=== PATIENT | male | born 1990 | race Caucasian/White ===

== ENCOUNTER 2016-12-13 17:37 | Emergency (ER) | payer OTHER ==
[~2016-12-13] VITALS: Ht 188 cm; Wt 142.9 kg
[~2016-12-13 17:37] MED LIST: CZR25 PO; PRLSR20 PO; PROP10TA7 PO; RANITAB33 PO; SUMA6KIT IM; ZLF/50 PO
[2016-12-13 17:40] VITALS: TEMP 37.2; Ht 188 cm; Wt 142.9 kg
[2016-12-13] MEDS ORDERED: MoRPHine SULFATE 10 MG/ML CARP/VIAL IV STA ×2 (18:01→18:03)
[2016-12-13] MEDS ORDERED: ONDANSETRON INJ 2 MG/ML 2 ML VIAL IV STA ×2 (18:01→20:45)
[2016-12-13] MEDS ORDERED: SODIUM CHLORIDE 0.9% 1000ML 1,000 ML IV STA (18:01)
[2016-12-13] MEDS: ONDANSETRON INJ 2 MG/ML 2 ML VIAL IV STA ×2 (18:03→18:33)
[2016-12-13] MEDS ORDERED: OPTIRAY 320 IV PRN (18:15)
[2016-12-13] MEDS ORDERED: SODIUM CHLORIDE 0.9% 1000ML 1,000 ML IV ONE ×2 (18:15→20:45)
[2016-12-13 18:31] LABS: BASO % 0.5 %; BASO ABS # 0.03 K/uL (0-0.2); COMPLETE YES; EOS % 3.3 %; HEMATOCRIT 41.6 % (42-52); IG% 0.2 %; LYMPH % 40.1 %; LYMPH ABS # 2.41 K/uL (1.2-3.4); MEAN CELL VOLUME 83.2 fL (80-100); MEAN CORPUSCULAR HEMOGLOBIN 29.6 pg (25-34); MEAN CORPUSCULAR HGB CONC 35.6 g/dl (32-36); MEAN PLATELET VOLUME 11.4 fL (7.4-10.4); MONO % 11.5 %; NEUT % 44.4 %; PLATELET COUNT 216 K/uL (130-400); WHITE BLOOD COUNT 6.01 K/uL (4.8-10.8)
[2016-12-13 19:07] LABS: ALB/GLOB RATIO 1.1 (0.9-2); ALKALINE PHOSPHATASE 94 U/L (45-117); ALT/SGPT 32 U/L (12-78); BLOOD UREA NITROGEN 10 mg/dl (7-18); BUN/CREATININE RATIO 11.4 (10-20); CALCIUM 8.9 mg/dl (8.5-10.1); CARBON DIOXIDE 21 mmol/L (21-32); CHLORIDE 108 mmol/L (98-107); CREATININE 0.84 mg/dl (0.60-1.40); GLUCOSE 105 mg/dl (70-99)
[2016-12-13 19:20] LABS: POTASSIUM 3.9 mmol/L (3.5-5.1); SODIUM 143 mmol/L (136-145)
[2016-12-13 19:25] LABS: AST/SGOT 16 U/L (15-37)
--- NOTE | 2016-12-13 20:45 | DIAGNOSTIC IMAGING REPORT ---
CT SCAN OF THE ABDOMEN AND PELVIS WITH IV CONTRAST CLINICAL HISTORY: Right lower quadrant abdominal pain. COMPARISON STUDY: Abdominal CT dated 06/26/2014. TECHNIQUE: Following the IV administration of 116 cc of Optiray 320, CT scan of the abdomen and pelvis is performed from the lung bases to the proximal femora. Images are reviewed in the axial, sagittal, and coronal planes. IV contrast was administered without complication. Automated dose control exposure was utilized. CT DOSE: 1859.17 mGy.cm FINDINGS: Lung bases: The heart is normal in size and without pericardial effusion. A 3 mm left lower lobe pulmonary nodule is seen on image #17. This is of doubtful significance in this age group. The lung bases are otherwise clear noting dependent atelectasis. There is a tiny hiatal hernia. Liver: The contrast-enhanced liver is enlarged, measuring 19.6 cm in length. The liver is otherwise normal in contour and attenuation. There is minimal central intrahepatic biliary ductal dilatation. The hepatic veins and portal veins are patent. Gallbladder: Surgically absent noting clips in the gallbladder fossa. Spleen: The spleen is enlarged, measuring 14.5 cm in length. Pancreas: Unremarkable. Adrenal glands: Unremarkable. Kidneys: The contrast enhanced kidneys are normal in size and without hydronephrosis. The kidneys enhance symmetrically. Abdominal vasculature: The abdominal aorta is normal in course and caliber. Bowel: The small bowel and colon are normal in course and caliber. The appendix is well-visualized and normal. Peritoneum: There is no intraperitoneal free air or abdominal ascites. There is a small fat-containing umbilical hernia. Lymphadenopathy: None. Pelvic viscera: The bladder, prostate, and seminal vesicles are normal as visualized. Skeletal structures: No lytic or blastic lesions are seen. A disc herniation is suspected at L4-L5. IMPRESSION: 1. There are no acute infectious or inflammatory findings in abdomen or pelvis. 2. Hepatosplenomegaly. 3. A disc herniation is suspected at L4-L5. Electronically signed by: Hima Maciel M.D. 12/13/2016 8:44 PM Dictated Date/Time: 12/13/2016 8:37 PM
[2016-12-13] MEDS ORDERED: ACETAMINOPHEN 500 MG TAB PO STA (21:39)
[2016-12-13 21:43] VITALS: BP 126/70
[2016-12-13 22:09] LABS: URINE APPEARANCE CLEAR (CLEAR); URINE BILIRUBIN NEG (NEG); URINE COLOR YELLOW; URINE NITRITE NEG (NEG); URINE SPECIFIC GRAVITY > 1.045 (1.000-1.030); UROBILINOGEN NEG (NEG); ZZUR CULT IF INDIC CLEAN CATCH NO
[2016-12-13 22:11] LABS: BENZODIAZEPINE, URINE NEG (NEG); COCAINE,URINE NEG (NEG); PHENCYCLIDINE, URINE NEG (NEG)
[2016-12-13 22:16] LABS: MANUAL MICROSCOPIC REQUIRED? NO; REVIEW REQ? NO
[2016-12-13 22:27] VITALS: PULSE 75; O2SAT 95
[2016-12-13] MEDS ORDERED: NORCO 5/325MG HOME PACK PO ONE (22:30)
[2016-12-13] MEDS ORDERED: ONDANSETRON HOME PACK 4MG OD TAB PO ONE (22:30)
--- NOTE | 2016-12-13 22:44 | EMERGENCY ROOM VISIT NOTE ---
History First contact with patient: 18:02 Chief Complaint: ABDOMINAL PAIN Stated Complaint: R SIDE PAIN Nursing Triage Summary: Patient ambulatory to triage, states "I had a really sharp pain in my right lower stomach and hip area this morning. It went away. I got bloated and developed achy pain. I am getting really bad pains behind my belly button and into my right lower side." Patient reports constipation for today; decreased appetite; nausea. History of Present Illness The patient is a 26 year old male who presents to the Emergency Room with complaints of right lower quadrant abdominal pain that began this morning when he got up from sleep. The patient states the pain has been intermittent and worsens when he presses in the area. The patient states that he ate lunch today and it made him feel bloated. He has been nauseated without vomiting. He has had some diarrhea, which is normal ever since he had his gallbladder removed. He rates his discomfort a 6/10. He has not had fever or chills at home. Review of Systems More than 10 systems were reviewed and otherwise negative with the exception of history of present illness. Past Medical/Surgical History Medical Problems: (1) Asthma (2) Chest pain (3) Hypertension (4) Hypertension Surgical Problems: (1) Hx of cholecystectomy Family History Cancer Diabetes mellitus Gallbladder disease Heart disease Hypertension Kidney disease Kidney stones Social History Smoking Status: Never Smoker Alcohol Use: occasionally Drug Use: none Marital Status: single Housing Status: lives with family Occupation Status: employed Current/Historical Medications Scheduled Losartan Potassium (Losartan Potassium), 25 MG PO DAILY Omeprazole (Prilosec), 20 MG PO DAILY Propranolol (Inderal), 10 MG PO QAM Sertraline HCl (Sertraline HCl), 50 MG PO DAILY Scheduled PRN Sumatriptan Succinate (Imitrex Statdose), 6 MG IM UD PRN for Migraine Allergies Coded Allergies: Ketorolac Tromethamine (Verified Allergy, Intermediate, RASH, NAUSEA, ) Amoxicillin (Verified Allergy, Mild, RASH, 12/13/16) Penicillins (Verified Allergy, Mild, AMOXICILLIN = RASH, 12/13/16) Hydrochlorothiazide (Unverified Allergy, Unknown, RASH, THROAT SWELLS, 12/13) Physical Exam Vital Signs Date Time Temp Pulse Resp B/P Pulse Ox O2 Delivery O2 Flow Rate FiO2 12/13/16 22:27 75 95 Room Air 12/13/16 21:43 62 18 126/70 95 Room Air 12/13/16 19:25 73 19 130/88 97 Room Air 12/13/16 17:40 37.2 73 18 158/99 97 Room Air Pain Rating (0-10): 2.0 Physical Exam VITALS: Vitals are noted on the nurse's note and reviewed by myself. Vital signs stable. GENERAL: Well-developed, well-nourished, white male, who is in no acute distress and resting comfortably. Patient is cooperative with the examination. HEAD: Normocephalic atraumatic. NECK: Supple without nuchal rigidity. No lymphadenopathy. No thyromegaly. Cervical spine is nontender. HEART: Regular rate and rhythm without murmurs gallops or rubs. LUNGS: Clear to auscultation bilaterally without wheezes, rales or rhonchi. No retractions or accessory muscle use. ABDOMEN: Positive normal bowel sounds x 4. Soft with mild right lower quadrant tenderness on palpation. No rebound or guarding. No CVA tenderness. MUSCULOSKELETAL: No muscle atrophy, erythema, or edema noted. Full range of motion without joint tenderness in all extremities. Medical Decision & Procedures ER Provider Diagnostic Interpretation: CT SCAN OF THE ABDOMEN AND PELVIS WITH IV CONTRAST CLINICAL HISTORY: Right lower quadrant abdominal pain. COMPARISON STUDY: Abdominal CT dated 06/26/2014. TECHNIQUE: Following the IV administration of 116 cc of Optiray 320, CT scan of the abdomen and pelvis is performed from the lung bases to the proximal femora. Images are reviewed in the axial, sagittal, and coronal planes. IV contrast was administered without complication. Automated dose control exposure was utilized. CT DOSE: 1859.17 mGy.cm FINDINGS: Lung bases: The heart is normal in size and without pericardial effusion. A 3 mm left lower lobe pulmonary nodule is seen on image #17. This is of doubtful significance in this age group. The lung bases are otherwise clear noting dependent atelectasis. There is a tiny hiatal hernia. Liver: The contrast-enhanced liver is enlarged, measuring 19.6 cm in length. The liver is otherwise normal in contour and attenuation. There is minimal central intrahepatic biliary ductal dilatation. The hepatic veins and portal veins are patent. Gallbladder: Surgically absent noting clips in the gallbladder fossa. Spleen: The spleen is enlarged, measuring 14.5 cm in length. Pancreas: Unremarkable. Adrenal glands: Unremarkable. Kidneys: The contrast enhanced kidneys are normal in size and without hydronephrosis. The kidneys enhance symmetrically. Abdominal vasculature: The abdominal aorta is normal in course and caliber. Bowel: The small bowel and colon are normal in course and caliber. The appendix is well-visualized and normal. Peritoneum: There is no intraperitoneal free air or abdominal ascites. There is a small fat-containing umbilical hernia. Lymphadenopathy: None. Pelvic viscera: The bladder, prostate, and seminal vesicles are normal as visualized. Skeletal structures: No lytic or blastic lesions are seen. A disc herniation is suspected at L4-L5. IMPRESSION: 1. There are no acute infectious or inflammatory findings in abdomen or pelvis. 2. Hepatosplenomegaly. 3. A disc herniation is suspected at L4-L5. Laboratory Results 12/13/16 18:22 Red Blood Count 5.00, Mean Corpuscular Volume 83.2, Mean Corpuscular Hemoglobin 29.6, Mean Corpuscular Hemoglobin Concent 35.6, Mean Platelet Volume 11.4, Neutrophils (%) (Auto) 44.4, Lymphocytes (%) (Auto) 40.1, Monocytes (%) (Auto) 11.5, Eosinophils (%) (Auto) 3.3, Basophils (%) (Auto) 0.5, Neutrophils # (Auto ) 2.67, Lymphocytes # (Auto) 2.41, Monocytes # (Auto) 0.69, Eosinophils # (Auto ) 0.20, Basophils # (Auto) 0.03 12/13/16 18:22 Test 12/13/16 18:22 12/13/16 21:30 White Blood Count 6.01 K/uL (4.8-10.8) Red Blood Count 5.00 M/uL (4.7-6.1) Hemoglobin 14.8 g/dL (14.0-18.0) Hematocrit 41.6 % (42-52) Mean Corpuscular Volume 83.2 fL (80-100) Mean Corpuscular Hemoglobin 29.6 pg (25-34) Mean Corpuscular Hemoglobin Concent 35.6 g/dl (32-36) Platelet Count 216 K/uL (130-400) Mean Platelet Volume 11.4 fL (7.4-10.4) Neutrophils (%) (Auto) 44.4 % Lymphocytes (%) (Auto) 40.1 % Monocytes (%) (Auto) 11.5 % Eosinophils (%) (Auto) 3.3 % Basophils (%) (Auto) 0.5 % Neutrophils # (Auto) 2.67 K/uL (1.4-6.5) Lymphocytes # (Auto) 2.41 K/uL (1.2-3.4) Monocytes # (Auto) 0.69 K/uL (0.11-0.59) Eosinophils # (Auto) 0.20 K/uL (0-0.5) Basophils # (Auto) 0.03 K/uL (0-0.2) RDW Standard Deviation 38.4 fL (36.4-46.3) RDW Coefficient of Variation 12.8 % (11.5-14.5) Immature Granulocyte % (Auto) 0.2 % Immature Granulocyte # (Auto) 0.01 K/uL (0.00-0.02) Anion Gap 14.0 mmol/L (3-11) Est Creatinine Clear Calc Drug Dose 202.5 ml/min Estimated GFR () 141.0 Estimated GFR (Non- 121.7 BUN/Creatinine Ratio 11.4 (10-20) Calcium Level 8.9 mg/dl (8.5-10.1) Total Bilirubin 0.4 mg/dl (0.2-1) Direct Bilirubin < 0.1 mg/dl (0-0.2) Aspartate Amino Transf (AST/SGOT) 16 U/L (15-37) Alanine Aminotransferase (ALT/SGPT) 32 U/L (12-78) Alkaline Phosphatase 94 U/L (45-117) Total Protein 7.4 gm/dl (6.4-8.2) Albumin 3.8 gm/dl (3.4-5.0) Globulin 3.6 gm/dl (2.5-4.0) Albumin/Globulin Ratio 1.1 (0.9-2) Lipase 217 U/L (73-393) Urine Color YELLOW Urine Appearance CLEAR (CLEAR) Urine pH 5.0 (4.5-7.5) Urine Specific [place] > 1.045 (1.000-1.030) Urine Protein NEG (NEG) Urine Glucose (UA) NEG (NEG) Urine Ketones NEG (NEG) Urine Occult Blood NEG (NEG) Urine Nitrite NEG (NEG) Urine Bilirubin NEG (NEG) Urine Urobilinogen NEG (NEG) Urine Leukocyte Esterase NEG (NEG) Urine Opiates Screen POS (NEG) Urine Methadone, Qualitative NEG (NEG) Urine Barbiturates NEG (NEG) Urine Phencyclidine (PCP) Level NEG (NEG) Ur Amphetamine/Methamphetamine NEG (NEG) MDMA (Ecstasy) Screen NEG (NEG) Urine Benzodiazepines Screen NEG (NEG) Urine Cocaine Metabolite NEG (NEG) Urine Marijuana (THC) NEG (NEG) Medications Administered Medications (Trade) Dose Ordered Sig/[place] Route Start Time Stop Time Status Last Admin Dose Admin Ondansetron HCl 4 mg 4 mg NOW STAT IV 12/13/16 18:03 12/13/16 18:04 DC 12/13/16 18:33 4 MG Sodium Chloride (Nss 1000ml) 1,000 ml @ 999 mls/hr Q1H1M STAT IV 12/13/16 18:01 12/13/16 19:01 DC 12/13/16 18:32 999 MLS/HR Morphine Sulfate (MoRPHine SULFATE INJ) 6 mg NOW STAT IV 12/13/16 18:01 12/13/16 18:05 DC 12/13/16 18:33 6 MG Ondansetron HCl 4 mg 4 mg NOW STAT IV 12/13/16 20:45 12/13/16 20:46 DC 12/13/16 20:49 4 MG Sodium Chloride (Nss 1000ml) 1,000 ml @ 999 mls/hr Q1H1M ONCE IV 12/13/16 20:45 12/13/16 21:45 DC 12/13/16 20:50 999 MLS/HR Acetaminophen (Tylenol Tab) 1,000 mg NOW STAT PO 12/13/16 21:39 12/13/16 21:40 DC 12/13/16 21:44 1,000 MG Acetaminophen/ Hydrocodone Bitart ([place] 5/325mg Home Pack) 1 homepack UD ONCE PO 12/13/16 22:30 12/13/16 22:31 DC 12/13/16 22:25 1 HOMEPACK Ondansetron HCl (ZOFRAN ODT 4MG Home Pack) 1 homepack UD ONCE PO 12/13/16 22:30 12/13/16 22:31 DC 12/13/16 22:24 1 HOMEPACK ED Course Physical exam and history were performed. Nursing notes and EMR were reviewed. Patient appears to have right lower quadrant abdominal pain for the past one day. He does have some right lower quadrant tenderness on palpation. IV access was established and labs were obtained. The patient was hydrated with normal saline. He was given IV morphine and IV Zofran for comfort. Because of his symptoms and exam CT scan was felt to be warranted. The patient's blood work is as above and was reviewed. He does not have a significantly elevated white blood cell count, anemia, bandemia, or gross electrolyte imbalance. Lipase and transaminases are nondiagnostic. CT scan does not show acute surgical process. Urine is without evidence of infection. Overall the patient had improvement of his symptoms after hydration, pain medication, and antiemetics. I suspect that his symptoms may be the result of a viral infection or possibly foodborne illness. I will give him a home pack of Vicodin and Zofran for his symptoms. The patient was asked to follow with his PCP this week for further care and management. He is otherwise invited back to the ER with any new, worsening, or concerning symptoms. The chart was completed utilizing [employer] Speech Voice Recognition Software. Grammatical errors, random word insertions, pronoun errors, and incomplete sentences are an occasional consequence of this system due to software limitations, ambient noise, and hardware issues. Any formal questions or concerns about the content, text, or information contained within the body of this dictation should be directly addressed to the provider for clarification. . Medical Decision Differential diagnosis: Etiologies such as appendicitis, diverticulitis, PUD, biliary pathology, UTI, pancreatitis, obstruction, mesenteric ischemia, aortic pathology, infections, inflammatory bowel disease, renal colic, as well as others were entertained. Impression Primary Impression: Abdominal pain Departure Information Dispostion Home / Self-Care Condition GOOD Forms HOME CARE DOCUMENTATION FORM, IMPORTANT VISIT INFORMATION Patient Instructions My [facility] Additional Instructions You were seen and evaluated today on an emergency basis only. This is not a substitute for, or an effort to provide, complete comprehensive medical care. It is not possible to recognize and treat all injuries or illnesses in a single emergency department visit. For this reason it is recommended that you followup with your primary care physician in the next 1-2 days for recheck of your condition. For baseline pain relief you may alternate ibuprofen and acetaminophen every 4 hours for pain control. Take 600 mg ibuprofen (Advil) and then 4 hours later take 1000 mg acetaminophen (Tylenol). Do not take more than 3000 mg acetaminophen in a single day. [place]mann (hydrocodone/acetaminophen) 5/325 mg (homepack) every 6 hours as needed for worsening breakthrough pain. Do not drink or drive on [place]. This medication will likely make you tired. Do not take [place] and Tylenol at the same time as both contain acetaminophen. Itmann may cause constipation. You may wish to take an [id number] stool softener like Colace if this occurs. Zofran 1 tablet every 6 hrs as needed for nausea. You are welcome to return to the emergency department anytime with new, worsening, or concerning symptoms.
[2016-12-16 12:15] LABS: COD UR NEGATIVE NG/ML (CUTOFF=50); HYDROCOD UR NEGATIVE NG/ML (CUTOFF=50); HYDROMOR UR NEGATIVE NG/ML (CUTOFF=50); MORPHINE UR 1950 NG/ML (CUTOFF=50); NORHYDROCODONE CONF UR NEGATIVE NG/ML (CUTOFF=50); OXYMORPH UR NEGATIVE NG/ML (CUTOFF=50)
== END 2016-12-13 22:28 | disposition home or self-care (01) ==
LOC: C.EDB 17:38
DX: R10.31 Right lower quadrant pain (principal); I10 Essential (primary) hypertension; J45.909 Unspecified asthma, uncomplicated; R11.0 Nausea; Z79.899 Other long term (current) drug therapy

== ENCOUNTER 2017-09-22 18:55 | Emergency (ER) | payer OTHER ==
[~2017-09-22] VITALS: Ht 188 cm; Wt 146.9 kg
[~2017-09-22 18:55] MED LIST changes: -PROP10TA7 PO; -RANITAB33 PO
[2017-09-22 19:01] VITALS: TEMP 37.1; Ht 188 cm; Wt 146.9 kg
--- NOTE | 2017-09-22 19:23 | EMERGENCY ROOM VISIT NOTE ---
History Report prepared by Molina: Wesley Ivey Under the Supervision of: Dr. David Mejia M.D. First contact with patient: 19:06 Chief Complaint: NAUSEA Stated Complaint: VERTIGO,NAUSEATED,ABD PAIN History of Present Illness The patient is a 27 year old male who presents to the Emergency Room with complaints of intermittent diarrhea beginning a few days ago. The patient states he experienced a head sickness a few weeks ago with a sorethroat. He reports his sickness has resolved, and now his throat only hurts when he swallows. The patient notes he was not on antibiotics for his sickness, and he has developed diarrhea. He states for the past few days he has been experiencing 10-15 episodes of yellow diarrhea daily. The patient reports he will occasionally get cramps in his abdomen. He notes two night ago he was dizzy , nauseated, and he vomited after dinner. The patient denies a history of smoking. Source of History: patient Onset: few days ago Position: other (global) Quality: other (10-15 episode of yellow diarrhea daily) Timing: intermittent Associated Symptoms: + nausea, + vomiting (after dinner two days ago) Note: Associated symptoms: abdominal cramping, sorethroat when swallowing, dizziness Denies: history of smoking Review of Systems See HPI for pertinent positives & negatives. A total of 10 systems reviewed and were otherwise negative. Past Medical & Surgical Medical Problems: (1) Asthma (2) Chest pain (3) Hypertension (4) Hypertension Surgical Problems: (1) Hx of cholecystectomy Family History Cancer Diabetes mellitus Gallbladder disease Heart disease Hypertension Kidney disease Kidney stones Social History Smoking Status: Never Smoker Alcohol Use: occasionally Drug Use: none Marital Status: single Housing Status: lives with family Occupation Status: employed Current/Historical Medications Scheduled Losartan Potassium (Losartan Potassium), 25 MG PO DAILY Omeprazole (Prilosec), 20 MG PO DAILY Ondasetron Odt (Zofran Odt), 4 MG SL Q6H Propranolol (Inderal), 10 MG PO QAM Sertraline HCl (Sertraline HCl), 100 MG PO DAILY Allergies Coded Allergies: Ketorolac Tromethamine (Verified Allergy, Intermediate, RASH, NAUSEA, ) Amoxicillin (Verified Allergy, Mild, RASH, 12/13/16) Penicillins (Verified Allergy, Mild, AMOXICILLIN = RASH, 12/13/16) Hydrochlorothiazide (Unverified Allergy, Unknown, RASH, THROAT SWELLS, 12/13) Physical Exam Vital Signs Date Time Temp Pulse Resp B/P (MAP) Pulse Ox O2 Delivery O2 Flow Rate FiO2 09/22/17 20:53 66 15 146/78 98 09/22/17 19:01 37.1 76 16 135/88 96 Room Air Physical Exam GENERAL: Patient is a healthy-appearing well-nourished 27 year old male. HEAD: Normocephalic atraumatic EYES: Ocular movements intact pupils equal and react to light OROPHARYNX mucous membranes are moist no exudates present no erythema or edema present NECK: Supple no nuchal rigidity CHEST: Good equal expansion LUNGS: Clear and equal to auscultation CARDIAC: Normal S1 and S2 ABDOMEN: Soft, no guarding, mild tenderness to the RUQ BACK: No CVA tenderness EXTREMITIES: No pain upon palpation normal muscle strength in all groups no clubbing cyanosis or edema NEURO: Patient is following commands and answering questions appropriately. Alert and oriented x3 Cranial Nerves 2-12 grossly intact Medical Decision & Procedures ER Provider Diagnostic Interpretation: Radiology results as stated below per my review and radiologist interpretation: ABDOMEN AND PELVIS CT WITH IV CONTRAST CT DOSE: 2140.83 mGy.cm HISTORY: Left lower quadrant abdominal pain. TECHNIQUE: Multiaxial CT images of the abdomen and pelvis were performed following the use of intravenous contrast. A dose lowering technique was utilized adhering to the principles of ALARA. COMPARISON STUDY: Abdomen and pelvis CT 12/13/2016. FINDINGS: Stable 2 mm nodule within the left lower lobe. The right lung base is clear. No pneumoperitoneum. No pneumatosis. No fractures within the visualized osseous structures. The liver, pancreas, adrenal glands, and kidneys are unremarkable. No hydronephrosis. No retroperitoneal lymphadenopathy. Cholecystectomy. The spleen remains enlarged measuring 14 cm in length. The bladder is unremarkable. No pelvic free fluid. Questionable thickening of the descending colon is likely due to underdistention. There is no pericolonic fat stranding at this time to suggest an acute process. This is similar to the prior study. No evidence for bowel obstruction. Normal appendix. IMPRESSION: 1. No significant change compared to the prior study. 2. No bowel wall thickening or obstruction. 3. Stable mild splenomegaly. Electronically signed by: Stevie Zheng M.D. 09/22/2017 8:09 PM Dictated Date/Time: 09/22/2017 8:00 PM Laboratory Results 09/22/17 19:25 Red Blood Count 5.02, Mean Corpuscular Volume 86.5, Mean Corpuscular Hemoglobin 30.1, Mean Corpuscular Hemoglobin Concent 34.8, Mean Platelet Volume 11.4, Neutrophils (%) (Auto) 52.8, Lymphocytes (%) (Auto) 32.5, Monocytes (%) (Auto) 12.3, Eosinophils (%) (Auto) 1.8, Basophils (%) (Auto) 0.4, Neutrophils # (Auto ) 2.88, Lymphocytes # (Auto) 1.77, Monocytes # (Auto) 0.67, Eosinophils # (Auto ) 0.10, Basophils # (Auto) 0.02 09/22/17 19:25 Test 09/22/17 19:25 09/22/17 19:35 09/22/17 19:41 White Blood Count 5.45 K/uL (4.8-10.8) Red Blood Count 5.02 M/uL (4.7-6.1) Hemoglobin 15.1 g/dL (14.0-18.0) Hematocrit 43.4 % (42-52) Mean Corpuscular Volume 86.5 fL (80-100) Mean Corpuscular Hemoglobin 30.1 pg (25-34) Mean Corpuscular Hemoglobin Concent 34.8 g/dl (32-36) Platelet Count 221 K/uL (130-400) Mean Platelet Volume 11.4 fL (7.4-10.4) Neutrophils (%) (Auto) 52.8 % Lymphocytes (%) (Auto) 32.5 % Monocytes (%) (Auto) 12.3 % Eosinophils (%) (Auto) 1.8 % Basophils (%) (Auto) 0.4 % Neutrophils # (Auto) 2.88 K/uL (1.4-6.5) Lymphocytes # (Auto) 1.77 K/uL (1.2-3.4) Monocytes # (Auto) 0.67 K/uL (0.11-0.59) Eosinophils # (Auto) 0.10 K/uL (0-0.5) Basophils # (Auto) 0.02 K/uL (0-0.2) RDW Standard Deviation 40.7 fL (36.4-46.3) RDW Coefficient of Variation 12.9 % (11.5-14.5) Immature Granulocyte % (Auto) 0.2 % Immature Granulocyte # (Auto) 0.01 K/uL (0.00-0.02) Est Creatinine Clear Calc Drug Dose 192.3 ml/min Estimated GFR () 136.8 Estimated GFR (Non- 118.0 BUN/Creatinine Ratio 11.8 (10-20) Calcium Level 8.3 mg/dl (8.5-10.1) Total Bilirubin 0.4 mg/dl (0.2-1) Direct Bilirubin < 0.1 mg/dl (0-0.2) Aspartate Amino Transf (AST/SGOT) 20 U/L (15-37) Alanine Aminotransferase (ALT/SGPT) 30 U/L (12-78) Alkaline Phosphatase 126 U/L (45-117) Total Protein 7.6 gm/dl (6.4-8.2) Albumin 3.9 gm/dl (3.4-5.0) Lipase 209 U/L (73-393) Monoscreen NEG (NEG) Bedside Hemoglobin 14.3 g/dl (14.0-18.0) Bedside Hematocrit 42 % (42-52) Bedside Sodium 143 mEq/L (135-144) Bedside Potassium 3.5 mEq/L (3.3-5.0) Bedside Chloride 107 mEq/L (101-112) Bedside Total CO2 24 mEq/l (24-31) Anion Gap 16.0 mmol/L (16-25) Bedside Blood Urea Nitrogen 10 mg/dl (7-18) Bedside Creatinine 0.8 mg/dl (0.6-1.3) Bedside Glucose (other) 91 mg/dl (70-99) Bedside Ionized Calcium ([place]) 1.21 mmol/l (1.12-1.32) Date/Time Source Procedure Growth Status 09/22/17 19:41 Stool C.difficile Toxin B Gene (PCR) - Final No C. difficile toxin B gene detected Complete Labs reviewed by ED physician. Medications Administered Medications (Trade) Dose Ordered Sig/Nolvia Route Start Time Stop Time Status Last Admin Dose Admin Ondansetron HCl (Zofran Inj) 4 mg NOW STAT IV 09/22/17 19:53 09/22/17 19:55 DC 09/22/17 20:00 4 MG Potassium Chloride (Lamar Ciel Elix) 40 meq NOW STAT PO 09/22/17 20:01 09/22/17 20:02 DC 09/22/17 20:18 40 MEQ Cholestyramine Resin (Questran Powder Light) 4 gm NOW STAT PO 09/22/17 20:14 09/22/17 20:16 DC 09/22/17 20:42 4 GM Ondansetron HCl (ZOFRAN ODT 4MG Home Pack) 1 homepack UD STAT PO 09/22/17 20:23 09/22/17 20:25 DC 09/22/17 20:42 1 HOMEPACK ED Course 190: Past medical records reviewed. The patient was evaluated in room B08. A complete history and physical examination was performed. 1952: Ordered Ondansetron HCl 4mg IV 2000: Ordered Potassium Chloride 40meq PO 2013: Ordered Cholestyramine Resin 4gm PO 2022: Ordered Ondansetron HCl 1 homepack PO 2030: Upon reexamination the patient is resting and feeling better. I discussed results and treatment plan with the patient. He verbalizes agreement and understanding. The patient is ready for discharge. Medical Decision Differential diagnosis: Etiologies such as appendicitis, diverticulitis, PUD, biliary pathology, UTI, pancreatitis, obstruction, mesenteric ischemia, aortic pathology, infections, inflammatory bowel disease, renal colic, as well as others were entertained. This is a 27-year-old male who presents emergency department complaining of left lower quadrant abdominal pain as well as diarrhea that has been ongoing for the past several weeks. The patient was given cholestyramine in the emergency department and his potassium was repleted. His CAT scan does not show any evidence of acute process. The patient was given Zofran. Repeat examination revealed improvement the patient's symptoms. The patient has normal CBC renal profile liver profile as well as normal lipase. Serial abdominal examinations were performed on the patient in the emergency department and at no time did the patient exhibited a surgical abdomen. In addition the patient wasn't provide a stool sample. He is negative for C. difficile and it was sent for further culture. I stressed the need for follow- up with patient's primary care physician especially if this is not resolving. Impression Primary Impression: Gastroenteritis Scribe Attestation The scribe's documentation has been prepared under my direction and personally reviewed by me in its entirety. I confirm that the note above accurately reflects all work, treatment, procedures, and medical decision making performed by me. Departure Information Dispostion Home / Self-Care Prescriptions Ondasetron Odt (ZOFRAN ODT) 4 Mg Tab 4 MG SL Q6H for Nausea, #6 TAB Prov: David Mejia MD 09/22/17 Referrals Amor Kapadia M.D. (PCP) Forms HOME CARE DOCUMENTATION FORM, IMPORTANT VISIT INFORMATION Patient Instructions ED Diet Vomiting Diarrhea, ED Gastroenteritis Report Pend, My [facility] Additional Instructions You have been examined and treated today on an emergency basis only. This is not a substitute for, or an effort to provide, complete comprehensive medical care. It is impossible to recognize and treat all injuries or illnesses in a single emergency department visit. It is therefore important that you follow up closely with Dr Kapadia. Call as soon as possible for an appointment. Thank you for your time and consideration. I look forward to speaking with you again soon. Please don't hesitate to call us if you have any questions.
[2017-09-22] MEDS ORDERED: ZLF/100 PO (19:28)
[2017-09-22] MEDS ORDERED: OMEP20CA9 PO (19:28)
[2017-09-22] MEDS ORDERED: OPTIRAY 320 IV PRN (19:30)
[2017-09-22] MEDS ORDERED: PROP10TA7 PO (19:38)
[2017-09-22 19:44] LABS: BASO % 0.4 %; BASO ABS # 0.02 K/uL (0-0.2); COMPLETE YES; EOS % 1.8 %; HEMATOCRIT 43.4 % (42-52); IG% 0.2 %; LYMPH % 32.5 %; LYMPH ABS # 1.77 K/uL (1.2-3.4); MEAN CELL VOLUME 86.5 fL (80-100); MEAN CORPUSCULAR HEMOGLOBIN 30.1 pg (25-34); MEAN CORPUSCULAR HGB CONC 34.8 g/dl (32-36); MEAN PLATELET VOLUME 11.4 fL (7.4-10.4); MONO % 12.3 %; NEUT % 52.8 %; PLATELET COUNT 221 K/uL (130-400); RED BLOOD COUNT 5.02 M/uL (4.7-6.1); WHITE BLOOD COUNT 5.45 K/uL (4.8-10.8)
[2017-09-22 19:47] LABS: ISTAT CREATININE 0.8 mg/dl (0.6-1.3); ISTAT HEMOGLOBIN 14.3 g/dl (14.0-18.0); ISTAT IONIZED CALCIUM 1.21 mmol/l (1.12-1.32)
[2017-09-22] MEDS ORDERED: ONDANSETRON INJ 2 MG/ML 2 ML VIAL IV STA (19:53)
[2017-09-22 19:56] LABS: ALT/SGPT 30 U/L (12-78); BLOOD UREA NITROGEN 11 mg/dl (7-18); BUN/CREATININE RATIO 11.8 (10-20); CALCIUM 8.3 mg/dl (8.5-10.1); CARBON DIOXIDE 25 mmol/L (21-32); CHLORIDE 109 mmol/L (98-107); CREATININE 0.89 mg/dl (0.60-1.40); GLUCOSE 87 mg/dl (70-99); POTASSIUM 3.4 mmol/L (3.5-5.1); SODIUM 139 mmol/L (136-145)
[2017-09-22 19:59] LABS: ALKALINE PHOSPHATASE 126 U/L (45-117); AST/SGOT 20 U/L (15-37)
[2017-09-22] MEDS ORDERED: POTASSIUM CHLORIDE 20 MEQ/15 ML UDC PO STA (20:01)
--- NOTE | 2017-09-22 20:10 | DIAGNOSTIC IMAGING REPORT ---
ABDOMEN AND PELVIS CT WITH IV CONTRAST CT DOSE: 2140.83 mGy.cm HISTORY: Left lower quadrant abdominal pain. TECHNIQUE: Multiaxial CT images of the abdomen and pelvis were performed following the use of intravenous contrast. A dose lowering technique was utilized adhering to the principles of ALARA. COMPARISON STUDY: Abdomen and pelvis CT 12/13/2016. FINDINGS: Stable 2 mm nodule within the left lower lobe. The right lung base is clear. No pneumoperitoneum. No pneumatosis. No fractures within the visualized osseous structures. The liver, pancreas, adrenal glands, and kidneys are unremarkable. No hydronephrosis. No retroperitoneal lymphadenopathy. Cholecystectomy. The spleen remains enlarged measuring 14 cm in length. The bladder is unremarkable. No pelvic free fluid. Questionable thickening of the descending colon is likely due to underdistention. There is no pericolonic fat stranding at this time to suggest an acute process. This is similar to the prior study. No evidence for bowel obstruction. Normal appendix. IMPRESSION: 1. No significant change compared to the prior study. 2. No bowel wall thickening or obstruction. 3. Stable mild splenomegaly. Electronically signed by: Stevie Zheng M.D. 09/22/2017 8:09 PM Dictated Date/Time: 09/22/2017 8:00 PM
[2017-09-22] MEDS ORDERED: CHOLESTYRAMINE LIGHT 4 GM PKT PO STA (20:14)
[2017-09-22] MEDS ORDERED: ONDA4TAB10 SL (20:23)
[2017-09-22] MEDS ORDERED: ONDANSETRON HOME PACK 4MG OD TAB PO STA (20:23)
[2017-09-22 20:53] VITALS: BP 146/78; PULSE 66; O2SAT 98
== END 2017-09-22 20:55 | disposition home or self-care (01) ==
LOC: C.EDB 18:56
DX: K52.9 Noninfective gastroenteritis and colitis, unspecified (principal); J45.909 Unspecified asthma, uncomplicated; I10 Essential (primary) hypertension; Z90.49 Acquired absence of other specified parts of digestive tract; Z83.3 Family history of diabetes mellitus; Z82.49 Family history of ischemic heart disease and other diseases of the circulatory system; Z84.1 Family history of disorders of kidney and ureter; Z79.899 Other long term (current) drug therapy

== ENCOUNTER 2020-06-25 18:46 | Inpatient (IN) ==
--- NOTE | 2020-06-25 19:45 | Emergency Department Note ---
Impression & Plan Depression with suicidal ideation ED Provider Note NAME: CHANDRA AMAYA AGE: 29 SEX: M ARRIVES VIA: Walk-In INFORMANT: Patient, ED PROVIDER(S): Smooth Hernandez MD CHIEF COMPLAINT: Suicidal ideation PLAN: Disposition: Admit MEDICAL DECISION MAKING: The patient is a 29-year-old gentleman who presents emergency department accompanied by his uncle with symptoms of worsening depression and now with suicidal ideation with plan to hang himself in the setting of having increasing conflict was with his surrounding his recent infidelity he was seen by an outpatient counselor and reports he was diagnosed with bipolar disorder. The patient reports his symptoms became severe today and he is agreeable with voluntary admission. He reports he has 2 children at home that are ages 2 and 4 years old. He denies any recent illness. On arrival the patient is melancholy appearing in no acute distress, afebrile with elevated blood pressure and otherwise stable vital signs. He endorses SI with plan for hanging. He denies any auditory hallucinations. Exam is otherwise unremarkable. WBC, H/H and platelets within normal limits. Chemistry without acidosis. Electrolytes and LFTs unremarkable. UA without evidence of infection. Drug screen positive for benzodiazepines. The patient was medically cleared. Of note the patient did have improvement in his blood pressure to normal range after receiving a nicotine patch given he does chew tobacco. Voluntary psychiatric admission pending. Referral made to and pending. Patient signed out to Dr. Santiago at change of shift. Triage Nursing notes reviewed and agree them. Prior medical records reviewed Vital Signs: reviewed and remarkable for no significant abnormalities Differential diagnosis: Mood disorder, infection, hypoglycemia, electrolyte abnormalities, cardiac sources, intracerebral event, toxicologic, trauma, neurologic, as well as other pathologies. ER treatment provided: See below. Laboratory studies: See below HPI: The patient is a 29-year-old gentleman who presents emergency department accompanied by his uncle with symptoms of worsening depression and now with suicidal ideation with plan to hang himself in the setting of having increasing conflict was with his surrounding his recent infidelity he was seen by an outpatient counselor and reports he was diagnosed with bipolar disorder. The patient reports his symptoms became severe today and he is agreeable with v oluntary admission. He reports he has 2 children at home that are ages 2 and 4 years old. He denies any recent illness. ROS: See above HPI for pertinent positives & negatives. A total of 10 systems reviewed and were otherwise negative. PAST MEDICAL HISTORY:See Below PAST SURGICAL HISTORY:See Below FAMILY HISTORY:See Below SOCIAL HISTORY:See Below HOME MEDICATIONS:See Below ALLERGIES:See Below VITALS:See Below PHYSICAL EXAMINATION: GENERAL: Awake, alert, well-appearing, in no distress HENT: Normocephalic, atraumatic. Oropharynx unremarkable. EYES: Normal conjunctiva. Sclera non-icteric. NECK: Supple. No nuchal rigidity. FROM. No JVD. RESPIRATORY: Clear to auscultation. CARDIAC: Regular rate, normal rhythm. Extremities warm and well perfused. Pulses equal. ABDOMEN: Soft, non-distended. No tenderness to palpation. No rebound or guarding . No masses. RECTAL: Deferred. MUSCULOSKELETAL: Chest examination reveals no tenderness. The back is symmetrical on inspection without obvious abnormality. There is no CVA tenderness to palpation. No joint edema. LOWER EXTREMITIES: Calves are equal size bilaterally and non-tender. No edema. No discoloration. NEURO: Normal sensorium. No sensory or motor deficits noted. SKIN: No rash or jaundice noted. PSYCH: Endorses suicidal ideation with plan for hanging. Denies auditory hallucinations. Reports depression. Smooth Hernandez MD Past Med/Surg History Medical History Chest pain Hypertension Low back pain Surgical History Hx of cholecystectomy Family History Other No significant family history Social History Smoking Status: Heavy tobacco smoker Tobacco Type: Smokeless Tobacco (Dip or Chew) Preferred Language: Cymro Communication Ability: Effective Light Rail Operator Required: No Beliefs That Will Affect Care: None Feels Safe at Home: Yes Allergies Allergies Allergy/AdvReac Type Severity Reaction Status Date / Time ketorolac Allergy Intermediate RASH, Verified 06/25/20 19:05 NAUSEA amoxicillin Allergy Mild RASH Verified 06/25/20 19:05 Penicillins Allergy Mild AMOXICILLIN Verified 06/25/20 19:05 = RASH hydrochlorothiazide Allergy Unknown RASH, Verified 06/25/20 19:05 THROAT SWELLS Home Meds Home Medications Medication Instructions Recorded Confirmed cyclobenzaprine 10 mg PO TID PRN 07/30/18 06/25/20 gabapentin 300 mg PO TID PRN 07/30/18 06/25/20 losartan 25 mg PO DAILY 07/30/18 06/25/20 omeprazole 20 mg PO DAILY 07/30/18 06/25/20 propranolol 10 mg PO DAILY 07/30/18 06/25/20 sertraline 100 mg PO DAILY 07/30/18 06/25/20 lorazepam 0.5 mg PO BID PRN 06/25/20 06/25/20 Results & Data (ED) Vital Signs Vital Signs - 24 hr 06/25/20 18:51 06/25/20 20:46 06/25/20 22:30 Temperature 36.9 C Temperature Source Oral Pulse Rate 72 Pulse Rate [Right Finger] 88 82 Respiratory Rate 20 21 18 Respiratory Effort / Characteristics Non-Labored Non-Labored Spontaneous Respiratory Depth Normal Normal Respiratory Pattern Regular Blood Pressure 196/116 H Blood Pressure [Right Arm] 187/109 H 127/86 Blood Pressure Mean 142 Blood Pressure Mean [Right Arm] 135 99 Blood Pressure Position [Right Arm] Lying Lying Pulse Oximetry 96 98 97 Oxygen Delivery Method Room Air Room Air Room Air Sepsis Recent Fever Within 48 Hours No Sepsis New/Unexplained Change in Mental Status N/A Sepsis Action Taken by Nursing No Action Required Laboratory Data Attestation: I reviewed the patient's lab results. Result diagrams: 06/25/20 19:46 06/25/20 19:46 Lab Results 06/25/20 06/25/20 06/25/20 Range/Units 19:46 19:46 19:46 WBC 7.00 (4.8-10.8) K/uL RBC 5.19 (4.7-6.1) M/uL Hgb 15.5 (14.0-18.0) g/dL Hct 44.3 (42-52) % MCV 85.4 (80-100) fL MCH 29.9 (25-34) pg MCHC 35.0 (32-36) g/dL RDW Std Deviation 38.3 (36.4-46.3) fL RDW Coeff of Maggie 12.4 (11.5-14.5) % Plt Count 242 (130-400) K/uL MPV 12.0 H (7.4-10.4) fL Immature Gran % (Auto) 0.1 % Neut % (Auto) 63.5 % Lymph % (Auto) 28.1 % [place] % (Auto) 7.4 % Eos % (Auto) 0.6 % Baso % (Auto) 0.3 % Neut # (Auto) 4.44 (1.4-6.5) K/uL Lymph # (Auto) 1.97 (1.2-3.4) K/uL [place] # (Auto) 0.52 (0.11-0.59) K/uL Eos # (Auto) 0.04 (0-0.5) K/uL Baso # (Auto) 0.02 (0-0.2) K/uL Immature Gran # (Auto) 0.01 (0.00-0.02) K/uL Sodium 142 (136-145) mmol/L Potassium 3.1 L (3.5-5.1) mmol/L Chloride 110 H (98-107) mmol/L Carbon Dioxide 23 (21-32) mmol/L Anion Gap 9.0 (3-11) BUN 7 (7-18) mg/dl Creatinine 0.95 (0.6-1.4) mg/dl Est Cr Clr Drug Dosing 175.1 ml/min Est GFR ( Amer) 125.8 Est GFR (Non-Af Amer) 108.5 BUN/Creatinine Ratio 7.6 L (10-20) Glucose 107 H (70-99) mg/dl Calcium 8.8 (8.5-10.1) mg/dl Total Bilirubin 0.6 (0.2-1) mg/dl AST 17 (15-37) U/L ALT 39 (12-78) U/L Alkaline Phosphatase 73 (45-117) U/L Total Protein 7.9 (6.4-8.2) gm/dl Albumin 4.1 (3.4-5.0) gm/dl Globulin 3.8 (2.5-4.0) gm/dl Albumin/Globulin Ratio 1.1 (0.9-2) TSH 0.848 (0.300-4.500) uIu/ml Urine Color Urine Appearance (Clear) Urine pH (4.5-7.5) Ur Specific [place] (1.000-1.030) Urine Protein (Negative) Urine Glucose (UA) (Negative) Urine Ketones (Negative) Urine Blood (Negative) Urine Nitrite (Negative) Urine Bilirubin (Negative) Urine Urobilinogen (Negative) Ur Leukocyte Esterase (Negative) Urine WBC (Auto) (0-5) /hpf Urine RBC (Auto) (0-4) /hpf U Hyaline Cast (Auto) (0-5) /lpf U Epithel Cells (Auto) (0-5) /lpf Urine Bacteria (Auto) (Negative) Salicylates < 1.7 L (2.8-20) mg/dl Urine Opiates Screen (Neg) Ur Methadone, Qual (Neg) Acetaminophen < 2 L (10-30) ug/ml Urine Barbiturates (Neg) Ur Phencyclidine (PCP) (Neg) U Amphetamin/Meth Scrn (Neg) MDMA (Ecstasy) Screen (Neg) U Benzodiazepines Scrn (Neg) Ur Cocaine Metabolite (Neg) U Marijuana (THC) Screen (Neg) Ethyl Alcohol mg/dL (0-3) mg/dl 06/25/20 06/25/20 06/25/20 Range/Units 19:46 20:20 20:20 WBC (4.8-10.8) K/uL RBC (4.7-6.1) M/uL Hgb (14.0-18.0) g/dL Hct (42-52) % MCV (80-100) fL MCH (25-34) pg MCHC (32-36) g/dL RDW Std Deviation (36.4-46.3) fL RDW Coeff of Maggie (11.5-14.5) % Plt Count (130-400) K/uL MPV (7.4-10.4) fL Immature Gran % (Auto) % Neut % (Auto) % Lymph % (Auto) % [place] % (Auto) % Eos % (Auto) % Baso % (Auto) % Neut # (Auto) (1.4-6.5) K/uL Lymph # (Auto) (1.2-3.4) K/uL [place] # (Auto) (0.11-0.59) K/uL Eos # (Auto) (0-0.5) K/uL Baso # (Auto) (0-0.2) K/uL Immature Gran # (Auto) (0.00-0.02) K/uL Sodium (136-145) mmol/L Potassium (3.5-5.1) mmol/L Chloride (98-107) mmol/L Carbon Dioxide (21-32) mmol/L Anion Gap (3-11) BUN (7-18) mg/dl Creatinine (0.6-1.4) mg/dl Est Cr Clr Drug Dosing ml/min Est GFR ( Amer) Est GFR (Non-Af Amer) BUN/Creatinine Ratio (10-20) Glucose (70-99) mg/dl Calcium (8.5-10.1) mg/dl Total Bilirubin (0.2-1) mg/dl AST (15-37) U/L ALT (12-78) U/L Alkaline Phosphatase (45-117) U/L Total Protein (6.4-8.2) gm/dl Albumin (3.4-5.0) gm/dl Globulin (2.5-4.0) gm/dl Albumin/Globulin Ratio (0.9-2) TSH (0.300-4.500) uIu/ml Urine Color Dark Yellow Urine Appearance Clear (Clear) Urine pH 5.5 (4.5-7.5) Ur Specific [place] 1.031 H (1.000-1.030) Urine Protein Trace H (Negative) Urine Glucose (UA) Negative (Negative) Urine Ketones Trace H (Negative) Urine Blood Negative (Negative) Urine Nitrite Negative (Negative) Urine Bilirubin Negative (Negative) Urine Urobilinogen Negative (Negative) Ur Leukocyte Esterase Negative (Negative) Urine WBC (Auto) 1-5 (0-5) /hpf Urine RBC (Auto) 0-4 (0-4) /hpf U Hyaline Cast (Auto) 10-30 H (0-5) /lpf U Epithel Cells (Auto) 10-20 H (0-5) /lpf Urine Bacteria (Auto) Negative (Negative) Salicylates (2.8-20) mg/dl Urine Opiates Screen Neg (Neg) Ur Methadone, Qual Neg (Neg) Acetaminophen (10-30) ug/ml Urine Barbiturates Neg (Neg) Ur Phencyclidine (PCP) Neg (Neg) U Amphetamin/Meth Scrn Neg (Neg) MDMA (Ecstasy) Screen Neg (Neg) U Benzodiazepines Scrn Pos H (Neg) Ur Cocaine Metabolite Neg (Neg) U Marijuana (THC) Screen Neg (Neg) Ethyl Alcohol mg/dL < 3.0 (0-3) mg/dl Administered Medications Discontinued Medications Hydroxyzine HCl (Hydroxyzine Hcl 25 Mg Tab) Confirm Administered Dose 50 mg .ROUTE .STK-MED ONE Stop: 06/26/20 01:40 Last Admin: 06/26/20 01:41 Dose: 50 mg Documented by: [id number] Nicotine (Nicotine 21 Mg/24 Hr Tdsy) Confirm Administered Dose 21 mg TD .STK-MED ONE Stop: 06/25/20 21:38 Last Admin: 06/25/20 21:47 Dose: 21 mg Documented by: [id number] Blood Pressure Blood Pressure Findings: Elevated blood pressure Blood Pressure Disposition: elevated BP felt to be situational Discharge Plan Visit Data Chief Complaint: Mental Health Evaluation Stated Complaint: MENTAL HEALTH EVAL ED Provider: Bruce Santiago Discharge Problem: Depression with suicidal ideation Patient Disposition: Admitted As Inpatient Discharge Instructions Interventions: ED Discharge Assessment Last Done: 06/26/20 00:25
[2020-06-25 20:01] LABS: Basophils # (auto) 0.02 K/uL (0-0.2); Basophils % (auto) 0.3 %; Eosinophils # (auto) 0.04 K/uL (0-0.5); Eosinophils % (auto) 0.6 %; Hematocrit (blood only) 44.3 % (42-52); Hemoglobin 15.5 g/dL (14.0-18.0); Immature Granulocytes # (auto) 0.01 K/uL (0.00-0.02); Immature Granulocytes % (auto) 0.1 %; Lymphocytes # (auto) 1.97 K/uL (1.2-3.4); Lymphocytes % (auto) 28.1 %; Mean Corpuscular Hemoglobin 29.9 pg (25-34); Mean Corpuscular Volume 85.4 fL (80-100); Monocytes # (auto) 0.52 K/uL (0.11-0.59); Monocytes % (auto) 7.4 %; Neutrophils # (auto) 4.44 K/uL (1.4-6.5); Neutrophils % (auto) 63.5 %; Platelet Count 242 K/uL (130-400); RDW Coefficient of Variation 12.4 % (11.5-14.5); RDW Standard Deviation 38.3 fL (36.4-46.3); Red Blood Count 5.19 M/uL (4.7-6.1)
[2020-06-25 20:24] LABS: Albumin Level 4.1 gm/dl (3.4-5.0); BUN Creatinine Ratio 7.6 (10-20); Calcium 8.8 mg/dl (8.5-10.1); Creatinine Clr Calc Pharmacy 175.1 ml/min; Est GFR (African American) 125.8; Est GFR (Non-African American) 108.5; Potassium 3.1 mmol/L (3.5-5.1)
[2020-06-25 20:33] LABS: Acetaminophen < 2 ug/ml (10-30)
[2020-06-25 20:33] LABS: Appearance Urine Clear (Clear); Bacteria Urine Automated Negative (Negative); Blood Urine Negative (Negative); Color Urine Dark Yellow; Glucose Urine UA Negative (Negative); Ketones Urine Trace (Negative); Leukocyte Esterase Urine Negative (Negative); Nitrite Urine Negative (Negative); Protein Urine Trace (Negative); RBC Urine Automated 0-4 /hpf (0-4); Specific Gravity Urine 1.031 (1.000-1.030); Urobilinogen Urine Negative (Negative); pH Urine 5.5 (4.5-7.5)
[2020-06-25 20:34] LABS: Salicylate < 1.7 mg/dl (2.8-20)
[2020-06-25 20:35] LABS: Albumin Globulin Ratio 1.1 (0.9-2); Bilirubin,Total 0.6 mg/dl (0.2-1); Globulin 3.8 gm/dl (2.5-4.0); Thyroid Stimulating Hormone 0.848 uIu/ml (0.300-4.500); Total Protein 7.9 gm/dl (6.4-8.2)
[2020-06-25 20:41] LABS: Bilirubin Urine Negative (Negative); Ictotest Urine Negative (Negative)
[2020-06-25 20:49] LABS: Amphetamines+Metham, Urine Neg (Neg); Barbiturates, Urine Neg (Neg); Benzodiazepine, Urine Pos (Neg); Cocaine, Urine Neg (Neg); MDMA (Ecstacy), Urine Neg (Neg); Methadone, Urine Neg (Neg); Opiate, Urine Neg (Neg); Phencyclidine, Urine Neg (Neg)
[2020-06-25] MEDS ORDERED: NICOTINE 21 MG/24 HR TDSY TD ONE (21:37)
--- NOTE | 2020-06-26 00:05 | Emergency Department Note ---
ED Visit Note ED Physician Sign Out Note: 29 yr old male with presumed Bipolar disorder arrives following suicidal statements with plan to hang himself. He is here on voluntary basis. Evaluated and medically cleared by Dr Hernandez and signed out to me pending placement. Patient was accepted to [address] [place] [address] and taken there on voluntary basis. Bruce Santiaog MD
[2020-06-26] MEDS ORDERED: ACETAMINOPHEN 325 MG TAB PO PRN (01:29)
[2020-06-26] MEDS ORDERED: SODIUM CHLORIDE 0.65% NA SOLN 45 ML (OCEAN) PRN (01:29)
[2020-06-26] MEDS ORDERED: BISMUTH SUBSALICYLATE PER ML OMNICELL CHARGE PO PRN (01:29)
[2020-06-26] MEDS ORDERED: MAGNESIUM HYDROXIDE SUSP 30 ML UDC PO PRN (01:29)
[2020-06-26] MEDS ORDERED: ALUMINUM/MAGNESIUM SUSP 30 ML UDC PO PRN (01:29)
[2020-06-26] MEDS ORDERED: CYCLOBENZAPRINE HCL 10 MG TAB PO PRN (01:31)
[2020-06-26] MEDS ORDERED: GABAPENTIN 300 MG CAP PO PRN (01:32)
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
[2020-06-26] MEDS ORDERED: NICOTINE 21 MG/24 HR TDSY TD SCH (09:00)
[2020-06-26] MEDS: LOSARTAN POTASSIUM 25 MG TAB PO SCH (09:07)
[2020-06-26] MEDS: SERTRALINE HCL 50 MG TABLET PO SCH (09:08)
[2020-06-26] MEDS: PROPRANOLOL HCL 10 MG TAB PO SCH (09:08)
[2020-06-26] MEDS: NICOTINE 21 MG/24 HR TDSY TD SCH (09:08)
[2020-06-26] MEDS: NICOTINE POLACRILEX 2 MG GUM MT PRN (13:00)
[2020-06-26] MEDS: DIVALPROEX EXTENDED RELEASE 500 MG TAB PO SCH (20:57)
[2020-06-27] MEDS: LOSARTAN POTASSIUM 25 MG TAB PO SCH (08:15)
[2020-06-27] MEDS: PROPRANOLOL HCL 10 MG TAB PO SCH (08:15)
[2020-06-27] MEDS: NICOTINE 21 MG/24 HR TDSY TD SCH (08:16)
[2020-06-27] MEDS: SERTRALINE HCL 50 MG TABLET PO SCH (08:17)
[2020-06-27] MEDS ORDERED: risperiDONE 0.5 MG TABLET PO STA (10:38)
[2020-06-27] MEDS: lamoTRIgine 25 MG TAB PO SCH (11:27)
--- NOTE | 2020-06-27 12:09 | Psychiatric Progress Note ---
Date of Service June 27, 2020 Impression / Recommendations Impression 29-year-old male with a history of depression treated by his PCP with sertraline for about 2 years, diagnosed with PTSD by his previous therapist (although trauma was unclear and patient himself denies all PTSD symptoms), who presented for voluntary treatment after telling his family about his suicidal thoughts with a plan to hang himself in the context of marital discord as a result of infidelity on his part. He states he wants to get help in hopes that his will consider reconciling with him, and believes he has bipolar disorder after meeting with a new therapist last week, although does not meet criteria for manic episodes. It is possible he has bipolar 2, PTSD is also on the differential as well as IED substance-induced mood disorder. It would be helpful to get collateral information from his family members to help clarify the diagnosis. He had started to set up outpatient treatment, and we will need to assist him with completing his intake for psychiatric care and coordinating care with his new therapist. Inpatient treatment is medically necessary due to the severity of symptoms and risk for suicide if discharged prematurely. 06/27/20 update: Subsequent to further observation it is felt that the patient may be experiencing an atypical bipolar pattern with rapid mood cycling. He reports that he may be in a "wonderful mood" for several hours and then, for no discernible reason, he may become extremely angry or sad. He notes that on some occasions a person may say something to him that he thinks is funny when he is in a good mood, and if someone says the exact same thing to him when he is in a bad mood he may fly into a rage. Also, the patient reports that he has a longstanding history of difficulty regulating his mood. His dose of sertraline has been titrated on an outpatient basis 250 mg a day. Depakote 500 mg at bedtime was started in the hospital, the patient reports that he does feel that Depakote, in combination with hydroxyzine, helped him sleep somewhat better last night. However, he notes that he does not feel that his condition is improving and, if anything, he says that he feels more anxious and distressed today than he had previously. The patient may benefit from the addition of a low-dose of an atypical antipsychotic/mood stabilizer such as risperidone. We also spoke with the patient about the possibility of adding lamotrigine. The patient was receptive. The patient remains psychiatrically symptomatic to the degree that inpatient psychiatric hospitalization remains the least intensive level of care consistent with his needs. (1) Depression with suicidal ideation: 06/26 - Continue voluntary inpatient treatment. -Differential diagnosis includes major depressive disorder, bipolar disorder ty pe II, intermittent explosive disorder, PTSD, and substance-induced mood disorder. He states 1 of his primary concerns are his longstanding and frequent anger outbursts and irritability, and also reports unstable mood with frequent "moodiness," so we discussed a trial of a mood stabilizer, namely Depakote, to target the symptoms. We reviewed the risks, benefits, alternatives (monotherapy with an SSRI, another mood stabilizer or an atypical antipsychotic), and side effects, including the risk of hepatotoxicity, weight gain, the need to monitor blood levels and LFTs, sedation, GI effects, and blood disorders, and that this is off label treatment. Reviewed his admission labs, and the importance of not drinking on this medication. Start Depakote ER 500 mg at bedtime, can check a trough level in 5 days, and titrate as needed. -Continue sertraline 150mg which was just increased about 1 week ago. -Coordinate with outpatient therapist, Alanna Torres, and [facility] where [place] has been referred for psychiatric care. -Provide education about his diagnosis and the recommended treatment. Attend groups and therapy, work on healthy coping skills and discharge safety plan. -Explore his supports, and offer family meeting (with brother or uncle? ?) 06/27 -The patient technically does not meet criteria for bipolar disorder type II and his symptom onset exceeds that which may be fully explained by a diagnosis of major depressive disorder. He does does have symptoms consistent with intermittent explosive disorder, and substance induced mood disorder cannot be fully eliminatedalthough many of the patient's symptoms seem to have occurred independent of the use of any mood altering chemical substance. -After discussing the patient's condition further with the patient, the following decisions were made regarding treatment: We will not further titrate sertraline at this point because it is possible that it may be activating. Although it appears that his dose of sertraline was increased on an outpatient basis because of the emergence of worsening symptoms, the patient's report is that he is not feeling better and, in fact, has recently felt worse. Depakote may be helpful to the patient, and he notes that it did help him sleep last night, but he feels that, if anything, his mood cycling has worsened today. Accordingly, he has been offered a trial of risperidone 0.5 mg as a stat dose, and if effective the plan will be to continue risperidone 0.5 mg twice a day and titrate as indicated, primarily as a mood stabilizer but also to assist the patient with his anxious distress. I am also adding lamotrigine 25 mg daily, and explained that this would have to be titrated slowly. 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 Material risks and anticipated benefits of both risperidone and lamotrigine were reviewed with the patient. The patient was advised that adverse effects of risperidone can include, but are not limited to, metabolic syndrome, and the details of metabolic syndrome were reviewed with the patient. In addition, potential adverse effects of lamotrigine were reviewed and these included, but were not limited to, Walker- Celso syndrome. The patient agreed that he would monitor his body for the emergence of a rash, and would probably report the rash and stop the lamotrigine pending input from a physician or other licensed prescriber. -In individual, group, and recreational therapies the patient's tendency to absolve himself of any responsibility for his behaviors by simply saying "I cannot help it" should be challenged. For example, he can "help" by not drinking alcohol given that it clearly reduces his impulse control. And he can engage in techniques that allow him to self soothe before he engages in inappropriate or harmful behaviors. (2) Alcohol abuse: 06/26 - Brief intervention was offered and accepted. Intervention was greater than 5 min in length. Brief interventions include: 1. Assess Readiness to Quit, 2. Advise: Help Patient to Reduce or Abstain from Alcohol, 3. Agree: Set Specific, Feasible Goals, 4. Assist: Anticipate barriers, Problem-Solving Solutions. Social work to 5. Arrange: Referrals to appropriate treatment. Summary of intervention: The patient is in precontemplation stage with regards to transtheoretical model of change. The patient is advised to decrease alcohol consumption due to depressant effects and risk of interactions with prescription medications. The patient agreed to abstain for now, and will be provided with recovery materials to continue to education self on how to cope with their condition without drinking. -Patient reports last drink was 2 or 3 weeks ago, and denies a history of withdrawal, so not at risk for withdrawal. Provide ongoing education and support regarding risks of ongoing alcohol abuse and recommendations for abstinence. -Recovery protocol. -Discontinue benzodiazepines and avoid prescription of medications that are addictive or abusable given risk of misuse/negative outcomes. 06/27 -The patient was reminded that use of alcohol and other nonprescribed drugs are not safe during the treatment of depression and bipolar disorder. He was also reminded that alcohol reduce his impulsivity and is likely to be contributing to his difficulty in self-regulating. (3) Nicotine dependence: 06/26 -offer nicotine patch and gum as needed for cravings, provide nicotine cessation education, and arrange follow-up with PCP. (4) Hypertension: 06/26 - Continue home doses of losartan and propranolol. Follow up with PCP. (5) Low back pain: 06/26 - Continue home doses of cyclobenzaprine and gabapentin prn - confirm with records from PCP. Would recommend avoiding ongoing gabapentin use due to abuse potential. (6) Obesity: 06/26 -encouraged healthy diet, regular exercise, and weight loss, as this would help with mood symptoms as well as hypertension and back pain. (7) Sleep apnea with use of continuous positive airway pressure (CPAP): 06/26 -patient supposed to use CPAP, but declining here. Continue to encourage and provide education, suboptimal sleep will worsen depressive symptoms and could negatively impact his multiple medical problems as well. 06/27 -The patient was reminded that sleep deprivation and poor quality sleep can contribute to mood irritability and emotional lability. -We are also considering the fact that he suffers from sleep apnea when prescribing medications. Given his size, it may be that he will require a fairly large dose of Depakote in order to achieve a therapeutic level. An option would be to give his dosage of Depakote entirely at bedtime, but this may result in excess sedation at night. 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 My thoughts are racing. Depressed!" Review of Systems Sleep Information Total Hours of Sleep: 5.5 Sleep Comments: pt given vistaril per rn. pt on q-15 minute checks Meal Information Percent Meal Consumed - Breakfast: 100 Percent Meal Consumed - Lunch: 100 Percent Meal Consumed - Dinner: 100 Subjective Subjective Patient was seen & assessed and interval progress reviewed with treatment team. I met individually with the patient in order to assess his current mental st atus, evaluate his response to treatment, coordinate any changes in his treatment plan with the patient; and address issues, questions and concerns that may arise. The patient was visibly anxious when he entered the room, and he tells me that his anxiety is "worse" today than it had been yesterday. He says that "1 million" thoughts and concerns are racing through his head. His mood is "depressed and extremely anxious," and many of these thoughts have to do with his regret regarding the way he has been treating his . He explains that during their entire marriage he has repeatedly verbalized hostile, angry, and insulting thoughts directed towards his , and, understandably, his behavior has resulted in his 's alienation. The patient immediately resolves himself of any responsibility by saying, "I just cannot help it." When asked to explain how it could be that he is not able to "help" himself from saying hurtful things to his , he says, "I just get so irritated and my mood jumps back and forth, and before I know what I have said something that I should not say." He indicates that the tendency to have emotional lability has been present for much of his life, but he feels that it has worsened fairly precipitously since getting . The patient also notes that he has been unfaithful to his and what is supposed to be a monogamous relationship. More specifically, he has a number of woman with whom he exchanges sexually explicit texts, and he also has recently had an person sex with another woman. The patient's is aware of his infidelities. When I asked him how she became aware, he says, "she reads my texts on my cell phone." I asked him if she knew his password, and he said, "oh, I do not have a password. She just picks up the phone and looks." Interestingly, this is happened a number of times, and the patient has not stopped the behavior, nor has he password protected his phone. When I asked him if there might be some reason why he would want his to discover his infidelities, he looked at me blankly, as if that was not a reasonable question, and emphatically said "no." As he had with his report of his saying insulting, hurtful things to his , he also claimed that he had no ability to stop himself from being unfaithful to him. He notes that this is a pattern with him that began shortly after puberty when he started having girlfriends. He reported that he always was unfaithful to any girlfriend that he had --and again finished his report by saying, "I cannot help it." He does not seem amenable to having anyone suggest to him that, in fact, he can help it and that simply saying "I cannot help it" resolves him of any responsibility for changing. We also talked about the fact that emotional lability and rapid mood changes can make it harder to control once behavior, but not, as described by the patient, impossible. During the encounter, the patient's anxiety heightened to the degree that he was tremulous. He also started crying, and he attributed the tears to his level of emotional distress. The patient notes that his goal is to reunite with his , but he recognizes that this will be a slow process and, in fact, she may be so angry at him at this point that she is unwilling to reconcile. He acknowledges that he had had thoughts of hanging himself prior to admission. The thoughts frightened him and he sought help. He notes that he is experiencing any suicidal intent in the hospital, and says that he is nicolás for safety while able to get help. However, he believes that he is not sure that he could handle the stress of returning to the community at the present time, in his present state of mind. Physical Exam Psychiatric Orientation: alert and oriented x 3 Apperance: appropriately dressed, appropriately groomed and appeared stated age Eye Contact: + poor eye contact Motor Behavior: + tremor Speech: normal rate/rhythm/volume of speech Affect: + depressed affect, + tearful affect and + labile affect Mood: + depressed mood, + anxious mood and + irritable mood Thought Process: goal directed thought process Thought Content: reality based without delusions Suicidal Thoughts: denies suicidal thoughts Says that he does not feel that he can reliably contract for safety outside of the hospital at this point. Homicidal Thoughts: denies homicidal thoughts Hallucinations: no auditory hallucinations, no visual hallucinations and no tactile hallucinations Cognition: recent memory grossly intact and remote memory grossly intact; + attention not intact Estimated Intelligence: average estimated intelligence Insight: + poor insight However, the patient recognizes that many of his behaviors and experiences may be mitigated by symptoms of a mental illness, and he is eager to actively avail himself of psychiatric treatment. Judgement: + limited judgement Vital Signs (Past 24 Hours) Last Vital Signs Temp 36.4 C L 06/27/20 06:30 Pulse 72 06/27/20 06:31 Resp 16 06/27/20 06:30 BP 141/71 H 06/27/20 06:31 Pulse Ox 95 06/26/20 01:47 Results & Data ([facility] [email or web address] Current Inpatient Medications Current Inpatient Medications: Current Inpatient Medications Acetaminophen (Acetaminophen 325 Mg Tab) 650 mg PO Q4H PRN PRN Reason: Headache or Minor Fever Stop: 07/26/20 01:28 Al Hydrox/Mg Hydrox/Simethicone (Aluminum/Magnesium Susp 30 Ml Udc) 30 ml PO Q4H PRN PRN Reason: GI Upset Stop: 07/26/20 01:28 Bismuth Subsalicylate (Bismuth Subsalicylate Per Ml Omnicell Charge) 15 ml PO PRN PRN PRN Reason: Loose Stool Stop: 07/26/20 01:28 Cyclobenzaprine HCl (Cyclobenzaprine Hcl 10 Mg Tab) 10 mg PO TID PRN PRN Reason: Muscle Spasm Stop: 07/26/20 08:59 Divalproex Sodium (Divalproex Extended Release 500 Mg Tab) 500 mg PO HS ELIUD Stop: 07/26/20 21:59 Last Admin: 06/26/20 20:57 Dose: 500 mg Documented by: Gabapentin (Gabapentin 300 Mg Cap) 300 mg PO TID PRN PRN Reason: Pain Stop: 07/26/20 08:59 Hydroxyzine HCl (Hydroxyzine Hcl 25 Mg Tab) 50 mg PO HSZ PRN PRN Reason: Insomnia Stop: 07/26/20 01:28 Last Admin: 06/26/20 23:42 Dose: 50 mg Documented by: Hydroxyzine HCl (Hydroxyzine Hcl 25 Mg Tab) 25 mg PO Q4H PRN PRN Reason: Anxiety Stop: 07/26/20 01:28 Last Admin: 06/27/20 09:09 Dose: 25 mg Documented by: Lamotrigine (Lamotrigine 25 Mg Tab) 25 mg PO QAM [facility] Stop: 07/27/20 10:44 Last Admin: 06/27/20 11:27 Dose: 25 mg Documented by: Losartan Potassium (Losartan Potassium 25 Mg Tab) 25 mg PO QAM [facility] Stop: 07/26/20 08:59 Last Admin: 06/27/20 08:15 Dose: 25 mg Documented by: Magnesium Hydroxide (Magnesium Hydroxide Susp 30 Ml Udc) 30 ml PO DAILY PRN PRN Reason: Constipation Stop: 07/26/20 01:28 Miscellaneous (Remove Nicoderm Patch) 1 ea N/A DAILY@[id number] [facility] Stop: 07/26/20 08:58 Last Admin: 06/27/20 08:17 Dose: 1 ea Documented by: Nicotine (Nicotine 21 Mg/24 Hr Tdsy) 21 mg TD QAM [facility] Stop: 07/26/20 08:59 Last Admin: 06/27/20 08:16 Dose: 21 mg Documented by: Nicotine Polacrilex (Nicotine Polacrilex 2 Mg Gum) 1 piece MT PRN PRN PRN Reason: Nicotine Withdrawal Stop: 07/26/20 01:28 Last Admin: 06/26/20 13:00 Dose: 1 piece Documented by: Propranolol HCl (Propranolol Hcl 10 Mg Tab) 10 mg PO QAM [facility] Stop: 07/26/20 08:59 Last Admin: 06/27/20 08:15 Dose: 10 mg Documented by: Risperidone (Risperidone 0.5 Mg Tablet) 0.5 mg PO BID [facility] Stop: 07/27/20 20:59 Sertraline HCl (Sertraline Hcl 50 Mg Tablet) 150 mg PO QAM ELIUD Stop: 07/26/20 08:59 Last Admin: 06/27/20 08:17 Dose: 150 mg Documented by: Sodium Chloride (Sodium Chloride 0.65% Na Soln 45 Ml ([place])) 1 - 2 sprays NA PRN PRN PRN Reason: Nasal Dryness/Congestion Stop: 07/26/20 01:28 Mental Health & Subst Abuse Tx Psychiatrist Name of Psychiatrist: SYLVIA Psychiatrist's Time of Appointment with Psychiatrist: Please call day of discharge to schedule screening intake Psychiatric Appointment Comment: [id number], [place] [address] Therapist Name of Therapist: Lashonda Torres Therapist's Time of Therapist Appointment: Please call to reschedule Therapy Appointment Comment: [address], [address], [place] [address] Patient'S Librarian Name of Patient'S Librarian: . Post Discharge Appointments Primary Care Physician Name Of Family Doctor: Dr. [facility] Time of Appointment with PCP: Please follow up as needed Provider Appointment Comment: [address] [place] [address] Contact Information Discharge Discharge Address: [address] [place] [address]
[2020-06-27] MEDS ORDERED: LORazepam 1 MG TAB PO STA (16:12)
[2020-06-27] MEDS ORDERED: risperiDONE 0.5 MG TABLET PO SCH (21:00)
[2020-06-27] MEDS: risperiDONE 1 MG TABLET PO SCH (21:15)
[2020-06-27] MEDS: DIVALPROEX EXTENDED RELEASE 500 MG TAB PO SCH (21:15)
[2020-06-27] MEDS: NICOTINE POLACRILEX 2 MG GUM MT PRN (21:19)
[2020-06-28] MEDS: risperiDONE 1 MG TABLET PO SCH ×2 (09:00→20:47)
[2020-06-28] MEDS: LOSARTAN POTASSIUM 25 MG TAB PO SCH (09:00)
[2020-06-28] MEDS: lamoTRIgine 25 MG TAB PO SCH (09:00)
[2020-06-28] MEDS: PROPRANOLOL HCL 10 MG TAB PO SCH (09:00)
[2020-06-28] MEDS: SERTRALINE HCL 50 MG TABLET PO SCH (09:00)
[2020-06-28] MEDS: NICOTINE 21 MG/24 HR TDSY TD SCH (09:01)
[2020-06-28] MEDS: DIVALPROEX EXTENDED RELEASE 500 MG TAB PO SCH ×2 (12:29→20:47)
--- NOTE | 2020-06-28 12:29 | Psychiatric Progress Note ---
Date of Service June 28, 2020 Impression / Recommendations Impression 29-year-old male with a history of depression treated by his PCP with sertraline for about 2 years, diagnosed with PTSD by his previous therapist (although trauma was unclear and patient himself denies all PTSD symptoms), who presented for voluntary treatment after telling his family about his suicidal thoughts with a plan to hang himself in the context of marital discord as a result of infidelity on his part. He states he wants to get help in hopes that his will consider reconciling with him, and believes he has bipolar disorder after meeting with a new therapist last week, although does not meet criteria for manic episodes. It is possible he has bipolar 2, PTSD is also on the differential as well as IED substance-induced mood disorder. It would be helpful to get collateral information from his family members to help clarify the diagnosis. He had started to set up outpatient treatment, and we will need to assist him with completing his intake for psychiatric care and coordinating care with his new therapist. Inpatient treatment is medically necessary due to the severity of symptoms and risk for suicide if discharged prematurely. 06/27/20 update: Subsequent to further observation it is felt that the patient may be experiencing an atypical bipolar pattern with rapid mood cycling. He reports that he may be in a "wonderful mood" for several hours and then, for no discernible reason, he may become extremely angry or sad. He notes that on some occasions a person may say something to him that he thinks is funny when he is in a good mood, and if someone says the exact same thing to him when he is in a bad mood he may fly into a rage. Also, the patient reports that he has a longstanding history of difficulty regulating his mood. His dose of sertraline has been titrated on an outpatient basis 250 mg a day. Depakote 500 mg at bedtime was started in the hospital, the patient reports that he does feel that Depakote, in combination with hydroxyzine, helped him sleep somewhat better last night. However, he notes that he does not feel that his condition is improving and, if anything, he says that he feels more anxious and distressed today than he had previously. The patient may benefit from the addition of a low-dose of an atypical antipsychotic/mood stabilizer such as risperidone. We also spoke with the patient about the possibility of adding lamotrigine. The patient was receptive. The patient remains psychiatrically symptomatic to the degree that inpatient psychiatric hospitalization remains the least intensive level of care consistent with his needs. Reviewed--ongoing mood swings and inability to cope with divorce, hx of impulsive outbursts. (1) Depression with suicidal ideation: 06/26 - Continue voluntary inpatient treatment. -Differential diagnosis includes major depressive disorder, bipolar disorder type II, intermittent explosive disorder, PTSD, and substance-induced mood disorder. He states 1 of his primary concerns are his longstanding and frequent anger outbursts and irritability, and also reports unstable mood with frequent "moodiness," so we discussed a trial of a mood stabilizer, namely Depakote, to target the symptoms. We reviewed the risks, benefits, alternatives (monotherapy with an SSRI, another mood stabilizer or an atypical antipsychotic), and side effects, including the risk of hepatotoxicity, weight gain, the need to monitor blood levels and LFTs, sedation, GI effects, and blood disorders, and that this is off label treatment. Reviewed his admission labs, and the importance of not drinking on this medication. Start Depakote ER 500 mg at bedtime, can check a trough level in 5 days, and titrate as needed. -Continue sertraline 150mg which was just increased about 1 week ago. -Coordinate with outpatient therapist, Alanna Torres, and [facility] where patient has been referred for psychiatric care. -Provide education about his diagnosis and the recommended treatment. Attend groups and therapy, work on healthy coping skills and discharge safety plan. -Explore his supports, and offer family meeting (with brother or uncle? ?) 06/27 -The patient technically does not meet criteria for bipolar disorder type II and his symptom onset exceeds that which may be fully explained by a diagnosis of major depressive disorder. He does does have symptoms consistent with in termittent explosive disorder, and substance induced mood disorder cannot be fully eliminatedalthough many of the patient's symptoms seem to have occurred independent of the use of any mood altering chemical substance. -After discussing the patient's condition further with the patient, the following decisions were made regarding treatment: We will not further titrate sertraline at this point because it is possible that it may be activating. Although it appears that his dose of sertraline was increased on an outpatient basis because of the emergence of worsening symptoms, the patient's report is that he is not feeling better and, in fact, has recently felt worse. Depakote may be helpful to the patient, and he notes that it did help him sleep last night, but he feels that, if anything, his mood cycling has worsened today. Accordingly, he has been offered a trial of risperidone 0.5 mg as a stat dose, and if effective the plan will be to continue risperidone 0.5 mg twice a day and titrate as indicated, primarily as a mood stabilizer but also to assist the patient with his anxious distress. I am also adding lamotrigine 25 mg daily, and explained that this would have to be titrated slowly. 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 Material risks and anticipated benefits of both risperidone and lamotrigine were reviewed with the patient. The patient was advised that adverse effects of risperidone can include, but are not limited to, metabolic syndrome, and the details of metabolic syndrome were reviewed with the patient. In addition, potential adverse effects of lamotrigine were reviewed and these included, but were not limited to, Walker-Celso syndrome. The patient agreed that he would monitor his body for the emergence of a rash, and would probably report the rash and stop the lamotrigine pending input from a physician or other licensed prescriber. -In individual, group, and recreational therapies the patient's tendency to absolve himself of any responsibility for his behaviors by simply saying "I cannot help it" should be challenged. For example, he can "help" by not drinking alcohol given that it clearly reduces his impulse control. And he can engage in techniques that allow him to self soothe before he engages in inappropriate or harmful behaviors. 06/28--reviewed. today patient is denying sedation from Depakote and clearly wanting BID dosing of his mood stabilizers which seems appropriate. Lamictal is difficult to titrate in combo with Depakote so will hold trial in favor of titration toward therapeutic level in 5 days, or at least 1 level and repeat CBC prior to discharge. (2) Alcohol abuse: 06/26 - Brief intervention was offered and accepted. Intervention was greater than 5 min in length. Brief interventions include: 1. Assess Readiness to Quit, 2. Advise: Help Patient to Reduce or Abstain from Alcohol, 3. Agree: Set Specific, Feasible Goals, 4. Assist: Anticipate barriers, Problem-Solving Solutions. Social work to 5. Arrange: Referrals to appropriate treatment. Summary of intervention: The patient is in precontemplation stage with regards to transtheoretical model of change. The patient is advised to decrease alcohol consumption due to depressant effects and risk of interactions with prescription medications. The patient agreed to abstain for now, and will be provided with recovery materials to continue to education self on how to cope with their condition without drinking. -Patient reports last drink was 2 or 3 weeks ago, and denies a history of withdrawal, so not at risk for withdrawal. Provide ongoing education and support regarding risks of ongoing alcohol abuse and recommendations for abstinence. -Recovery protocol. -Discontinue benzodiazepines and avoid prescription of medications that are addictive or abusable given risk of misuse/negative outcomes. 06/27 -The patient was reminded that use of alcohol and other nonprescribed drugs are not safe during the treatment of depression and bipolar disorder. He was also reminded that alcohol reduce his impulsivity and is likely to be contributing to his difficulty in self-regulating. 06/28--reviewed (3) Nicotine dependence: 06/26 -offer nicotine patch and gum as needed for cravings, provide nicotine cessation education, and arrange follow-up with PCP. 06/28 increase nicotine gum (4) Hypertension: 06/26 - Continue home doses of losartan and propranolol. Follow up with PCP. 06/28--patient states propranolol is for tachy (5) Low back pain: 06/26 - Continue home doses of cyclobenzaprine and gabapentin prn - confirm with records from PCP. Would recommend avoiding ongoing gabapentin use due to abuse potential. 06/28-reviewed (6) Obesity: 06/26 -encouraged healthy diet, regular exercise, and weight loss, as this would help with mood symptoms as well as hypertension and back pain. 06/28 -reviewed. (7) Sleep apnea with use of continuous positive airway pressure (CPAP): 06/26 -patient supposed to use CPAP, but declining here. Continue to encourage and provide education, suboptimal sleep will worsen depressive symptoms and could negatively impact his multiple medical problems as well. 06/27 -The patient was reminded that sleep deprivation and poor quality sleep can contribute to mood irritability and emotional lability. -We are also considering the fact that he suffers from sleep apnea when prescribing medications. Given his size, it may be that he will require a fairly large dose of Depakote in order to achieve a therapeutic level. An option would be to give his dosage of Depakote entirely at bedtime, but this may result in excess sedation at night. 06/28--reviewed, still refusing CPAP. 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 That happens wh en I do and don't have mood symptoms most of my life". Review of Systems Sleep Information Total Hours of Sleep: 7 Sleep Comments: pt given vistaril per rn. pt on q-15 minute checks Meal Information Percent Meal Consumed - Breakfast: 100 Percent Meal Consumed - Lunch: 100 Percent Meal Consumed - Dinner: 100 Nutrition Comment: per meal record Subjective Subjective Patient was seen & assessed and interval progress reviewed with nursing and social work. Signed then rescinded a 72 hr notice. Difficult meeting with friend yesterday and sw as learned of plans for divorce (papers were delivered to unit and treatment team holding until he can process) after which he laid on the floor and required prns. He recognizes need to work on self and states that he's not ready to review any papers, he's clinging to belief that if he stabilizes it can be avoided. Needs to confirm if can continue to live with brother. He questions the rationale for lamictal when depakote just started and requests it be discontinued since he wants more immediate symptom control. Physical Exam Psychiatric Orientation: alert Apperance: appropriately groomed Eye Contact: good eye contact Motor Behavior: no abnormal motor movements Speech: normal rate/rhythm/volume of speech Affect: + depressed affect Mood: + depressed mood Thought Process: + concrete thought process Thought Content: reality based without delusions Suicidal Thoughts: denies suicidal thoughts (but is unable to process realities around his divorce or safety plan) Homicidal Thoughts: denies homicidal thoughts Hallucinations: no auditory hallucinations and no visual hallucinations Cognition: recent memory grossly intact Estimated Intelligence: consistent with education level Insight: + poor insight Judgement: + poor judgement Vital Signs (Past 24 Hours) Last Vital Signs Temp 36.5 C 06/28/20 06:26 Pulse 71 06/28/20 06:27 Resp 18 06/28/20 06:26 BP 128/83 06/28/20 06:27 Pulse Ox 95 06/26/20 01:47 Results & Data ([facility]) Current Inpatient Medications Current Inpatient Medications: Current Inpatient Medications Acetaminophen (Acetaminophen 325 Mg Tab) 650 mg PO Q4H PRN PRN Reason: Headache or Minor Fever Stop: 07/26/20 01:28 Al Hydrox/Mg Hydrox/Simethicone (Aluminum/Magnesium Susp 30 Ml Udc) 30 ml PO Q4H PRN PRN Reason: GI Upset Stop: 07/26/20 01:28 Bismuth Subsalicylate (Bismuth Subsalicylate Per Ml Omnicell Charge) 15 ml PO PRN PRN PRN Reason: Loose Stool Stop: 07/26/20 01:28 Cyclobenzaprine HCl (Cyclobenzaprine Hcl 10 Mg Tab) 10 mg PO TID PRN PRN Reason: Muscle Spasm Stop: 07/26/20 08:59 Divalproex Sodium (Divalproex Extended Release 500 Mg Tab) 500 mg PO BID ELIUD Stop: 07/28/20 10:59 Gabapentin (Gabapentin 300 Mg Cap) 300 mg PO TID PRN PRN Reason: Pain Stop: 07/26/20 08:59 Hydroxyzine HCl (Hydroxyzine Hcl 25 Mg Tab) 50 mg PO HSZ PRN PRN Reason: Insomnia Stop: 07/26/20 01:28 Last Admin: 06/26/20 23:42 Dose: 50 mg Documented by: Hydroxyzine HCl (Hydroxyzine Hcl 25 Mg Tab) 25 mg PO Q4H PRN PRN Reason: Anxiety Stop: 07/26/20 01:28 Last Admin: 06/28/20 06:16 Dose: 25 mg Documented by: Losartan Potassium (Losartan Potassium 25 Mg Tab) 25 mg PO QAM [facility] Stop: 07/26/20 08:59 Last Admin: 06/28/20 09:00 Dose: 25 mg Documented by: Magnesium Hydroxide (Magnesium Hydroxide Susp 30 Ml Udc) 30 ml PO DAILY PRN PRN Reason: Constipation Stop: 07/26/20 01:28 Miscellaneous (Remove Nicoderm Patch) 1 ea N/A [id number] [facility] Stop: 07/26/20 08:58 Last Admin: 06/28/20 09:01 Dose: 1 ea Documented by: Nicotine (Nicotine 21 Mg/24 Hr Tdsy) [facility] Stop: 07/26/20 08:59 Last Admin: 06/28/20 09:01 Dose: 21 mg Documented by: Nicotine Polacrilex (Nicotine Polacrilex 2 Mg Gum) 2 piece MT PRN PRN PRN Reason: Nicotine Withdrawal Stop: 07/26/20 01:28 Propranolol HCl (Propranolol Hcl 10 Mg Tab) [facility] Stop: 07/26/20 08:59 Last Admin: 06/28/20 09:00 Dose: 10 mg Documented by: Risperidone (Risperidone 1 Mg Tablet) 1 mg PO BID [facility] Stop: 07/27/20 20:59 Last Admin: 06/28/20 09:00 Dose: 1 mg Documented by: Sertraline HCl (Sertraline Hcl 50 Mg Tablet) 150 mg PO QAM [facility] Stop: 07/26/20 08:59 Last Admin: 06/28/20 09:00 Dose: 150 mg Documented by: Sodium Chloride (Sodium Chloride 0.65% Na Soln 45 Ml ([place])) 1 - 2 sprays NA PRN PRN PRN Reason: Nasal Dryness/Congestion Stop: 07/26/20 01:28 Mental Health & Subst Abuse Tx Psychiatrist Name of Psychiatrist: [facility] Psychiatrist's Time of Appointment with Psychiatrist: Please call day of discharge to schedule screening intake Psychiatric Appointment Comment: [phone], [place] [id number] Therapist Name of Therapist: Lashonda Torres Therapist's Time of Therapist Appointment: Please call to reschedule Therapy Appointment Comment: [address], [address], [place] [address] Senior Property Accountant Name of Senior Property Accountant: . Post Discharge Appointments Primary Care Physician Name Of Family Doctor: Dr. [facility] Time of Appointment with PCP: Please follow up as needed Provider Appointment Comment: [address] [place] [address] Contact Information Discharge Discharge Address: [address] [place] [address], [place] [address]
[2020-06-28] MEDS: NICOTINE POLACRILEX 2 MG GUM MT PRN ×2 (13:12→19:47)
[2020-06-28 16:41] LABS: 7-Aminoclonaz, Confirm NEGATIVE ng/mL (<25); Hydro-Alp Ur, GC/MS NEGATIVE ng/mL (<25); Hydroxyethylflurazepam, Conf NEGATIVE ng/mL (<50); Hydroxymidazolam Ur, GC/MS NEGATIVE ng/mL (<50); Hydroxytriazolam NEGATIVE ng/mL (<50); Lorazepam, Ur GC/MS 658 ng/mL (<50); Nordiazepam, Confirm NEGATIVE ng/mL (<50); Oxazepam Ur, GC/MS NEGATIVE ng/mL (<50); Temazepam, Confirm NEGATIVE ng/mL (<50)
[2020-06-29] MEDS: risperiDONE 1 MG TABLET PO SCH ×2 (07:58→21:28)
[2020-06-29] MEDS: SERTRALINE HCL 50 MG TABLET PO SCH (07:58)
[2020-06-29] MEDS: LOSARTAN POTASSIUM 25 MG TAB PO SCH (07:58)
[2020-06-29] MEDS: DIVALPROEX EXTENDED RELEASE 500 MG TAB PO SCH ×2 (07:58→21:28)
[2020-06-29] MEDS: PROPRANOLOL HCL 10 MG TAB PO SCH (07:58)
[2020-06-29] MEDS: NICOTINE 21 MG/24 HR TDSY TD SCH (07:59)
--- NOTE | 2020-06-29 09:58 | Psychiatric Progress Note ---
Date of Service June 29, 2020 Impression / Recommendations Impression 29-year-old male with a history of depression treated by his PCP with sertraline for about 2 years, diagnosed with PTSD by his previous therapist (although trauma was unclear and patient himself denies all PTSD symptoms), who presented for voluntary treatment after telling his family about his suicidal thoughts with a plan to hang himself in the context of marital discord as a result of infidelity on his part. He states he wants to get help in hopes that his will consider reconciling with him, and believes he has bipolar disorder after meeting with a new therapist last week, although does not meet criteria for manic episodes. It is possible he has bipolar 2, PTSD is also on the differential as well as IED substance-induced mood disorder. It would be helpful to get collateral information from his family members to help clarify the diagnosis. He had started to set up outpatient treatment, and we will need to assist him with completing his intake for psychiatric care and coordinating care with his new therapist. Inpatient treatment is medically necessary due to the severity of symptoms and risk for suicide if discharged prematurely. 06/27/20 update: Subsequent to further observation it is felt that the patient may be experiencing an atypical bipolar pattern with rapid mood cycling. He reports that he may be in a "wonderful mood" for several hours and then, for no discernible reason, he may become extremely angry or sad. He notes that on some occasions a person may say something to him that he thinks is funny when he is in a good mood, and if someone says the exact same thing to him when he is in a bad mood he may fly into a rage. Also, the patient reports that he has a longstanding history of difficulty regulating his mood. His dose of sertraline has been titrated on an outpatient basis 250 mg a day. Depakote 500 mg at bedtime was started in the hospital, the patient reports that he does feel that Depakote, in combination with hydroxyzine, helped him sleep somewhat better last night. However, he notes that he does not feel that his condition is improving and, if anything, he says that he feels more anxious and distressed today than he had previously. The patient may benefit from the addition of a low-dose of an atypical antipsychotic/mood stabilizer such as risperidone. We also spoke with the patient about the possibility of adding lamotrigine. The patient was receptive. The patient remains psychiatrically symptomatic to the degree that inpatient psychiatric hospitalization remains the least intensive level of care consistent with his needs. 06/28--Reviewed--ongoing mood swings and inability to cope with divorce, hx of impulsive outbursts. 06/29--improving Plan: Continue current meds and tx plan, VPA level 07/01. Patient is requesting standing Vistaril at 12:30 pm. 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 Review of Systems Sleep Information Total Hours of Sleep: 5.25 Sleep Comments: pt given vistaril per rn. pt on q-15 minute checks Meal Information Percent Meal Consumed - Breakfast: 100 Percent Meal Consumed - Lunch: 100 Percent Meal Consumed - Dinner: 100 Nutrition Comment: per meal record Subjective Subjective Patient was seen & assessed and interval progress reviewed with nursing and social work. No acute issues overnight, did have prn Vistaril prior to reading letter from 's behavioral technician, ultimately accepting. BP slightly elevated this am, unclear if always taken with large cuff as he has hx of elevations with regular cuff. He generally has breakthrough anxiety around 1 pm. He hopes to have a few days off work before returning. Physical Exam Psychiatric Orientation: alert Apperance: appropriately groomed Eye Contact: + fair eye contact Motor Behavior: no abnormal motor movements Speech: normal rate/rhythm/volume of speech Affect: + depressed affect Mood: + depressed mood Thought Process: goal directed thought process Thought Content: reality based without delusions Suicidal Thoughts: denies suicidal thoughts Homicidal Thoughts: denies homicidal thoughts Hallucinations: no auditory hallucinations and no visual hallucinations Cognition: attention grossly intact Estimated Intelligence: consistent with education level Insight: + limited insight Judgement: + limited judgement Vital Signs (Past 24 Hours) Last Vital Signs Temp 36.4 C L 06/29/20 06:00 Pulse 77 06/29/20 06:38 Resp 18 06/29/20 06:00 BP 154/84 H 06/29/20 06:38 Pulse Ox 95 06/26/20 01:47 Results & Data ([facility]) Laboratory Results Laboratory Results - last 24 hr 06/25/20 20:20 U OH-Alprazolam Confrm NEGATIVE 7-Amino Clonazepam NEGATIVE Ur Nordiazepam Confirm NEGATIVE U OH-ethylflurazepam NEGATIVE U Lorazepam Cnf GC/MS 658 H U Oxazepam Confm GC/MS NEGATIVE Ur Temazepam Confirm NEGATIVE U OH-Triazolam Confirm NEGATIVE U OH-Midazolam Confirm NEGATIVE Drug Screen Comment SEE NOTE Current Inpatient Medications Current Inpatient Medications: Current Inpatient Medications Acetaminophen (Acetaminophen 325 Mg Tab) 650 mg PO Q4H PRN PRN Reason: Headache or Minor Fever Stop: 07/26/20 01:28 Al Hydrox/Mg Hydrox/Simethicone (Aluminum/Magnesium Susp 30 Ml Udc) 30 ml PO Q4H PRN PRN Reason: GI Upset Stop: 07/26/20 01:28 Bismuth Subsalicylate (Bismuth Subsalicylate Per Ml [employer]nic[employer] Charge) 15 ml PO PRN PRN PRN Reason: Loose Stool Stop: 07/26/20 01:28 Cyclobenzaprine HCl (Cyclobenzaprine Hcl 10 Mg Tab) 10 mg PO TID PRN PRN Reason: Muscle Spasm Stop: 07/26/20 08:59 Divalproex Sodium (Divalproex Extended Release 500 Mg Tab) 500 mg PO BID ELIUD Stop: 07/28/20 10:59 Last Admin: 06/29/20 07:58 Dose: 500 mg Documented by: Gabapentin (Gabapentin 300 Mg Cap) 300 mg PO TID PRN PRN Reason: Pain Stop: 07/26/20 08:59 Hydroxyzine HCl (Hydroxyzine Hcl 25 Mg Tab) 50 mg PO HSZ PRN PRN Reason: Insomnia Stop: 07/26/20 01:28 Last Admin: 06/29/20 00:17 Dose: 50 mg Documented by: Hydroxyzine HCl (Hydroxyzine Hcl 25 Mg Tab) 25 mg PO Q4H PRN PRN Reason: Anxiety Stop: 07/26/20 01:28 Last Admin: 06/28/20 16:54 Dose: 25 mg Documented by: Losartan Potassium (Losartan Potassium 25 Mg Tab) 25 mg PO QAM [facility] Stop: 07/26/20 08:59 Last Admin: 06/29/20 07:58 Dose: 25 mg Documented by: Magnesium Hydroxide (Magnesium Hydroxide Susp 30 Ml Udc) 30 ml PO DAILY PRN PRN Reason: Constipation Stop: 07/26/20 01:28 Miscellaneous (Remove Nicoderm Patch) 1 ea N/A DAILY@0859 [facility] Stop: 07/26/20 08:58 Last Admin: 06/29/20 00:36 Dose: 1 ea Documented by: Nicotine (Nicotine 21 Mg/24 Hr Tdsy) 21 mg TD QAM [facility] Stop: 07/26/20 08:59 Last Admin: 06/29/20 07:59 Dose: 21 mg Documented by: Nicotine Polacrilex (Nicotine Polacrilex 2 Mg Gum) 2 piece MT PRN PRN PRN Reason: Nicotine Withdrawal Stop: 07/26/20 01:28 Last Admin: 06/28/20 19:47 Dose: 2 piece Documented by: Propranolol HCl (Propranolol Hcl 10 Mg Tab) 10 mg PO QAM [facility] Stop: 07/26/20 08:59 Last Admin: 06/29/20 07:58 Dose: 10 mg Documented by: Risperidone (Risperidone 1 Mg Tablet) 1 mg PO BID [facility] Stop: 07/27/20 20:59 Last Admin: 06/29/20 07:58 Dose: 1 mg Documented by: Sertraline HCl (Sertraline Hcl 50 Mg Tablet) [facility] [place]: 07/26/20 08:59 Last Admin: 06/29/20 07:58 Dose: 150 mg Documented by: Sodium Chloride (Sodium Chloride 0.65% Na Soln 45 Ml ([place])) 1 - 2 sprays NA PRN PRN PRN Reason: Nasal Dryness/Congestion Stop: 07/26/20 01:28 Mental Health & Subst Abuse Tx Psychiatrist Name of Psychiatrist: [facility] [place] Psychiatrist's Time of Appointment with Psychiatrist: Please call day of discharge to schedule screening intake Psychiatric Appointment Comment: [id number], [place] [id number] Therapist Name of Therapist: Lashonda Torres Therapist's Time of Therapist Appointment: Please call to reschedule Therapy Appointment Comment: [address], [address], [place] [address] Restaurant Line [employer] Name of Restaurant Line Cook: . Post Discharge Appointments Primary Care Physician Name Of Family Doctor: Dr. [facility] Time of Appointment with PCP: Please follow up as needed Provider Appointment Comment: [address] [place] [address] Contact Information Discharge Discharge Address: [address] [place] [address], [place] [id number]
[2020-06-29] MEDS: NICOTINE POLACRILEX 2 MG GUM MT PRN (19:42)
[2020-06-30] MEDS: DIVALPROEX EXTENDED RELEASE 500 MG TAB PO SCH ×2 (08:48→21:46)
[2020-06-30] MEDS: LOSARTAN POTASSIUM 25 MG TAB PO SCH (08:48)
[2020-06-30] MEDS: PROPRANOLOL HCL 10 MG TAB PO SCH (08:48)
[2020-06-30] MEDS: NICOTINE 21 MG/24 HR TDSY TD SCH (08:49)
[2020-06-30] MEDS: risperiDONE 1 MG TABLET PO SCH ×2 (08:49→21:46)
[2020-06-30] MEDS: SERTRALINE HCL 50 MG TABLET PO SCH (08:49)
--- NOTE | 2020-06-30 12:46 | Psychiatric Progress Note ---
Date of Service June 30, 2020 Impression / Recommendations Impression 29-year-old male with a history of depression treated by his PCP with sertraline for about 2 years, diagnosed with PTSD by his previous therapist (although trauma was unclear and patient himself denies all PTSD symptoms), who presented for voluntary treatment after telling his family about his suicidal thoughts with a plan to hang himself in the context of marital discord as a result of infidelity on his part. He states he wants to get help in hopes that his will consider reconciling with him, and believes he has bipolar disorder after meeting with a new therapist last week, although does not meet criteria for manic episodes. It is possible he has bipolar 2, PTSD is also on the differential as well as IED substance-induced mood disorder. It would be helpful to get collateral information from his family members to help clarify the diagnosis. He had started to set up outpatient treatment, and we will need to assist him with completing his intake for psychiatric care and coordinating care with his new therapist. Inpatient treatment is medically necessary due to the severity of symptoms and risk for suicide if discharged prematurely. 06/27/20 update: Subsequent to further observation it is felt that the patient may be experiencing an atypical bipolar pattern with rapid mood cycling. He reports that he may be in a "wonderful mood" for several hours and then, for no discernible reason, he may become extremely angry or sad. He notes that on some occasions a person may say something to him that he thinks is funny when he is in a good mood, and if someone says the exact same thing to him when he is in a bad mood he may fly into a rage. Also, the patient reports that he has a longstanding history of difficulty regulating his mood. His dose of sertraline has been titrated on an outpatient basis 250 mg a day. Depakote 500 mg at bedtime was started in the hospital, the patient reports that he does feel that Depakote, in combination with hydroxyzine, helped him sleep somewhat better last night. However, he notes that he does not feel that his condition is improving and, if anything, he says that he feels more anxious and distressed today than he had previously. The patient may benefit from the addition of a low-dose of an atypical antipsychotic/mood stabilizer such as risperidone. We also spoke with the patient about the possibility of adding lamotrigine. The patient was receptive. The patient remains psychiatrically symptomatic to the degree that inpatient psychiatric hospitalization remains the least intensive level of care consistent with his needs. (1) Depression with suicidal ideation: 06/26 - Continue voluntary inpatient treatment. -Differential diagnosis includes major depressive disorder, bipolar disorder type II, intermittent explosive disorder, PTSD, and substance-induced mood disorder. He states 1 of his primary concerns are his longstanding and frequent anger outbursts and irritability, and also reports unstable mood with frequent "moodiness," so we discussed a trial of a mood stabilizer, namely Depakote, to target the symptoms. We reviewed the risks, benefits, alternatives (monotherapy with an SSRI, another mood stabilizer or an atypical antipsychotic), and side effects, including the risk of hepatotoxicity, weight gain, the need to monitor blood levels and LFTs, sedation, GI effects, and blood disorders, and that this is off label treatment. Reviewed his admission labs, and the importance of not drinking on this medication. Start Depakote ER 500 mg at bedtime, can check a trough level in 5 days, and titrate as needed. -Continue sertraline 150mg which was just increased about 1 week ago. -Coordinate with outpatient therapist, Alanna Torres, and [facility] where patient has been referred for psychiatric care. -Provide education about his diagnosis and the recommended treatment. Attend groups and therapy, work on healthy coping skills and discharge safety plan. -Explore his supports, and offer family meeting (with brother or uncle? ?) 06/27 -The patient technically does not meet criteria for bipolar disorder type II and his symptom onset exceeds that which may be fully explained by a diagnosis of major depressive disorder. He does does have symptoms consistent with intermittent explosive disorder, and substance induced mood disorder cannot be fully eliminatedalthough many of the patient's symptoms seem to have occurred independent of the use of any mood altering chemical substance. -After discussing the patient's condition further with the patient, the following decisions were made regarding treatment: We will not further titrate sertraline at this point because it is possible that it may be activating. Although it appears that his dose of sertraline was increased on an outpatient basis because of the emergence of worsening symptoms, the patient's report is that he is not feeling better and, in fact, has recently felt worse. Depakote may be helpful to the patient, and he notes that it did help him sleep last night, but he feels that, if anything, his mood cycling has worsened today. Accordingly, he has been offered a trial of risperidone 0.5 mg as a stat dose, and if effective the plan will be to continue risperidone 0.5 mg twice a day and titrate as indicated, primarily as a mood stabilizer but also to assist the patient with his anxious distress. I am also adding lamotrigine 25 mg daily, and explained that this would have to be titrated slowly. 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 Material risks and anticipated benefits of both risperidone and lamotrigine were reviewed with the patient. The patient was advised that adverse effects of risperidone can include, but are not limited to, metabolic syndrome, and the details of metabolic syndrome were reviewed with the patient. In addition, potential adverse effects of lamotrigine were reviewed and these included, but were not limited to, Walker-Celso syndrome. The patient agreed that he would monitor his body for the emergence of a rash, and would probably report the rash and stop the lamotrigine pending input from a physician or other licensed prescriber. -In individual, group, and recreational therapies the patient's tendency to absolve himself of any responsibility for his behaviors by simply saying "I cannot help it" should be challenged. For example, he can "help" by not drinking alcohol given that it clearly reduces his impulse control. And he can engage in techniques that allow him to self soothe before he engages in inappropriate or harmful behaviors. 06/28--reviewed. today patient is denying sedation from Depakote and clearly wanting BID dosing of his mood stabilizers which seems appropriate. Lamictal is difficult to titrate in combo with Depakote so will hold trial in favor of titration toward therapeutic level in 5 days, or at least 1 level and repeat CBC prior to discharge. 06/29--improving Plan: Continue current meds and tx plan, VPA level 07/01. Patient is requesting standing Vistaril at 12:30 pm. 06/30 - Continue current medication regimen - pt no longer prescribed lamotrigine 25mg daily. Pt was educated on drug-drug interaction causing valproic acid to contribute to increased levels of lamotrigine, increasing potential risk for SJS and other side effects. Pt verbalized understanding of conversation, and remains agreeable with discontinuation of lamotrigine from 06/28. - Pt admits to improved anxiety with hydroxyzine - requesting a supply on discharge - Denies SI (2) Alcohol abuse: 06/26 - Brief intervention was offered and accepted. Intervention was greater than 5 min in length. Brief interventions include: 1. Assess Readiness to Quit, 2. Advise: Help Patient to Reduce or Abstain from Alcohol, 3. Agree: Set Specific, Feasible Goals, 4. Assist: Anticipate barriers, Problem-Solving Solutions. Social work to 5. Arrange: Referrals to appropriate treatment. Summary of intervention: The patient is in precontemplation stage with regards to transtheoretical model of change. The patient is advised to decrease alcohol consumption due to depressant effects and risk of interactions with prescription medications. The patient agreed to abstain for now, and will be provided with recovery materials to continue to education self on how to cope with their condition without drinking. -Patient reports last drink was 2 or 3 weeks ago, and denies a history of withdrawal, so not at risk for withdrawal. Provide ongoing education and support regarding risks of ongoing alcohol abuse and recommendations for abstinence. -Recovery protocol. -Discontinue benzodiazepines and avoid prescription of medications that are addictive or abusable given risk of misuse/negative outcomes. 06/27 -The patient was reminded that use of alcohol and other nonprescribed drugs are not safe during the treatment of depression and bipolar disorder. He was also reminded that alcohol reduce his impulsivity and is likely to be contributing to his difficulty in self-regulating. 06/28--reviewed (3) Nicotine dependence: 06/26 -offer nicotine patch and gum as needed for cravings, provide nicotine cessation education, and arrange follow-up with PCP. 06/28 increase nicotine gum (4) Hypertension: 06/26 - Continue home doses of losartan and propranolol. Follow up with PCP. 06/28--patient states propranolol is for tachy (5) Low back pain: 06/26 - Continue home doses of cyclobenzaprine and gabapentin prn - confirm with records from PCP. Would recommend avoiding ongoing gabapentin use due to abuse potential. 06/28-reviewed (6) Obesity: 06/26 -encouraged healthy diet, regular exercise, and weight loss, as this would help with mood symptoms as well as hypertension and back pain. 06/28 -reviewed. (7) Sleep apnea with use of continuous positive airway pressure (CPAP): 06/26 -patient supposed to use CPAP, but declining here. Continue to encourage and provide education, suboptimal sleep will worsen depressive symptoms and could negatively impact his multiple medical problems as well. 06/27 -The patient was reminded that sleep deprivation and poor quality sleep can contribute to mood irritability and emotional lability. -We are also considering the fact that he suffers from sleep apnea when prescribing medications. Given his size, it may be that he will require a fairly large dose of Depakote in order to achieve a therapeutic level. An option would be to give his dosage of Depakote entirely at bedtime, but this may result in excess sedation at night. 06/28--reviewed, still refusing CPAP. 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 Chief Complaint "Things are going alright. I guess my biggest issue is noticing some more anxiety, right around noon." Review of Systems Notes Constitutional: denied Cardiovascular: denied Respiratory: denied Gastrointestinal: denied Neurological: denied Psychiatric: denies symptoms other than stated above Total of at least 10 systems reviewed, pertinent positives as above and in HPI. Sleep Information Total Hours of Sleep: 6 Sleep Comments: pt given vistaril per rn. pt on q-15 minute checks Meal Information Percent Meal Consumed - Breakfast: 100 Percent Meal Consumed - Lunch: 100 Percent Meal Consumed - Dinner: 100 Nutrition Comment: per meal record Subjective Subjective Patient was seen & assessed and interval progress reviewed with treatment team. Staff report the patient has continued to participate in group programming. He is processing the new of his anticipated divorce with assistance from staff. Pt rated his mood a 9/10 and "determined" last evening. Pt is planning to live with his brother on discharge. Pt was seen today to assess progress since admission. Pt states "things are going alright." He reports believe that medications are making a significant difference in improving his mood and anxiety, and contributing to reduced irritability. Pt states his only ongoing concern is intermittent anxiety, which he feels occurs around 12:00 and 17:00 each day. He finds the hydroxyzine has been helpful in those moments and he is beginning to learn to anticipate the anxiety with coping skills and medications as indicated. He was reassured that he could be provided with hydroxyzine on discharge if effective. Pt reports feeling that Depakote has been helpful in reducing anxiety. We reviewed that strategies to achieve stable mood may not been medications necessary to maintain the stabilization mcc. Pt is aware of aftercare plans and is agreeable to discussing ongoing medication concerns with these providers. Pt denies SI or other concerns. He is anticipating discharge tomorrow. Physical Exam Psychiatric Orientation: alert, oriented x 3 and cooperative Apperance: appropriately dressed (casually, in t-shirt and shorts), appropriately groomed and appeared stated age Eye Contact: good eye contact Motor Behavior: steady gait and station and no abnormal motor movements Speech: normal rate/rhythm/volume of speech Affect: euthymic affect and mood congruent with affect Mood: "fine now, but I notice I been more anxious at times during the day" Thought Process: goal directed thought process and clear/coherent thought process Thought Content: + cognitive distortions (continues to externalize blame ); no hopelessness and no worthlessness Suicidal Thoughts: denies suicidal thoughts and denies suicidal intent Homicidal Thoughts: denies homicidal thoughts Hallucinations: no auditory hallucinations and no visual hallucinations Cognition: attention grossly intact and language grossly intact Estimated Intelligence: consistent with education level Insight: + fair insight Judgement: + fair judgement Vital Signs (Past 24 Hours) Last Vital Signs Temp 36.4 C L 06/30/20 06:41 Pulse 73 06/30/20 06:41 Resp 18 09/21/20 06:41 BP 153/87 H 06/30/20 06:41 Pulse Ox 95 06/26/20 01:47 Results & Data ([facility]) Current Inpatient Medications Current Inpatient Medications: Current Inpatient Medications Acetaminophen (Acetaminophen 325 Mg Tab) 650 mg PO Q4H PRN PRN Reason: Headache or Minor Fever Stop: 07/26/20 01:28 Al Hydrox/Mg Hydrox/Simethicone (Aluminum/Magnesium Susp 30 Ml Udc) 30 ml PO Q4H PRN PRN Reason: GI Upset Stop: 07/26/20 01:28 Bismuth Subsalicylate (Bismuth Subsalicylate Per Ml Omnicell Charge) 15 ml PO PRN PRN PRN Reason: Loose Stool Stop: 07/26/20 01:28 Cyclobenzaprine HCl (Cyclobenzaprine Hcl 10 Mg Tab) 10 mg PO TID PRN PRN Reason: Muscle Spasm Stop: 07/26/20 08:59 Divalproex Sodium (Divalproex Extended Release 500 Mg Tab) 500 mg PO BID [facility] Stop: 07/28/20 10:59 Last Admin: 06/30/20 08:48 Dose: 500 mg Documented by: Gabapentin (Gabapentin 300 Mg Cap) 300 mg PO TID PRN PRN Reason: Pain Stop: 07/26/20 08:59 Hydroxyzine HCl (Hydroxyzine Hcl 25 Mg Tab) 50 mg PO Q6 PRN PRN Reason: Anxiety Stop: 07/26/20 01:28 Last Admin: 06/29/20 18:42 Dose: 50 mg Documented by: Losartan Potassium (Losartan Potassium 25 Mg Tab) 25 mg PO QAM [facility] Stop: 07/26/20 08:59 Last Admin: 06/30/20 08:48 Dose: 25 mg Documented by: Magnesium Hydroxide (Magnesium Hydroxide Susp 30 Ml Udc) 30 ml PO DAILY PRN PRN Reason: Constipation Stop: 07/26/20 01:28 Miscellaneous (Remove Nicoderm Patch) 1 ea N/A DAILY@[id number] [facility] Stop: 07/26/20 08:58 Last Admin: 06/30/20 08:53 Dose: 1 ea Documented by: Nicotine (Nicotine 21 Mg/24 Hr Tdsy) 21 mg TD QAM [facility] Stop: 07/26/20 08:59 Last Admin: 06/30/20 08:49 Dose: 21 mg Documented by: Nicotine Polacrilex (Nicotine Polacrilex 2 Mg Gum) 2 piece MT PRN PRN PRN Reason: Nicotine Withdrawal Stop: 07/26/20 01:28 Last Admin: 06/29/20 19:42 Dose: 2 piece Documented by: Propranolol HCl (Propranolol Hcl 10 Mg Tab) 10 mg PO QAM [facility] Stop: 07/26/20 08:59 Last Admin: 06/30/20 08:48 Dose: 10 mg Documented by: Risperidone (Risperidone 1 Mg Tablet) 1 mg PO BID [facility] Stop: 07/27/20 20:59 Last Admin: 06/30/20 08:49 Dose: 1 mg Documented by: Sertraline HCl (Sertraline Hcl 50 Mg Tablet) 150 mg PO QAM [facility] Stop: 07/26/20 08:59 Last Admin: 06/30/20 08:49 Dose: 150 mg Documented by: Sodium Chloride (Sodium Chloride 0.65% Na Soln 45 Ml ([place])) 1 - 2 sprays NA PRN PRN PRN Reason: Nasal Dryness/Congestion Stop: 07/26/20 01:28 Mental Health & Subst Abuse Tx Psychiatrist Name of Psychiatrist: [facility] Psychiatrist's Time of Appointment with Psychiatrist: Please call day of discharge to schedule screening intake Psychiatric Appointment Comment: [phone], [place] [id number] Therapist Name of Therapist: Lashonda Torres Therapist's Date of Therapist Appointment: 07/03/20 Time of Therapist Appointment: 3:00pm Therapy Appointment Comment: [address] [facility], [address], [place] [address] Chief Librarian Circulation Department Name of Chief Librarian Circulation Department: . Post Discharge Appointments Primary Care Physician Name Of Family Doctor: Dr. [facility] Date of Appointment with PCP: 07/04/20 Time of Appointment with PCP: 11:25am Provider Appointment Comment: [address] [place] [address] Contact Information Discharge Discharge Address: [address] [place] [address] [place] [id number]
[2020-07-01] MEDS: LOSARTAN POTASSIUM 25 MG TAB PO SCH (08:28)
[2020-07-01] MEDS: PROPRANOLOL HCL 10 MG TAB PO SCH (08:28)
[2020-07-01] MEDS: SERTRALINE HCL 50 MG TABLET PO SCH (08:29)
[2020-07-01] MEDS: NICOTINE 21 MG/24 HR TDSY TD SCH (08:29)
[2020-07-01] MEDS: risperiDONE 1 MG TABLET PO SCH (08:29)
[2020-07-01] MEDS: DIVALPROEX EXTENDED RELEASE 500 MG TAB PO SCH (08:52)
--- NOTE | 2020-07-01 08:55 | Discharge Summary ---
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 pain: 06/26 - Continue home doses of cyclobenzaprine and gabapentin prn - confirm with records from PCP. Would recommend avoiding ongoing gabapentin use due to abuse potential. 06/28-reviewed (6) Obesity: 06/26 -encouraged healthy diet, regular exercise, and weight loss, as this would help with mood symptoms as well as hypertension and back pain. 06/28 -reviewed. (7) Sleep apnea with use of continuous positive airway pressure (CPAP): 06/26 -patient supposed to use CPAP, but declining here. Continue to encourage and provide education, suboptimal sleep will worsen depressive symptoms and could negatively impact his multiple medical problems as well. 06/27 -The patient was reminded that sleep deprivation and poor quality sleep can contribute to mood irritability and emotional lability. -We are also considering the fact that he suffers from sleep apnea when prescribing medications. Given his size, it may be that he will require a fairly large dose of Depakote in order to achieve a therapeutic level. An option would be to give his dosage of Depakote entirely at bedtime, but this may result in excess sedation at night. 06/28--reviewed, still refusing CPAP. Mental Health & Subst Abuse Tx Psychiatrist Name of Psychiatrist: SYLVIA Psychiatrist's Time of Appointment with Psychiatrist: Please call day of discharge to schedule screening intake Psychiatric Appointment Comment: [phone], [place] [id number] Therapist Name of Therapist: Lashonda Torres Therapist's Date of Therapist Appointment: 07/03/20 Time of Therapist Appointment: 3:00pm Therapy Appointment Comment: [address], [address], [place] [address] Associate Store Director Name of Associate Store Director: . Post Discharge Appointments Primary Care Physician Name Of Family Doctor: Dr. Kapadia [facility] Date of Appointment with PCP: 07/04/20 Time of Appointment with PCP: 11:25am Provider Appointment Comment: [address] [place] [address] Smoking Cessation Counseling Tobacco Cessation Medication Prescribed at Discharge: Offered & Pt Refused Contact Information Discharge Discharge Address: [address] [place] [address] [place] [address] Discharge Plan Discharge Items Patient Disposition: Home - Self-Care Reason For Visit: DEPRESSION NOS Discharge Diagnosis: - Depression Condition on Discharge: Fair Activity: Resume your previous activity Non-emergency contact: Primary Care Provider, Psychiatrist and Therapist Call non-emergency contact if: you have any medication questions and your symptoms worsen Follow-up/Referrals: Amor Kapadia MD [Primary Care Provider] - Diet: Regular Addtl Attending Provider Instructions: SPECIAL CARE INSTRUCTIONS: 1. Follow through with your scheduled aftercare appointments. If unable to keep an appointment, please call to reschedule. 2. Take your medication only as prescribed. Medication should not be changed or stopped without the approval of your doctor. In the event of worsening symptoms or concerns about side effects, contact your doctor immediately. 3. Utilize new healthy coping skills, anger management skills, and stress management skills learned during your hospitalization. Journal feelings and process them with a support person. Identify stressors or situations that may result in relapse, deterioration or inappropriate behaviors and develop a plan to deal with those issues. 4. If your coping skills are ineffective and you are in crisis, contact your outpatient providers for direction. If unable to reach your providers, please call the [facility] CRISIS LINE AT , go to the [facility] walk-in center at [address], [address], [place], or go to the closest Emergency Room. 5. Avoid alcohol and un-prescribed drugs. 6. You have been provided with the Mental Health Advance Directives Pamphlet for your review. AFTERCARE APPOINTMENTS: * Please call your insurance company prior to your scheduled appointment to confirm your aftercare providers are covered. Take your insurance information to your appointments. WHO TO CALL AND WHEN: Medical Emergencies: For questions or emergencies related to your hospital stay, please contact the Inpatient Behavioral Health Unit at [phone]. A clinical engineering director is on-call 02/05 for the Behavioral Health Unit for emergencies At any time you feel your situation is an emergency, you may also call 911 immediately. Pending Studies at Discharge: No Stand-Alone Forms: My [facility], Smoking Cessation, Suicide Prevention Resources Medications and DC Order Prescriptions: New divalproex 500 mg Tablet Extended Release 24 Hr 500 mg PO BID 30 Days Qty: 60 RF: 0 risperidone 1 mg Tablet 1 mg PO BID 30 Days Qty: 60 RF: 0 hydroxyzine HCl 50 mg tablet 50 mg PO Q6 PRN (Reason: anxiety/insomnia) 30 Days Qty: 30 RF: 0 Continued cyclobenzaprine 10 mg Tablet 10 mg PO TID PRN (Reason: Back Pain) RF: 0 sertraline 100 mg Tablet 150 mg PO DAILY RF: 0 propranolol 10 mg Tablet 10 mg PO DAILY RF: 0 losartan 25 mg Tablet 25 mg PO DAILY RF: 0 gabapentin 300 mg Capsule 300 mg PO TID PRN (Reason: Pain) RF: 0 omeprazole 20 mg Capsule,Delayed Release(Dr/Ec) 20 mg PO DAILY RF: 0 Discontinued lorazepam 0.5 mg Tablet 0.5 mg PO BID PRN (Reason: Agitation) RF: 0 Discharge Orders: Discharge Order (Routine); Ordered 07/01/20 Ordered By: Carolyn Espinal Admission Data Admit Date/Time: 06/26/20 00:06 Attending Provider: Ela Daily Admit Provider: Ela Daily Primary Care Provider: Amor Kapadia Other Interventions: Discharge Summary Assessment (RN) Last Done: 07/01/20 09:31 PSY Interdisciplinary Discharge Planning Last Done: 07/01/20 09:30 Coding Level of Care Code 89871 D/C day mgmt > 30 min Diagnoses Depression with suicidal ideation F32.9; R45.851 Alcohol abuse F10.10 Nicotine dependence F17.200 Hypertension I10 Low back pain M54.5 Obesity E66.9 Sleep apnea with use of continuous positive airway pressure (CPAP) G47.30
== END 2020-07-01 09:50 | disposition home or self-care (01) | DRG 881 ==
LOC: ED 18:46 → 3S 06-26 00:06

== ENCOUNTER 2020-07-06 07:09 | Inpatient (IN) ==
[2020-07-06 07:53] LABS: Basophils # (auto) 0.02 K/uL (0-0.2); Basophils % (auto) 0.3 %; Eosinophils # (auto) 0.15 K/uL (0-0.5); Eosinophils % (auto) 2.5 %; Hematocrit (blood only) 44.4 % (42-52); Hemoglobin 15.4 g/dL (14.0-18.0); Immature Granulocytes # (auto) 0.01 K/uL (0.00-0.02); Immature Granulocytes % (auto) 0.2 %; Lymphocytes # (auto) 1.59 K/uL (1.2-3.4); Lymphocytes % (auto) 26.6 %; Mean Corpuscular Hemoglobin 30.1 pg (25-34); Mean Corpuscular Hgb Conc 34.7 g/dL (32-36); Mean Corpuscular Volume 86.9 fL (80-100); Mean Platelet Volume 11.2 fL (7.4-10.4); Monocytes # (auto) 0.77 K/uL (0.11-0.59); Monocytes % (auto) 12.9 %; Neutrophils # (auto) 3.43 K/uL (1.4-6.5); Neutrophils % (auto) 57.5 %; Platelet Count 223 K/uL (130-400); RDW Coefficient of Variation 12.2 % (11.5-14.5); RDW Standard Deviation 39.2 fL (36.4-46.3); Red Blood Count 5.11 M/uL (4.7-6.1); White Blood Count 5.97 K/uL (4.8-10.8)
[2020-07-06] MEDS ORDERED: LORazepam 1 MG/2 ML VIAL IV PRN (08:08)
[2020-07-06] MEDS ORDERED: SODIUM CHLORIDE 0.9% 1000ML 1,000 ML IV ONE ×3 (08:08→08:38)
[2020-07-06 08:11] LABS: Blood Urea Nitrogen 10 mg/dl (7-18); Calcium 9.8 mg/dl (8.5-10.1); Carbon Dioxide 24 mmol/L (21-32); Chloride 107 mmol/L (98-107); Glucose 105 mg/dl (70-99); Potassium 3.6 mmol/L (3.5-5.1); Sodium 141 mmol/L (136-145)
--- NOTE | 2020-07-06 08:11 | Emergency Department Note ---
History of Present Illness General Chief complaint: Overdose (Intentional) Stated complaint: drug overdose Time Seen by Provider: 07/06/20 07:44 Source: patient, EMS, RN notes reviewed and old records reviewed Mode of arrival: EMS History of Present Illness Maximum Pain Intensity: 0 This is a 29-year-old male who at 5 AM took 6 hydroxyzine 50 mg tablets 51 Depakote 500 mg tablets 52 risperidone 1 mg tablets 100 losartan 25 mg tablets 300 propranolol 10 mg tablets 161 search sertraline 100 mg tablets 99 omeprazole 20 mg tablets. Patient was recently discharged from [facility]. The patient reports he is suicidal and does not wish to go on which is why he took all the pills. He is currently complaining of diarrhea but denies any pain. He has not taken anything else. Home Medications Home Medications Medication Instructions Recorded Confirmed Type cyclobenzaprine 10 mg PO TID PRN 07/30/18 07/06/20 History gabapentin 300 mg PO TID PRN 07/30/18 07/06/20 History losartan 25 mg PO DAILY 07/30/18 07/06/20 History omeprazole 20 mg PO DAILY 07/30/18 07/06/20 History propranolol 10 mg PO DAILY 07/30/18 07/06/20 History Allergies Allergy/AdvReac Type Severity Reaction Status Date / Time ketorolac Allergy Intermediate RASH, Verified 07/06/20 07:36 NAUSEA amoxicillin Allergy Mild RASH Verified 07/06/20 07:36 Penicillins Allergy Mild AMOXICILLIN Verified 07/06/20 07:36 = RASH hydrochlorothiazide Allergy Unknown RASH, Verified 07/06/20 07:36 THROAT SWELLS Past Med/Surg History Medical History Abdominal pain Alcohol abuse Allergic reaction Arterial hypotension Chest pain Depression with suicidal ideation Low back pain Nicotine dependence Obesity Sleep apnea with use of continuous positive airway pressure (CPAP) Surgical History Hx of cholecystectomy Family History Other No significant family history Social History Smoking Status: Never smoker Tobacco Type: Smokeless Tobacco (Dip or Chew) Hx Alcohol Use: No Preferred Language: Mauritanian Communication Ability: Effective Engraver Machine Required: No Beliefs That Will Affect Care: None Current Living Situation: Family Current Living Situation Comment: lives with mom and brother Feels Safe at Home: Yes Assistive Devices: Glasses Review of Systems A total of 10 systems reviewed and were otherwise negative Physical Exam Vital Signs Vital Signs - 24 hr 07/06/20 07:19 07/06/20 07:26 07/06/20 08:01 Temperature 36.9 C Temperature Source Oral Pulse Rate 79 Pulse Rate [Apical] Respiratory Rate 18 Blood Pressure 117/71 Blood Pressure [Left Arm] Blood Pressure Mean 86 Blood Pressure Mean [Left Arm] Pulse Oximetry 93 96 96 Oxygen Delivery Method Room Air Nasal Cannula Room Air Nasal Cannula Oxygen Flow Rate 0 2 Sepsis Recent Fever Within 48 Hours No Sepsis New/Unexplained Change in Mental Status No Sepsis Action Taken by Nursing No Action Required Oxygen Flow Rate - Titration 2 Pulse Oximetry Post Tiitration 97 07/06/20 08:06 07/06/20 08:35 07/06/20 08:50 Temperature Temperature Source Pulse Rate Pulse Rate [Apical] 74 74 68 Respiratory Rate 18 18 18 Blood Pressure Blood Pressure [Left Arm] 90/56 L 86/46 L 93/51 L Blood Pressure Mean Blood Pressure Mean [Left Arm] 67 59 65 Pulse Oximetry 96 97 98 Oxygen Delivery Method Nasal Cannula Nasal Cannula Nasal Cannula Oxygen Flow Rate 2 2 2 Sepsis Recent Fever Within 48 Hours Sepsis New/Unexplained Change in Mental Status Sepsis Action Taken by Nursing Oxygen Flow Rate - Titration Pulse Oximetry Post Tiitration 07/06/20 09:06 Temperature Temperature Source Pulse Rate Pulse Rate [Apical] 71 Respiratory Rate Blood Pressure Blood Pressure [Left Arm] 77/49 L Blood Pressure Mean Blood Pressure Mean [Left Arm] 58 Pulse Oximetry 97 Oxygen Delivery Method Nasal Cannula Oxygen Flow Rate 2 Sepsis Recent Fever Within 48 Hours Sepsis New/Unexplained Change in Mental Status Sepsis Action Taken by Nursing Oxygen Flow Rate - Titration Pulse Oximetry Post Tiitration VITAL SIGNS - Vital signs and nursing notes were reviewed. GENERAL - 29-year-old male appearing sedated with stated age who is in no acute distress. Communicates well with provider and answers questions appropriately. SKIN - Without rashes. HEAD - NC/AT. EYES - PERRL with EOMI bilaterally. Sclera anicteric. Palpebral conjunctiva pink and moist with no injection noted. EARS - No deformities of external structures noted on gross examination bilaterally. No pain elicited with palpation of the tragus bilaterally. External auditory canals without discharge or otorrhea. Tympanic membranes pearly driscoll without retraction or bulging. No fluid or purulent material visualized behind the TM. Handle of malleus, umbo, cone of light, pars tensa/flaccid all easily visualized. NOSE - Midline and without cyanosis. No epistaxis or purulent drainage noted. Septum midline without deviation or septal hematoma noted. MOUTH/OROPHARYNX - Without perioral cyanosis. Buccal mucosa pink and moist and without leukoplakia. Tongue midline with equal elevation of palate bilaterally. No tonsillar hypertrophy, erythema, or exudates noted. dentition noted. NECK - Neck with FROM. Supple to palpation. lymphadenopathy noted. No nuchal rigidity. LUNGS - Chest wall symmetric without accessory muscle use, intercostals retractions, or central cyanosis. Normal vesicular breath sounds CTA B/L. No wheezes, rales, or rhonchi appreciated. CARDIAC - RRR with S1/S2. No murmur, rubs, or gallops appreciated. ABDOMEN - Abdominal contour without pulsations or visible masses. BS normoactive all four quadrants. No tenderness, palpable masses, hepatosplenomegaly, or ascites noted. EXTREMITIES - No clubbing or peripheral cyanosis. No pretibial edema present. + 3/5 radial, posterior tibial, and dorsalis pedis pulses palpated throughout. +5/5 strength noted in UE/LE bilaterally. NEUROLOGIC - Cranial nerves II through XII grossly intact. Sensory intact to light touch throughout. Patellar reflexes +2/4. PSYCH - A&Ox3 and cooperates fully with examiner. Pt is very pleasant and interacts well with examiner. Course Administered Medications Discontinued Medications Heparin Sodium (Porcine) (Heparin Sod 5,000 Unit/0.5 Ml Vial) 7,500 units SQ Q8 [facility] Stop: 08/05/20 13:59 Last Admin: 07/08/20 05:15 Dose: Not Given Documented by: [id number] Admin: 07/07/20 23:49 Dose: Not Given Documented by: [id number] Admin: 07/07/20 13:56 Dose: 7,500 units Documented by: [id number] Cosigned by: [id number] Admin: 07/07/20 06:13 Dose: 7,500 units Documented by: [id number] Cosigned by: [id number] Admin: 07/06/20 22:14 Dose: 7,500 units Documented by: [id number] Cosigned by: [id number] Admin: 07/06/20 14:47 Dose: 7,500 units Documented by: [id number] Cosigned by: [id number] Sodium Chloride (Nss 1000ml) 1,000 mls @ 999 mls/hr IV .Q1H1M ONE Stop: 07/06/20 09:08 Last Infusion: 07/06/20 09:13 Dose: 0 mls/hr Documented by: [id number] Admin: 07/06/20 08:12 Dose: 999 mls/hr Documented by: [id number] Sodium Chloride (Nss 1000ml) 1,000 mls @ 999 mls/hr IV .Q1H1M ONE Stop: 07/06/20 09:28 Last Infusion: 07/06/20 09:47 Dose: 0 mls/hr Documented by: [id number] Admin: 07/06/20 08:42 Dose: 999 mls/hr Documented by: [id number] Sodium Chloride (Nss 1000ml) 1,000 mls @ 999 mls/hr IV .Q1H1M ONE Stop: 07/06/20 09:38 Last Infusion: 07/06/20 09:50 Dose: 0 mls/hr Documented by: [id number] Admin: 07/06/20 08:49 Dose: 999 mls/hr Documented by: [id number] Parenteral Electrolytes (Normosol-R) 1,000 mls @ 80 mls/hr IV .[id number] ELIUD Stop: 08/05/20 11:14 Last Admin: 07/07/20 12:40 Dose: Not Given Documented by: [id number] Infusion: 07/07/20 12:40 Dose: 0 mls/hr Documented by: [id number] Infusion: 07/07/20 07:59 Dose: 80 mls/hr Documented by: [id number] Admin: 07/07/20 03:00 Dose: 125 mls/hr Documented by: [id number] Infusion: 07/07/20 02:54 Dose: 125 mls/hr Documented by: [id number] Admin: 07/06/20 18:54 Dose: 125 mls/hr Documented by: [id number] Infusion: 07/06/20 18:54 Dose: 125 mls/hr Documented by: [id number] Admin: 07/06/20 11:17 Dose: 125 mls/hr Documented by: [id number] Critical Care Time I have personally spent greater than 30 minutes of critical care time in the direct management of this patient. This includes bedside care, interpretation of diagnostic studies, and testing, discussion with consultants, patient, and family members, and other required patient management activities. This 30 minutes is in excess of all separately billable procedures. Medical Decision Making Differential Diagnosis Overdose, toxicologic, infection, hypoglycemia, electrolyte abnormalities, cardiac sources, intracerebral event, neurologic, trauma, as well as other pathologies. Medical Records Attestation: I reviewed the patient's medical records. Home Medications Current Medication List: was personally reviewed by me Laboratory Data Attestation: I reviewed the patient's lab results. Result diagrams: 07/08/20 07:02 07/08/20 07:02 Lab Results 07/06/20 07/06/20 07/06/20 Range/Units 07:41 07:41 07:41 WBC 5.97 (4.8-10.8) K/uL RBC 5.11 (4.7-6.1) M/uL Hgb 15.4 (14.0-18.0) g/dL Hct 44.4 (42-52) % MCV 86.9 (80-100) fL MCH 30.1 (25-34) pg MCHC 34.7 (32-36) g/dL RDW Std Deviation 39.2 (36.4-46.3) fL RDW Coeff of Maggie 12.2 (11.5-14.5) % Plt Count 223 (130-400) K/uL MPV 11.2 H (7.4-10.4) fL Immature Gran % (Auto) 0.2 % Neut % (Auto) 57.5 % Lymph % (Auto) 26.6 % Winn % (Auto) 12.9 % Eos % (Auto) 2.5 % Baso % (Auto) 0.3 % Neut # (Auto) 3.43 (1.4-6.5) K/uL Lymph # (Auto) 1.59 (1.2-3.4) K/uL Winn # (Auto) 0.77 H (0.11-0.59) K/uL Eos # (Auto) 0.15 (0-0.5) K/uL Baso # (Auto) 0.02 (0-0.2) K/uL Immature Gran # (Auto) 0.01 (0.00-0.02) K/uL Sodium 141 (136-145) mmol/L Potassium 3.6 (3.5-5.1) mmol/L Chloride 107 (98-107) mmol/L Carbon Dioxide 24 (21-32) mmol/L Anion Gap 10.0 (3-11) BUN 10 (7-18) mg/dl Creatinine 1.18 (0.6-1.4) mg/dl Est Cr Clr Drug Dosing 144.1 ml/min Est GFR ( Amer) 96.8 Est GFR (Non-Af Amer) 83.5 BUN/Creatinine Ratio 8.1 L (10-20) Glucose 105 H (70-99) mg/dl Calcium 9.8 (8.5-10.1) mg/dl Total Bilirubin 0.5 (0.2-1) mg/dl AST 14 L (15-37) U/L ALT 33 (12-78) U/L Alkaline Phosphatase 67 (45-117) U/L Ammonia (11-32) umol/L Total Creatine Kinase 66 (39-308) U/L CK-MB (CK-2) < 1.0 (0.5-3.6) ng/ml CK/CKMB % Calc TNP Total Protein 7.6 (6.4-8.2) gm/dl Albumin 4.0 (3.4-5.0) gm/dl Globulin 3.6 (2.5-4.0) gm/dl Albumin/Globulin Ratio 1.1 (0.9-2) TSH 2.660 (0.300-4.500) uIu/ml Salicylates < 1.7 L (2.8-20) mg/dl Acetaminophen < 2 L (10-30) ug/ml Valproic Acid 31 L (50-100) mcg/ml Ethyl Alcohol mg/dL (0-3) mg/dl 07/06/20 07/06/20 Range/Units 07:41 08:19 WBC (4.8-10.8) K/uL RBC (4.7-6.1) M/uL Hgb (14.0-18.0) g/dL Hct (42-52) % MCV (80-100) fL MCH (25-34) pg MCHC (32-36) g/dL RDW Std Deviation (36.4-46.3) fL RDW Coeff of Maggie (11.5-14.5) % Plt Count (130-400) K/uL MPV (7.4-10.4) fL Immature Gran % (Auto) % Neut % (Auto) % Lymph % (Auto) % Winn % (Auto) % Eos % (Auto) % Baso % (Auto) % Neut # (Auto) (1.4-6.5) K/uL Lymph # (Auto) (1.2-3.4) K/uL Winn # (Auto) (0.11-0.59) K/uL Eos # (Auto) (0-0.5) K/uL Baso # (Auto) (0-0.2) K/uL Immature Gran # (Auto) (0.00-0.02) K/uL Sodium (136-145) mmol/L Potassium (3.5-5.1) mmol/L Chloride (98-107) mmol/L Carbon Dioxide (21-32) mmol/L Anion Gap (3-11) BUN (7-18) mg/dl Creatinine (0.6-1.4) mg/dl Est Cr Clr Drug Dosing ml/min Est GFR ( Amer) Est GFR (Non-Af Amer) BUN/Creatinine Ratio (10-20) Glucose (70-99) mg/dl Calcium (8.5-10.1) mg/dl Total Bilirubin (0.2-1) mg/dl AST (15-37) U/L ALT (12-78) U/L Alkaline Phosphatase (45-117) U/L Ammonia 49.7 H (11-32) umol/L Total Creatine Kinase (39-308) U/L CK-MB (CK-2) (0.5-3.6) ng/ml CK/CKMB % Calc Total Protein (6.4-8.2) gm/dl Albumin (3.4-5.0) gm/dl Globulin (2.5-4.0) gm/dl Albumin/Globulin Ratio (0.9-2) TSH (0.300-4.500) uIu/ml Salicylates (2.8-20) mg/dl Acetaminophen (10-30) ug/ml Valproic Acid (50-100) mcg/ml Ethyl Alcohol mg/dL < 3.0 (0-3) mg/dl Imaging Data Radiologist's Impression: [place], [place] [phone] XRay Report Patient: CHANDRA AMAYA Date: 07/06/20 MR#: [id number]: [id number] Acct ID:[id number]: Date: 1990City Zip: [place] [address] Age: 29Location: 2N Sex: MRoom[facility]Bed: [facility] Att Phy: Jude Davis, MDDiagnosis: INTENTIONAL DRUG OVERDOSE Rupali Phy: Amor Kapadia MDService Date: 07/07/20 Fam Phy:Interpreting Phy: Hima Maciel MD Admit Phy: Jude Davis MD Ordering Phy: Hima Briggs PA-C cc: ~ SINGLE VIEW CHEST CLINICAL HISTORY: Aspiration. FINDINGS: An AP, portable, upright chest radiograph is compared to study dated 05/13/2014. Correlation is made with chest CT dated 02/12/2013. The cardiomediastinal silhouette is unremarkable. There is mild bibasilar atelectasis. No airspace consolidation or large pleural effusion is identified. No pneumothorax is seen. The bony thorax is grossly intact. IMPRESSION: No active disease in the chest. ACT 112: Negative or not required by law. Electronically signed by: Hima Maciel M.D. 07/07/2020 9:05 AM Dictated: 07/07/20903 Transcribed: 07/07/20903 ECG Data Attestation: I personally reviewed and interpreted this ECG as follows: Indication: + toxicologic Rate (beats per minute): 81 Rhythm: + normal sinus ECG Intervals/blocks: + Normal QT-c (427) ECG [place]: + Normal ECG ST segments: no ST depression and no ST elevation Additional Comments: Repeat EKG at 847 is showing a normal sinus rhythm normal EKG QTC is 444 ventricular rate is [address] elevation or depression. It is unchanged from the previous. MDM Narrative This is a 29-year-old male who presents emergency department complaining of hypotension after a multidrug overdose. I did discuss the case with poison control who recommended symptomatic care. Here in the emergency department the patient received 3 L of normal saline bolus. Patient responded well to the fluid. His ammonia level was found to be elevated. I did discuss the case with the ICU as well as the hospitalist service who did agree to admit the patient patient is in agreement with the treatment plan. Patient was seen and evaluated as above in room B6. Review was performed of nursing notes and vital signs. I did review pertinent previous visits and patient history. After obtaining a thorough history and physical examination the above work up was performed. An order was placed for continuous cardiac monitoring. The monitor shows a rate of 66 with Normal SInus rhythm. The patient was evaluated during the global COVID-19 pandemic, and that diagnosis was suspected/considered upon their initial presentation. Their evaluation, treatment and testing was consistent with current guidelines for patients who present with complaints or symptoms that may be related to COVID- 19. Impression & Plan Intentional drug overdose, Acute hypotension, Diarrhea Discharge Plan Visit Data Chief Complaint: Overdose (Intentional) Stated Complaint: drug overdose ED Provider: David Mejia Discharge Problem: Intentional drug overdose, Acute hypotension, Diarrhea Patient Disposition: Admitted As Inpatient Condition: Good Discharge Instructions Interventions: ED Discharge Assessment Last Done: 07/06/20 10:39 Discharge Problem: Intentional drug overdose Qualifiers: Encounter type: initial encounter Qualified Code(s): T50.902A - Poisoning by unspecified drugs, medicaments and biological substances, intentional self-harm, initial encounter Diarrhea Qualifiers: Diarrhea type: unspecified type Qualified Code(s): R19.7 - Diarrhea, unspecified
[2020-07-06 08:13] LABS: Alanine Aminotransferase 33 U/L (12-78); Aspartate Aminotransferase 14 U/L (15-37); BUN Creatinine Ratio 8.1 (10-20); Creatinine Clr Calc Pharmacy 144.1 ml/min; Est GFR (African American) 96.8; Est GFR (Non-African American) 83.5
[2020-07-06 08:23] LABS: Albumin Globulin Ratio 1.1 (0.9-2); Alkaline Phosphatase 67 U/L (45-117); Bilirubin,Total 0.5 mg/dl (0.2-1); Creatine Kinase 66 U/L (39-308); Creatine Kinase MB < 1.0 ng/ml (0.5-3.6); Globulin 3.6 gm/dl (2.5-4.0); Total Protein 7.6 gm/dl (6.4-8.2)
[2020-07-06 08:37] LABS: Acetaminophen < 2 ug/ml (10-30); Salicylate < 1.7 mg/dl (2.8-20); Valproic Acid 31 mcg/ml (50-100)
--- NOTE | 2020-07-06 10:14 | History & Physical Report ---
Date of Service July 06, 2020 Assessment & Plan (1) Intentional drug overdose: 6 hydroxyzine 50 mg tablets 51 Depakote 500 mg tablets 52 risperidone 1 mg tablets 100 losartan 25 mg tablets 300 propranolol 10 mg tablets 161 search sertraline 100 mg tablets 99 omeprazole 20 mg tablets Received 3 L of normal saline as a bolus in the emergency department Continue Normosol at 125 mL/h Patient will most likely need central line insertion. This is been discussed with the patient and he is agreeable. 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 No recommendations for charcoal or other intervention PRP every 4 hours Check repeat ammonia level at noon EKG to monitor QTC -currently the QTC is 444 Continuous cardiac monitoring Suicide precautions and checks per protocol (2) Sleep apnea with use of continuous positive airway pressure (CPAP): Patient has CPAP at home and reports compliance Continue on CPAP with hours of sleep at 12 cm of water Patient aware that due to multi drug overdose he may require endotracheal intubation with mechanical ventilation (3) Nicotine dependence: Patient currently uses chew/snuff and goes for approximately 3 cans/week At this point will hold off on NicoDerm patch Continue to monitor for signs of nicotine withdrawal (4) Obesity: Current weight is 150 kg with a BMI of 42.5 kilograms per meter squared Patient denies significant weight gain or weight loss Outpatient monitoring and management (5) Alcohol abuse: No prior inpatient admissions or rehab for ethanol abuse Patient reports last drink being 5 weeks ago Continue to monitor for polysubstance withdrawal (6) Hypertension: Patient denies structural cardiac disease Most likely hypertension is due to morbid obesity We will hold patient's outpatient antihypertensives at this time secondary to hypotension from overdose Reintroduce home meds as tolerated (7) Asthma: Patient reports childhood asthma with no current symptoms and no current treatment (8) DVT prophylaxis: Patient with BMI of 42.5 kg/m We will start the patient on heparin 7500 units subcutaneously every 8 hours BONG hose and SCDs also ordered Out of bed to chair orders with assistance have been placed Monitor Please refer to Dr. Davis's addendum for further recommendations and corrections. History of Present Illness Primary Care Provider: Amor Kapadia MD Attending: Dr. Davis This is a 29-year-old male with a history of obstructive sleep apnea on CPAP at 12 cmH2O, smokeless tobacco dependence, history of ethanol abuse (abstinent for 5 weeks), history of childhood asthma, hypertension, chronic low back pain, obesity with a BMI of 42.5 kg/m. The patient was recently admitted for inpatient psychiatric services on 3 S. He was discharged on 07/01/2020 and sent home with plans for outpatient psychiatric follow-up. The patient currently is going through divorce with his of 6 years. This morning he woke up and intentionally overdosed taking 51 Depakote 500 mg tablets 52 risperidone 1 mg tablets 100 losartan 25 mg tablets 300 propranolol 10 mg tablets 161 sertraline 100 mg tablets 99 omeprazole 20 mg tablets [facility] was notified and recommended supportive care. Intervention emergency department included 3 L of normal saline. Since admission, the patient is having watery diarrhea. EKG showed normal sinus rhythm with a QTC of 444 ms. The patient has no arrhythmias on monitor. He has been somewhat hypotensive but currently has a systolic blood pressure of 95 after the NSS boluses. He denies any chest pain or tightness. He has no current nausea. He has no shortness of breath. He is alert and oriented x3. He is able to give me full history. The patient has no other further complaints. Allergies Allergy/AdvReac Type Severity Reaction Status Date / Time ketorolac Allergy Intermediate RASH, Verified 07/06/20 07:36 NAUSEA amoxicillin Allergy Mild RASH Verified 07/06/20 07:36 Penicillins Allergy Mild AMOXICILLIN Verified 07/06/20 07:36 = RASH hydrochlorothiazide Allergy Unknown RASH, Verified 07/06/20 07:36 THROAT SWELLS Home Medications Home Medications Medication Instructions Recorded Confirmed Type cyclobenzaprine 10 mg PO TID PRN 07/30/18 07/06/20 History gabapentin 300 mg PO TID PRN 07/30/18 07/06/20 History losartan 25 mg PO DAILY 07/30/18 07/06/20 History omeprazole 20 mg PO DAILY 07/30/18 07/06/20 History propranolol 10 mg PO DAILY 07/30/18 07/06/20 History sertraline 150 mg PO DAILY 07/30/18 07/06/20 History divalproex 500 mg PO BID 30 Days #60 tab 07/01/20 07/06/20 Rx hydroxyzine HCl 50 mg PO Q6 PRN 30 Days #30 tab 07/01/20 07/06/20 Rx risperidone 1 mg PO BID 30 Days #60 tab 07/01/20 07/06/20 Rx Past Med/Surg History Medical History Abdominal pain Alcohol abuse Allergic reaction Arterial hypotension Chest pain Depression with suicidal ideation Low back pain Nicotine dependence Obesity Sleep apnea with use of continuous positive airway pressure (CPAP) Surgical History Hx of cholecystectomy Family History Other No significant family history Social History Smoking Status: Never smoker Tobacco Type: Smokeless Tobacco (Dip or Chew) Do You Dip or Chew Tobacco: Yes (3 cans/week); Hx Alcohol Use: No Preferred Language: Uzbek Communication Ability: Effective Collar Baster Required: No Beliefs That Will Affect Care: None Current Living Situation: Family Current Living Situation Comment: lives with mom and brother Other Information That Helps Us Care for You: No Feels Safe at Home: Yes Safety Concerns: Feels Safe At This Time Review of Systems Review of Systems: All systems reviewed & are unremarkable except as noted in HPI & below Physical Exam 2 Physical Exam: GENERAL : No acute distress. Cognitive and able to give accurate history EYES: No icterus, gaze conjugate. Pupils equal round and reactive to light NOSE: No evidence of epistaxis MOUTH: No lesions or candidiasis. No slurred speech. No deviation of tongue. No facial droop NECK: Supple LUNGS: CTA B/L, no wheezes, rales or rhonchi. Good inspiratory effort HEART: Regular, rate controlled in the 70s ABDOMEN: Soft, NT, ND, BS Present. Protuberant with truncal obesity EXTREMITIES: No LE edema, pedal pulses intact and equal bilaterally NEURO: A&OX3. No slurred speech. Pupils equal round react to light. Follows commands. Able to give complete history. No evidence of focal deficits and cranial nerves II through XII Results & Data Results & Data ([facility]) Vital Signs (Past 12 Hours) Vital Signs Temp Pulse Pulse Resp BP BP Pulse Ox 07/06/20 09:48 72 18 98/54 L 97 07/06/20 09:31 73 97/65 L 98 07/06/20 09:16 83/58 L 07/06/20 09:09 67 100/56 L 97 07/06/20 09:06 71 77/49 L 97 07/06/20 08:50 68 18 93/51 L 98 07/06/20 08:35 74 18 86/46 L 97 07/06/20 08:06 74 18 90/56 L 96 07/06/20 08:01 96 07/06/20 07:26 36.9 C 79 18 117/71 96 07/06/20 07:19 93 Laboratory Results 07/06/20 07:41 07/06/20 07:41 Laboratory Tests 07/06/20 07:41 AST 14 L ALT 33 TSH 2.660 Ammonia level 49.7 Diagnostic Findings No diagnostic imaging this admission Code Status & VTE Plan Code Status Full resuscitation: Level I VTE Prophylaxis Plan VTE Prophylaxis will be ordered: Yes Critical Care Time Critical Care Time: Yes Total Critical Care Time: 30 Supervising Physician Co-Signing Physician Notes Patient is a 29-year-old male with history of THEODORA on CPAP, smokeless tobacco use, alcohol use disorder and other medical problems presents with intentional drug overdose secondary intent to commit suicide. Patient admits to taking se veral tablets of his home medications. He was recently discharged from inpatient psychiatric facility and is going through stress with divorce process. Poison control was contacted. Please review HPI for complete details of presentation. Currently patient denies any chest pain, shortness of breath, dizziness, nausea, abdominal pain. He reports having multiple episodes of diarrhea since this morning. He denies any blood in stool. On exam patient is morbidly obese, no apparent distress, normocephalic atraumatic, lungs are clear to auscultation, S1-S2, no murmur, abdomen soft, nontender, normal bowel sounds, alert, awake, oriented, grossly no focal neurologic deficits. Patient is admitt ed for management of intentional drug overdose, suicidal ideation. Hold all home medications. Poison control contacted. Continue conservative management with close monitoring in ICU for hemodynamic/cardiac changes. Monitor ammonia levels. Continue IV fluids. Commercial Carpet Installer consulted. Monitor electrolytes closely. Psychiatry consulted. Needs inpatient psychiatry treatment when medically stable. Continue neurochecks. Monitor for QTC prolongation. Monitor Depakote levels. I personally reviewed the record. Patient is interviewed and examined at bedside. Patient's care is coordinated with Hima Briggs PA-C. Please refer to the documentation above for details of patient's presentation and for discussion of other issues.
[2020-07-06] MEDS ORDERED: ICU PROTOCOL FOR HYPERGLYCEMIA PRN (11:01)
[2020-07-06 11:09] LABS: Base Excess ABG -3.9 mEq/L (-9-1.8); HCO3 ABG 21 mmol/L (19-24); Oxygen Saturation ABG 95.2 % (90-95); PCO2 ABG 37 mmHg (35-46); PO2 ABG 78 mmHg (80-95); pH ABG 7.37 (7.35-7.45)
[2020-07-06 11:10] LABS: Allen Test Pos (Pos)
[2020-07-06] MEDS: NORMOSOL-R 1,000 ML IV SCH ×2 (11:17→18:54)
--- NOTE | 2020-07-06 11:51 | Electrocardiogram Report ---
Test Reason : Blood Pressure : / mmHG Vent. Rate : 081 BPM Atrial Rate : 081 BPM P-R Int : 190 ms QRS Dur : 104 ms QT Int : 368 ms P-R-T Axes : 054 -09 024 degrees QTc Int : 427 ms Normal sinus rhythm Normal ECG When compared with ECG of 13-MAY-2014 21:11, No significant change was found Confirmed by Daniel Shannon ([id number]) on 07/06/2020 11:50:47 AM Referred By: Confirmed By:Daniel Shannon
--- NOTE | 2020-07-06 11:55 | Electrocardiogram Report ---
Test Reason : Blood Pressure : / mmHG Vent. Rate : 072 BPM Atrial Rate : 072 BPM P-R Int : 198 ms QRS Dur : 110 ms QT Int : 406 ms P-R-T Axes : 054 001 012 degrees QTc Int : 444 ms Normal sinus rhythm Normal ECG When compared with ECG of 06-JUL-2020 07:13, (unconfirmed) No significant change was found Confirmed by Daniel Shannon ([id number]) on 07/06/2020 11:55:26 AM Referred By: REFERRED SELF Confirmed By:Daniel Shannon
--- NOTE | 2020-07-06 12:02 | Electrocardiogram Report ---
Test Reason : Blood Pressure : / mmHG Vent. Rate : 071 BPM Atrial Rate : 071 BPM P-R Int : 194 ms QRS Dur : 102 ms QT Int : 388 ms P-R-T Axes : 061 002 013 degrees QTc Int : 421 ms Normal sinus rhythm Normal ECG When compared with ECG of 06-JUL-2020 08:47, (unconfirmed) No significant change was found Confirmed by Daniel Shannon ([id number]) on 07/06/2020 12:02:10 PM Referred By: REFERRED SELF Confirmed By:Daniel Shannon
--- NOTE | 2020-07-06 12:07 | Procedure Note ---
Procedure Note Date of Service July 06, 2020 Note ARTERIAL LINE PROCEDURE NOTE: Procedure: Right radial arterial Line Placement Indication: Monitoring on Pressors Anesthesia: None Consent was signed and placed on the chart prior to procedure. Indication, risks, and benefits were explained at length. A time-out was completed verifying correct patient, procedure, site, positioning, and implant(s) or special equipment if applicable. Patients right wrist was prepped and draped in the usual sterile fashion. Ultrasound guidance was used to aid needle placement. A 20g Arrow arterial line was introduced into the radial artery. Catheter was threaded, and the needle was removed with appropriate blood return. Good waveform was observed. The patient tolerated the procedure well. Blood Loss: Minimal Complications: None Coding CPT Codes Tubes, Drains, and Vasc Access - Tubes, Drains, and Vasc Access: [id number] Place Catheter In Artery ([id number]) Tubes, Drains, and Vasc Access - Tubes, Drains, and Vasc Access: [id number] Ultrasound Guidance For Vascular ([id number]) [facility] [place] (Charges) Tubes, Drains, and Vasc Access Procedure 1: Tubes, Drains, and Vasc Access: [id number] Place Catheter In Artery Procedure 2: Tubes, Drains, and Vasc Access: [id number] Ultrasound Guidance For Vascular
--- NOTE | 2020-07-06 12:16 | Critical Care Consultation ---
Date of Consultation July 06, 2020 Assessment & Plan (1) Intentional drug overdose: Patient was discussed with bedside nurse and admitting hospitalist team. Assessment and Plan: -Intentional overdose with numerous drugs (polypharmacy) -Suicidal ideation -Hyperammonemia -Hypotension Neurologic: Hold all mind altering agents at this time. Closely monitor for altered mental status and seizure activity. Ammonia level is elevated. Will check a repeat ammonia level. He is at risk for neurological compromise given his SSRIs and valproic acid usage. Delirium precautions Pulmonary: Currently saturating well on 2 L nasal cannula. Will order for CPAP at night as he has a history of obstructive sleep apnea. Otherwise no issues. Cardiovascular: Hypotension resolved with fluid boluses. We will continue hydration. Monitor for bradycardia and hypotension given that he has taken numerous sedatives and propranolol. So far he has not required the use of calcium, insulin, D50 or glucagon. EKG is every hour. Monitor QRS and QTc intervals. Arterial line in place Gastrointestinal: No issues at present we will maintain n.p.o. status per today. Monitor for GI bleed. I am requesting that IV l-carnitine be made available in the hospital in the case that his VPA levels go up. Renal: So far no issues. Continue fluid hydration. Continue to monitor BMP every 4 hours. Continue to monitor VPA level every 4 hours. No indications for dialysis currently. Bicarb as needed. Infectious disease: Hematologic: No hematologic issues as of yet. Endocrine: No issues currently. Psychiatric: Holding all mind altering medications. Psychiatric nurse liaison at bedside. Suicide precautions. Sitter at bedside. F/E/N: Right radial arterial line in place. Peripheral IVs in place. N.p.o. VTE prophylaxis: Heparin 3 times daily CODE STATUS: Full code Family at bedside: None readily available at bedside Disposition: Keep in the ICU today I have personally spent 46 minutes of critical care time in the direct management of this patient. This is a life/limb threatening event. This includes time spent evaluating patient, direct bedside care, chart review, placing orders, interpretation of diagnostic studies, discussion with consultants, patient, and family members, as well as other required patient management activities. This time is exclusive of all separately billable procedures, and teaching time and separate from and in addition to any other critical care service time. Thank you for allowing us to participate in the care of this patient. (2) Sleep apnea with use of continuous positive airway pressure (CPAP): (3) Nicotine dependence: (4) Obesity: (5) Arterial hypotension: History of Present Illness Reason for Consultation: Intentional drug overdose requiring ICU monitoring Requesting Physician: Dr. Davis Attending Physician: Jude Davis MD History of Present Illness 29-year-old male with a past medical history of THEODORA on a CPAP pressure of 12 mm H2O, chewing tobacco, history of alcohol abuse, history of childhood asthma, history of hypertension, obesity and bipolar disorder presenting to the hospital with hypotension. Patient notes that around 5 AM he took 2 handfuls of his pills. He does not know the quantity. Reportedly there were Depakote, risperidone, losartan, propranolol, sertraline and omeprazole available for his use. Patient received several liters of fluid in the ER due to hypotension. Hypotension resolved with fluid boluses. Patient is a bit lethargic, but able to give history. He notes issues with his and he is currently going through divorce. He describes that taking the pills with an impulse and he currently denies any suicidal ideation. [facility] was [facility]. He disclosed suicidal thoughts of wanting to hang himself with a bed sheet during that hospitalization. He was diagnosed with depression not otherwise specified, intermittent explosive disorder and alcohol use disorder. He denies any drug abuse otherwise. He has had several episodes of diarrhea since hospital admission. Denies any infectious symptoms such as cough, fevers, chills, night sweats, chest pain or changes in his weight. Allergies Allergy/AdvReac Type Severity Reaction Status Date / Time ketorolac Allergy Intermediate RASH, Verified 07/06/20 07:36 NAUSEA amoxicillin Allergy Mild RASH Verified 07/06/20 07:36 Penicillins Allergy Mild AMOXICILLIN Verified 07/06/20 07:36 = RASH hydrochlorothiazide Allergy Unknown RASH, Verified 07/06/20 07:36 THROAT SWELLS Home Medications Home Medications Medication Instructions Recorded Confirmed Type cyclobenzaprine 10 mg PO TID PRN 07/30/18 07/06/20 History gabapentin 300 mg PO TID PRN 07/30/18 07/06/20 History losartan 25 mg PO DAILY 07/30/18 07/06/20 History omeprazole 20 mg PO DAILY 07/30/18 07/06/20 History propranolol 10 mg PO DAILY 07/30/18 07/06/20 History sertraline 150 mg PO DAILY 07/30/18 07/06/20 History divalproex 500 mg PO BID 30 Days #60 tab 07/01/20 07/06/20 Rx hydroxyzine HCl 50 mg PO Q6 PRN 30 Days #30 tab 07/01/20 07/06/20 Rx risperidone 1 mg PO BID 30 Days #60 tab 07/01/20 07/06/20 Rx Patient History Medical History (Updated 07/06/20 @ 12:13 by Raoul Johnson MD) Abdominal pain Alcohol abuse Allergic reaction Arterial hypotension Chest pain Depression with suicidal ideation Low back pain Nicotine dependence Obesity Sleep apnea with use of continuous positive airway pressure (CPAP) Surgical History Hx of cholecystectomy Family History Other No significant family history Social History Smoking Status: Never smoker Tobacco Type: Smokeless Tobacco (Dip or Chew) Do You Dip or Chew Tobacco: Yes (3 cans/week); Hx Alcohol Use: No Preferred Language: Nepali Communication Ability: Effective Political Analyst Required: No Beliefs That Will Affect Care: None Current Living Situation: Family Current Living Situation Comment: lives with mom and brother Other Information That Helps Us Care for You: No Feels Safe at Home: Yes Safety Concerns: Feels Safe At This Time Assistive Devices: Glasses Review of Systems Review of Systems: All systems reviewed & are unremarkable except as noted in HPI & below Physical Exam Constitutional: WD/WN, vitals as above Eyes: PERRL, conjunctivae normal, anicteric sclerae ENMT: external ear and nose normal, oropharynx normal Neck: trachea midline, no thyromegaly Respiratory: normal respiratory effort, lungs clear to auscultation Cardiovascular: RRR, no murmur, no edema Gastrointestinal (Abdomen): normal bowel sounds, soft, nontender, no hepatosplenomegaly Musculoskeletal: no cyanosis or clubbing, extremities motor strength 5/5 Skin: no rashes, warm and dry Neurologic: PERRL, EOMI, accommodation nl, no face palsy, no dysarthria Psychiatric: A+Ox3, euthymic affect Results & Data Results & Data ([facility]) Vital Signs (Past 12 Hours) Vital Signs Temp Pulse Pulse Resp BP BP Pulse Ox 07/06/20 10:56 97.7 F 75 22 108/67 96 07/06/20 10:31 67 18 89/52 L 98 07/06/20 10:22 68 18 75/41 L 97 07/06/20 09:48 72 18 98/54 L 97 07/06/20 09:31 73 97/65 L 98 07/06/20 09:16 83/58 L 07/06/20 09:09 67 100/56 L 97 07/06/20 09:06 71 77/49 L 97 07/06/20 08:50 68 18 93/51 L 98 07/06/20 08:35 74 18 86/46 L 97 07/06/20 08:06 74 18 90/56 L 96 07/06/20 08:01 96 07/06/20 07:26 98.4 F 79 18 117/71 96 07/06/20 07:19 93 I reviewed vital signs, labs and imaging Coding Level of Care Code Critical Care 1st 30-74 mins Diagnoses Intentional drug overdose T50.902A Sleep apnea with use of continuous positive airway pressure (CPAP) G47.30 Nicotine dependence F17.200 Obesity E66.9 Arterial hypotension I95.9 Time Spent (min) 46
[2020-07-06 12:52] LABS: Fibrinogen 249 mg/dl (184-400); INR 1.1 (0.9-1.1); Partial Thromboplastin Ratio 1.1; Prothrombin Time 11.4 Seconds (9.0-12.0)
[2020-07-06 13:01] LABS: BUN Creatinine Ratio 8.5 (10-20); Calcium 8.4 mg/dl (8.5-10.1); Creatinine Clr Calc Pharmacy 137.1 ml/min; Est GFR (African American) 91.1; Est GFR (Non-African American) 78.6; Potassium 4.8 mmol/L (3.5-5.1)
--- NOTE | 2020-07-06 13:19 | Psychiatric Consultation ---
Date of Consultation July 06, 2020 Impression / Recommendations Impression Dr. Ela Daily was directly involved in review and discussion of the patient's case and participated in medical decision making regarding treatment recommendations. RECOMMENDATIONS: 07/06 - Psychiatric consultation requested to evaluate patient s/p intentional polysubstance overdose with intent to end life, with patient having written numerous suicide letters to family. - Agree with recommendation to hold psychotropic medications, in addition to other prescriptions of concern given polysubstance overdose with uncertainty regarding the make-up and amount of pills involved. Agree with need for careful surveillance of any signs of serotonin toxicity and observation of ammonia/liver function. - Pt is on a [address] Warrant and will require inpatient psychiatric treatm ent once medically cleared and able to appropriately participate in the milieu. Pt will need to be able to freely ambulate, without IVs for 24-hours, and able to tolerate oral nutrition and dosing of medications before he would be considered clear for any psychiatric unit. Would be very reluctant to accept the patient on a voluntary basis, given he is clearly stating he does not need a hospitalization, has made several clear statements of intent to sign his 72-hr notice on admission, and has an obvious history of impulsive actions with high risk for serious injury which needs to be addressed in the inpatient psychiatric setting. Pt should not be permitted to leave the hospital AMA as [address] - Will request that patient sign ROIs to allow for collateral information to be obtained from his mother (whom he called to report the overdose), and brother (with whom the patient lives). - Maintain 1:1 and all suicide precautions. Although patient is denying SI presently, he is clearly at risk of acting on impulse with acute potential for self-harm or suicidal behavior. - Appreciate the opportunity to participate in the care of this patient. Please reach out to our service with any additional questions or updates. Risk Factors Assessment Do You Have Access To A Gun?: No (secured prior to recent psychiatric hospitalization) Psych History Identifying Data 29-year-old male admitted medically on 07/06/2020 after presenting to the ED via EMS s/p intentional ingestion of numerous pills with the intent to end his life. Initial EMS report suggested that patient told responders he took ~750 pills (reportedly also outlined in patient's suicide notes) with intent to end his life. It is unclear how accurate this information is. At one point, there was consideration for transfer to a tertiary care center. Pt has been admitted to our ICU with supportive treatment at poison control involvement. A routine psychiatric consultation was requested to evaluate patient s/p suicide attempt via overdose. Chief Complaint "My mind got to racing, and got off track for like 20 minutes." History of Present Illness Guy Mendez is a 29-year-old male admitted medically on 07/06/2020 after presenting to the ED via EMS s/p intentional polysubstance overdose. EMS report states that patient reported the amount of medication both verbally upon EMS arrival and in a suicide note that was left. Documentation from previous assessments suggest patient may have taken as many as: 51 Depakote 500 mg tablets; 52 risperidone 1 mg tablets; 100 losartan 25 mg tablets; 300 propranolol 10 mg tablets; 161 sertraline 100 mg tablets; and 99 omeprazole 20 mg tablets. Poison control is recommending supportive care, and consideration for transfer to a tertiary care center was discussed. Pt was ultimately admitted to our ICU for further management. Pt is known to our service from a recent inpatient psychiatric hospitalization from 06/26/2020 - 07/01/2020, where he presented with worsening depression and SI with thoughts to hang himself with a bed sheet. Routine psychiatric consultation was requested to evaluate patient s/p suicide attempt by overdose. Prior to meeting with patient, [address] warrant and multiple suicide notes (2 to , and one to daughters) were reviewed. We are aware that patient and his are and is filing for divorce. These subjects were discussed in his notes. During his recent psychiatric admission, the patient was diagnosed with depression (MDD vs. IED vs. PTSD vs. substance-induced mood disorder). He was continued on sertraline 150mg, which was recently titrated by his PCP. He was also started on Depakote and Risperdal, and was discharged with Vistaril to be used for sleep. Pt had been engaged in mental health treatment on the unit, and had been consistently denying SI at the time of discharge. Prior to his present hospitalization, a [address] warrant was completed by [employer], and reads: "My name is marco Church, I am assigne dto janette Mendez of the [place] [employer] on 07/06/20 at approximately 0645 hours I was dispatched to the subjects residence. Upon arrival met with the subjects family members who relate that he had took a bunch of prescribed medication. While on scene the subjects family member provided me with 4 different notes. The notes were goodbye notes to his family members. The subject has a history of suicidal intent. I believe that if Andrea does not seek does not seek medical/mental health attention that he will pose a danger to himself in a manner that will place his life in danger." Pt was able to participate in interview with psychiatric nurse liaison. He is now reporting he may have taken 60-75 pills (3 separate handfuls of 20-25 pills each). He remains unable to report the exact composition. Pt repeated informed our liaison that he was unwilling to return for inpatient psychiatric treatment as "It was all a mistake. I learned a lot on the unit. We all have our setbacks. It's not going to happen again." Pt is also now stating "I want to be home with my girls" - who are actually staying with their mother, whom patient is presently from. Pt is cooperative with assessment by this provider, but does appear sedated. He tells this provider "My mind got to racing, and got off track for like 20 minutes." Pt states that in that time he wrote several suicide letters and took the pills. Pt reports that after taking the pills "it was like a slap in the face that I messed up. I told my mom that I needed help." The patient states that he is not suicidal presently and is hopeful to get to his outpatient appointments this week and get home to "see my girls." Pt is unable to identify what has changed since this morning when he had intended to end his life. He does state "that was just 20 minutes of weakness, I can change. I can change my life from that 20 minutes." Pt attempts to explain why he does not need inpatient psychiatric treatment after medical clearance. He reports feeling he has learned everything he needed from his last admission and "I want the chance to forgo this on my own." This provider explained that although the patient may have learned helpful strategies, the application of these strategies was clearly unsuccessful and that additional time was recommended to evaluate where his safety plan fell apart. Pt believes he can do this independently at home. This provider did set the patient up with the expectation that inpatient psychiatric treatment is recommended. He states "I don't think holding me for 3 days of observation will do any good." Pt remains focused on only 3 days, and mentions several times that he would plan to sign "that 72 hour thing" if he is admitted. Pt denied other needs at this time, and was encouraged to reach out to our service with any additional questions or concerns. Past Psychiatric History Previous Psych History: According to 06/2020 psychiatric admission: "Has never seen a psychiatrist before. PCP has been treating him for depression with sertraline for the past 2 years. Was in therapy 07/2019 - 04/2020 at [facility] with Dr. Rodo Cam for anger, but quit going because he did not feel they had a good connection. He had diagnosed the patient with depression and PTSD, but did not note what the trauma was." Current Psychiatric Diagnosis: Depression Outpatient Services: Pt was set up with aftercare appointments at [facility] for therapy and medication management - psychiatry appointment scheduled for 07/08, therapy for 07/09 Previous Psych Admissions: Admitted to the [facility] at [facility] from 06/26/2020 - 07/01/2020 Do You Have Access To A Gun?: No (secured prior to recent psychiatric hospitalization) History of Previous Suicide Attempt: Yes (significant polysubstance overdose prior to this hospitalization) Past Medication Trials: No medications trials prior to recent psychiatric hospitalization. Was started on Depakote and Risperdal and continued on Zoloft during recent admission. Allergies Allergy/AdvReac Type Severity Reaction Status Date / Time ketorolac Allergy Intermediate RASH, Verified 07/06/20 07:36 NAUSEA amoxicillin Allergy Mild RASH Verified 07/06/20 07:36 Penicillins Allergy Mild AMOXICILLIN Verified 07/06/20 07:36 = RASH hydrochlorothiazide Allergy Unknown RASH, Verified 07/06/20 07:36 THROAT SWELLS Home Medications Home Medications Medication Instructions Recorded Confirmed Type cyclobenzaprine 10 mg PO TID PRN 07/30/18 07/06/20 History gabapentin 300 mg PO TID PRN 07/30/18 07/06/20 History losartan 25 mg PO DAILY 07/30/18 07/06/20 History omeprazole 20 mg PO DAILY 07/30/18 07/06/20 History propranolol 10 mg PO DAILY 07/30/18 07/06/20 History sertraline 150 mg PO DAILY 07/30/18 07/06/20 History divalproex 500 mg PO BID 30 Days #60 tab 07/01/20 07/06/20 Rx hydroxyzine HCl 50 mg PO Q6 PRN 30 Days #30 tab 07/01/20 07/06/20 Rx risperidone 1 mg PO BID 30 Days #60 tab 07/01/20 07/06/20 Rx Family History Denies known family history of mental health conditions. Substance Abuse History Alcohol abuse diagnosis from recent psychiatric admission. Pt admitted to drinking daily, 12-24 drinks at a time. Pt admits to history of blackouts, and history of injury related to alcohol use. Denies withdrawal history or history of substance abuse treatment. Personal History Living Arrangements: Brother's home Living Arrangements Comments: Pt living separately from and children ([place]), recently living with in brother's home with brother and mother Childhood: Grew up in [place], raised by both parents, one older brother. Good relationships with family and identifies them as supports. Father when the patient was 16. 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) Marital Status: ( filing for divorce) Number Of Children: 2 young daughters - ages 2 and 4 Beliefs That Will Affect Care: None Patient History Medical History Abdominal pain Alcohol abuse Allergic reaction Arterial hypotension Chest pain Depression with suicidal ideation Low back pain Nicotine dependence Obesity Sleep apnea with use of continuous positive airway pressure (CPAP) Surgical History Hx of cholecystectomy Family History Other No significant family history Social History Smoking Status: Never smoker Tobacco Type: Smokeless Tobacco (Dip or Chew) Do You Dip or Chew Tobacco: Yes (3 cans/week); Hx Alcohol Use: No Preferred Language: [place] Citizen Communication Ability: Effective Senior Program Manager Required: No Current Living Situation: Family Current Living Situation Comment: lives with mom and brother Other Information That Helps Us Care for You: No Feels Safe at Home: Yes Safety Concerns: Feels Safe At This Time Physical Exam Psychiatric: Orientation: alert, oriented x 3 and + guarded (only superficially cooperative, minimizing) Apperance: appropriately dressed and appeared stated age Morbidly obese male, laying in bed - appearing sedated but in no acute distress. Pt is dressed appropriately for clinical setting. Level of hygiene and groom is adequate Eye Contact: + fair eye contact Motor Behavior: no abnormal motor movements (observed while laying in bed ) Speech: normal rate/rhythm/volume of speech (soft volume) Affect: + blunted affect (subdued; appearing rather sedated ) Mood: no depressed mood ("I'm fine. This was just a setback") Thought Proce ss: goal directed thought process and clear/coherent thought process Thought Content: + cognitive distortions; no hopelessness and no worthlessness Suicidal Thoughts: denies suicidal thoughts and denies suicidal intent Sudden flight into health. Pt admits he took OD with intent to end his life, now stating he is not suicidal. Homicidal Thoughts: denies homicidal thoughts Hallucinations: no auditory hallucinations and no visual hallucinations Cognition: recent memory grossly intact, attention grossly intact and language grossly intact Insight: + poor insight Judgement: + poor judgement Vital Signs (Past 24 Hours): Last Vital Signs Temp 36.5 C 07/06/20 10:56 Pulse 74 07/06/20 12:01 Resp 19 07/06/20 12:01 BP 89/60 L 07/06/20 12:01 Pulse Ox 95 07/06/20 12:01 Review of Systems Constitutional: reporting only "feeling really tired" at this time Cardiovascular: denied Respiratory: denied Gastrointestinal: denied Neurological: denied Psychiatric: denies symptoms other than stated above Total of at least 10 systems reviewed, pertinent positives as above and in HPI. Results & Data (PSY) Medications Administered Parenteral Electrolytes (Normosol-R) 1,000 mls @ 125 mls/hr IV .Q8H ELIUD Stop: 08/05/20 11:14 Last Admin: 07/06/20 11:17 Dose: 125 mls/hr Documented by: [id number] Coding Level of Care Code 45409 [facility] Intl Hosp Care Lvl 2
[2020-07-06] MEDS: HEPARIN SOD 5,000 UNIT/0.5 ML VIAL SQ SCH ×2 (14:47→22:14)
[2020-07-06 15:44] LABS: BUN Creatinine Ratio 8.7 (10-20); Calcium 8.2 mg/dl (8.5-10.1); Creatinine Clr Calc Pharmacy 160.4 ml/min; Est GFR (African American) 110.2; Potassium 4.6 mmol/L (3.5-5.1)
[2020-07-06 19:44] LABS: BUN Creatinine Ratio 9.3 (10-20); Calcium 8.8 mg/dl (8.5-10.1); Creatinine Clr Calc Pharmacy 166.7 ml/min; Est GFR (African American) 115.4; Est GFR (Non-African American) 99.6; Potassium 4.1 mmol/L (3.5-5.1)
[2020-07-06 23:34] LABS: BUN Creatinine Ratio 10.2 (10-20); Calcium 8.9 mg/dl (8.5-10.1); Creatinine Clr Calc Pharmacy 177.1 ml/min; Est GFR (African American) 124.2; Est GFR (Non-African American) 107.1; Potassium 3.9 mmol/L (3.5-5.1)
[2020-07-07 02:36] LABS: Basophils # (auto) 0.03 K/uL (0-0.2); Basophils % (auto) 0.4 %; Eosinophils # (auto) 0.12 K/uL (0-0.5); Eosinophils % (auto) 1.5 %; Hematocrit (blood only) 38.8 % (42-52); Hemoglobin 13.2 g/dL (14.0-18.0); Immature Granulocytes # (auto) 0.01 K/uL (0.00-0.02); Immature Granulocytes % (auto) 0.1 %; Lymphocytes # (auto) 2.54 K/uL (1.2-3.4); Lymphocytes % (auto) 31.7 %; Mean Corpuscular Hemoglobin 30.1 pg (25-34); Mean Corpuscular Volume 88.6 fL (80-100); Mean Platelet Volume 11.2 fL (7.4-10.4); Neutrophils # (auto) 4.51 K/uL (1.4-6.5); Neutrophils % (auto) 56.3 %; Platelet Count 207 K/uL (130-400); RDW Coefficient of Variation 12.4 % (11.5-14.5); RDW Standard Deviation 40.1 fL (36.4-46.3); Red Blood Count 4.38 M/uL (4.7-6.1); White Blood Count 8.01 K/uL (4.8-10.8)
[2020-07-07 03:00] LABS: Albumin Level 3.2 gm/dl (3.4-5.0); BUN Creatinine Ratio 9.3 (10-20); Calcium 8.1 mg/dl (8.5-10.1); Creatinine Clr Calc Pharmacy 165.1 ml/min; Est GFR (Non-African American) 98.4; Magnesium 2.1 mg/dl (1.8-2.4); Potassium 3.9 mmol/L (3.5-5.1)
[2020-07-07] MEDS: NORMOSOL-R 1,000 ML IV SCH ×2 (03:00→12:40)
[2020-07-07 03:09] LABS: Albumin Globulin Ratio 1.1 (0.9-2); Bilirubin,Total 0.7 mg/dl (0.2-1); Total Protein 6.2 gm/dl (6.4-8.2)
[2020-07-07] MEDS: HEPARIN SOD 5,000 UNIT/0.5 ML VIAL SQ SCH ×3 (06:13→23:49)
--- NOTE | 2020-07-07 07:53 | Critical Care Progress Note ---
Date of Service July 07, 2020 Assessment & Plan (1) Intentional drug overdose: Patient was discussed with bedside nurse and admitting hospitalist team. Assessment and Plan: -Intentional overdose with numerous drugs (polypharmacy) -Suicidal ideation -Hyperammonemia -Hypotension Neurologic: Hold all mind altering agents at this time. Closely monitor for altered mental status and seizure activity. Ammonia level is elevated. This is likely related to the valproic acid. Mentation has been adequate. Delirium precautions Pulmonary: Currently saturating well on 2 L nasal cannula. Continue CPAP CPAP at night as he has a history of obstructive sleep apnea. Otherwise no issues. Cardiovascular: No significant issues overnight. Can repeat an EKG tomorrow morning. Monitor QRS and QTc intervals. We will discontinue the arterial line in place Gastrointestinal: We can start a diet today. No evidence of GI bleed. LFTs within normal limits. Ammonia mildly elevated due to valproic acid. Renal: No current issues. Valproic acid levels trending downwards. BMP every 12 hour s. Infectious disease: No issues Hematologic: No hematologic issues. Endocrine: No issues currently. Psychiatric: Holding all mind altering medications. Will need to be discharged to inpatient psychiatric unit once he is medically stable. Suicide precautions. Sitter at bedside. F/E/N: Right radial arterial line in place. Peripheral IVs in place. N.p.o. VTE prophylaxis: Heparin 3 times daily CODE STATUS: Full code Family at bedside: None readily available at bedside Disposition: Transfer to floor with telemetry today. (2) Sleep apnea with use of continuous positive airway pressure (CPAP): Patient has CPAP at home and reports compliance Continue on CPAP with hours of sleep at 12 cm of water Patient aware that due to multi drug overdose he may require endotracheal intubation with mechanical ventilation (3) Nicotine dependence: Patient currently uses chew/snuff and goes for approximately 3 cans/week At this point will hold off on NicoDerm patch Continue to monitor for signs of nicotine withdrawal (4) Obesity: Current weight is 150 kg with a BMI of 42.5 kilograms per meter squared Patient denies significant weight gain or weight loss Outpatient monitoring and management (5) Arterial hypotension: Admission and Anticipated Discharge Date Admission Date: July 06, 2020 Subjective Patient is feeling fine this morning. Denies any chest pain, fevers or chills. No diarrhea. No significant hemodynamic issues overnight. Art line is in place. Review of Systems Review of Systems: All systems reviewed & are unremarkable except as noted in HPI & below Physical Exam Constitutional: WD/WN, vitals as above Eyes: PERRL, conjunctivae normal, anicteric sclerae ENMT: external ear and nose normal, oropharynx normal Neck: trachea midline, no thyromegaly Respiratory: normal respiratory effort, lungs clear to auscultation Cardiovascular: RRR, no murmur, no edema Gastrointestinal (Abdomen): normal bowel sounds, soft, nontender, no hepatosplenomegaly Musculoskeletal: no cyanosis or clubbing, extremities motor strength 5/5 Skin: no rashes, warm and dry Neurologic: PERRL, EOMI, accommodation nl, no face palsy, no dysarthria Psychiatric: A+Ox3, euthymic affect Results & Data Results & Data ([facility]) Vital Signs (Past 12 Hours) Vital Signs Temp Pulse Resp Pulse Ox 07/07/20 06:00 98.8 F 70 17 92 07/07/20 05:00 69 15 91 07/07/20 04:00 97.9 F 70 16 91 07/07/20 03:00 66 17 92 07/07/20 02:00 98.1 F 73 15 89 L 07/07/20 01:00 69 15 89 L 07/07/20 00:00 98.4 F 65 17 91 07/06/20 23:00 66 19 92 07/06/20 22:00 98.1 F 70 19 92 07/06/20 21:00 68 17 91 07/06/20 20:00 98.1 F 68 17 93 reviewed vital signs and labs Coding Level of Care Code 78979 Subseq Hosp Care Lvl 3 Diagnoses Intentional drug overdose T50.902A Sleep apnea with use of continuous positive airway pressure (CPAP) G47.30 Nicotine dependence F17.200 Obesity E66.9 Arterial hypotension I95.9
--- NOTE | 2020-07-07 09:06 | XRay Report ---
SINGLE VIEW CHEST CLINICAL HISTORY: Aspiration. FINDINGS: An AP, portable, upright chest radiograph is compared to study dated 05/13/2014. Correlation is made with chest CT dated 02/12/2013. The cardiomediastinal silhouette is unremarkable. There is mild bibasilar atelectasis. No airspace consolidation or large pleural effusion is identified. No pneumot horax is seen. The bony thorax is grossly intact. IMPRESSION: No active disease in the chest. ACT 112: Negative or not required by law. Electronically signed by: Hima Maciel M.D. 07/07/2020 9:05 AM
[2020-07-07 09:24] LABS: Appearance Urine Clear (Clear); Bilirubin Urine Negative (Negative); Blood Urine Negative (Negative); Color Urine Yellow; Glucose Urine UA Negative (Negative); Ketones Urine Negative (Negative); Leukocyte Esterase Urine Negative (Negative); Nitrite Urine Negative (Negative); Protein Urine Negative (Negative); Specific Gravity Urine 1.017 (1.000-1.030); Urobilinogen Urine Negative (Negative)
[2020-07-07 10:01] LABS: Amphetamines+Metham, Urine Neg (Neg); Barbiturates, Urine Neg (Neg); Benzodiazepine, Urine Neg (Neg); Cocaine, Urine Neg (Neg); MDMA (Ecstacy), Urine Neg (Neg); Methadone, Urine Neg (Neg); Opiate, Urine Neg (Neg); Phencyclidine, Urine Neg (Neg)
--- NOTE | 2020-07-07 18:24 | Hospitalist Progress Note ---
Date of Service July 07, 2020 Assessment & Plan (1) Intentional drug overdose: Intentional drug overdose Suicidal Ideation Hyperammonemia Hypotension H/O depression, intermittent explosive disorder Recently discharged from inpatient psychiatric unit Reported Ingestion of 6 hydroxyzine 50 mg tablets, 51 Depakote 500 mg tablets, 52 risperidone 1 mg tablets, 100 losartan 25 mg tablets, 300 propranolol 10 mg tablets, sertraline 100 mg tablets, 99 omeprazole 20 mg tablets Poison control contacted. 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 Obesity: BMI : 42 Alcohol abuse: Reports last drink 5 weeks ago Monitor for withdrawal Continue to monitor for polysubstance withdrawal Hypertension: Presented with Hypotension BP improved with IV fluids Resume home medications as able Asthma: H/O Childhood asthma Currently not on meds DVT Px: Heparin SQ Disposition: Inpatient Psychiatry Unit when medically stable Admission and Anticipated Discharge Date Admission Date: July 06, 2020 Subjective Patient is seen and examined at bedside Diarrhea resolved Denies chest pain, dyspnea, dizziness, nausea, abdominal pain Offers no complaints Ammonia levels improved Review of Systems Review of Systems: All systems reviewed & are unremarkable except as noted in HPI & below Physical Exam Physical Exam: Physical Exam: Vitals signs as noted above General Appearance:Morbidly Obese, no apparent distress Head: normocephalic, Atraumatic Eyes: normal inspection, EOMI Neck: supple, Trachea midline Respiratory/Chest: Normal breath sounds, CTA Cardiovascular: S1, S2, No murmur Abdomen/GI:Soft, Non tender, Bowel sounds present Extremities/Musculoskelatal:normal inspection, no edema Neurologic/Psych:AAOX3, grossly no focal neurological deficits Skin: normal color, warm Results & Data Results & Data ([facility]) Vital Signs (Past 12 Hours) Vital Signs Temp Pulse Pulse Pulse Resp BP Pulse Ox 07/07/20 18:13 36.6 C 81 20 165/84 H 95 07/07/20 14:51 65 07/07/20 10:17 76 07/07/20 09:37 36.5 C 67 16 132/86 94 07/07/20 08:30 80 21 93 07/07/20 08:00 74 20 90 07/07/20 07:30 79 17 92 07/07/20 07:00 66 14 92 07/07/20 06:45 67 17 92 Laboratory Results Short CBC 07/07/20 Range/Units 02:25 WBC 8.01 (4.8-10.8) K/uL Hgb 13.2 L (14.0-18.0) g/dL Hct 38.8 L (42-52) % Plt Count 207 (130-400) K/uL BMP 07/06/20 07/06/20 07/07/20 18:55 22:55 02:25 Sodium 143 142 144 Potassium 4.1 3.9 3.9 Chloride 113 H 112 H 113 H Carbon Dioxide 22 23 25 BUN 10 10 10 Creatinine 1.02 0.96 1.03 Glucose 96 87 85 Calcium 8.8 8.9 8.1 L Liver Function 07/07/20 Range/Units 02:25 Total Bilirubin 0.7 (0.2-1) mg/dl AST 10 L (15-37) U/L ALT 24 (12-78) U/L Alkaline Phosphatase 59 (45-117) U/L Albumin 3.2 L (3.4-5.0) gm/dl Urine 07/07/20 Range/Units 09:00 Urine Color Yellow Urine Appearance Clear (Clear) Urine pH 5.0 (4.5-7.5) Ur Specific [place] 1.017 (1.000-1.030) Urine Protein Negative (Negative) Urine Glucose (UA) Negative (Negative)
[2020-07-07 20:21] LABS: BUN Creatinine Ratio 9.8 (10-20); Calcium 8.4 mg/dl (8.5-10.1); Creatinine Clr Calc Pharmacy 182.3 ml/min; Est GFR (Non-African American) 111.3; Potassium 3.6 mmol/L (3.5-5.1)
--- NOTE | 2020-07-07 22:29 | Electrocardiogram Report ---
Test Reason : Blood Pressure : / mmHG Vent. Rate : 068 BPM Atrial Rate : 068 BPM P-R Int : 194 ms QRS Dur : 104 ms QT Int : 388 ms P-R-T Axes : 025 005 007 degrees QTc Int : 412 ms Normal sinus rhythm Normal ECG When compared with ECG of 06-JUL-2020 11:28, No significant change was found Confirmed by Adria Sow ([id number]) on 07/07/2020 10:29:50 PM Referred By: REFERRED SELF Confirmed By:Adria Sow
[2020-07-08] MEDS: HEPARIN SOD 5,000 UNIT/0.5 ML VIAL SQ SCH (05:15)
--- NOTE | 2020-07-08 05:33 | Electrocardiogram Report ---
Test Reason : Blood Pressure : / mmHG Vent. Rate : 068 BPM Atrial Rate : 068 BPM P-R Int : 200 ms QRS Dur : 102 ms QT Int : 384 ms P-R-T Axes : 031 001 002 degrees QTc Int : 408 ms Normal sinus rhythm Normal ECG When compared with ECG of 06-JUL-2020 13:17, No significant change was found Confirmed by Adria Sow ([id number]) on 07/08/2020 5:33:00 AM Referred By: REFERRED SELF Confirmed By:Adria Sow
--- NOTE | 2020-07-08 05:38 | Electrocardiogram Report ---
Test Reason : Blood Pressure : / mmHG Vent. Rate : 072 BPM Atrial Rate : 072 BPM P-R Int : 206 ms QRS Dur : 104 ms QT Int : 382 ms P-R-T Axes : 059 000 015 degrees QTc Int : 418 ms Normal sinus rhythm Normal ECG When compared with ECG of 06-JUL-2020 14:35, No significant change was found Confirmed by Adria Sow ([id number]) on 07/08/2020 5:38:29 AM Referred By: REFERRED SELF Confirmed By:Adria Sow
--- NOTE | 2020-07-08 05:39 | Electrocardiogram Report ---
Test Reason : Blood Pressure : / mmHG Vent. Rate : 071 BPM Atrial Rate : 071 BPM P-R Int : 208 ms QRS Dur : 104 ms QT Int : 392 ms P-R-T Axes : 039 -03 014 degrees QTc Int : 425 ms Normal sinus rhythm Normal ECG When compared with ECG of 06-JUL-2020 18:33, No significant change was found Confirmed by Adria Sow ([id number]) on 07/08/2020 5:39:25 AM Referred By: REFERRED SELF Confirmed By:Adria Sow
--- NOTE | 2020-07-08 05:44 | Electrocardiogram Report ---
Test Reason : Blood Pressure : / mmHG Vent. Rate : 067 BPM Atrial Rate : 067 BPM P-R Int : 216 ms QRS Dur : 098 ms QT Int : 388 ms P-R-T Axes : 033 -02 008 degrees QTc Int : 409 ms Sinus rhythm with 1st degree A-V block Otherwise normal ECG When compared with ECG of 06-JUL-2020 19:36, No significant change was found Confirmed by Adria Sow ([id number]) on 07/08/2020 5:44:33 AM Referred By: REFERRED SELF Confirmed By:Adria Sow
--- NOTE | 2020-07-08 05:46 | Electrocardiogram Report ---
Test Reason : Blood Pressure : / mmHG Vent. Rate : 070 BPM Atrial Rate : 070 BPM P-R Int : 212 ms QRS Dur : 102 ms QT Int : 388 ms P-R-T Axes : 040 -03 013 degrees QTc Int : 419 ms Sinus rhythm with 1st degree A-V block Otherwise normal ECG When compared with ECG of 06-JUL-2020 20:42, No significant change was found Confirmed by Adria Sow ([id number]) on 07/08/2020 5:45:49 AM Referred By: REFERRED SELF Confirmed By:Adria Sow
--- NOTE | 2020-07-08 05:46 | Electrocardiogram Report ---
Test Reason : Blood Pressure : / mmHG Vent. Rate : 069 BPM Atrial Rate : 069 BPM P-R Int : 218 ms QRS Dur : 106 ms QT Int : 390 ms P-R-T Axes : 036 -01 014 degrees QTc Int : 417 ms Sinus rhythm with 1st degree A-V block Otherwise normal ECG When compared with ECG of 06-JUL-2020 21:44, No significant change was found Confirmed by Adria Sow ([id number]) on 07/08/2020 5:46:33 AM Referred By: REFERRED SELF Confirmed By:Adria Sow
--- NOTE | 2020-07-08 05:47 | Electrocardiogram Report ---
Test Reason : Blood Pressure : / mmHG Vent. Rate : 069 BPM Atrial Rate : 069 BPM P-R Int : 202 ms QRS Dur : 106 ms QT Int : 384 ms P-R-T Axes : 032 003 013 degrees QTc Int : 411 ms Normal sinus rhythm Normal ECG When compared with ECG of 06-JUL-2020 22:52, No significant change was found Confirmed by Adria Sow ([id number]) on 07/08/2020 5:47:10 AM Referred By: REFERRED SELF Confirmed By:Adria oSw
--- NOTE | 2020-07-08 06:52 | Electrocardiogram Report ---
Test Reason : Blood Pressure : / mmHG Vent. Rate : 067 BPM Atrial Rate : 067 BPM P-R Int : 200 ms QRS Dur : 104 ms QT Int : 376 ms P-R-T Axes : 058 004 027 degrees QTc Int : 397 ms Normal sinus rhythm Normal ECG When compared with ECG of 06-JUL-2020 23:41, No significant change was found Confirmed by Adria Sow ([id number]) on 07/08/2020 6:52:42 AM Referred By: REFERRED SELF Confirmed By:Adria Sow
[2020-07-08 07:41] LABS: Mean Corpuscular Hemoglobin 29.4 pg (25-34); Mean Corpuscular Hgb Conc 33.3 g/dL (32-36); Mean Corpuscular Volume 88.2 fL (80-100); Mean Platelet Volume 11.4 fL (7.4-10.4); Platelet Count 200 K/uL (130-400); RDW Coefficient of Variation 12.2 % (11.5-14.5); RDW Standard Deviation 39.6 fL (36.4-46.3); Red Blood Count 4.42 M/uL (4.7-6.1); White Blood Count 5.39 K/uL (4.8-10.8)
[2020-07-08 08:18] LABS: Albumin Globulin Ratio 1.1 (0.9-2); Albumin Level 3.3 gm/dl (3.4-5.0); BUN Creatinine Ratio 9.2 (10-20); Bilirubin,Total 0.4 mg/dl (0.2-1); Calcium 9.1 mg/dl (8.5-10.1); Est GFR (African American) 110.2; Globulin 3.1 gm/dl (2.5-4.0); Magnesium 2.2 mg/dl (1.8-2.4); Potassium 3.6 mmol/L (3.5-5.1); Total Protein 6.4 gm/dl (6.4-8.2)
--- NOTE | 2020-07-08 09:52 | Hospitalist Progress Note ---
Date of Service July 08, 2020 Assessment & Plan (1) Intentional drug overdose: Intentional drug overdose Suicidal Ideation H/O depression, intermittent explosive disorder Recently discharged from inpatient psychiatric unit Reported Ingestion of 6 hydroxyzine 50 mg tablets, 51 Depakote 500 mg tablets, 52 risperidone 1 mg tablets, 100 losartan 25 mg tablets, 300 propranolol 10 mg tablets, sertraline 100 mg tablets, 99 omeprazole 20 Poison control contacted. 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 Obesity: BMI : 42 Alcohol abuse: Reports last drink 5 weeks ago No signs and/or symptoms of withdrawal Hypertension: Presented with Hypotension BP improved with IV fluids Resume home medications as able Blood pressure remains in the lower side and will not start any blood pressure medicine as of yet He will need to restart his losartan when the blood pressure is more than 120/80 He will need to restart his propranolol for the blood pressure and mood disorder at the same time Asthma: H/O Childhood asthma Currently not on meds no wheezing and/or shortness of breath GERD/esophageal reflux Will restart his omeprazole DVT Px: Heparin SQ Disposition: Will be transferred to the inpatient psychiatric unit today Admission and Anticipated Discharge Date Admission Date: July 06, 2020 Subjective 07/08/2020 The patient was seen and examined in medical telemetry unit He denies any symptoms as of today and is ready to go to [facility] for continued inpatient psychiatric care Review of Systems Review of Systems: All systems reviewed and are unremarkable except as noted below Neurologic: Alert, awake and oriented x3. No focal sensory and motor deficit appreciated Psychiatric: no irritability, no anxiety and no confusion Physical Exam Physical Exam: Sitting on a chair without any acute distress Constitutional: well developed, well nourished and + obese; no acute distress and not ill appearing Eyes: PERRL, conjunctivae normal, anicteric sclerae ENMT: external ear and nose normal, oropharynx normal Neck: trachea midline, no thyromegaly Respiratory: normal respiratory effort; no respiratory distress Auscultation: lungs clear to auscultation bilaterally Cardiovascular: Rate/Rhythm: regular rate and regular rhythm Heart Sounds: no murmur Gastrointestinal (Abdomen): Inspection/Auscultation: abdomen normal to inspection and normal bowel sounds; abdomen not distended Percussion/Palpation: abdomen soft; abdomen nontender Musculoskeletal: no cyanosis or clubbing, extremities motor strength 5/5 Neurologic: moves all extremities; no focal motor deficits Psychiatric: A+Ox3, euthymic affect Lymphatic: no cervical or axillary lymphadenopathy Results & Data Results & Data ([facility]) Vital Signs (Past 12 Hours) Vital Signs Temp Pulse Pulse Resp BP BP Pulse Ox 07/08/20 07:19 36.5 C 71 20 118/80 94 07/08/20 03:29 36.5 C 61 20 122/76 95 07/08/20 00:25 68 07/07/20 22:47 37.2 C 73 18 117/75 95 07/07/20 21:58 61 131/75 99 Laboratory Results Short CBC 07/08/20 Range/Units 07:02 WBC 5.39 (4.8-10.8) K/uL Hgb 13.0 L (14.0-18.0) g/dL Hct 39.0 L (42-52) % Plt Count 200 (130-400) K/uL BMP 07/07/20 07/08/20 19:48 07:02 Sodium 143 143 Potassium 3.6 3.6 Chloride 111 H 110 H Carbon Dioxide 27 27 BUN 9 10 Creatinine 0.93 1.06 Glucose 98 89 Calcium 8.4 L 9.1 Liver Function 07/08/20 Range/Units 07:02 Total Bilirubin 0.4 (0.2-1) mg/dl AST 11 L (15-37) U/L ALT 22 (12-78) U/L Alkaline Phosphatase 63 (45-117) U/L Albumin 3.3 L (3.4-5.0) gm/dl Medications Administered Current Inpatient Medications Heparin Sodium (Porcine) (Heparin Sod 5,000 Unit/0.5 Ml Vial) 7,500 units SQ Q8 ELIUD Stop: 08/05/20 13:59 Last Admin: 07/08/20 05:15 Dose: Not Given Documented by:
--- NOTE | 2020-07-08 22:46 | Electrocardiogram Report ---
Test Reason : Blood Pressure : / mmHG Vent. Rate : 071 BPM Atrial Rate : 071 BPM P-R Int : 188 ms QRS Dur : 104 ms QT Int : 366 ms P-R-T Axes : 063 015 018 degrees QTc Int : 397 ms Normal sinus rhythm Normal ECG When compared with ECG of 07-JUL-2020 14:21, No significant change was found Confirmed by Adria Sow ([id number]) on 07/08/2020 10:46:48 PM Referred By: REFERRED SELF Confirmed By:Adria Sow
--- NOTE | 2020-07-09 06:00 | Electrocardiogram Report ---
Test Reason : Blood Pressure : / mmHG Vent. Rate : 065 BPM Atrial Rate : 065 BPM P-R Int : 178 ms QRS Dur : 098 ms QT Int : 374 ms P-R-T Axes : 045 010 017 degrees QTc Int : 388 ms Normal sinus rhythm Normal ECG When compared with ECG of 08-JUL-2020 06:52, No significant change was found Confirmed by Adria Sow ([id number]) on 07/09/2020 6:00:46 AM Referred By: REFERRED SELF Confirmed By:Adria Sow
--- NOTE | 2020-07-09 09:00 | Discharge Summary ---
Date of Service July 09, 2020 Admission HPI Per Admitting Provider Attending: Dr. Davis This is a 29-year-old male with a history of obstructive sleep apnea on CPAP at 12 cmH2O, smokeless tobacco dependence, history of ethanol abuse (abstinent for 5 weeks), history of childhood asthma, hypertension, chronic low back pain, obesity with a BMI of 42.5 kg/m. The patient was recently admitted for inpatient psychiatric services on 3 S. He was discharged on 07/01/2020 and sent home with plans for outpatient psychiatric follow-up. The patient currently is going through divorce with his of 6 years. This morning he woke up and intentionally overdosed taking 51 Depakote 500 mg tablets 52 risperidone 1 mg tablets 100 losartan 25 mg tablets 300 propranolol 10 mg tablets 161 sertraline 100 mg tablets 99 omeprazole 20 mg tablets [facility] was notified and recommended supportive care. Intervention emergency department included 3 L of normal saline. Since admission, the patient is having watery diarrhea. EKG showed normal sinus rhythm with a QTC of 444 ms. The patient has no arrhythmias on monitor. He has been somewhat hypotensive but currently has a systolic blood pressure of 95 after the NSS boluses. He denies any chest pain or tightness. He has no current nausea. He has no shortness of breath. He is alert and oriented x3. He is able to give me full history. The patient has no other further complaints. Admission Exam Per Admitting Provider Physical Exam: GENERAL : No acute distress. Cognitive and able to give accurate history EYES: No icterus, gaze conjugate. Pupils equal round and reactive to light NOSE: No evidence of epistaxis MOUTH: No lesions or candidiasis. No slurred speech. No deviation of tongue. No facial droop NECK: Supple LUNGS: CTA B/L, no wheezes, rales or rhonchi. Good inspiratory effort HEART: Regular, rate controlled in the 70s ABDOMEN: Soft, NT, ND, BS Present. Protuberant with truncal obesity EXTREMITIES: No LE edema, pedal pulses intact and equal bilaterally NEURO: A&OX3. No slurred speech. Pupils equal round react to light. Follows commands. Able to give complete history. No evidence of focal deficits and cranial nerves II through XII Principal Diagnosis Intentional multiple drug overdose, sleep apnea on CPAP, hypertension, GERD, history of childhood asthma Discharge Exam Constitutional well developed, well nourished and + obese; no acute distress and not ill appearing Eyes PERRL, conjunctivae normal, anicteric sclerae ENMT external ear and nose normal, oropharynx normal Neck trachea midline, no thyromegaly Respiratory normal respiratory effort; no respiratory distress Auscultation: lungs clear to auscultation bilaterally Cardiovascular Rate/Rhythm: regular rate and regular rhythm Heart Sounds: no murmur Gastrointestinal (Abdomen) Inspection/Auscultation: abdomen normal to inspection and normal bowel sounds; abdomen not distended Percussion/Palpation: abdomen soft; abdomen nontender Musculoskeletal no cyanosis or clubbing, extremities motor strength 5/5 Neurologic moves all extremities; no focal motor deficits Psychiatric A+Ox3, euthymic affect Lymphatic no cervical or axillary lymphadenopathy Discharge Data Allergies Allergy/AdvReac Type Severity Reaction Status Date / Time ketorolac Allergy Intermediate RASH, Verified 07/06/20 07:36 NAUSEA amoxicillin Allergy Mild RASH Verified 07/06/20 07:36 Penicillins Allergy Mild AMOXICILLIN Verified 07/06/20 07:36 = RASH hydrochlorothiazide Allergy Unknown RASH, Verified 07/06/20 07:36 THROAT SWELLS Consultations 07/06/20 09:06 Consult Cooler Worker Stat 07/06/20 09:37 ED Decision to Admit Stat 07/06/20 11:01 Consult Case Management - Discharge Planning Routine Consult Cooler Worker Routine 07/06/20 11:35 Consult Psychiatry Routine Hospital Course (1) Intentional drug overdose: Intentional drug overdose Suicidal Ideation H/O depression, intermittent explosive disorder Recently discharged from inpatient psychiatric unit Reported Ingestion of 6 hydroxyzine 50 mg tablets, 51 Depakote 500 mg tablets, 52 risperidone 1 mg tablets, 100 losartan 25 mg tablets, 300 propranolol 10 mg tablets, sertraline 100 mg tablets, 99 omeprazole 20 Poison control contacted. 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 Cooler Worker/Psychiatry input [address] Appreciate psychiatric input and recommendation Patient has been feeling a lot better and without any acute symptoms and his labs remained unremarkable He will be transferred to inpatient psychiatric unit today Diarrhea Received IV fluids Resolved Sleep Apnea Continue CPAP Nicotine dependence: Chew/snuffs Tobacco Rn Ed to quit Obesity: BMI : 42 Alcohol abuse: Reports last drink 5 weeks ago No signs and/or symptoms of withdrawal Hypertension: Presented with Hypotension BP improved with IV fluids Resume home medications as able Blood pressure remains in the lower side and will not start any blood pressure medicine as of yet He will need to restart his losartan when the blood pressure is more than 120/80 He will need to restart his propranolol for the blood pressure and mood disorder at the same time Asthma: H/O Childhood asthma Currently not on meds no wheezing and/or shortness of breath GERD/esophageal reflux Will restart his omeprazole DVT Px: Heparin SQ Disposition: Will be transferred to the inpatient psychiatric unit today Total Time Total Time Spent Total Time Spent (In Minutes): 40 minutes Total Time Includes: Examination of the Patient, Discharge Planning, Medication Reconciliation and Communication With Other Providers Discharge Plan Discharge Items Patient Disposition: Transfer Behavioral Health Fac Reason For Visit: INTENTIONAL DRUG OVERDOSE Discharge Diagnosis: Intentional multiple drug overdose, sleep apnea on CPAP, hypertension, GERD, history of childhood asthma Condition on Discharge: Good Activity: Resume your previous activity Non-emergency contact: Primary Care Provider Call non-emergency contact if: you have any medication questions and your symptoms worsen Follow-up/Referrals: Amor Kapadia MD [Primary Care Provider] - (Please make an appointment with your PCP within 7 days following discharge from the facility) Diet: Regular and Low Sodium (2gm) Addtl Attending Provider Instructions: Your home medications are on hold now. Blood pressure medication losartan can be restarted when the blood pressure goes above 120/80 Propranolol can be started when the heart rate goes above 60 Cyclobenzaprine and gabapentin can be restarted from tomorrow. Psychiatric medications will be adjusted as per the psychiatrist Pending Studies at Discharge: No Stand-Alone Forms: My [facility], Suicide Prevention Resources Medications and DC Order Prescriptions: Continued cyclobenzaprine 10 mg Tablet 10 mg PO TID PRN (Reason: Back Pain) RF: 0 propranolol 10 mg Tablet 10 mg PO DAILY RF: 0 losartan 25 mg Tablet 25 mg PO DAILY RF: 0 gabapentin 300 mg Capsule 300 mg PO TID PRN (Reason: Pain) RF: 0 omeprazole 20 mg Capsule,Delayed Release(Dr/Ec) 20 mg PO DAILY RF: 0 Discontinued sertraline 100 mg Tablet 150 mg PO DAILY RF: 0 divalproex 500 mg Tablet Extended Release 24 Hr 500 mg PO BID 30 Days Qty: 60 RF: 0 risperidone 1 mg Tablet 1 mg PO BID 30 Days Qty: 60 RF: 0 hydroxyzine HCl 50 mg tablet 50 mg PO Q6 PRN (Reason: anxiety/insomnia) 30 Days Qty: 30 RF: 0 Discharge Orders: Discharge Order (Routine); Ordered 07/08/20 Ordered By: Tommie Hurtado Admission Data Admit Date/Time: 07/06/20 10:14 Attending Provider: Tommie Hurtado Admit Provider: Jude Davis Primary Care Provider: Amor Kapadia Other Providers: Raoul Johnson ; Jude Davis ; Ela Daily Other Interventions: Discharge Summary Assessment (RN) Last Done: 07/08/20 12:05
== END 2020-07-08 12:08 | DRG 312 ==
LOC: ED 07:09 → 1E 10:14 → SUATTDRO 10:14 → 1E 10:39 → 2N 07-07 08:53

== ENCOUNTER 2020-07-08 11:10 | Inpatient (IN) ==
[2020-07-08] MEDS: NICOTINE POLACRILEX 2 MG GUM MT PRN ×2 (14:00→20:42)
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
[2020-07-08] MEDS ORDERED: GABAPENTIN 300 MG CAP PO PRN (14:38)
[2020-07-08] MEDS ORDERED: MAGNESIUM HYDROXIDE SUSP 30 ML UDC PO PRN (14:44)
[2020-07-08] MEDS ORDERED: ALUMINUM/MAGNESIUM SUSP 30 ML UDC PO PRN (14:44)
[2020-07-08] MEDS ORDERED: ACETAMINOPHEN 325 MG TAB PO PRN (14:44)
[2020-07-08] MEDS ORDERED: SODIUM CHLORIDE 0.65% NA SOLN 45 ML (OCEAN) PRN (14:44)
[2020-07-08] MEDS ORDERED: CYCLOBENZAPRINE HCL 10 MG TAB PO PRN (14:48)
[2020-07-08] MEDS: NICOTINE 21 MG/24 HR TDSY TD SCH (16:05)
[2020-07-08] MEDS: DIVALPROEX EXTENDED RELEASE 500 MG TAB PO SCH (21:37)
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
[2020-07-09] MEDS: NICOTINE 21 MG/24 HR TDSY TD SCH (08:46)
[2020-07-09] MEDS: PROPRANOLOL HCL 10 MG TAB PO SCH (08:49)
[2020-07-09] MEDS: LOSARTAN POTASSIUM 25 MG TAB PO SCH (08:49)
[2020-07-09] MEDS: DIVALPROEX EXTENDED RELEASE 500 MG TAB PO SCH ×2 (08:49→21:00)
[2020-07-09] MEDS: SERTRALINE HCL 50 MG TABLET PO SCH (08:50)
[2020-07-09] MEDS: PANTOprazole 40 MG TAB PO SCH (08:50)
[2020-07-09] MEDS: NICOTINE POLACRILEX 2 MG GUM MT PRN (18:20)
[2020-07-10] MEDS: LOSARTAN POTASSIUM 25 MG TAB PO SCH (08:04)
[2020-07-10] MEDS: NICOTINE 21 MG/24 HR TDSY TD SCH (08:04)
[2020-07-10] MEDS: SERTRALINE HCL 50 MG TABLET PO SCH (08:05)
[2020-07-10] MEDS: PANTOprazole 40 MG TAB PO SCH (08:05)
[2020-07-10] MEDS: DIVALPROEX EXTENDED RELEASE 500 MG TAB PO SCH ×2 (08:05→20:58)
[2020-07-10] MEDS: PROPRANOLOL HCL 10 MG TAB PO SCH (08:05)
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
[2020-07-10] MEDS ORDERED: TRAZODONE HCL 50 MG TAB PO PRN (11:00)
[2020-07-10] MEDS ORDERED: risperiDONE 1 MG TABLET PO STA (12:45)
[2020-07-10] MEDS: risperiDONE 1 MG TABLET PO PRN (17:49)
[2020-07-11] MEDS: LOSARTAN POTASSIUM 25 MG TAB PO SCH (08:18)
[2020-07-11] MEDS: DIVALPROEX EXTENDED RELEASE 500 MG TAB PO SCH ×2 (08:18→21:49)
[2020-07-11] MEDS: PROPRANOLOL HCL 10 MG TAB PO SCH (08:19)
[2020-07-11] MEDS: PANTOprazole 40 MG TAB PO SCH (08:21)
[2020-07-11] MEDS: SERTRALINE HCL 100 MG TABLET PO SCH (08:21)
[2020-07-11] MEDS: NICOTINE 21 MG/24 HR TDSY TD SCH (08:21)
[2020-07-11] MEDS ORDERED: TRAZODONE HCL 100 MG TAB PO PRN (10:23)
[2020-07-11] MEDS: risperiDONE 1 MG TABLET PO PRN ×2 (10:24→19:35)
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
[2020-07-12] MEDS: LOSARTAN POTASSIUM 25 MG TAB PO SCH (08:29)
[2020-07-12] MEDS: DIVALPROEX EXTENDED RELEASE 500 MG TAB PO SCH ×2 (08:30→21:58)
[2020-07-12] MEDS: NICOTINE 21 MG/24 HR TDSY TD SCH (08:30)
[2020-07-12] MEDS: PANTOprazole 40 MG TAB PO SCH (08:30)
[2020-07-12] MEDS: PROPRANOLOL HCL 10 MG TAB PO SCH (08:30)
[2020-07-12] MEDS: SERTRALINE HCL 100 MG TABLET PO SCH (08:31)
[2020-07-12] MEDS: NICOTINE POLACRILEX 2 MG GUM MT PRN ×2 (09:28→19:34)
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
[2020-07-12] MEDS: risperiDONE 1 MG TABLET PO PRN (17:03)
[2020-07-12] MEDS: TRAZODONE HCL 50 MG TAB PO PRN (22:05)
[2020-07-13] MEDS: LOSARTAN POTASSIUM 25 MG TAB PO SCH (08:20)
[2020-07-13] MEDS: DIVALPROEX EXTENDED RELEASE 500 MG TAB PO SCH ×2 (08:20→21:09)
[2020-07-13] MEDS: NICOTINE 21 MG/24 HR TDSY TD SCH (08:21)
[2020-07-13] MEDS: PROPRANOLOL HCL 10 MG TAB PO SCH (08:21)
[2020-07-13] MEDS: PANTOprazole 40 MG TAB PO SCH (08:22)
[2020-07-13] MEDS: SERTRALINE HCL 100 MG TABLET PO SCH (08:23)
[2020-07-13] MEDS: NICOTINE POLACRILEX 2 MG GUM MT PRN (08:39)
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
[2020-07-13] MEDS: risperiDONE 1 MG TABLET PO PRN (14:35)
[2020-07-13] MEDS: TRAZODONE HCL 50 MG TAB PO SCH (21:10)
[2020-07-13] MEDS: TRAZODONE HCL 50 MG TAB PO PRN (22:46)
[2020-07-14] MEDS: PANTOprazole 40 MG TAB PO SCH (08:56)
[2020-07-14] MEDS: DIVALPROEX EXTENDED RELEASE 500 MG TAB PO SCH ×2 (08:56→22:40)
[2020-07-14] MEDS: LOSARTAN POTASSIUM 25 MG TAB PO SCH (08:56)
[2020-07-14] MEDS: NICOTINE 21 MG/24 HR TDSY TD SCH (08:57)
[2020-07-14] MEDS: SERTRALINE HCL 100 MG TABLET PO SCH (08:57)
[2020-07-14] MEDS: PROPRANOLOL HCL 10 MG TAB PO SCH (09:46)
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
[2020-07-14] MEDS: TRAZODONE HCL 50 MG TAB PO SCH (22:41)
[2020-07-14] MEDS: TRAZODONE HCL 50 MG TAB PO PRN (23:31)
[2020-07-15] MEDS: LOSARTAN POTASSIUM 25 MG TAB PO SCH (07:19)
[2020-07-15] MEDS: DIVALPROEX EXTENDED RELEASE 500 MG TAB PO SCH ×2 (07:19→21:22)
[2020-07-15] MEDS: PROPRANOLOL HCL 10 MG TAB PO SCH (07:19)
[2020-07-15] MEDS: NICOTINE 21 MG/24 HR TDSY TD SCH (07:19)
[2020-07-15] MEDS: PANTOprazole 40 MG TAB PO SCH (07:20)
[2020-07-15] MEDS: SERTRALINE HCL 100 MG TABLET PO SCH (07:20)
--- NOTE | 2020-07-15 10:28 | Psychiatric Progress Note ---
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 Of Family Doctor: [facility] Time of Appointment with PCP: Please follow up as needed Provider Appointment Comment: [place] [id number] Contact Information Discharge Discharge Address: [address] [place] [address], [place] [address] (1) Intentional drug overdose Encounter type: initial encounter Qualified Code(s): T50.902A - Poisoning by unspecified drugs, medicaments and biological substances, intentional self-harm, initial encounter (2) Depression Depression Type: unspecified Qualified Code(s): F32.9 - Major depressive disorder, single episode, unspecified
[2020-07-15] MEDS: TRAZODONE HCL 50 MG TAB PO SCH (21:23)
[2020-07-15] MEDS: TRAZODONE HCL 50 MG TAB PO PRN (23:28)
--- NOTE | 2020-07-16 09:07 | Psychiatric Progress Note ---
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 150 mg Documented by: Mental Health & Subst Abuse Tx Psychiatrist Name of Psychiatrist: Jose R Plunkett (intake) Psychiatrist's Date of Appointment with Psychiatrist: 07/23/20 Time of Appointment with Psychiatrist: 8:30 a.m. Psychiatric Appointment Comment: [id number] [place] [address] Therapist Name of Therapist: Jose R Plunkett (intake) Therapist's Date of Therapist Appointment: 07/23/20 Time of Therapist Appointment: 8:30 a.m. Therapy Appointment Comment: [id number] [place] [address] Post Discharge Appointments Primary Care Physician Name Of Family Doctor: [facility] Time of Appointment with PCP: Please follow up as needed Provider Appointment Comment: [address], [place] [address] Contact Information Discharge Discharge Address: [address] [place] [address], [place] [address] (1) Intentional drug overdose Encounter type: initial encounter Qualified Code(s): T50.902A - Poisoning by unspecified drugs, medicaments and biological substances, intentional self-harm, initial encounter (2) Depression Depression Type: unspecified Qualified Code(s): F32.9 - Major depressive disorder, single episode, unspecified
[2020-07-16] MEDS: LOSARTAN POTASSIUM 25 MG TAB PO SCH (10:09)
[2020-07-16] MEDS: PROPRANOLOL HCL 10 MG TAB PO SCH (10:09)
[2020-07-16] MEDS: PANTOprazole 40 MG TAB PO SCH (10:10)
[2020-07-16] MEDS: DIVALPROEX EXTENDED RELEASE 500 MG TAB PO SCH ×2 (10:10→21:17)
[2020-07-16] MEDS: SERTRALINE HCL 100 MG TABLET PO SCH (10:10)
[2020-07-16] MEDS: NICOTINE 21 MG/24 HR TDSY TD SCH (10:50)
[2020-07-16] MEDS ORDERED: TRAZODONE HCL 100 MG TAB PO SCH (22:00)
--- NOTE | 2020-07-17 08:26 | Discharge Summary ---
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 contradiction with a number of reports from others." Finally, I explained to him that I need him to keep his distance from me and that I take threats, even indirect threats, of physical harm very seriously and strongly suggested that he refocus his attention on himself and his own problems. Reviewed 07/12/2020. Requests higher dose of Vistaril prn. 07/13--make trazodone standing order and increase to 150 mg hs with use of trazodone prn at night rather than vistaril at night. 07/14--therapeutic on depakote (level 82), plan: d/c MNPR. Cannot safety plan as no clear resolution to the PFA (cause of his OD) and likely decompensate if not allowed any contact with kids after tomorrow's hearing. 07/15 -patient postponed his PFA hearing, is focused on finding a new deputy county attorney. He appears bright in his interactions with others, but states he still does not feel safe leaving the hospital due to concern about his various stressors as above. We the discussed the need to focus on his safety plan, as he will need to be discharged to deal with his stressors and this will likely take months. 07/16 -increase sertraline to 150 mg daily, and trazodone to 200 mg at bedtime. -Family discharge planning meeting held, and plan is for discharge to mother's home tomorrow. He will return to work 07/21, and has intake at [facility] on 07/23. -He has ample supplies of sertraline and Depakote at home. 07/17 -discharge to home. Has sertraline and Depakote at home, prescription for trazodone for #14 days issued. Mother will keep medications locked as above. -Follow-up at [facility] for psychiatric care and therapy; intake 07/23/2020. Patient has been provided with the walk-in crisis center address and phone number. -Working diagnosis is major depressive disorder, recurrent, severe without psychosis. Depressive symptoms have continued in the context of multiple p sychosocial stressors, and per patient he has not had alcohol or other substance abuse in a little over a month. Depakote is being used to assist with lability and anger, which may be due to IED versus ASPD. (3) Antisocial personality disorder: During the course of patient's 2 hospitalizations, a pattern of behavior was noted starting from adolescence and including impulsivity, irritability and aggressiveness, reckless disregard for safety, lack of remorse, and deceitfulness. (4) Alcohol abuse: 07/08 - Discussed during patient's last hospitalization, reviewed again today. Pt reporting hopefulness that he can focus on substance use in outpatient therapy. -Brief intervention was offered and accepted Intervention was greater than 5 min in length. Brief interventions include: 1. Assess Readiness to Quit, 2. Advise: Help Patient to Reduce or Abstain from Alcohol, 3. Agree: Set Specific, Feasible Goal s, 4. Assist: Anticipate barriers, Problem-Solving Solutions. Social work to 5. Arrange: Referrals to appropriate treatment. Summary of intervention: The patient is in contemplative stage with regards to transtheoretical model of change. The patient is advised to decrease alcohol consumption due to depressant effects and risk of interactions with prescription medications. The patient was advised of recommendations for abstinence from alcohol and other abusable substances and to attend substance abuse treatment at discharge, and will be provided with recovery materials to continue to education self on how to cope with their condition without drinking. 07/11 -The patient was invited today to reconsider the role that alcohol misuse has played in his difficulty with impulse control and mood regulation. The patient's response was to nod but do not add to the conversation. 07/17 -we have reviewed the risks of alcohol use and recommendations for abstinence. We will provide the patient with a list of AA groups in his area, and encouraged him to engage. (5) Nicotine dependence: 07/08 - Pt provided with prescription for nicotine patch and gum to target nicotine cravings. Reviewed 07/12/2020. (6) Hypertension: 07/08 - Continue home doses of propranolol and losartan Reviewed 07/12/2020. (7) Low back pain: 07/08 - Can continue prn use of cyclobenzaprine and gabapentin for chronic back pain Reviewed 07/12/2020. Mental Health & Subst Abuse Tx Psychiatrist Name of Psychiatrist: Jose R Plunkett (intake) Psychiatrist's Date of Appointment with Psychiatrist: 07/23/20 Time of Appointment with Psychiatrist: 8:30 a.m. Psychiatric Appointment Comment: [address] [place] [address] Therapist Name of Therapist: Jose R Plunkett (intake) Therapist's Date of Therapist Appointment: 07/23/20 Time of Therapist Appointment: 8:30 a.m. Therapy Appointment Comment: [address] [place] [address] Post Discharge Appointments Primary Care Physician Name Of Family Doctor: Radhika Kap[facility]ia [facility] Time of Appointment with PCP: Please follow up as needed Provider Appointment Comment: [address], [place] [address] Contact Information Discharge Discharge Address: [address] [place] [address], [place] [address] Discharge Plan Discharge Items Patient Disposition: Home - Self-Care Reason For Visit: MDR Discharge Diagnosis: Depression, overdose Activity: Per Instructions section Non-emergency contact: Primary Care Provider, Psychiatrist and Therapist Call non-emergency contact if: you have any medication questions and your symptoms worsen Follow-up/Referrals: Amor Kapadia MD [Primary Care Provider] - Diet: Regular Addtl Attending Provider Instructions: SPECIAL CARE INSTRUCTIONS: 1. Follow through with your scheduled aftercare appointments. If unable to keep an appointment, please call to reschedule. -We recommend you engage in peer support programs, such as Alcoholics Anonymous, in order to maintain sobriety. 2. Take your medication only as prescribed. Medication should not be changed or stopped without the approval of your doctor. In the event of worsening symptoms or concerns about side effects, contact your doctor immediately. -As part of your safety plan, it is recommended that you do not have access to large amounts of medications, and that all medications be kept locked and secured in the home, until your symptoms have stabilized. 3. Utilize new healthy coping skills, anger management skills, and stress management skills learned during your hospitalization. Journal feelings and process them with a support person. Identify stressors or situations that may result in relapse, deterioration or inappropriate behaviors and develop a plan to deal with those issues. 4. If your coping skills are ineffective and you are in crisis, contact your outpatient providers for direction. If unable to reach your providers, please call the [facility] CRISIS LINE AT , go to the [facility] walk-in center at [address], [address], [place], or go to the closest Emergency Room. 5. Avoid alcohol and un-prescribed drugs. 6. You have been provided with the Mental Health Advance Directives Pamphlet for your review. AFTERCARE APPOINTMENTS: * Please call your insurance company prior to your scheduled appointment to confirm your aftercare providers are covered. Take your insurance information to your appointments. WHO TO CALL AND WHEN: Medical Emergencies: For questions or emergencies related to your hospital stay, please contact the [facility] at [phone]. A loss prevention auditor is on-call 02/05 for the Behavioral Health Unit for emergencies At any time you feel your situation is an emergency, you may also call 911 immediately. Pending Studies at Discharge: No Stand-Alone Forms: [facility], Smoking Cessation Medications and DC Order Prescriptions: New trazodone 100 mg Tablet 200 mg PO HS Qty: 28 RF: 0 Continued cyclobenzaprine 10 mg Tablet 10 mg PO TID PRN (Reason: Back Pain) RF: 0 losartan 25 mg Tablet 25 mg PO DAILY RF: 0 omeprazole 20 mg Capsule,Delayed Release(Dr/Ec) 20 mg PO DAILY RF: 0 sertraline 100 mg Tablet 150 mg PO DAILY RF: 0 propranolol 10 mg Tablet 10 mg PO DAILY RF: 0 Changed divalproex 500 mg tablet extended release 24 hr 500 mg PO UD Qty: 0 RF: 0 Discontinued gabapentin 300 mg Capsule 300 mg PO TID PRN (Reason: Pain) RF: 0 hydroxyzine HCl 50 mg tablet 50 mg PO Q6H PRN (Reason: anxiety or insomnia) RF: 0 risperidone 1 mg tablet 1 mg PO BID RF: 0 Discharge Orders: Discharge Order (Routine); Ordered 07/17/20 Ordered By: Ela Daily Admission Data Admit Date/Time: 07/08/20 12:14 Attending Provider: Ela Daily Admit Provider: Ela Daily Primary Care Provider: Amor Kapadia Other Interventions: Discharge Summary Assessment (RN) Last Done: 07/17/20 10:00 PSY Interdisciplinary Discharge Planning Last Done: 07/17/20 10:04 Coding Level of Care Code 45823 D/C day mgmt > 30 min Diagnoses Intentional drug overdose T50.902A Encounter type: initial encounter Depression F32.9 Depression Type: unspecified Antisocial personality disorder F60.2 Alcohol abuse F10.10 Nicotine dependence F17.200 Hypertension I10 Low back pain M54.5
[2020-07-17] MEDS: LOSARTAN POTASSIUM 25 MG TAB PO SCH (08:41)
[2020-07-17] MEDS: DIVALPROEX EXTENDED RELEASE 500 MG TAB PO SCH (08:41)
[2020-07-17] MEDS: PROPRANOLOL HCL 10 MG TAB PO SCH (08:41)
[2020-07-17] MEDS: PANTOprazole 40 MG TAB PO SCH (08:42)
[2020-07-17] MEDS: NICOTINE 21 MG/24 HR TDSY TD SCH (08:42)
[2020-07-17] MEDS ORDERED: SERTRALINE HCL 50 MG TABLET PO SCH (09:00)
== END 2020-07-17 11:20 | disposition home or self-care (01) | DRG 881 ==
LOC: 3S 12:14

== ENCOUNTER 2021-09-18 14:34 | Inpatient (IN) ==
[2021-09-18 15:14] LABS: Basophils # (auto) 0.05 K/uL (0-0.2); Basophils % (auto) 0.5 %; Eosinophils # (auto) 0.22 K/uL (0-0.5); Eosinophils % (auto) 2.4 %; Hematocrit (blood only) 46.9 % (42-52); Hemoglobin 16.1 g/dL (14.0-18.0); Immature Granulocytes # (auto) 0.01 K/uL (0.00-0.02); Immature Granulocytes % (auto) 0.1 %; Lymphocytes # (auto) 2.33 K/uL (1.2-3.4); Lymphocytes % (auto) 25.2 %; Mean Corpuscular Hemoglobin 30.7 pg (25-34); Mean Corpuscular Hgb Conc 34.3 g/dL (32-36); Mean Corpuscular Volume 89.3 fL (80-100); Mean Platelet Volume 11.6 fL (7.4-10.4); Monocytes # (auto) 0.79 K/uL (0.11-0.59); Monocytes % (auto) 8.6 %; Neutrophils # (auto) 5.83 K/uL (1.4-6.5); Neutrophils % (auto) 63.2 %; Platelet Count 272 K/uL (130-400); RDW Coefficient of Variation 12.7 % (11.5-14.5); RDW Standard Deviation 41.2 fL (36.4-46.3); Red Blood Count 5.25 M/uL (4.7-6.1); White Blood Count 9.23 K/uL (4.8-10.8)
[2021-09-18 15:25] LABS: Appearance Urine Clear (Clear); Bilirubin Urine Negative (Negative); Blood Urine Negative (Negative); Color Urine Yellow; Glucose Urine UA Negative (Negative); Ketones Urine Negative (Negative); Leukocyte Esterase Urine Negative (Negative); Nitrite Urine Negative (Negative); Protein Urine Negative (Negative); Specific Gravity Urine 1.022 (1.000-1.030); Urobilinogen Urine Negative (Negative); pH Urine 7.5 (4.5-7.5)
--- NOTE | 2021-09-18 15:39 | Emergency Department Note ---
Impression & Plan Mood disorder, Alcohol abuse, High serum chloride ED Provider Note NAME: CHANDRA AMAYA AGE: 31 SEX: M : 1990 ARRIVES VIA: Walk-In INFORMANT: Patient ED PROVIDER(S): Casey Maldonado DO CHIEF COMPLAINT: depression HPI: Patient is a 31-year-old male who presents ER who just had his kids taken away from him via emergency custody by his ex-. His fiance just broke up with him last night. He is scheduled to have the wedding tomorrow which was canceled. He admits to lack of self-worth and not wanting to live anymore. He feels like it is getting to the point when he overdosed previously. He has no current plan. He denies any headache or change in vision. No chest pain or shortness of breath. No nausea vomiting or diarrhea. No dysuria urgency or frequency. No other exacerbating or remitting factors. ROS: See above HPI for pertinent positives & negatives. A total of 10 systems reviewed and were otherwise negative. PAST MEDICAL HISTORY:See Below PAST SURGICAL HISTORY:See Below FAMILY HISTORY:See Below SOCIAL HISTORY:See Below HOME MEDICATIONS:See Below ALLERGIES:See Below VITALS:See Below PHYSICAL EXAMINATION: GENERAL: Sitting up in bed, alert, well appearing, well nourished, no distress, non-toxic EYE EXAM: normal conjunctiva. OROPHARYNX: no exudate, no erythema, lips, buccal mucosa, and tongue normal and mucous membranes are moist NECK: supple, no nuchal rigidity, no adenopathy, non-tender LUNGS: Clear to auscultation. Normal chest wall mechanics HEART: no murmurs, S1 normal and S2 normal ABDOMEN: abdomen soft, non-tender, normo-active bowel sounds, no masses, no rebound or guarding. UPPER EXTREMITIES: upper extremities are grossly normal. LOWER EXTREMITIES: No pitting edema. NEURO EXAM: Normal sensorium, cranial nerves II-XII grossly intact, normal speech, no gross weakness of arms, no gross weakness of legs. PSYCH: Admits to a lack of self-worth and feeling depressed and not wanting to live but denies any clear plan MEDICAL DECISION MAKING: Patient is a 31-year-old male who presents ER for above-stated complaint. Labs were obtained and showed no significant leukocytosis or anemia. BMP with a chloride of 110. LFTs bilirubin and TSH were unremarkable. UA was clean. Valproic acid was low. Marijuana was positive. Alcohol negative. Covid negative. He rested comfortably in the ER. He was given 1 dose of Ativan due to anxiety. He was seen evaluated by 3 S. and admitted for further work-up. Observation Status: Indication: Medical stability Patient with no pertinent family history, was seen first at 1620 hrs and was necessary in order to determine medical stabilityand avoid unnecessary admission. Upon reevaluation, 4 hours of observation revealed that the patient should be admitted to psychiatry. Disposition date and time 09/18/2021 at 6:38 PM. Triage Nursing notes reviewed. Limited review of prior medical records performed Vital Signs: reviewed and remarkable for HTN Differential diagnosis: Mood disorder, infection, hypoglycemia, electrolyte abnormalities, cardiac sources, intracerebral event, toxicologic, trauma, neurologic, as well as other pathologies. ER treatment provided: See below Diagnostics interpreted by me: ECG: none Laboratory studies: As stated above and show below. Imaging studies: See below Consultation(s): none Procedures: none Critical Care: None Past Med/Surg History Medical History Abdominal pain Alcohol abuse Allergic reaction Antisocial personality disorder Arterial hypotension Chest pain Depression Intentional drug overdose Low back pain Nicotine dependence Obesity Sleep apnea with use of continuous positive airway pressure (CPAP) Surgical History Hx of cholecystectomy Family History Other No significant family history Social History Smoking Status: Current every day smoker Tobacco Type: Smokeless Tobacco (Dip or Chew) Hx Alcohol Use: No Preferred Language: Botswanan Communication Ability: Effective Athletic Gear Custodian Required: No Beliefs That Will Affect Care: None Current Living Situation: Family Current Living Situation Comment: lives with mom and brother Feels Safe at Home: Yes Assistive Devices: Glasses Allergies Allergies Allergy/AdvReac Type Severity Reaction Status Date / Time amlodipine Allergy Intermediate Hives Verified 09/18/21 15:30 hydrochlorothiazide Allergy Intermediate RASH, Verified 09/18/21 15:30 THROAT SWELLS ketorolac Allergy Intermediate RASH, Verified 09/18/21 15:30 NAUSEA amoxicillin Allergy Mild RASH Verified 09/18/21 15:30 Penicillins Allergy Mild AMOXICILLIN Verified 09/18/21 15:30 = RASH Home Meds Home Medications Medication Instructions Recorded Confirmed cyclobenzaprine 10 mg tablet 10 mg PO HS PRN 07/30/18 09/18/21 losartan 25 mg tablet 25 mg PO DAILY 07/30/18 09/18/21 omeprazole 20 mg capsule,delayed 20 mg PO DAILYBB 07/30/18 09/18/21 release propranolol 10 mg tablet 20 mg PO BID 07/16/20 09/18/21 sertraline 100 mg tablet 150 mg PO DAILY 07/16/20 09/18/21 albuterol sulfate 90 mcg/actuation 2 puff INHALATION Q4H PRN 07/08/21 09/18/21 aerosol inhaler diclofenac sodium 75 mg 75 mg PO BID PRN 07/08/21 09/18/21 tablet,delayed release dicyclomine 10 mg capsule 10 mg PO QID PRN 07/08/21 09/18/21 divalproex 500 mg tablet,extended 1,000 mg PO BID 07/08/21 09/18/21 release 24 hr sumatriptan succinate 6 mg/0.5 mL 6 mg SUBCUT DIRECTED PRN 07/08/21 09/18/21 subcutaneous pen injector Previous Rx's Medication Instructions Recorded trazodone 100 mg tablet 200 mg PO HS #28 tab 07/17/20 Results & Data (ED) Vital Signs Vital Signs - 24 hr 09/18/21 14:41 09/18/21 16:02 09/18/21 18:00 Temperature 37.1 C Temperature Source Temporal Artery Scan Pulse Rate 93 H Pulse Rate [Right Finger] 85 97 H Pulse Rhythm Regular Pulse Rhythm [Right Finger] Regular Regular Pulse Strength Normal Pulse Strength [Right Finger] Normal Normal Respiratory Rate 18 14 15 Respiratory Effort / Characteristics Non-Labored Spontaneous Non-Labored Spontaneous Non-Labored Spontaneous Respiratory Depth Normal Normal Normal Respiratory Pattern Regular Regular Regular Blood Pressure 169/116 H Blood Pressure [Left Arm] 147/89 H 161/92 H Blood Pressure Mean 133 Blood Pressure Mean [Left Arm] 108 115 Blood Pressure Position Sitting Blood Pressure Position [Left Arm] Sitting Lying Pulse Oximetry 95 96 97 Oxygen Delivery Method Room Air Room Air Room Air Sepsis Recent Fever Within 48 Hours No Sepsis New/Unexplained Change in Mental Status N/A Sepsis Action Taken by Nursing No Action Required Laboratory Data Result diagrams: 09/18/21 15:00 09/18/21 15:00 Lab Results 09/18/21 09/18/21 09/18/21 Range/Units 14:57 14:57 15:00 WBC 9.23 (4.8-10.8) K/uL RBC 5.25 (4.7-6.1) M/uL Hgb 16.1 (14.0-18.0) g/dL Hct 46.9 (42-52) % MCV 89.3 (80-100) fL MCH 30.7 (25-34) pg MCHC 34.3 (32-36) g/dL RDW Std Deviation 41.2 (36.4-46.3) fL RDW Coeff of Maggie 12.7 (11.5-14.5) % Plt Count 272 (130-400) K/uL MPV 11.6 H (7.4-10.4) fL Immature Gran % (Auto) 0.1 % Neut % (Auto) 63.2 % Lymph % (Auto) 25.2 % [place] % (Auto) 8.6 % Eos % (Auto) 2.4 % Baso % (Auto) 0.5 % Neut # (Auto) 5.83 (1.4-6.5) K/uL Lymph # (Auto) 2.33 (1.2-3.4) K/uL [place] # (Auto) 0.79 H (0.11-0.59) K/uL Eos # (Auto) 0.22 (0-0.5) K/uL Baso # (Auto) 0.05 (0-0.2) K/uL Immature Gran # (Auto) 0.01 (0.00-0.02) K/uL Sodium (136-145) mmol/L Potassium (3.5-5.1) mmol/L Chloride (98-107) mmol/L Carbon Dioxide (21-32) mmol/L Anion Gap (3-11) BUN (7-18) mg/dl Creatinine (0.6-1.4) mg/dl Est Cr Clr Drug Dosing ml/min Est GFR ( Amer) ml/min Est GFR (Non-Af Amer) ml/min BUN/Creatinine Ratio (10-20) Glucose (70-99) mg/dl Calcium (8.5-10.1) mg/dl Total Bilirubin (0.2-1) mg/dl AST (15-37) U/L ALT (12-78) Alkaline Phosphatase (45-117) U/L Total Protein (6.4-8.2) gm/dl Albumin (3.4-5.0) gm/dl Globulin (2.5-4.0) gm/dl Albumin/Globulin Ratio (0.9-2) TSH (0.300-4.500) uIu/ml Urine Color Yellow Urine Appearance Clear (Clear) Urine pH 7.5 (4.5-7.5) Ur Specific [place] 1.022 (1.000-1.030) Urine Protein Negative (Negative) Urine Glucose (UA) Negative (Negative) Urine Ketones Negative (Negative) Urine Blood Negative (Negative) Urine Nitrite Negative (Negative) Urine Bilirubin Negative (Negative) Urine Urobilinogen Negative (Negative) Ur Leukocyte Esterase Negative (Negative) Salicylates (2.8-20) mg/dl Urine Opiates Screen Neg (Neg) Ur Methadone, Qual Neg (Neg) Acetaminophen (10-30) ug/ml Urine Barbiturates Neg (Neg) Valproic Acid (50-100) mcg/ml Ur Phencyclidine (PCP) Neg (Neg) U Amphetamin/Meth Scrn Neg (Neg) MDMA (Ecstasy) Screen Neg (Neg) U Benzodiazepines Scrn Neg (Neg) Ur Cocaine Metabolite Neg (Neg) U Marijuana (THC) Screen Pos H (Neg) Ethyl Alcohol mg/dL (0-3) mg/dl SARS-CoV-2, RNA, NAAT (NEGATIVE) 09/18/21 09/18/21 09/18/21 Range/Units 15:00 15:00 15:00 WBC (4.8-10.8) K/uL RBC (4.7-6.1) M/uL Hgb (14.0-18.0) g/dL Hct (42-52) % MCV (80-100) fL MCH (25-34) pg MCHC (32-36) g/dL RDW Std Deviation (36.4-46.3) fL RDW Coeff of Maggie (11.5-14.5) % Plt Count (130-400) K/uL MPV (7.4-10.4) fL Immature Gran % (Auto) % Neut % (Auto) % Lymph % (Auto) % [place] % (Auto) % Eos % (Auto) % Baso % (Auto) % Neut # (Auto) (1.4-6.5) K/uL Lymph # (Auto) (1.2-3.4) K/uL [place] # (Auto) (0.11-0.59) K/uL Eos # (Auto) (0-0.5) K/uL Baso # (Auto) (0-0.2) K/uL Immature Gran # (Auto) (0.00-0.02) K/uL Sodium 141 (136-145) mmol/L Potassium 3.9 (3.5-5.1) mmol/L Chloride 110 H (98-107) mmol/L Carbon Dioxide 26 (21-32) mmol/L Anion Gap 5.0 (3-11) BUN 9 (7-18) mg/dl Creatinine 0.91 (0.6-1.4) mg/dl Est Cr Clr Drug Dosing 171.8 ml/min Est GFR ( Amer) 130.6 ml/min Est GFR (Non-Af Amer) 112.7 ml/min BUN/Creatinine Ratio 10.1 (10-20) Glucose 96 (70-99) mg/dl Calcium 9.3 (8.5-10.1) mg/dl Total Bilirubin 0.6 (0.2-1) mg/dl AST 13 L (15-37) U/L ALT 28 (12-78) Alkaline Phosphatase 70 (45-117) U/L Total Protein 8.0 (6.4-8.2) gm/dl Albumin 4.1 (3.4-5.0) gm/dl Globulin 3.9 (2.5-4.0) gm/dl Albumin/Globulin Ratio 1.1 (0.9-2) TSH 1.070 (0.300-4.500) uIu/ml Urine Color Urine Appearance (Clear) Urine pH (4.5-7.5) Ur Specific [place] (1.000-1.030) Urine Protein (Negative) Urine Glucose (UA) (Negative) Urine Ketones (Negative) Urine Blood (Negative) Urine Nitrite (Negative) Urine Bilirubin (Negative) Urine Urobilinogen (Negative) Ur Leukocyte Esterase (Negative) Salicylates < 1.7 L (2.8-20) mg/dl Urine Opiates Screen (Neg) Ur Methadone, Qual (Neg) Acetaminophen < 2 L (10-30) ug/ml Urine Barbiturates (Neg) Valproic Acid (50-100) mcg/ml Ur Phencyclidine (PCP) (Neg) U Amphetamin/Meth Scrn (Neg) MDMA (Ecstasy) Screen (Neg) U Benzodiazepines Scrn (Neg) Ur Cocaine Metabolite (Neg) U Marijuana (THC) Screen (Neg) Ethyl Alcohol mg/dL < 3.0 (0-3) mg/dl SARS-CoV-2, RNA, NAAT (NEGATIVE) 09/18/21 09/18/21 Range/Units 15:00 15:25 WBC (4.8-10.8) K/uL RBC (4.7-6.1) M/uL Hgb (14.0-18.0) g/dL Hct (42-52) % MCV (80-100) fL MCH (25-34) pg MCHC (32-36) g/dL RDW Std Deviation (36.4-46.3) fL RDW Coeff of Maggie (11.5-14.5) % Plt Count (130-400) K/uL MPV (7.4-10.4) fL Immature Gran % (Auto) % Neut % (Auto) % Lymph % (Auto) % [place] % (Auto) % Eos % (Auto) % Baso % (Auto) % Neut # (Auto) (1.4-6.5) K/uL Lymph # (Auto) (1.2-3.4) K/uL [place] # (Auto) (0.11-0.59) K/uL Eos # (Auto) (0-0.5) K/uL Baso # (Auto) (0-0.2) K/uL Immature Gran # (Auto) (0.00-0.02) K/uL Sodium (136-145) mmol/L Potassium (3.5-5.1) mmol/L Chloride (98-107) mmol/L Carbon Dioxide (21-32) mmol/L Anion Gap (3-11) BUN (7-18) mg/dl Creatinine (0.6-1.4) mg/dl Est Cr Clr Drug Dosing ml/min Est GFR ( Amer) ml/min Est GFR (Non-Af Amer) ml/min BUN/Creatinine Ratio (10-20) Glucose (70-99) mg/dl Calcium (8.5-10.1) mg/dl Total Bilirubin (0.2-1) mg/dl AST (15-37) U/L ALT (12-78) Alkaline Phosphatase (45-117) U/L Total Protein (6.4-8.2) gm/dl Albumin (3.4-5.0) gm/dl Globulin (2.5-4.0) gm/dl Albumin/Globulin Ratio (0.9-2) TSH (0.300-4.500) uIu/ml Urine Color Urine Appearance (Clear) Urine pH (4.5-7.5) Ur Specific [place] (1.000-1.030) Urine Protein (Negative) Urine Glucose (UA) (Negative) Urine Ketones (Negative) Urine Blood (Negative) Urine Nitrite (Negative) Urine Bilirubin (Negative) Urine Urobilinogen (Negative) Ur Leukocyte Esterase (Negative) Salicylates (2.8-20) mg/dl Urine Opiates Screen (Neg) Ur Methadone, Qual (Neg) Acetaminophen (10-30) ug/ml Urine Barbiturates (Neg) Valproic Acid 32 L (50-100) mcg/ml Ur Phencyclidine (PCP) (Neg) U Amphetamin/Meth Scrn (Neg) MDMA (Ecstasy) Screen (Neg) U Benzodiazepines Scrn (Neg) Ur Cocaine Metabolite (Neg) U Marijuana (THC) Screen (Neg) Ethyl Alcohol mg/dL (0-3) mg/dl SARS-CoV-2, RNA, NAAT NEGATIVE (NEGATIVE) Administered Medications Discontinued Medications Lorazepam (Lorazepam 1 Mg Tab) 1 mg SL NOW STA Stop: 09/18/21 16:07 Last Admin: 09/18/21 16:15 Dose: 1 mg Documented by: [id number] Discharge Plan Visit Data Chief Complaint: Mental Health Evaluation Stated Complaint: MENTAL HEALTH EVAL ED Provider: Casey Maldonado Discharge Problem: Mood disorder, Alcohol abuse, High serum chloride Forms Stand Alone Forms: My [facility], Suicide Prevention Resources Prescriptions Prescriptions: No Action cyclobenzaprine 10 mg Tablet 10 mg PO HS PRN (Reason: MUSCLE SPASMS) RF: 0 losartan 25 mg Tablet 25 mg PO DAILY RF: 0 omeprazole 20 mg Capsule,Delayed Release(Dr/Ec) 20 mg PO DAILYBB RF: 0 sertraline 100 mg Tablet 150 mg PO DAILY RF: 0 propranolol 10 mg Tablet 20 mg PO BID RF: 0 trazodone 100 mg Tablet 200 mg PO HS Qty: 28 RF: 0 divalproex 500 mg tablet extended release 24 hr 1,000 mg PO BID RF: 0 diclofenac sodium [Voltaren] 75 mg Tablet,Delayed Release (Dr/Ec) 75 mg PO BID PRN (Reason: Pain) RF: 0 albuterol sulfate 90 mcg/actuation Hfa Aerosol Inhaler 2 puff INHALATION Q4H PRN (Reason: Wheezing) RF: 0 dicyclomine 10 mg Capsule 10 mg PO QID PRN (Reason: ABD PAIN) RF: 0 sumatriptan succinate [Imitrex] 6 mg/0.5 mL Pen Injector 6 mg subcut DIRECTED PRN (Reason: Headache) RF: 0 Referrals Referrals: Amor Kapaida MD [Primary Care Provider] -
[2021-09-18 15:40] LABS: Albumin Level 4.1 gm/dl (3.4-5.0); BUN Creatinine Ratio 10.1 (10-20); Calcium 9.3 mg/dl (8.5-10.1); Creatinine Clr Calc Pharmacy 171.8 ml/min; Est GFR (African American) 130.6 ml/min; Est GFR (Non-African American) 112.7 ml/min; Potassium 3.9 mmol/L (3.5-5.1)
[2021-09-18 15:46] LABS: Acetaminophen < 2 ug/ml (10-30)
[2021-09-18 15:47] LABS: Salicylate < 1.7 mg/dl (2.8-20)
[2021-09-18 15:47] LABS: Amphetamines+Metham, Urine Neg (Neg); Barbiturates, Urine Neg (Neg); Benzodiazepine, Urine Neg (Neg); Cocaine, Urine Neg (Neg); MDMA (Ecstacy), Urine Neg (Neg); Methadone, Urine Neg (Neg); Opiate, Urine Neg (Neg); Phencyclidine, Urine Neg (Neg)
[2021-09-18 15:51] LABS: Albumin Globulin Ratio 1.1 (0.9-2); Bilirubin,Total 0.6 mg/dl (0.2-1); Globulin 3.9 gm/dl (2.5-4.0); Thyroid Stimulating Hormone 1.07 uIu/ml (0.300-4.500)
[2021-09-18] MEDS ORDERED: LORazepam 1 MG TAB SL STA (16:06)
[2021-09-18] MEDS ORDERED: ALUMINUM/MAGNESIUM SUSP 30 ML UDC PO PRN (18:20)
[2021-09-18] MEDS ORDERED: ACETAMINOPHEN 325 MG TAB PO PRN (18:20)
[2021-09-18] MEDS ORDERED: hydrOXYzine HCl 25 MG TAB PO PRN (18:20)
[2021-09-18] MEDS ORDERED: SODIUM CHLORIDE 0.65% NA SOLN 45 ML (OCEAN) PRN (18:20)
[2021-09-18] MEDS ORDERED: MAGNESIUM HYDROXIDE SUSP 30 ML UDC PO PRN (18:20)
[2021-09-18] MEDS ORDERED: CYCLOBENZAPRINE HCL 10 MG TAB PO PRN (19:07)
[2021-09-18] MEDS ORDERED: GABAPENTIN 300 MG CAP PO PRN (19:09)
[2021-09-18] MEDS: hydrOXYzine HCl 25 MG TAB PO PRN (19:36)
[2021-09-18] MEDS ORDERED: Nursing to Pharmacy Communication SCH (20:00)
[2021-09-18] MEDS: NICOTINE 21 MG/24 HR TDSY TD SCH (21:09)
[2021-09-18] MEDS: DIVALPROEX EXTENDED RELEASE 500 MG TAB PO SCH (21:09)
[2021-09-18] MEDS ORDERED: PROPRANOLOL HCL 10 MG TAB PO STA (21:12)
[2021-09-18] MEDS ORDERED: traZODone HCL 100 MG TAB PO SCH (22:00)
[2021-09-19] MEDS ORDERED: LORazepam 1 MG TAB PO PRN ×4 (08:32→15:15)
[2021-09-19] MEDS ORDERED: SERTRALINE HCL 50 MG TABLET PO SCH (09:00)
[2021-09-19] MEDS ORDERED: LOSARTAN POTASSIUM 25 MG TAB PO SCH (09:00)
[2021-09-19] MEDS ORDERED: FOLIC ACID 1 MG TAB PO SCH (09:00)
[2021-09-19] MEDS ORDERED: NICOTINE 21 MG/24 HR TDSY TD SCH (09:00)
[2021-09-19] MEDS ORDERED: THIAMINE HCL 100 MG TAB PO SCH (09:00)
[2021-09-19] MEDS: DIVALPROEX EXTENDED RELEASE 500 MG TAB PO SCH ×2 (09:10→20:36)
[2021-09-19] MEDS: hydrOXYzine HCl 25 MG TAB PO PRN (10:40)
[2021-09-19] MEDS ORDERED: CYCLOBENZAPRINE HCL 10 MG TAB PO PRN (10:46)
[2021-09-19] MEDS ORDERED: DICYCLOMINE HCL 10 MG CAP PO PRN (10:46)
--- NOTE | 2021-09-19 11:39 | History & Physical ---
Date of Service September 19, 2021 Impression / Recommendations Impression The patient is a 31 year old with a history of MDD, anxiety, alcohol use, IED, antisocial personality disorder, and BPAD II who was admitted for worsening depression and passive SI. Diagnostically consistent with MDD, substance-induced depression and anxiety and alcohol use disorder. He is currently at high acute risk of self-harm given prior serious attempt, major depressive disorder, substance use and multiple psychosocial stressors including break-up and cancelation of his wedding as well as legal filings of PFA and potential change to his custody agreement. The patient is deemed unstable and requires psychiatric hospitalization for diagnostic clarification, safety and stabilization, medication management and development of further coping skills. The patient's audit score and use history suggests problematic substance use. Brief intervention was offered and accepted. Intervention was greater than 5 minutes in length and included assessing readiness to quit, advice on how to reduce or abstain and to set a specific goal for this hospitalization. groundskeeping maintenance worker will also assist in anticipating barriers to reducing or abstaining from substance use and in problem-solving for solutions to those problems while arranging for referral to appropriate treatment. The patient is in action stage with regards to transtheoretical model of change. The patient is advised to decrease consumption due to depressant effects and risk of interaction with prescription medications. The patient agreed to referral for residential substance use after discharge and will be provided with recovery materials to lul cobian to educate self on how to cope with their condition without using substances including encouragement to utilize AA. Discussed medication options at length. He would like to transition to a new SSRI rather than maximixing dose of sertraline. He consented to starting cross- taper to lexapro, reviewed side effects. He was recently prescribed gabapentin but had not started his prescription yet, he would like to start this, reviewed side effects, appropriate in context of significant anxiety and alcohol use disorder. Will keep depakote at current dose for now, he denies any current side effects, reviewed labwork-CBC, liver enzymes, electrolytes, PT all stable. Will continue trazodone as he finds this helpful for sleep. Will discontinue thorazine as he didn't find this helpful and carries significant side effect risks with metabolic and TD. Could consider naltrexone in future as mood stabilizes for alcohol use disorder. (1) MDD (major depressive disorder), recurrent episode, moderate: (2) Alcohol use disorder: (3) Intermittent explosive disorder in adult: (4) Antisocial personality disorder: (5) Anxiety: 09/19/21: The patient was admitted [facility] ([facility] inpatient mental health unit) on q15 min checks (behavioral with suicide precautions) for safety. The patient will participate in group, recreational, and milieu therapies and will be offered additional individual and family sessions as clinically appropriate. -continue prior to admission medications for back pain and BP control -continue trazodone 200 mg qhs prn -continue Depakote ER 1000 mg BID -begin cross-taper with reduction of sertraline from 150mg qd to 100mg qd and start escitalopram 5 mg qd -continue gabapentin 300mg TID -AWSS protocol for potential alcohol withdrawal -nicotine patch -plan for referral for residential alcohol use treatment once psychiatrically stable Inventory Assets Strengths: has good supports, employed, motivated to seek treatment Needs: psychiatric provider, substance use treatment Risk Factors Assessment Male: Yes : Yes Do You Have Access To A Gun?: No Health Problems: Yes Mental Health Diagnoses: Yes Substance Use Disorders: Yes Previous Attempt: Yes Previous Attempt; Highly Lethal: Yes Family History of Suicide: No Previous Psychiatric Hospitalization: Yes Hopelessness: Yes Smoker: Yes Protective Factors Assessment Responsible for Young Children: Yes Employed: Yes ([employer]) Stable Relationships: Yes Supportive Family: Yes Psychiatric History Identifying Data CHANDRA AMAYA is a 31-year-old man, has a history of prior diagnoses of MDD, bipolar type II, intermittent explosive disorder, PTSD, substance-induced mood disorder and antisocial personality disorder, and was admitted on 09/18/21 18:18 on a 201 voluntary commitment for worsening depression and passive SI. Chief Complaint "My medications haven't been working and everything happened yesterday and I didn't know what else to do". History of Present Illness Ron is a 31 yo man with a PPH of MDD, bipolar type II, intermittent explosive disorder, PTSD, substance-induced mood disorder and antisocial personality disorder with two prior inpatient psychiatric hospitalizations (both at [facility] in 06/2020 and 07/2020) with one prior suicide attempt (polypharmacy overdose requiring ICU admission) who presented to the ED and was then admitted on 201 status for worsening depression in the context of multiple psychosocial stressors. Ron describes 3-4 months of worsening mood with increased depression, anxiety and panic attacks. He notes stable sleep with trazodone but tearfulness, hop elessness, low energy, decreased appetite, low mood, anhedonia and worsening anger with "being really edgy and snappy". He describes his anger as yelling and sometimes damaging property but denies that he is every physically aggressive. He also has been very anxious particularly about the financial stress of planning for a wedding and has been having more panic attacks. In the context of his worsening mood he has also been drinking more alcohol, 4-6 drinks per day, and using marijuana intermittently to help with anxiety. He has continued to take his medications of depakote, sertraline, trazodone, and throazine but hasn't been finding them helpful and reports he was "discharged" from his therapist when she moved practices and no longer has a psychiatrist but isn't sure why. It was supposed to be getting to his now ex-fijacobe today, but she filed for a PFA yesterday after a big argument they had on night, after a full day of drinking alcohol and he then drove home. He had been with his now ex-fiancee since December. He also reports that following the breakup and his fiancee canceling their wedding that yesterday he was informed that his ex-, with whom he shares custody of two children, has filed for emergency changes to their custody agreement. All of this has lead him to feeling even more depressed and overwhelmed and he reports he began to feel "afraid of what would happen" in terms of his risk of harm to self and possibility of becoming suicidal if he did not seek more support. 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 Past Psychiatric History Previous Psych History: Hospitalized at [facility] in 06/2020 and 5 days after discharge he attempted suicide and was rehospitalized on in psychiatry in 07/2020. Current Psychiatric Diagnosis: MDD Outpatient Services: Had been through [facility] but reports he was discharged but he doesn't know why. Had been doing therapy through online [employer] service. Previous Psych Admissions: 2 prior at [facility] in 06/2020 and 07/2020. Do You Have Access To A Gun?: No History of Previous Suicide Attempt: Yes (overdose via polypharmacy requiring ICU admission in 06/2020) Past Medication Trials: none prior to current medications Past Head Trauma/Neuro History History of Concussion/Seizure: No Allergies Allergy/AdvReac Type Severity Reaction Status Date / Time amlodipine Allergy Intermediate Hives Verified 09/18/21 15:30 hydrochlorothiazide Allergy Intermediate RASH, Verified 09/18/21 15:30 THROAT SWELLS ketorolac Allergy Intermediate RASH, Verified 09/18/21 15:30 NAUSEA amoxicillin Allergy Mild RASH Verified 09/18/21 15:30 Penicillins Allergy Mild AMOXICILLIN Verified 09/18/21 15:30 = RASH Home Medications Medication Instructions Recorded Confirmed Type cyclobenzaprine 10 mg tablet 10 mg PO HS PRN 07/30/18 09/18/21 History losartan 25 mg tablet 25 mg PO DAILY 07/30/18 09/18/21 History omeprazole 20 mg capsule,delayed 20 mg PO DAILYBB 07/30/18 09/18/21 History release propranolol 10 mg tablet 20 mg PO BID 07/16/20 09/18/21 History sertraline 100 mg tablet 150 mg PO DAILY 07/16/20 09/18/21 History trazodone 100 mg tablet 200 mg PO HS #28 tab 07/17/20 09/18/21 Rx albuterol sulfate 90 mcg/actuation 2 puff INHALATION Q4H PRN 07/08/21 09/18/21 History aerosol inhaler diclofenac sodium 75 mg 75 mg PO BID PRN 07/08/21 09/18/21 History tablet,delayed release dicyclomine 10 mg capsule 10 mg PO QID PRN 07/08/21 09/18/21 History divalproex 500 mg tablet,extended 1,000 mg PO BID 07/08/21 09/18/21 History release 24 hr sumatriptan succinate 6 mg/0.5 mL 6 mg SUBCUT DIRECTED PRN 07/08/21 09/18/21 History subcutaneous pen injector Family History Family History of: Anxiety and Alcoholism/Drug Abuse Alcohol History Hx of Alcohol Use Over the Past 12 Months: Yes AUDIT Total Score: 11 Smoking Use Have You Smoked or Used Tobacco Products in the Last 30 Days: Yes tobacco type: cigarettes and smokeless tobacco Smoking Status: Current every day smoker Substance History Hx of Prescription Med Misuse Over the Past 12 Months: No Hx of Over the Counter Med Misuse Over the Past 12 Months: No Hx of Inhalent Misuse Over the Past 12 Months: No Hx of Organic Substance Use Over the Past 12 Months: Yes (THC) Hx of Illegal Substances/Street Drug Use Over Past 12 Months: No Problems as a Result of Past Substance Use: Relationships Ended Personal History Living Arrangements: Home Highest Grade Completed: High School Graduate and Vocational Training 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 Marital Status: Number Of Children: 2 Beliefs That Will Affect Care: None Current Legal Problems: Yes (ex-fiancee filed PFA, ex- seeking emergency custody of children) Hx Legal Problems: Yes (ex- filed PFA in the past resulting in prior admission in 07/2020) Patient History Medical History Abdominal pain Alcohol abuse Allergic reaction Antisocial personality disorder Arterial hypotension Chest pain Depression Intentional drug overdose Low back pain Nicotine dependence Obesity Sleep apnea with use of continuous positive airway pressure (CPAP) Surgical History Hx of cholecystectomy Family History Other No significant family history Social History Smoking Status: Current every day smoker Tobacco Type: Smokeless Tobacco (Dip or Chew) Hx Alcohol Use: No Preferred Language: Maori Communication Ability: Effective Glue Mounter Operator Required: No Beliefs That Will Affect Care: None Current Living Situation: Family Current Living Situation Comment: lives with mom and brother Feels Safe at Home: Yes Assistive Devices: Glasses Review of Systems Review of Systems: All systems reviewed & are unremarkable except as noted in HPI & below (chronic low back pain) Physical Exam Psychiatric: Orientation: alert and oriented x 3 Apperance: appropriately dressed and appropriately groomed Eye Contact: good eye contact Motor Behavior: steady gait and station and no abnormal motor movements Speech: normal rate/rhythm/volume of speech Affect: + depressed affect and + tearful affect Mood: + depressed mood and + anxious mood Thought Process: goal directed thought process Thought Content: reality based without delusions Suicidal Thoughts: denies suicidal thoughts Homicidal Thoughts: denies homicidal thoughts Hallucinations: no auditory hallucinations and no visual hallucinations Cognition: recent memory grossly intact, remote memory grossly intact, attention grossly intact and language grossly intact Estimated Intelligence: consistent with education level Insight: + fair insight Judgement: + impaired judgement Vital Signs (Past 24 Hours): Last Vital Signs Temp 36.9 C 09/19/21 10:35 Pulse 67 09/19/21 10:35 Resp 16 09/19/21 06:00 BP 151/97 H 09/19/21 10:35 Pulse Ox 97 09/18/21 18:00 Exam Statement: A physical exam was performed in the ED by Dr. Maldonado for the purposes of medical clearance. I accept that physical as correct and adequate for the purposes of the inpatient physical exam. Results & Data ([facility]) Laboratory Results Laboratory Results - last 24 hr 09/18/21 09/18/21 09/18/21 14:57 14:57 14:57 WBC RBC Hgb Hct MCV MCH MCHC RDW Std Deviation RDW Coeff of Maggie Plt Count MPV Immature Gran % (Auto) Neut % (Auto) Lymph % (Auto) [place] % (Auto) Eos % (Auto) Baso % (Auto) Neut # (Auto) Lymph # (Auto) [place] # (Auto) Eos # (Auto) Baso # (Auto) Immature Gran # (Auto) Sodium Potassium Chloride Carbon Dioxide Anion Gap BUN Creatinine Est Cr Clr Drug Dosing Est GFR ( Amer) Est GFR (Non-Af Amer) BUN/Creatinine Ratio Glucose Calcium Total Bilirubin AST ALT Alkaline Phosphatase Total Protein Albumin Globulin Albumin/Globulin Ratio TSH Urine Color Yellow Urine Appearance Clear Urine pH 7.5 Ur Specific [place] 1.022 Urine Protein Negative Urine Glucose (UA) Negative Urine Ketones Negative Urine Blood Negative Urine Nitrite Negative Urine Bilirubin Negative Urine Urobilinogen Negative Ur Leukocyte Esterase Negative Salicylates Urine Opiates Screen Neg Ur Methadone, Qual Neg Acetaminophen Urine Barbiturates Neg Valproic Acid Ur Phencyclidine (PCP) Neg U Amphetamin/Meth Scrn Neg MDMA (Ecstasy) Screen Neg U Benzodiazepines Scrn Neg Ur Cocaine Metabolite Neg U Marijuana (THC) Screen Pos H U Marijuana THC Carboxy Pending Drug Screen Comment Pending Ethyl Alcohol mg/dL SARS-CoV-2, RNA, NAAT 09/18/21 09/18/21 09/18/21 15:00 15:00 15:00 WBC 9.23 RBC 5.25 Hgb 16.1 Hct 46.9 MCV 89.3 MCH 30.7 MCHC 34.3 RDW Std Deviation 41.2 RDW Coeff of Maggie 12.7 Plt Count 272 MPV 11.6 H Immature Gran % (Auto) 0.1 Neut % (Auto) 63.2 Lymph % (Auto) 25.2 [place] % (Auto) 8.6 Eos % (Auto) 2.4 Baso % (Auto) 0.5 Neut # (Auto) 5.83 Lymph # (Auto) 2.33 [place] # (Auto) 0.79 H Eos # (Auto) 0.22 Baso # (Auto) 0.05 Immature Gran # (Auto) 0.01 Sodium 141 Potassium 3.9 Chloride 110 H Carbon Dioxide 26 Anion Gap 5.0 BUN 9 Creatinine 0.91 Est Cr Clr Drug Dosing 171.8 Est GFR ( Amer) 130.6 Est GFR (Non-Af Amer) 112.7 BUN/Creatinine Ratio 10.1 Glucose 96 Calcium 9.3 Total Bilirubin 0.6 AST 13 L ALT 28 Alkaline Phosphatase 70 Total Protein 8.0 Albumin 4.1 Globulin 3.9 Albumin/Globulin Ratio 1.1 TSH 1.070 Urine Color Urine Appearance Urine pH Ur Specific [place] Urine Protein Urine Glucose (UA) Urine Ketones Urine Blood Urine Nitrite Urine Bilirubin Urine Urobilinogen Ur Leukocyte Esterase Salicylates < 1.7 L Urine Opiates Screen Ur Methadone, Qual Acetaminophen < 2 L Urine Barbiturates Valproic Acid Ur Phencyclidine (PCP) U Amphetamin/Meth Scrn MDMA (Ecstasy) Screen U Benzodiazepines Scrn Ur Cocaine Metabolite U Marijuana (THC) Screen U Marijuana THC Carboxy Drug Screen Comment Ethyl Alcohol mg/dL SARS-CoV-2, RNA, NAAT 09/18/21 09/18/21 09/18/21 15:00 15:00 15:25 WBC RBC Hgb Hct MCV MCH MCHC RDW Std Deviation RDW Coeff of Maggie Plt Count MPV Immature Gran % (Auto) Neut % (Auto) Lymph % (Auto) [place] % (Auto) Eos % (Auto) Baso % (Auto) Neut # (Auto) Lymph # (Auto) [place] # (Auto) Eos # (Auto) Baso # (Auto) Immature Gran # (Auto) Sodium Potassium Chloride Carbon Dioxide Anion Gap BUN Creatinine Est Cr Clr Drug Dosing Est GFR ( Amer) Est GFR (Non-Af Amer) BUN/Creatinine Ratio Glucose Calcium Total Bilirubin AST ALT Alkaline Phosphatase Total Protein Albumin Globulin Albumin/Globulin Ratio TSH Urine Color Urine Appearance Urine pH Ur Specific [place] Urine Protein Urine Glucose (UA) Urine Ketones Urine Blood Urine Nitrite Urine Bilirubin Urine Urobilinogen Ur Leukocyte Esterase Salicylates Urine Opiates Screen Ur Methadone, Qual Acetaminophen Urine Barbiturates Valproic Acid 32 L Ur Phencyclidine (PCP) U Amphetamin/Meth Scrn MDMA (Ecstasy) Screen U Benzodiazepines Scrn Ur Cocaine Metabolite U Marijuana (THC) Screen U Marijuana THC Carboxy Drug Screen Comment Ethyl Alcohol mg/dL < 3.0 SARS-CoV-2, RNA, NAAT NEGATIVE Current Inpatient Medications Current Inpatient Medications: Current Inpatient Medications Acetaminophen (Acetaminophen 325 Mg Tab) 650 mg PO Q4H PRN PRN Reason: Headache or Minor Fever Stop: 10/18/21 18:19 Al Hydrox/Mg Hydrox/Simethicone (Aluminum/Magnesium Susp 30 Ml Udc) 30 ml PO Q4H PRN PRN Reason: GI Upset Stop: 10/18/21 18:19 Cyclobenzaprine HCl (Cyclobenzaprine Hcl 10 Mg Tab) 10 mg PO HS PRN PRN Reason: MUSCLE SPASMS Stop: 10/19/21 10:45 Dicyclomine HCl (Dicyclomine Hcl 10 Mg Cap) 10 mg PO QID PRN PRN Reason: ABD PAIN Stop: 10/19/21 10:45 Divalproex Sodium (Divalproex Extended Release 500 Mg Tab) 1,000 mg PO BID [facility] Stop: 10/19/21 20:59 Folic Acid (Folic Acid 1 Mg Tab) 1 mg PO QAM [facility] Stop: 10/19/21 08:59 Last Admin: 09/19/21 10:08 Dose: 1 mg Documented by: Gabapentin (Gabapentin 300 Mg Cap) 300 mg PO TID PRN PRN Reason: Pain Stop: 10/18/21 20:59 Hydroxyzine HCl (Hydroxyzine Hcl 25 Mg Tab) 50 mg PO HSZ PRN PRN Reason: Insomnia Stop: 10/18/21 18:19 Hydroxyzine HCl (Hydroxyzine Hcl 25 Mg Tab) 25 mg PO Q4H PRN PRN Reason: Anxiety Stop: 10/18/21 18:19 Last Admin: 09/19/21 10:40 Dose: 25 mg Documented by: Lorazepam (Lorazepam 1 Mg Tab) 1 mg PO ONE PRN; Protocol PRN Reason: EtoH Withdrawal AWSS 6-10 Losartan Potassium (Losartan Potassium 25 Mg Tab) 25 mg PO DAILY ELIUD Stop: 10/20/21 08:59 Magnesium Hydroxide (Magnesium Hydroxide Susp 30 Ml Udc) 30 ml PO DAILY PRN PRN Reason: Constipation Stop: 10/18/21 18:19 Miscellaneous (Remove Nicoderm Patch) 1 ea N/A Q24H ELIUD Stop: 10/18/21 20:28 Last Admin: 09/18/21 20:37 Dose: Not Given Documented by: Nicotine (Nicotine 21 Mg/24 Hr Tdsy) 21 mg TD Q24H ELIUD Stop: 10/18/21 20:29 Last Admin: 09/18/21 21:09 Dose: Not Given Documented by: Non-Formulary Medication (Omeprazole) 20 mg PO DAILYBB ELIUD Stop: 10/20/21 07:59 Propranolol HCl (Propranolol Hcl 20 Mg Tab) 20 mg PO BID ELIUD Stop: 10/19/21 20:59 Sertraline HCl (Sertraline Hcl 50 Mg Tablet) 150 mg PO DAILY ELIUD Stop: 10/20/21 08:59 Sodium Chloride (Sodium Chloride 0.65% Na Soln 45 Ml (Camilla)) 1 - 2 sprays NA PRN PRN PRN Reason: Nasal Dryness/Congestion Stop: 10/18/21 18:19 Thiamine HCl (Thiamine Hcl 100 Mg Tab) 100 mg PO QAM ELIUD Stop: 10/19/21 08:59 Last Admin: 09/19/21 10:08 Dose: 100 mg Documented by: Trazodone HCl (Trazodone Hcl 100 Mg Tab) 200 mg PO HS [facility] Stop: 10/19/21 21:59
[2021-09-19] MEDS: OLANZapine 5 MG TABLET PO PRN (13:08)
[2021-09-19] MEDS: THIAMINE HCL 100 MG TAB PO SCH (15:34)
[2021-09-19] MEDS: FOLIC ACID 1 MG TAB PO SCH (15:34)
[2021-09-19] MEDS: traZODone HCL 100 MG TAB PO SCH (20:35)
[2021-09-19] MEDS: PROPRANOLOL HCL 20 MG TAB PO SCH (20:36)
[2021-09-19] MEDS: NICOTINE 21 MG/24 HR TDSY TD SCH (20:39)
[2021-09-20] MEDS: hydrOXYzine HCl 25 MG TAB PO PRN ×2 (06:34→18:25)
[2021-09-20] MEDS: ESCITALOPRAM OXALATE 10 MG TAB PO SCH (08:19)
[2021-09-20] MEDS: DIVALPROEX EXTENDED RELEASE 500 MG TAB PO SCH ×2 (08:19→20:59)
[2021-09-20] MEDS: PANTOprazole 40 MG TAB PO SCH (08:19)
[2021-09-20] MEDS: LOSARTAN POTASSIUM 25 MG TAB PO SCH (08:20)
[2021-09-20] MEDS: SERTRALINE HCL 100 MG TABLET PO SCH (08:20)
[2021-09-20] MEDS: PROPRANOLOL HCL 20 MG TAB PO SCH ×2 (08:20→21:00)
[2021-09-20] MEDS: FOLIC ACID 1 MG TAB PO SCH (08:20)
[2021-09-20] MEDS: THIAMINE HCL 100 MG TAB PO SCH (08:21)
[2021-09-20] MEDS: OLANZapine 5 MG TABLET PO PRN ×2 (08:21→15:36)
[2021-09-20] MEDS ORDERED: SERTRALINE HCL 50 MG TABLET PO SCH (09:00)
[2021-09-20 14:46] LABS: Marijuana Quant, GCMS Urine 570 ng/mL (<5)
--- NOTE | 2021-09-20 16:15 | Psychiatric Progress Note ---
Date of Service September 20, 2021 Impression / Recommendations Impression The patient is a 31 year old with a history of MDD, anxiety, alcohol use, IED, antisocial personality disorder, and BPAD II who was admitted for worsening depression and passive SI. Diagnostically consistent with MDD, substance-induced depression and anxiety and alcohol use disorder. He is currently at high acute risk of self-harm given prior serious attempt, major depressive disorder, substance use and multiple psychosocial stressors including break-up and cancelation of his wedding as well as legal filings of PFA and potential change to his custody agreement. The patient is deemed unstable and requires psychiatric hospitalization for diagnostic clarification, safety and stabilization, medication management and development of further coping skills. 09/20/21: continues to present with significant emotional distress, remains at very high acute risk of self-harm based on intrusive SI, mood lability, breakup, new legal and custody charges/changes, alcohol use disorder and history of suicide attempt and impulsivity. Plan: continue with SSRI cross-taper and he would like to increase the dose of Depakote as this has been the most helpful at controlling the intrusive thoughts and irritability. Discussed risks/benefits/alteratives. (1) MDD (major depressive disorder), recurrent episode, moderate: (2) Alcohol use disorder: (3) Intermittent explosive disorder in adult: (4) Antisocial personality disorder: (5) Anxiety: 09/20/21: -Increase depakote ER to 1500mg qAM & 1000 mg qhs (will get repeat level in 3 days on 09/23 ) -Continue cross-taper, sertraline 100mg qd and escitalopram 5 mg qd -Continue trazodone, gabapentin, AWSS protocol 09/19/21: The patient was admitted to the [facility] ([facility] mental health unit) on q15 min checks (behavioral with suicide precautions) for safety. The patient will participate in group, recreational, and milieu therapies and will be offered additional individual and family sessions as clinically appropriate. -continue prior to admission medications for back pain and BP control -continue trazodone 200 mg qhs prn -continue Depakote ER 1000 mg BID -begin cross-taper with reduction of sertraline from 150mg qd to 100mg qd and start escitalopram 5 mg qd -continue gabapentin 300mg TID -AWSS protocol for potential alcohol withdrawal -nicotine patch -plan for referral for residential alcohol use treatment once psychiatrically stable Inventory Assets Strengths: has good supports, employed, motivated to seek treatment Needs: psychiatric provider, substance use treatment Risk Factors Assessment Male: Yes : Yes Do You Have Access To A Gun?: No Health Problems: Yes Mental Health Diagnoses: Yes Substance Use Disorders: Yes Previous Attempt: Yes Previous Attempt; Highly Lethal: Yes Family History of Suicide: No Previous Psychiatric Hospitalization: Yes Hopelessness: Yes Smoker: Yes Protective Factors Assessment Responsible for Young Children: Yes Employed: Yes ([employer]) Stable Relationships: Yes Supportive Family: Yes Interval History Identifying Information CHANDRA AMAYA is a 31-year-old man, has a history of prior diagnoses of MDD, bipolar type II, intermittent explosive disorder, PTSD, substance-induced mood disorder and antisocial personality disorder, and was admitted on 09/18/21 18:18 on a 201 voluntary commitment for worsening depression and passive SI. Chief Complaint "I just can't get out of my head". Review of Systems Sleep Information Total Hours of Sleep: 7.25 Meal Information Percent Meal Consumed - Breakfast: 10 Percent Meal Consumed - Lunch: 25 Subjective Subjective Patient was seen & assessed and interval progress reviewed with treatment team nursing and social work. Scored yesterday on the AWSS and received ativan x1. Spent yesterday evening isolative to his room and in bed. Today continues to endorse significant emotional distress with intrusive thoughts of SI and recent events and trauma. He tried vistaril with limited benefit and found that zyprexa helped but only a "little bit".Tolerating SSRI cross-taper so far without any side effects. No tremor. Sleeping a lot. Mood remains depressed and anxious. Physical Exam Psychiatric Orientation: alert and oriented x 3 Apperance: appropriately dressed and appropriately groomed Eye Contact: good eye contact Motor Behavior: steady gait and station and no abnormal motor movements Speech: normal rate/rhythm/volume of speech Affect: + depressed affect and + anxious affect Mood: + depressed mood and + anxious mood Thought Process: goal directed thought process Thought Content: reality based without delusions Suicidal Thoughts: denies suicidal plan and denies suicidal intent; + reports suicidal thoughts (intrusive thoughts ) Homicidal Thoughts: denies homicidal thoughts Hallucinations: no auditory hallucinations and no visual hallucinations Cognition: recent memory grossly intact, remote memory grossly intact, attention grossly intact and language grossly intact Estimated Intelligence: consistent with education level Insight: + fair insight Judgement: + fair judgement Vital Signs (Past 24 Hours) Last Vital Signs Temp 36.7 C 09/20/21 15:32 Pulse 63 09/20/21 15:32 Resp 20 09/20/21 15:32 BP 130/79 09/20/21 15:32 Pulse Ox 97 09/20/21 15:32 Results & Data ([facility]) Laboratory Results Laboratory Results - last 24 hr 09/18/21 14:57 U Marijuana THC Carboxy 570 H Drug Screen Comment SEE NOTE Current Inpatient Medications Current Inpatient Medications: Current Inpatient Medications Acetaminophen (Acetaminophen 325 Mg Tab) 650 mg PO Q4H PRN PRN Reason: Headache or Minor Fever Stop: 10/18/21 18:19 Al Hydrox/Mg Hydrox/Simethicone (Aluminum/Magnesium Susp 30 Ml Udc) 30 ml PO Q4H PRN PRN Reason: GI Upset Stop: 10/18/21 18:19 Cyclobenzaprine HCl (Cyclobenzaprine Hcl 10 Mg Tab) 10 mg PO HS PRN PRN Reason: MUSCLE SPASMS Stop: 10/19/21 10:45 Dicyclomine HCl (Dicyclomine Hcl 10 Mg Cap) 10 mg PO QID PRN PRN Reason: ABD PAIN Stop: 10/19/21 10:45 Divalproex Sodium (Divalproex Extended Release 500 Mg Tab) 1,000 mg PO BID [facility] Stop: 10/19/21 20:59 Last Admin: 09/20/21 08:19 Dose: 1,000 mg Documented by: Escitalopram Oxalate (Escitalopram Oxalate 10 Mg Tab) 5 mg PO QAM [facility] Stop: 10/20/21 08:59 Last Admin: 09/20/21 08:19 Dose: 5 mg Documented by: Folic Acid (Folic Acid 1 Mg Tab) 1 mg PO QAM [facility] Stop: 10/19/21 08:59 Last Admin: 09/20/21 08:20 Dose: 1 mg Documented by: Gabapentin (Gabapentin 300 Mg Cap) 300 mg PO TID PRN PRN Reason: Pain Stop: 10/18/21 20:59 Hydroxyzine HCl (Hydroxyzine Hcl 25 Mg Tab) 50 mg PO HSZ PRN PRN Reason: Insomnia Stop: 10/18/21 18:19 Hydroxyzine HCl (Hydroxyzine Hcl 25 Mg Tab) 25 mg PO Q4H PRN PRN Reason: Anxiety Stop: 10/18/21 18:19 Last Admin: 09/20/21 06:34 Dose: 25 mg Documented by: Lorazepam (Lorazepam 1 Mg Tab) 1 - 3 mg PO UD PRN; Protocol PRN Reason: EtoH Withdrawal AWSS 6-10+ Stop: 10/19/21 15:14 Losartan Potassium (Losartan Potassium 25 Mg Tab) 25 mg PO DAILY [facility] Stop: 10/20/21 08:59 Last Admin: 09/20/21 08:20 Dose: 25 mg Documented by: Magnesium Hydroxide (Magnesium Hydroxide Susp 30 Ml Udc) 30 ml PO DAILY PRN PRN Reason: Constipation Stop: 10/18/21 18:19 Miscellaneous (Remove Nicoderm Patch) 1 ea N/A Q24H [facility] Stop: 10/18/21 20:28 Last Admin: 09/19/21 20:38 Dose: 1 ea Documented by: Nicotine (Nicotine 21 Mg/24 Hr Tdsy) 21 mg TD Q24H [facility] Stop: 10/18/21 20:29 Last Admin: 09/19/21 20:39 Dose: 21 mg Documented by: Olanzapine (Olanzapine 5 Mg Tablet) 5 mg PO QID PRN PRN Reason: Anxiety/Agitation Stop: 10/19/21 11:36 Last Admin: 09/20/21 15:36 Dose: 5 mg Documented by: Pantoprazole Sodium (Pantoprazole 40 Mg Tab) 40 mg PO DAILYBB [facility]; Protocol Stop: 10/20/21 07:59 Last Admin: 09/20/21 08:19 Dose: 40 mg Documented by: Propranolol HCl (Propranolol Hcl 20 Mg Tab) 20 mg PO BID [facility] Stop: 10/19/21 20:59 Last Admin: 09/20/21 08:20 Dose: 20 mg Documented by: Sertraline HCl (Sertraline Hcl 100 Mg Tablet) 100 mg PO DAILY [facility] Stop: 10/20/21 08:59 Last Admin: 09/20/21 08:20 Dose: 100 mg Documented by: Sodium Chloride (Sodium Chloride 0.65% Na Soln 45 Ml ([place])) 1 - 2 sprays NA PRN PRN PRN Reason: Nasal Dryness/Congestion Stop: 10/18/21 18:19 Thiamine HCl (Thiamine Hcl 100 Mg Tab) 100 mg PO QAM [facility] Stop: 10/19/21 08:59 Last Admin: 09/20/21 08:21 Dose: 100 mg Documented by: Trazodone HCl (Trazodone Hcl 100 Mg Tab) 200 mg PO HS [facility] Stop: 10/19/21 21:59 Last Admin: 09/19/21 20:35 Dose: 200 mg Documented by: Post Discharge Appointments Primary Care Physician Name Of Family Doctor: Radhika Kapadia Primary Care Provider Appointment Comment: Letitia Coulter Contact Information Discharge
[2021-09-20] MEDS: NICOTINE 21 MG/24 HR TDSY TD SCH (20:58)
[2021-09-20] MEDS: traZODone HCL 100 MG TAB PO SCH (20:59)
[2021-09-21] MEDS ORDERED: FLUARIX QUADRIVALENT 0.5 ML SYR IM ONE (08:00)
[2021-09-21] MEDS: DIVALPROEX EXTENDED RELEASE 500 MG TAB PO SCH ×2 (08:12→21:47)
[2021-09-21] MEDS: PANTOprazole 40 MG TAB PO SCH (08:12)
[2021-09-21] MEDS: ESCITALOPRAM OXALATE 10 MG TAB PO SCH (08:12)
[2021-09-21] MEDS: SERTRALINE HCL 100 MG TABLET PO SCH (08:14)
[2021-09-21] MEDS: FOLIC ACID 1 MG TAB PO SCH (08:14)
[2021-09-21] MEDS: LOSARTAN POTASSIUM 25 MG TAB PO SCH (08:14)
[2021-09-21] MEDS: PROPRANOLOL HCL 20 MG TAB PO SCH ×2 (08:14→20:36)
[2021-09-21] MEDS: THIAMINE HCL 100 MG TAB PO SCH (08:15)
--- NOTE | 2021-09-21 08:34 | Psychiatric Progress Note ---
Date of Service September 21, 2021 Impression / Recommendations Impression The patient is a 31 year old with a history of MDD, anxiety, alcohol use, IED, antisocial personality disorder, and BPAD II who was admitted for worsening depression and passive SI. Diagnostically consistent with MDD, substance-induced depression and anxiety and alcohol use disorder. The patient is deemed unstable and requires psychiatric hospitalization for diagnostic clarification, safety and stabilization, medication management and development of further coping skills and needs to be a secure setting until he can begin residential substance use treatment given risk of mood worsening and substance relapse outside of the hospital. At this point his substance use is the most significant modifiable acute and chronic risk factor to reduce risk of self-harm. 09/21/21: depression is improving with no SI, remains anxious. Will continue with SSRI cross-taper. Given his frequent use of olanzapine prn will get FG and LP in the morning. Re-reviewed side effects of olanzapine with him including but not limited to metabolic risks and TD. AIMS score is 0. (1) MDD (major depressive disorder), recurrent episode, moderate: (2) Alcohol use disorder: (3) Intermittent explosive disorder in adult: (4) Antisocial personality disorder: (5) Anxiety: 09/21/21: -continue depakote ER -Reduce sertraline to 50mg qd and increase escitalopram to 10mg qd -Continue trazodone, gabapentin -AWSS protocol through 72 hours -FG and LP tomorrow morning -Referral for residential substance use treatment 09/20/21: -Increase depakote ER to 1500mg qAM & 1000 mg qhs (will get repeat level in 3 days on 09/23 ) -Continue cross-taper, sertraline 100mg qd and escitalopram 5 mg qd -Continue trazodone, gabapentin, AWSS protocol 09/19/21: The patient was admitted to the [facility] ([facility] mental health unit) on q15 min checks (behavioral with suicide precautions) for safety. The patient will participate in group, recreational, and milieu therapies and will be offered additional individual and family sessions as clinically appropriate. -continue prior to admission medications for back pain and BP control -continue trazodone 200 mg qhs prn -continue Depakote ER 1000 mg BID -begin cross-taper with reduction of sertraline from 150mg qd to 100mg qd and start escitalopram 5 mg qd -continue gabapentin 300mg TID -AWSS protocol for potential alcohol withdrawal -nicotine patch -plan for referral for residential alcohol use treatment once psychiatrically stable Inventory Assets Strengths: has good supports, employed, motivated to seek treatment Needs: psychiatric provider, substance use treatment Risk Factors Assessment Male: Yes : Yes Do You Have Access To A Gun?: No Health Problems: Yes Mental Health Diagnoses: Yes Substance Use Disorders: Yes Previous Attempt: Yes Previous Attempt; Highly Lethal: Yes Family History of Suicide: No Previous Psychiatric Hospitalization: Yes Hopelessness: Yes Smoker: Yes Protective Factors Assessment Responsible for Young Children: Yes Employed: Yes ([employer]) Stable Relationships: Yes Supportive Family: Yes Interval History Identifying Information CHANDRA AMAYA is a 31-year-old man, has a history of prior diagnoses of MDD, bipolar type II, intermittent explosive disorder, PTSD, substance-induced mood disorder and antisocial personality disorder, and was admitted on 09/18/21 18:18 on a 201 voluntary commitment for worsening depression and passive SI. Chief Complaint "Not too bad". Review of Systems Sleep Information Total Hours of Sleep: 8.75 Sleep Comments: pt appeared to sleep 1.75 during evening shift. pt on q-15 minute checks Meal Information Percent Meal Consumed - Breakfast: 10 Percent Meal Consumed - Lunch: 25 Percent Meal Consumed - Dinner: 100 Subjective Subjective Patient was seen & assessed and interval progress reviewed with treatment team nursing and social work. AWSS has been negative. No groups last night. Took a olanzapine prn last night and two doses today. Today reports his mood is "not bad" which he attributes to not having intrusive thoughts today which he attributes to the medication changes. He feels his anxiety if still present but "not terrible". He's still finding himself needing multiple doses of prn olanzapine per day to manage his anxiety. Discussed how alcohol withdrawal may also be playing a role in heightened anxiety. Physical Exam Psychiatric Orientation: alert and oriented x 3 Apperance: appropriately dressed and appropriately groomed Eye Contact: good eye contact Motor Behavior: steady gait and station and no abnormal motor movements Speech: normal rate/rhythm/volume of speech Affect: + anxious affect Mood: + anxious mood Thought Process: goal directed thought process Thought Content: reality based without delusions Suicidal Thoughts: denies suicidal thoughts Homicidal Thoughts: denies homicidal thoughts Hallucinations: no auditory hallucinations and no visual hallucinations Cognition: recent memory grossly intact, remote memory grossly intact, attention grossly intact and language grossly intact Estimated Intelligence: consistent with education level Insight: + fair insight Judgement: + fair judgement Vital Signs (Past 24 Hours) Last Vital Signs Temp 36.9 C 09/21/21 07:57 Pulse 82 09/21/21 07:57 Resp 18 09/21/21 07:57 BP 103/65 09/21/21 07:57 Pulse Ox 95 09/20/21 22:21 Results & Data ([facility]) Laboratory Results Laboratory Results - last 24 hr 09/18/21 14:57 U Marijuana THC Carboxy 570 H Drug Screen Comment SEE NOTE Current Inpatient Medications Current Inpatient Medications: Current Inpatient Medications Acetaminophen (Acetaminophen 325 Mg Tab) 650 mg PO Q4H PRN PRN Reason: Headache or Minor Fever Stop: 10/18/21 18:19 Al Hydrox/Mg Hydrox/Simethicone (Aluminum/Magnesium Susp 30 Ml Udc) 30 ml PO Q4H PRN PRN Reason: GI Upset Stop: 10/18/21 18:19 Cyclobenzaprine HCl (Cyclobenzaprine Hcl 10 Mg Tab) 10 mg PO HS PRN PRN Reason: MUSCLE SPASMS Stop: 10/19/21 10:45 Dicyclomine HCl (Dicyclomine Hcl 10 Mg Cap) 10 mg PO QID PRN PRN Reason: ABD PAIN Stop: 10/19/21 10:45 Divalproex Sodium (Divalproex Extended Release 500 Mg Tab) 1,000 mg PO HS [facility] Stop: 10/20/21 21:59 Last Admin: 09/20/21 20:59 Dose: 1,000 mg Documented by: Divalproex Sodium (Divalproex Extended Release 500 Mg Tab) 1,500 mg PO QAM [facility] Stop: 10/21/21 08:59 Last Admin: 09/21/21 08:12 Dose: 1,500 mg Documented by: Escitalopram Oxalate (Escitalopram Oxalate 10 Mg Tab) 5 mg PO QAM [facility] Stop: 10/20/21 08:59 Last Admin: 09/21/21 08:12 Dose: 5 mg Documented by: Folic Acid (Folic Acid 1 Mg Tab) 1 mg PO QAM [facility] Stop: 10/19/21 08:59 Last Admin: 09/21/21 08:14 Dose: 1 mg Documented by: Gabapentin (Gabapentin 300 Mg Cap) 300 mg PO TID PRN PRN Reason: Pain Stop: 10/18/21 20:59 Hydroxyzine HCl (Hydroxyzine Hcl 25 Mg Tab) 50 mg PO HSZ PRN PRN Reason: Insomnia Stop: 10/18/21 18:19 Hydroxyzine HCl (Hydroxyzine Hcl 25 Mg Tab) 25 mg PO Q4H PRN PRN Reason: Anxiety Stop: 10/18/21 18:19 Last Admin: 09/20/21 18:25 Dose: 25 mg Documented by: Lorazepam (Lorazepam 1 Mg Tab) 1 - 3 mg PO UD PRN; Protocol PRN Reason: EtoH Withdrawal AWSS 6-10+ Stop: 10/19/21 15:14 Losartan Potassium (Losartan Potassium 25 Mg Tab) 25 mg PO DAILY [facility] Stop: 10/20/21 08:59 Last Admin: 09/21/21 08:14 Dose: 25 mg Documented by: Magnesium Hydroxide (Magnesium Hydroxide Susp 30 Ml Udc) 30 ml PO DAILY PRN PRN Reason: Constipation Stop: 10/18/21 18:19 Miscellaneous (Remove Nicoderm Patch) 1 ea N/A Q24H [facility] Stop: 10/18/21 20:28 Last Admin: 09/20/21 20:58 Dose: 1 ea Documented by: Nicotine (Nicotine 21 Mg/24 Hr Tdsy) 21 mg TD Q24H [facility] Stop: 10/18/21 20:29 Last Admin: 09/20/21 20:58 Dose: 21 mg Documented by: Olanzapine (Olanzapine 5 Mg Tablet) 5 mg PO QID PRN PRN Reason: Anxiety/Agitation Stop: 10/19/21 11:36 Last Admin: 09/20/21 15:36 Dose: 5 mg Documented by: Pantoprazole Sodium (Pantoprazole 40 Mg Tab) 40 mg PO DAILYBB [facility]; Protocol Stop: 10/20/21 07:59 Last Admin: 09/21/21 08:12 Dose: 40 mg Documented by: Propranolol HCl (Propranolol Hcl 20 Mg Tab) 20 mg PO BID [facility] Stop: 10/19/21 20:59 Last Admin: 09/21/21 08:14 Dose: 20 mg Documented by: Sertraline HCl (Sertraline Hcl 100 Mg Tablet) 100 mg PO DAILY [facility] Stop: 10/20/21 08:59 Last Admin: 09/21/21 08:14 Dose: 100 mg Documented by: Sodium Chloride (Sodium Chloride 0.65% Na Soln 45 Ml ([place])) 1 - 2 sprays NA PRN PRN PRN Reason: Nasal Dryness/Congestion Stop: 10/18/21 18:19 Thiamine HCl (Thiamine Hcl 100 Mg Tab) 100 mg PO QAM [facility] Stop: 10/19/21 08:59 Last Admin: 09/21/21 08:15 Dose: 100 mg Documented by: Trazodone HCl (Trazodone Hcl 100 Mg Tab) 200 mg PO HS [facility] Stop: 10/19/21 21:59 Last Admin: 09/20/21 20:59 Dose: 200 mg Documented by: Post Discharge Appointments Primary Care Physician Name Of Family Doctor: Radhika Kapadia Primary Care Provider Appointment Comment: Letitia Coulter Contact Information Discharge
[2021-09-21] MEDS: OLANZapine 5 MG TABLET PO PRN ×2 (12:25→16:23)
[2021-09-21] MEDS: NICOTINE 21 MG/24 HR TDSY TD SCH (20:35)
[2021-09-21] MEDS: traZODone HCL 100 MG TAB PO SCH (21:47)
[2021-09-22] MEDS: PANTOprazole 40 MG TAB PO SCH (07:57)
[2021-09-22] MEDS: DIVALPROEX EXTENDED RELEASE 500 MG TAB PO SCH ×2 (07:57→21:34)
[2021-09-22] MEDS: LOSARTAN POTASSIUM 25 MG TAB PO SCH (07:58)
[2021-09-22] MEDS: FOLIC ACID 1 MG TAB PO SCH (07:58)
[2021-09-22] MEDS: PROPRANOLOL HCL 20 MG TAB PO SCH ×2 (07:58→21:34)
[2021-09-22] MEDS: ESCITALOPRAM OXALATE 10 MG TAB PO SCH (07:58)
[2021-09-22] MEDS: THIAMINE HCL 100 MG TAB PO SCH (07:59)
[2021-09-22] MEDS: SERTRALINE HCL 50 MG TABLET PO SCH (07:59)
[2021-09-22] MEDS: OLANZapine 5 MG TABLET PO PRN ×2 (08:05→16:23)
[2021-09-22 09:09] LABS: Glucose Fasting 98 mg/dl (70-99)
[2021-09-22 09:16] LABS: Chol HDL Ratio 4; Cholesterol 151 mg/dl (0-200); HDL Cholesterol 36 mg/dl; LDL Cholesterol Calculated 95 mg/dl; Triglycerides 100 mg/dl (0-150); VLDL Cholesterol 20 mg/dl
[2021-09-22] MEDS: NICOTINE 21 MG/24 HR TDSY TD SCH (09:31)
--- NOTE | 2021-09-22 12:38 | Psychiatric Progress Note ---
Date of Service September 22, 2021 Impression / Recommendations Impression The patient is a 31 year old with a history of MDD, anxiety, alcohol use, IED, antisocial personality disorder, and BPAD II who was admitted for worsening depression and passive SI. Diagnostically consistent with MDD, substance-induced depression and anxiety and alcohol use disorder. The patient is deemed unstable and requires psychiatric hospitalization for diagnostic clarification, safety and stabilization, medication management and development of further coping skills and needs to be a secure setting until he can begin residential substance use treatment given risk of mood worsening and substance relapse outside of the hospital. At this point his substance use is the most significant modifiable acute and chronic risk factor to reduce risk of self-harm. 09/22/21: steady improvement in mood with anxiety becoming better controlled. FG and LP reviewed and normal with exception of low HDL which we reviewed together. Plan: Continue with SSRI cross-taper. Referral for residential substance use juliet atment. (1) MDD (major depressive disorder), recurrent episode, moderate: (2) Alcohol use disorder: (3) Intermittent explosive disorder in adult: (4) Antisocial personality disorder: (5) Anxiety: 09/22/21: continue current medication, referrals started for residential substance use treatment. AWSS canceled as no longer scoring and >72 hours but will continue thiamine and folic acid. Continue with sertraline 50mg for one more day. Depakote level in morning. 09/21/21: -continue depakote ER -Reduce sertraline to 50mg qd and increase escitalopram to 10mg qd -Continue trazodone, gabapentin -AWSS protocol through 72 hours -FG and LP tomorrow morning -Referral for residential substance use treatment 09/20/21: -Increase depakote ER to 1500mg qAM & 1000 mg qhs (will get repeat level in 3 days on 09/23 ) -Continue cross-taper, sertraline 100mg qd and escitalopram 5 mg qd -Continue trazodone, gabapentin, AWSS protocol 09/19/21: [facility]) on q15 min checks (behavioral with suicide precautions) for safety. The patient will participate in group, recreational, and milieu therapies and will be offered additional individual and family sessions as clinically appropriate. -continue prior to admission medications for back pain and BP control -continue trazodone 200 mg qhs prn -continue Depakote ER 1000 mg BID -begin cross-taper with reduction of sertraline from 150mg qd to 100mg qd and start escitalopram 5 mg qd -continue gabapentin 300mg TID -AWSS protocol for potential alcohol withdrawal -nicotine patch -plan for referral for residential alcohol use treatment once psychiatrically stable Inventory Assets Strengths: has good supports, employed, motivated to seek treatment Needs: psychiatric provider, substance use treatment Risk Factors Assessment Male: Yes : Yes Do You Have Access To A Gun?: No Health Problems: Yes Mental Health Diagnoses: Yes Substance Use Disorders: Yes Previous Attempt: Yes Previous Attempt; Highly Lethal: Yes Family History of Suicide: No Previous Psychiatric Hospitalization: Yes Hopelessness: Yes Smoker: Yes Protective Factors Assessment Responsible for Young Children: Yes Employed: Yes ([employer]) Stable Relationships: Yes Supportive Family: Yes Interval History Identifying Information CHANDRA AMAYA is a 31-year-old man, has a history of prior diagnoses of MDD, bipolar type II, intermittent explosive disorder, PTSD, substance-induced mood disorder and antisocial personality disorder, and was admitted on 09/18/21 18:18 on a 201 voluntary commitment for worsening depression and passive SI. Chief Complaint "This morning the anxiety was more manageable". Review of Systems Sleep Information Total Hours of Sleep: 7 Sleep Comments: pt given trazodone per rn. pt on q-15 minute checks Meal Information Percent Meal Consumed - Breakfast: 50 Percent Meal Consumed - Lunch: 50 Percent Meal Consumed - Dinner: 100 Subjective Subjective Patient was seen & assessed and interval progress reviewed with treatment team nursing and social work. Utilizing zyprexa prns twice daily. Tolerating medication changes without any side effects. Remains anxious but finding medication changes helpful and groups. Motivated for residential substance use treatment. Finds the zyprexa especially helpful. Physical Exam Psychiatric Orientation: alert and oriented x 3 Apperance: appropriately dressed and appropriately groomed Eye Contact: good eye contact Motor Behavior: steady gait and station and no abnormal motor movements Speech: normal rate/rhythm/volume of speech Affect: + anxious affect Mood: + anxious mood Thought Process: goal directed thought process Thought Content: reality based without delusions Suicidal Thoughts: denies suicidal thoughts Homicidal Thoughts: denies homicidal thoughts Hallucinations: no auditory hallucinations and no visual hallucinations Cognition: recent memory grossly intact, remote memory grossly intact, attention grossly intact and language grossly intact Estimated Intelligence: consistent with education level Insight: + fair insight Judgement: + fair judgement Vital Signs (Past 24 Hours) Last Vital Signs Temp 36.4 C L 09/22/21 06:38 Pulse 77 09/22/21 06:39 Resp 16 09/22/21 06:38 BP 122/80 09/22/21 06:39 Pulse Ox 95 09/20/21 22:21 Results & Data ([facility] [email or web address] Laboratory Results Laboratory Results - last 24 hr 09/22/21 08:28 Fasting Glucose 98 Triglycerides 100 Cholesterol 151 LDL Cholesterol, Calc 95 VLDL Cholesterol, Calc 20 HDL Cholesterol 36 Cholesterol/HDL Ratio 4 Current Inpatient Medications Current Inpatient Medications: Current Inpatient Medications Acetaminophen (Acetaminophen 325 Mg Tab) 650 mg PO Q4H PRN PRN Reason: Headache or Minor Fever Stop: 10/18/21 18:19 Al Hydrox/Mg Hydrox/Simethicone (Aluminum/Magnesium Susp 30 Ml Udc) 30 ml PO Q4H PRN PRN Reason: GI Upset Stop: 10/18/21 18:19 Cyclobenzaprine HCl (Cyclobenzaprine Hcl 10 Mg Tab) 10 mg PO HS PRN PRN Reason: MUSCLE SPASMS Stop: 10/19/21 10:45 Dicyclomine HCl (Dicyclomine Hcl 10 Mg Cap) 10 mg PO QID PRN PRN Reason: ABD PAIN Stop: 10/19/21 10:45 Divalproex Sodium (Divalproex Extended Release 500 Mg Tab) 1,000 mg PO HS ELIUD Stop: 10/20/21 21:59 Last Admin: 09/21/21 21:47 Dose: 1,000 mg Documented by: Divalproex Sodium (Divalproex Extended Release 500 Mg Tab) 1,500 mg PO QAM [facility] Stop: 10/21/21 08:59 Last Admin: 09/22/21 07:57 Dose: 1,500 mg Documented by: Escitalopram Oxalate (Escitalopram Oxalate 10 Mg Tab) 10 mg PO QAM [facility] Stop: 10/22/21 08:59 Last Admin: 09/22/21 07:58 Dose: 10 mg Documented by: Folic Acid (Folic Acid 1 Mg Tab) 1 mg PO QAM [facility] Stop: 10/19/21 08:59 Last Admin: 09/22/21 07:58 Dose: 1 mg Documented by: Gabapentin (Gabapentin 300 Mg Cap) 300 mg PO TID [facility] Stop: 10/22/21 13:59 Hydroxyzine HCl (Hydroxyzine Hcl 25 Mg Tab) 50 mg PO HSZ PRN PRN Reason: Insomnia Stop: 10/18/21 18:19 Hydroxyzine HCl (Hydroxyzine Hcl 25 Mg Tab) 25 mg PO Q4H PRN PRN Reason: Anxiety Stop: 10/18/21 18:19 Last Admin: 09/20/21 18:25 Dose: 25 mg Documented by: Losartan Potassium (Losartan Potassium 25 Mg Tab) 25 mg PO DAILY [facility] Stop: 10/20/21 08:59 Last Admin: 09/22/21 07:58 Dose: 25 mg Documented by: Magnesium Hydroxide (Magnesium Hydroxide Susp 30 Ml Udc) 30 ml PO DAILY PRN PRN Reason: Constipation Stop: 10/18/21 18:19 Miscellaneous (Remove Nicoderm Patch) 1 ea N/A DAILY [facility] Stop: 10/23/21 08:59 Nicotine (Nicotine 21 Mg/24 Hr Tdsy) 21 mg TD QAM [facility] Stop: 10/23/21 08:59 Olanzapine (Olanzapine 5 Mg Tablet) 5 mg PO QID PRN PRN Reason: Anxiety/Agitation Stop: 10/19/21 11:36 Last Admin: 09/22/21 08:05 Dose: 5 mg Documented by: Pantoprazole Sodium ([facility] 40 Mg Tab) [facility] Protocol Stop: 10/20/21 07:59 Last Admin: 09/22/21 07:57 Dose: 40 mg Documented by: Propranolol HCl (Propranolol Hcl 20 Mg Tab) 20 mg PO BID [facility] Stop: 10/19/21 20:59 Last Admin: 09/22/21 07:58 Dose: 20 mg Documented by: Sertraline HCl (Sertraline Hcl 50 Mg Tablet) 50 mg PO DAILY [facility] Stop: 10/22/21 08:59 Last Admin: 09/22/21 07:59 Dose: 50 mg Documented by: Sodium Chloride (Sodium Chloride 0.65% Na Soln 45 Ml ([place])) 1 - 2 sprays NA PRN PRN PRN Reason: Nasal Dryness/Congestion Stop: 10/18/21 18:19 Thiamine HCl (Thiamine Hcl 100 Mg Tab) 100 mg PO QAM [facility] Stop: 10/19/21 08:59 Last Admin: 09/22/21 07:59 Dose: 100 mg Documented by: Trazodone HCl (Trazodone Hcl 100 Mg Tab) 200 mg PO HS ELIUD Stop: 10/19/21 21:59 Last Admin: 09/21/21 21:47 Dose: 200 mg Documented by: Post Discharge Appointments Primary Care Physician Name Of Family Doctor: Radhika Kapadia Primary Care Provider Appointment Comment: Letitia Coulter Contact Information Discharge
[2021-09-22] MEDS: GABAPENTIN 300 MG CAP PO SCH ×2 (13:40→21:34)
[2021-09-22] MEDS: traZODone HCL 100 MG TAB PO SCH (21:33)
[2021-09-23] MEDS: PANTOprazole 40 MG TAB PO SCH (08:24)
[2021-09-23] MEDS ORDERED: NICOTINE 21 MG/24 HR TDSY TD SCH (09:00)
[2021-09-23] MEDS: DIVALPROEX EXTENDED RELEASE 500 MG TAB PO SCH (09:14)
[2021-09-23] MEDS: GABAPENTIN 300 MG CAP PO SCH ×2 (09:15→13:00)
[2021-09-23] MEDS: LOSARTAN POTASSIUM 25 MG TAB PO SCH (09:15)
[2021-09-23] MEDS: FOLIC ACID 1 MG TAB PO SCH (09:15)
[2021-09-23] MEDS: ESCITALOPRAM OXALATE 10 MG TAB PO SCH (09:15)
[2021-09-23] MEDS: PROPRANOLOL HCL 20 MG TAB PO SCH (09:16)
[2021-09-23] MEDS: THIAMINE HCL 100 MG TAB PO SCH (09:17)
[2021-09-23] MEDS: OLANZapine 5 MG TABLET PO PRN (09:17)
[2021-09-23] MEDS: SERTRALINE HCL 50 MG TABLET PO SCH (09:17)
[2021-09-23] MEDS ORDERED: OLANZapine 5 MG TABLET PO PRN (12:44)
--- NOTE | 2021-09-23 13:45 | Discharge Summary ---
Date of Service September 23, 2021 History of Present Illness Ron is a 31 yo man with a PPH of MDD, bipolar type II, intermittent explosive disorder, PTSD, substance-induced mood disorder and antisocial personality disorder with two prior inpatient psychiatric hospitalizations (both at [facility] in 06/2020 and 07/2020) with one prior suicide attempt (polypharmacy overdose requiring ICU admission) who presented to the ED and was then admitted on 201 status for worsening depression in the context of multiple psychosocial stressors. Ron describes 3-4 months of worsening mood with increased depression, anxiety and panic attacks. He notes stable sleep with trazodone but tearfulness, hopelessness, low energy, decreased appetite, low mood, anhedonia and worsening anger with "being really edgy and snappy". He describes his anger as yelling and sometimes damaging property but denies that he is every physically aggressive. He also has been very anxious particularly about the financial stress of planning for a wedding and has been having more panic attacks. In the context of his worsening mood he has also been drinking more alcohol, 4-6 drinks per day, and using marijuana intermittently to help with anxiety. He has continued to take his medications of depakote, sertraline, trazodone, and throazine but has n't been finding them helpful and reports he was "discharged" from his therapist when she moved practices and no longer has a psychiatrist but isn't sure why. It was supposed to be getting to his now ex-fijacobe today, but she filed for a PFA yesterday after a big argument they had on night, after a full day of drinking alcohol and he then drove home. He had been with his now ex -fiancee since December. He also reports that following the breakup and his fiancee canceling their wedding that yesterday he was informed that his ex-, with whom he shares custody of two children, has filed for emergency changes to their custody agreement. All of this has lead him to feeling even more depressed and overwhelmed and he reports he began to feel "afraid of what would happen" in terms of his risk of harm to self and possibility of becoming suicidal if he did not seek more support. 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 Physical Exam Vital Signs (Past 24 Hours) Last Vital Signs Temp 36.3 C L 09/23/21 06:28 Pulse 77 09/23/21 06:28 Resp 18 09/23/21 06:28 BP 150/93 H 09/23/21 06:28 Pulse Ox 94 09/23/21 06:28 See admission H&P and DOD summary. Principal Diagnosis Substance-induced depressive disorder Psychiatric Data See daily stay summary. In short, patient was engaged with the social/therapeutic milieu of the unit, safety was maintained and the patient was cooperative with care. Medication changes included cross-taper from sertraline to escitalopram, increase of depakote ER and discontinuation of thorazine and increase of olanzapine and they tolerated this well. Baseline labs of fasting glucose, fasting lipid profile, and weight were preformed and WNL with exception of low HDL. Recommend repeat weight in one month. Recommend repeat fasting gluc ose and fasting lipid profile every 12 weeks and then annually. If symptoms arise recommend checking BP, EKG, prolactin level as clinically indicated or relevant. Baseline labs of CBC with diff, LFTs, electrolytes, PT, and weight were preformed and WNL. Depakote level at discharge was 83 mcg/ml. Recommend repeat CBC with diff, and LFTs at one month. Then CBC with diff, depakote level, and LFTs annually or anytime symptoms arise. A safety plan was completed prior to discharge. Ideally after completing residential treatment he can begin therapy with a substance use focused/dual diagnosis therapist-[place] may be a good option which can discuss with his residential treatment providers as he nears discharge. Guy is psychiatrically stable for discharge and has been accepted at [facility] for residential treatment for his alcohol use pending insurance approval. He continues to consistently deny SI, HI and behavior remains organized and appropriate. He has been engaging in groups and remains motivated to seek substance use treatment to further improve his coping skills, learn healthier ways to cope with anxiety and stressors and reduce his chronic risk of harm to self or others by remaining sober. Day of Discharge Assessment Today the patient voices readiness for discharge. They note improvement in mood and anxiety. They deny thoughts of harm to self or others. Thoughts remain organized and they are clinically improved from admission. There is no evidence of psychosis. They improved in the hospital with support and medication adjustments. They agree to take medications as prescribed and keep follow-up appointments. At the time of the discharge they are deemed to be stable and appropriate for outpatient level of care. They are not deemed to be at imminent risk of harm to self or others. They are aware of emergency and crisis services. Knows to call 911 or go to nearest emergency care center if in a crisis which cannot be handled as an outpatient. Transition of Care Transition Of Care Record: was reviewed with the patient Advance Directives Advance Directives Information Provided: Yes Advance Directives: No Mental Health Advance Directive: No Advance Directives on File: No Living Will: No Power of Electrical And Radio Aircraft Mechanic: No Advance Directives Reason:: Declines as Mental Health Visit. Risk Factors Assessment Male: Yes : Yes Do You Have Access To A Gun?: No Health Problems: Yes Mental Health Diagnoses: Yes Substance Use Disorders: Yes Previous Attempt: Yes Previous Attempt; Highly Lethal: Yes Family History of Suicide: No Previous Psychiatric Hospitalization: Yes Hopelessness: No Smoker: Yes Protective Factors Assessment Responsible for Young Children: Yes Employed: Yes ([employer]) Stable Relationships: Yes Supportive Family: Yes Discharge Data Lab Results 09/18/21 09/18/21 09/18/21 14:57 14:57 14:57 WBC RBC Hgb Hct MCV MCH MCHC RDW Std Deviation RDW Coeff of Maggie Plt Count MPV Immature Gran % (Auto) Neut % (Auto) Lymph % (Auto) Rice % (Auto) Eos % (Auto) Baso % (Auto) Neut # (Auto) Lymph # (Auto) Rice # (Auto) Eos # (Auto) Baso # (Auto) Immature Gran # (Auto) Sodium Potassium Chloride Carbon Dioxide Anion Gap BUN Creatinine Est Cr Clr Drug Dosing Est GFR ( Amer) Est GFR (Non-Af Amer) BUN/Creatinine Ratio Glucose Fasting Glucose Calcium Total Bilirubin AST ALT Alkaline Phosphatase Total Protein Albumin Globulin Albumin/Globulin Ratio Triglycerides Cholesterol LDL Cholesterol, Calc VLDL Cholesterol, Calc HDL Cholesterol Cholesterol/HDL Ratio TSH Urine Color Yellow Urine Appearance Clear Urine pH 7.5 Ur Specific [place] 1.022 Urine Protein Negative Urine Glucose (UA) Negative Urine Ketones Negative Urine Blood Negative Urine Nitrite Negative Urine Bilirubin Negative Urine Urobilinogen Negative Ur Leukocyte Esterase Negative Salicylates Urine Opiates Screen Neg Ur Methadone, Qual Neg Acetaminophen Urine Barbiturates Neg Valproic Acid Ur Phencyclidine (PCP) Neg U Amphetamin/Meth Scrn Neg MDMA (Ecstasy) Screen Neg U Benzodiazepines Scrn Neg Ur Cocaine Metabolite Neg U Marijuana (THC) Screen Pos H U Marijuana THC Carboxy 570 H Drug Screen Comment SEE NOTE Ethyl Alcohol mg/dL SARS-CoV-2, RNA, NAAT 09/18/21 09/18/21 09/18/21 15:00 15:00 15:00 WBC 9.23 RBC 5.25 Hgb 16.1 Hct 46.9 MCV 89.3 MCH 30.7 MCHC 34.3 RDW Std Deviation 41.2 RDW Coeff of Maggie 12.7 Plt Count 272 MPV 11.6 H Immature Gran % (Auto) 0.1 Neut % (Auto) 63.2 Lymph % (Auto) 25.2 Rice % (Auto) 8.6 Eos % (Auto) 2.4 Baso % (Auto) 0.5 Neut # (Auto) 5.83 Lymph # (Auto) 2.33 Rice # (Auto) 0.79 H Eos # (Auto) 0.22 Baso # (Auto) 0.05 Immature Gran # (Auto) 0.01 Sodium 141 Potassium 3.9 Chloride 110 H Carbon Dioxide 26 Anion Gap 5.0 BUN 9 Creatinine 0.91 Est Cr Clr Drug Dosing 171.8 Est GFR ( Amer) 130.6 Est GFR (Non-Af Amer) 112.7 BUN/Creatinine Ratio 10.1 Glucose 96 Fasting Glucose Calcium 9.3 Total Bilirubin 0.6 AST 13 L ALT 28 Alkaline Phosphatase 70 Total Protein 8.0 Albumin 4.1 Globulin 3.9 Albumin/Globulin Ratio 1.1 Triglycerides Cholesterol LDL Cholesterol, Calc VLDL Cholesterol, Calc HDL Cholesterol Cholesterol/HDL Ratio TSH 1.070 Urine Color Urine Appearance Urine pH Ur Specific [place] Urine Protein Urine Glucose (UA) Urine Ketones Urine Blood Urine Nitrite Urine Bilirubin Urine Urobilinogen Ur Leukocyte Esterase Salicylates < 1.7 L Urine Opiates Screen Ur Methadone, Qual Acetaminophen < 2 L Urine Barbiturates Valproic Acid Ur Phencyclidine (PCP) U Amphetamin/Meth Scrn MDMA (Ecstasy) Screen U Benzodiazepines Scrn Ur Cocaine Metabolite U Marijuana (THC) Screen U Marijuana THC Carboxy Drug Screen Comment Ethyl Alcohol mg/dL SARS-CoV-2, RNA, NAAT 09/18/21 09/18/21 09/18/21 15:00 15:00 15:25 WBC RBC Hgb Hct MCV MCH MCHC RDW Std Deviation RDW Coeff of Maggie Plt Count MPV Immature Gran % (Auto) Neut % (Auto) Lymph % (Auto) Rice % (Auto) Eos % (Auto) Baso % (Auto) Neut # (Auto) Lymph # (Auto) Rice # (Auto) Eos # (Auto) Baso # (Auto) Immature Gran # (Auto) Sodium Potassium Chloride Carbon Dioxide Anion Gap BUN Creatinine Est Cr Clr Drug Dosing Est GFR ( Amer) Est GFR (Non-Af Amer) BUN/Creatinine Ratio Glucose Fasting Glucose Calcium Total Bilirubin AST ALT Alkaline Phosphatase Total Protein Albumin Globulin Albumin/Globulin Ratio Triglycerides Cholesterol LDL Cholesterol, Calc VLDL Cholesterol, Calc HDL Cholesterol Cholesterol/HDL Ratio TSH Urine Color Urine Appearance Urine pH Ur Specific [place] Urine Protein Urine Glucose (UA) Urine Ketones Urine Blood Urine Nitrite Urine Bilirubin Urine Urobilinogen Ur Leukocyte Esterase Salicylates Urine Opiates Screen Ur Methadone, Qual Acetaminophen Urine Barbiturates Valproic Acid 32 L Ur Phencyclidine (PCP) U Amphetamin/Meth Scrn MDMA (Ecstasy) Screen U Benzodiazepines Scrn Ur Cocaine Metabolite U Marijuana (THC) Screen U Marijuana THC Carboxy Drug Screen Comment Ethyl Alcohol mg/dL < 3.0 SARS-CoV-2, RNA, NAAT NEGATIVE 09/22/21 09/23/21 08:28 08:13 WBC RBC Hgb Hct MCV MCH MCHC RDW Std Deviation RDW Coeff of Maggie Plt Count MPV Immature Gran % (Auto) Neut % (Auto) Lymph % (Auto) Rice % (Auto) Eos % (Auto) Baso % (Auto) Neut # (Auto) Lymph # (Auto) Rice # (Auto) Eos # (Auto) Baso # (Auto) Immature Gran # (Auto) Sodium Potassium Chloride Carbon Dioxide Anion Gap BUN Creatinine Est Cr Clr Drug Dosing Est GFR ( Amer) Est GFR (Non-Af Amer) BUN/Creatinine Ratio Glucose Fasting Glucose 98 Calcium Total Bilirubin AST ALT Alkaline Phosphatase Total Protein Albumin Globulin Albumin/Globulin Ratio Triglycerides 100 Cholesterol 151 LDL Cholesterol, Calc 95 VLDL Cholesterol, Calc 20 HDL Cholesterol 36 Cholesterol/HDL Ratio 4 TSH Urine Color Urine Appearance Urine pH Ur Specific [place] Urine Protein Urine Glucose (UA) Urine Ketones Urine Blood Urine Nitrite Urine Bilirubin Urine Urobilinogen Ur Leukocyte Esterase Salicylates Urine Opiates Screen Ur Methadone, Qual Acetaminophen Urine Barbiturates Valproic Acid 83 Ur Phencyclidine (PCP) U Amphetamin/Meth Scrn MDMA (Ecstasy) Screen U Benzodiazepines Scrn Ur Cocaine Metabolite U Marijuana (THC) Screen U Marijuana THC Carboxy Drug Screen Comment Ethyl Alcohol mg/dL SARS-CoV-2, RNA, NAAT Hospital Course (1) MDD (major depressive disorder), recurrent episode, moderate: (2) Alcohol use disorder: (3) Intermittent explosive disorder in adult: (4) Antisocial personality disorder: (5) Anxiety: 09/23/21: discontinued sertraline. Continues to tolerate medications well without side effects and depakote level is therapeutic. Will schedule olanzapine as BID since he has been utilizing prn twice daily consistently for anxiety. Reviewed risks of antipsychotic use and goal of ideally discontinuing olanzapine in the coming weeks after he develops more skills for managing anxiety in the setting of sobriety. 09/22/21: continue current medication, referrals started for residential substance use treatment. AWSS canceled as no longer scoring and >72 hours but will continue thiamine and folic acid. Continue with sertraline 50mg for one more day. Depakote level in morning. 09/21/21: -continue depakote ER -Reduce sertraline to 50mg qd and increase escitalopram to 10mg qd -Continue trazodone, gabapentin -AWSS protocol through 72 hours -FG and LP tomorrow morning -Referral for residential substance use treatment 09/20/21: -Increase depakote ER to 1500mg qAM & 1000 mg qhs (will get repeat level in 3 days on 09/23 ) -Continue cross-taper, sertraline 100mg qd and escitalopram 5 mg qd -Continue trazodone, gabapentin, AWSS protocol 09/19/21: The patient was admitted to the [facility] ([facility] mental health unit) on q15 min checks (behavioral with suicide precautions) for safety. The patient will participate in group, recreational, and milieu therapies and will be offered additional individual and family sessions as clinically appropriate. -continue prior to admission medications for back pain and BP control -continue trazodone 200 mg qhs prn -continue Depakote ER 1000 mg BID -begin cross-taper with reduction of sertraline from 150mg qd to 100mg qd and start escitalopram 5 mg qd -continue gabapentin 300mg TID -AWSS protocol for potential alcohol withdrawal -nicotine patch -plan for referral for residential alcohol use treatment once psychiatrically stable Post Discharge Appointments Primary Care Physician Name Of Family Doctor: Radhika - Dr. Amor Kapadia Primary Care Provider Appointment Comment: Letitia Coulter Contact Information Discharge Discharge Plan Discharge Items Reason For Visit: MDD Discharge Diagnosis: Major Depressive Episode, recurrent and Substance-induced depression Activity: Resume your previous activity Non-emergency contact: Primary Care Provider and Therapist Call non-emergency contact if: you have any medication questions and your symptoms worsen Follow-up/Referrals: Amor Kapadia MD [Primary Care Provider] - Diet: Regular Addtl Attending Provider Instructions: SPECIAL CARE INSTRUCTIONS: 1. Follow through with your scheduled aftercare appointments. If unable to keep an appointment, please call to reschedule. 2. Take your medication only as prescribed. Medication should not be changed or stopped without the approval of your doctor. In the event of worsening symptoms or concerns about side effects, contact your doctor immediately. 3. Utilize new healthy coping skills, anger management skills, and stress management skills learned during your hospitalization. Journal feelings and process them with a support person. Identify stressors or situations that may result in relapse, deterioration or inappropriate behaviors and develop a plan to deal with those issues. 4. If your coping skills are ineffective and you are in crisis, contact your outpatient providers for direction. If unable to reach your providers, please call the [facility] CRISIS LINE AT , go to the [facility] walk-in center at [address], [address], [place], or go to the closest Emergency Room. 5. Avoid alcohol and un-prescribed drugs. 6. You have been provided with the Mental Health Advance Directives Pamphlet for your review. 7. Your condition is stable for discharge to outpatient level of care, but recovery is an ongoing process. Ifthoughts to harm yourself or others return, follow the safety plan developed during your stay. Planning for a safe return home includes securing weapons. Our treatment team recommends weaponsbe removed from the home until your outpatient provider reassesses your progress. In rare cases where the items themselvescannot be removed, guns and ammunitionshould be secured separatelyand keys stored by a reliable personoutside of the home. If you were admitted on an involuntary commitment, the police or other legal authorities may be involved in this process. AFTERCARE APPOINTMENTS: * Please call your insurance company prior to your scheduled appointment to confirm your aftercare providers are covered. Take your insurance information to your appointments. WHO TO CALL AND WHEN: Medical Emergencies: For questions or emergencies related to your hospital stay, please contact the Inpatient Behavioral Health Unit at [phone]. A claim clinician is on-call 02/05 for the Behavioral Health Unit for emergencies At any time you feel your situation is an emergency, you may also call 911 immediately. Pending Studies at Discharge: No Stand-Alone Forms: My [facility] Skilled Items Patient informed of condition?: Yes DNR: No Discharge Level of Care: Other Communicable Disease: No Discharge Prognosis: Improving Lines: None Urinary Catheter: No Medications and DC Order Prescriptions: New divalproex 500 mg Tablet Extended Release 24 Hr 1,500 mg PO QAM 30 Days Qty: 90 RF: 0 divalproex 500 mg Tablet Extended Release 24 Hr 1,000 mg PO HS 30 Days Qty: 60 RF: 0 escitalopram oxalate 10 mg Tablet 10 mg PO QAM 30 Days Qty: 30 RF: 0 olanzapine 5 mg Tablet 5 mg PO BID 30 Days Qty: 60 RF: 0 Continued diclofenac sodium [Voltaren] 75 mg Tablet,Delayed Release (Dr/Ec) 75 mg PO BID PRN (Reason: Pain) RF: 0 albuterol sulfate 90 mcg/actuation Hfa Aerosol Inhaler 2 puff INHALATION Q4H PRN (Reason: Wheezing) RF: 0 sumatriptan succinate [Imitrex] 6 mg/0.5 mL Pen Injector 6 mg subcut DIRECTED PRN (Reason: Headache) RF: 0 propranolol 10 mg Tablet 20 mg PO BID 30 Days Qty: 120 RF: 0 trazodone 100 mg Tablet 200 mg PO HS 30 Days Qty: 60 RF: 0 losartan 25 mg Tablet 25 mg PO DAILY Qty: 30 RF: 0 gabapentin 300 mg capsule 300 mg PO TID 30 Days Qty: 90 RF: 0 omeprazole 20 mg Capsule,Delayed Release(Dr/Ec) 20 mg PO DAILYBB 30 Days Qty: 30 RF: 0 cyclobenzaprine 10 mg Tablet 10 mg PO HS PRN (Reason: MUSCLE SPASMS) 30 Days Qty: 30 RF: 0 dicyclomine 10 mg Capsule 10 mg PO QID PRN (Reason: ABD PAIN) Qty: 30 RF: 0 Discontinued sertraline 100 mg Tablet 150 mg PO DAILY RF: 0 divalproex 500 mg tablet extended release 24 hr 1,000 mg PO BID RF: 0 chlorpromazine [Thorazine] 25 mg Tablet 25 mg PO DAILY PRN (Reason: Agitation) RF: 0 olanzapine 5 mg tablet 5 mg PO DAILY RF: 0 Krames/Other Patient Handouts: Journaling for Mental Health, Counseling for Depression, Depression: Tips to Help Yourself, Anxiety Disorders Tx Therapy, Addiction Recovery Counseling Admission Data Admit Date/Time: 09/18/21 18:18 Attending Provider: Felisa Bills Admit Provider: Felisa Bills Primary Care Provider: Amor Kapadia Other Interventions: PSY Interdisciplinary Discharge Planning Last Done: 09/23/21 13:40 Coding Level of Care Code 88817 D/C day mgmt > 30 min Diagnoses MDD (major depressive disorder), recurrent episode, moderate F33.1 Alcohol use disorder Intermittent explosive disorder in adult F63.81 Antisocial personality disorder F60.2 Anxiety F41.9 Time Spent (min) 45
[2021-09-23] MEDS ORDERED: OLANZapine 5 MG TABLET PO SCH (21:00)
== END 2021-09-23 14:35 | disposition alcohol treatment (31) | DRG 897 ==
LOC: ED 14:34 → 3S 18:18
DX: Z88.1 Allergy status to other antibiotic agents; F17.290 Nicotine dependence, other tobacco product, uncomplicated; F60.2 Antisocial personality disorder; Z88.0 Allergy status to penicillin; F41.9 Anxiety disorder, unspecified; F33.1 Major depressive disorder, recurrent, moderate; E66.9 Obesity, unspecified; F17.210 Nicotine dependence, cigarettes, uncomplicated; E87.8 Other disorders of electrolyte and fluid balance, not elsewhere classified; F10.94 Alcohol use, unspecified with alcohol-induced mood disorder; F63.81 Intermittent explosive disorder; Z68.37 Body mass index [BMI] 37.0-37.9, adult

== ENCOUNTER 2022-02-16 09:57 | Inpatient (IN) ==
--- NOTE | 2022-02-16 10:06 | Emergency Department Note ---
History of Present Illness General Chief complaint: Syncope Stated complaint: PASSED OUT/DIZZY LIGHTHEADED/VOMITING Time Seen by Provider: 02/16/22 10:05 History of Present Illness Maximum Pain Intensity: 2 This is a 31-year-old male that presents to the emergency department via private vehicle with complaints of "passed out, dizzy, lightheaded, vomiting". The patient states that this morning while at work he became dizzy. This was shortly after unloading a wheelbarrow with mulch. He went to walk around the side of the truck and then became dizzy. He notes that he then felt as though he was going to pass out. He saw black spots in his vision. He then went to push the wheelbarrow and then the next he remembers is waking up on the ground. Bystanders report that he was unconscious for a few seconds. He notes that he did lightly strike his head against a wheelbarrow when he passed out. He has a very minor headache. He denies any chest pain or shortness of breath. No a bdominal pain. No fevers. He does feel little cold at the present time. Patient notes a history of alcoholism but has been sober x5 months. No history of sudden cardiac in the family. Home Medications Medication Instructions Recorded Confirmed Type albuterol sulfate 90 mcg/actuation 2 puff INHALATION Q4H PRN 07/08/21 02/16/22 History aerosol inhaler diclofenac sodium 75 mg 75 mg PO BID PRN 07/08/21 02/16/22 History tablet,delayed release sumatriptan succinate 6 mg/0.5 mL 6 mg SUBCUT DIRECTED PRN 07/08/21 02/16/22 History subcutaneous pen injector cyclobenzaprine 10 mg tablet 10 mg PO HS PRN 30 Days #30 tab 09/23/21 02/16/22 Rx dicyclomine 10 mg capsule 10 mg PO QID PRN #30 cap 09/23/21 02/16/22 Rx gabapentin 300 mg capsule 300 mg PO TID 30 Days #90 cap 09/23/21 02/16/22 Rx losartan 25 mg tablet 25 mg PO DAILY #30 tab 09/23/21 02/16/22 Rx omeprazole 20 mg capsule,delayed 20 mg PO DAILYBB 30 Days #30 cap 09/23/21 02/16/22 Rx release propranolol 10 mg tablet 20 mg PO BID 30 Days #120 tab 09/23/21 02/16/22 Rx trazodone 100 mg tablet 200 mg PO HS 30 Days #60 tab 09/23/21 02/16/22 Rx clonidine HCl 0.1 mg tablet 0.1 mg PO AMHS 02/16/22 02/16/22 History divalproex 500 mg tablet,extended 1,000 mg PO HS 02/16/22 02/16/22 History release 24 hr divalproex 500 mg tablet,extended 1,500 mg PO DAILY 02/16/22 02/16/22 History release 24 hr escitalopram oxalate 10 mg tablet 10 mg PO DAILY 02/16/22 02/16/22 History hydroxyzine pamoate 50 mg capsule 50 mg PO BID 02/16/22 02/16/22 History olanzapine 5 mg tablet 5 mg PO BID 02/16/22 02/16/22 History Allergies Allergy/AdvReac Type Severity Reaction Status Date / Time amlodipine Allergy Intermediate Hives Verified 09/18/21 15:30 hydrochlorothiazide Allergy Intermediate RASH, Verified 09/18/21 15:30 THROAT SWELLS ketorolac Allergy Intermediate RASH, Verified 09/18/21 15:30 NAUSEA amoxicillin Allergy Mild RASH Verified 09/18/21 15:30 Penicillins Allergy Mild AMOXICILLIN Verified 09/18/21 15:30 = RASH Past Med/Surg History Medical History Abdominal pain Allergic reaction Antisocial personality disorder Arterial hypotension Chest pain Depression High serum chloride Intentional drug overdose Low back pain Mood disorder Nicotine dependence Obesity Sleep apnea with use of continuous positive airway pressure (CPAP) Surgical History Hx of cholecystectomy Family History Grandmother Cancer Grandfather , 52 massive [place] Myocardial infarction Sudden Social History Smoking Status: Never smoker Tobacco Type: Smokeless Tobacco (Dip or Chew) Cigarettes Per Day: 1 can/2 days; Do You Dip or Chew Tobacco: Yes; Hx Alcohol Use: No Hx Substance Use: No Preferred Language: Zambian Communication Ability: Effective Marketing Officer Required: No Beliefs That Will Affect Care: None Current Living Situation: Alone Other Information That Helps Us Care for You: No Feels Safe at Home: Yes Safety Concerns: Feels Safe At This Time Assistive Devices: CPAP and Glasses Review of Systems A total of 10 systems reviewed and were otherwise negative Physical Exam Vital Signs Vital Signs - 24 hr 02/16/22 10:00 02/16/22 10:19 02/16/22 10:22 Temperature 36.5 C Temperature Source Temporal Artery Scan Pulse Rate - Lying Pulse Rate - Sitting Pulse Rate - Standing Pulse Rate 62 61 63 Pulse Rate [Apical] Pulse Rate from SpO2 Sensor 62 Pulse Rhythm Regular Pulse Rhythm [Apical] Pulse Strength [Apical] Respiratory Rate 20 20 18 Respiratory Effort / Characteristics Non-Labored Spontaneous Respiratory Depth Normal Respiratory Pattern Regular Blood Pressure - Lying Blood Pressure - Sitting Blood Pressure- Standing Blood Pressure 130/83 Blood Pressure [Right Arm] Blood Pressure Mean 98 Blood Pressure Mean [Right Arm] Blood Pressure Position Sitting Blood Pressure Position [Right Arm] Pulse Oximetry 97 98 96 Oxygen Delivery Method Room Air Room Air Sepsis Recent Fever Within 48 Hours No Sepsis New/Unexplained Change in Mental Status No Sepsis Action Taken by Nursing No Action Required 02/16/22 10:30 02/16/22 10:32 02/16/22 10:33 Temperature Temperature Source Pulse Rate - Lying Pulse Rate - Sitting Pulse Rate - Standing Pulse Rate 62 64 63 Pulse Rate [Apical] Pulse Rate from SpO2 Sensor 62 64 60 Pulse Rhythm Pulse Rhythm [Apical] Pulse Strength [Apical] Respiratory Rate 22 17 18 Respiratory Effort / Characteristics Respiratory Depth Respiratory Pattern Blood Pressure - Lying Blood Pressure - Sitting Blood Pressure- Standing Blood Pressure 133/69 131/66 119/73 Blood Pressure [Right Arm] Blood Pressure Mean 90 87 88 Blood Pressure Mean [Right Arm] Blood Pressure Position Blood Pressure Position [Right Arm] Pulse Oximetry 96 97 96 Oxygen Delivery Method Sepsis Recent Fever Within 48 Hours Sepsis New/Unexplained Change in Mental Status Sepsis Action Taken by Nursing 02/16/22 10:34 02/16/22 10:37 02/16/22 11:00 Temperature Temperature Source Pulse Rate - Lying 64 Pulse Rate - Sitting 60 Pulse Rate - Standing 72 Pulse Rate 75 62 Pulse Rate [Apical] 60 Pulse Rate from SpO2 Sensor 73 61 Pulse Rhythm Pulse Rhythm [Apical] Regular Pulse Strength [Apical] Normal Respiratory Rate 15 18 18 Respiratory Effort / Characteristics Non-Labored Spontaneous Respiratory Depth Normal Respiratory Pattern Regular Blood Pressure - Lying 131/66 Blood Pressure - Sitting 119/73 Blood Pressure- Standing 131/76 Blood Pressure 131/76 142/82 H Blood Pressure [Right Arm] 119/73 Blood Pressure Mean 94 102 Blood Pressure Mean [Right Arm] 88 Blood Pressure Position Blood Pressure Position [Right Arm] Sitting Pulse Oximetry 97 97 97 Oxygen Delivery Method Room Air Sepsis Recent Fever Within 48 Hours Sepsis New/Unexplained Change in Mental Status Sepsis Action Taken by Nursing VITAL SIGNS - Vital signs and nursing notes were reviewed. Stable and afebrile. GENERAL -31-year-old male appearing his stated age who is in no acute distress. Communicates well with provider and answers questions appropriately. SKIN - Without rashes. No meningeal or petechial rash. HEAD - NC/AT. EYES - PERRL with EOMI bilaterally. Sclera anicteric. EARS - No deformities of external structures noted on gross examination bilaterally. NOSE - Midline and without cyanosis. No epistaxis or purulent drainage noted. Septum midline without deviation or septal hematoma noted. MOUTH/OROPHARYNX - Without perioral cyanosis. Buccal mucosa pink and moist and without leukoplakia. Tongue midline with equal elevation of palate bilaterally. No tonsillar hypertrophy, erythema, or exudates noted. Fair dentition noted. NECK - Neck with FROM. No nuchal rigidity. LUNGS - Chest wall symmetric without accessory muscle use, intercostals retractions, or central cyanosis. Normal vesicular breath sounds CTA B/L. No wheezes, rales, or rhonchi appreciated. CARDIAC - RRR with S1/S2. No murmur, rubs, or gallops appreciated. ABDOMEN - Abdominal contour normal without pulsations or visible masses. BS normoactive all four quadrants. No tenderness, palpable masses, hepatosplenomegaly, or ascites noted. EXTREMITIES - No clubbing or peripheral cyanosis. +5/5 strength noted in UE/LE bilaterally. NEUROLOGIC - Cranial nerves II through XII grossly intact. PSYCH - A&Ox3 and cooperates fully with examiner. Pt is very pleasant and interacts well with examiner. Course Administered Medications Acetaminophen (Acetaminophen 325 Mg Tab) 650 mg PO Q4H PRN PRN Reason: Pain or Fever Stop: 03/18/22 13:53 Last Admin: 02/16/22 17:06 Dose: 650 mg Documented by: [id number] Gabapentin (Gabapentin 300 Mg Cap) 300 mg PO TID [facility] Stop: 03/18/22 13:59 Last Admin: 02/16/22 16:07 Dose: 300 mg Documented by: [id number] Sodium Chloride (Nss 1000ml) 1,000 mls @ 50 mls/hr IV .Q20H ELIUD Stop: 02/17/22 09:42 Last Admin: 02/16/22 14:15 Dose: 50 mls/hr Documented by: [id number] Ondansetron HCl (Ondansetron Inj 2 Mg/Ml 2 Ml Vial) 4 mg IV Q6H PRN PRN Reason: Nausea Stop: 03/18/22 13:53 Last Admin: 02/16/22 14:15 Dose: 4 mg Documented by: [id number] Discontinued Medications Ioversol (Optiray 320 100ml) 94 ml IV ONCE ONE Stop: 02/16/22 13:44 Last Admin: 02/16/22 13:43 Dose: 94 ml Documented by: [id number] Medical Decision Making Laboratory Data Result diagrams: 02/16/22 10:19 02/16/22 10:19 Lab Results 02/16/22 02/16/22 02/16/22 Range/Units 10:19 10:19 10:19 WBC 7.79 (4.8-10.8) K/uL RBC 5.07 (4.7-6.1) M/uL Hgb 15.2 (14.0-18.0) g/dL Hct 44.2 (42-52) % MCV 87.2 (80-100) fL MCH 30.0 (25-34) pg MCHC 34.4 (32-36) g/dL RDW Std Deviation 41.7 (36.4-46.3) fL RDW Coeff of Maggie 13.1 (11.5-14.5) % Plt Count 316 (130-400) K/uL MPV 11.8 H (7.4-10.4) fL Immature Gran % (Auto) 0.3 % Neut % (Auto) 60.3 % Lymph % (Auto) 27.9 % Coke % (Auto) 7.2 % Eos % (Auto) 4.0 % Baso % (Auto) 0.3 % Neut # (Auto) 4.71 (1.4-6.5) K/uL Lymph # (Auto) 2.17 (1.2-3.4) K/uL Coke # (Auto) 0.56 (0.11-0.59) K/uL Eos # (Auto) 0.31 (0-0.5) K/uL Baso # (Auto) 0.02 (0-0.2) K/uL Immature Gran # (Auto) 0.02 (0.00-0.02) K/uL PT 11.4 (9.0-12.0) Seconds INR 1.1 (0.9-1.1) APTT 31.1 H (21.0-31.0) Seconds PTT Ratio 1.1 Sodium 140 (136-145) mmol/L Potassium 3.8 (3.5-5.1) mmol/L Chloride 106 (98-107) mmol/L Carbon Dioxide 25 (21-32) mmol/L Anion Gap 9 (3-11) BUN 7 (6-23) mg/dl Creatinine 0.96 (0.6-1.4) mg/dl Est Cr Clr Drug Dosing 168.6 ml/min Est GFR ( Amer) 122.4 ml/min Est GFR (Non-Af Amer) 105.6 ml/min BUN/Creatinine Ratio 7.3 L (10-20) Glucose 99 (70-99(Fasting)) mg/dl Calcium 9.2 (8.5-10.1) mg/dl Magnesium 1.8 (1.7-2.4) mg/dl Total Bilirubin 0.9 (0.2-1.0) mg/dl AST 13 (13-39) U/L ALT 12 (7-52) U/L Alkaline Phosphatase 57 (34-104) U/L Troponin I High Sens 2.7 (0-20) pg/ml Total Protein 7.3 (6.0-8.3) gm/dl Albumin 4.5 (3.4-5.0) gm/dl Globulin 2.8 (2.5-4.0) gm/dl Albumin/Globulin Ratio 1.6 (0.9-2) TSH (0.300-4.500) uIu/ml Urine Color Urine Appearance (Clear) Urine pH (4.5-7.5) Ur Specific [place] (1.000-1.030) Urine Protein (Negative) Urine Glucose (UA) (Negative) Urine Ketones (Negative) Urine Blood (Negative) Urine Nitrite (Negative) Urine Bilirubin (Negative) Urine Urobilinogen (Negative) Ur Leukocyte Esterase (Negative) Urine Opiates Screen (Neg) Ur Methadone, Qual (Neg) Urine Barbiturates (Neg) Ur Phencyclidine (PCP) (Neg) U Amphetamin/Meth Scrn (Neg) MDMA (Ecstasy) Screen (Neg) U Benzodiazepines Scrn (Neg) Ur Cocaine Metabolite (Neg) U Marijuana (THC) Screen (Neg) Lyme Disease IgG Ab (Negative) Lyme Disease IgM Ab (Negative) SARS-CoV-2, RNA, NAAT (NEGATIVE) 02/16/22 02/16/22 02/16/22 Range/Units 10:19 10:19 11:07 WBC (4.8-10.8) K/uL RBC (4.7-6.1) M/uL Hgb (14.0-18.0) g/dL Hct (42-52) % MCV (80-100) fL MCH (25-34) pg MCHC (32-36) g/dL RDW Std Deviation (36.4-46.3) fL RDW Coeff of Maggie (11.5-14.5) % Plt Count (130-400) K/uL MPV (7.4-10.4) fL Immature Gran % (Auto) % Neut % (Auto) % Lymph % (Auto) % Coke % (Auto) % Eos % (Auto) % Baso % (Auto) % Neut # (Auto) (1.4-6.5) K/uL Lymph # (Auto) (1.2-3.4) K/uL Coke # (Auto) (0.11-0.59) K/uL Eos # (Auto) (0-0.5) K/uL Baso # (Auto) (0-0.2) K/uL Immature Gran # (Auto) (0.00-0.02) K/uL PT (9.0-12.0) Seconds INR (0.9-1.1) APTT (21.0-31.0) Seconds PTT Ratio Sodium (136-145) mmol/L Potassium (3.5-5.1) mmol/L Chloride (98-107) mmol/L Carbon Dioxide (21-32) mmol/L Anion Gap (3-11) BUN (6-23) mg/dl Creatinine (0.6-1.4) mg/dl Est Cr Clr Drug Dosing ml/min Est GFR ( Amer) ml/min Est GFR (Non-Af Amer) ml/min BUN/Creatinine Ratio (10-20) Glucose (70-99(Fasting)) mg/dl Calcium (8.5-10.1) mg/dl Magnesium (1.7-2.4) mg/dl Total Bilirubin (0.2-1.0) mg/dl AST (13-39) U/L ALT (7-52) U/L Alkaline Phosphatase (34-104) U/L Troponin I High Sens (0-20) pg/ml Total Protein (6.0-8.3) gm/dl Albumin (3.4-5.0) gm/dl Globulin (2.5-4.0) gm/dl Albumin/Globulin Ratio (0.9-2) TSH 0.920 (0.300-4.500) uIu/ml Urine Color Urine Appearance (Clear) Urine pH (4.5-7.5) Ur Specific [place] (1.000-1.030) Urine Protein (Negative) Urine Glucose (UA) (Negative) Urine Ketones (Negative) Urine Blood (Negative) Urine Nitrite (Negative) Urine Bilirubin (Negative) Urine Urobilinogen (Negative) Ur Leukocyte Esterase (Negative) Urine Opiates Screen (Neg) Ur Methadone, Qual (Neg) Urine Barbiturates (Neg) Ur Phencyclidine (PCP) (Neg) U Amphetamin/Meth Scrn (Neg) MDMA (Ecstasy) Screen (Neg) U Benzodiazepines Scrn (Neg) Ur Cocaine Metabolite (Neg) U Marijuana (THC) Screen (Neg) Lyme Disease IgG Ab Negative (Negative) Lyme Disease IgM Ab Negative (Negative) SARS-CoV-2, RNA, NAAT NEGATIVE (NEGATIVE) 02/16/22 02/16/22 Range/Units 11:07 11:07 WBC (4.8-10.8) K/uL RBC (4.7-6.1) M/uL Hgb (14.0-18.0) g/dL Hct (42-52) % MCV (80-100) fL MCH (25-34) pg MCHC (32-36) g/dL RDW Std Deviation (36.4-46.3) fL RDW Coeff of Maggie (11.5-14.5) % Plt Count (130-400) K/uL MPV (7.4-10.4) fL Immature Gran % (Auto) % Neut % (Auto) % Lymph % (Auto) % Coke % (Auto) % Eos % (Auto) % Baso % (Auto) % Neut # (Auto) (1.4-6.5) K/uL Lymph # (Auto) (1.2-3.4) K/uL Coke # (Auto) (0.11-0.59) K/uL Eos # (Auto) (0-0.5) K/uL Baso # (Auto) (0-0.2) K/uL Immature Gran # (Auto) (0.00-0.02) K/uL PT (9.0-12.0) Seconds INR (0.9-1.1) APTT (21.0-31.0) Seconds PTT Ratio Sodium (136-145) mmol/L Potassium (3.5-5.1) mmol/L Chloride (98-107) mmol/L Carbon Dioxide (21-32) mmol/L Anion Gap (3-11) BUN (6-23) mg/dl Creatinine (0.6-1.4) mg/dl Est Cr Clr Drug Dosing ml/min Est GFR ( Amer) ml/min Est GFR (Non-Af Amer) ml/min BUN/Creatinine Ratio (10-20) Glucose (70-99(Fasting)) mg/dl Calcium (8.5-10.1) mg/dl Magnesium (1.7-2.4) mg/dl Total Bilirubin (0.2-1.0) mg/dl AST (13-39) U/L ALT (7-52) U/L Alkaline Phosphatase (34-104) U/L Troponin I High Sens (0-20) pg/ml Total Protein (6.0-8.3) gm/dl Albumin (3.4-5.0) gm/dl Globulin (2.5-4.0) gm/dl Albumin/Globulin Ratio (0.9-2) TSH (0.300-4.500) uIu/ml Urine Color Yellow Urine Appearance Clear (Clear) Urine pH 6.0 (4.5-7.5) Ur Specific [place] 1.009 (1.000-1.030) Urine Protein Negative (Negative) Urine Glucose (UA) Negative (Negative) Urine Ketones Negative (Negative) Urine Blood Negative (Negative) Urine Nitrite Negative (Negative) Urine Bilirubin Negative (Negative) Urine Urobilinogen Negative (Negative) Ur Leukocyte Esterase Negative (Negative) Urine Opiates Screen Neg (Neg) Ur Methadone, Qual Neg (Neg) Urine Barbiturates Neg (Neg) Ur Phencyclidine (PCP) Neg (Neg) U Amphetamin/Meth Scrn Neg (Neg) MDMA (Ecstasy) Screen Neg (Neg) U Benzodiazepines Scrn Neg (Neg) Ur Cocaine Metabolite Neg (Neg) U Marijuana (THC) Screen Pos H (Neg) Lyme Disease IgG Ab (Negative) Lyme Disease IgM Ab (Negative) SARS-CoV-2, RNA, NAAT (NEGATIVE) Imaging Data Radiologist's Impression: Chest X-Ray 02/16/22 10:14 XR chest 1V portable HISTORY: syncope COMPARISON: Chest 07/08/2021. FINDINGS: The cardiac silhouette remains borderline enlarged. No pleural effusions. No pneumothorax. No rib fractures. The lungs are clear. No evidence for pulmonary edema. IMPRESSION: No significant change compared to the prior study. No acute process. ACT 112: Negative or not required by law. Electronically signed by: Stevie Zheng M.D. 02/16/2022 10:33 AM MDM Narrative Patient was seen and evaluated as above in room C 11. Review was performed of nursing notes and vital signs. I did review pertinent previous visits and patient history. After obtaining a thorough history and physical examination the above work up was performed. Patient presents to us today for evaluation of syncope. Clinically he is well and nontoxic-appearing. Options of care were discussed with the patient. IV access was established. Labs were drawn. No focal deficits on my examination. EKG reveals normal sinus rhythm at a rate of 64 bpm. QTc 412. QRS 108. No ST elevation. Chest x-ray negative for acute process. Labs reveal no leukocytosis or concerning anemia. No emergent metabolic disturbance. Troponin negative. TSH reveals euthyroid state. Urinalysis negative. Lyme test negative. COVID test negative. I was notified that the patient while on the quality assurance monitor body did have some sinus pauses. I discussed this with the on-call focuser, Dr. Carpio. He came to evaluate the patient. Patient seems to be symptomatic when these occur. I do recommend further evaluation and management in the inpatient setting. Case also discussed with the hospitalist. Please refer to further documentation regarding his stay. Case was discussed with the attending physician. An order was placed for continuous cardiac monitoring. The monitor shows a rate of 62 with sinus rhythm. GCS: 15 In the evaluation and treatment of this patient the following differential diagnoses were entertained: Electrolyte disturbance, myocardial ischemia, [place], PE, pericarditis, infectious process, intracranial process, among others. Impression & Plan Syncope, Dizziness, Sinus pause Discharge Plan Visit Data Chief Complaint: Syncope Stated Complaint: PASSED OUT/DIZZY LIGHTHEADED/VOMITING ED Provider: Angel Wade ED Midlevel Provider: Hal Johnson Discharge Problem: Syncope, Dizziness, Sinus pause Patient Disposition: Admitted As Inpatient Condition: Good Discharge Instructions Interventions: ED Discharge Assessment Last Done: 02/16/22 13:03
--- NOTE | 2022-02-16 10:35 | XRay Report ---
XR chest 1V portable HISTORY: syncope COMPARISON: Chest 07/08/2021. FINDINGS: The cardiac silhouette remains borderline enlarged. No pleural effusions. No pneumothorax. No rib fractures. The lungs are clear. No evidence for pulmonary edema. IMPRESSION: No significant change compared to the prior study. No acute process. ACT 112: Negative or not required by law. Electronically signed by: Stevie Zheng M.D. 02/16/2022 10:33 AM
[2022-02-16 10:57] LABS: Basophils # (auto) 0.02 K/uL (0-0.2); Basophils % (auto) 0.3 %; Eosinophils # (auto) 0.31 K/uL (0-0.5); Hematocrit (blood only) 44.2 % (42-52); Hemoglobin 15.2 g/dL (14.0-18.0); Immature Granulocytes # (auto) 0.02 K/uL (0.00-0.02); Immature Granulocytes % (auto) 0.3 %; Lymphocytes # (auto) 2.17 K/uL (1.2-3.4); Lymphocytes % (auto) 27.9 %; Mean Corpuscular Hgb Conc 34.4 g/dL (32-36); Mean Corpuscular Volume 87.2 fL (80-100); Mean Platelet Volume 11.8 fL (7.4-10.4); Monocytes # (auto) 0.56 K/uL (0.11-0.59); Monocytes % (auto) 7.2 %; Neutrophils # (auto) 4.71 K/uL (1.4-6.5); Neutrophils % (auto) 60.3 %; Platelet Count 316 K/uL (130-400); RDW Coefficient of Variation 13.1 % (11.5-14.5); RDW Standard Deviation 41.7 fL (36.4-46.3); Red Blood Count 5.07 M/uL (4.7-6.1); White Blood Count 7.79 K/uL (4.8-10.8)
[2022-02-16 11:06] LABS: INR 1.1 (0.9-1.1); Partial Thromboplastin Ratio 1.1; Partial Thromboplastin Time 31.1 Seconds (21.0-31.0); Prothrombin Time 11.4 Seconds (9.0-12.0)
[2022-02-16 11:23] LABS: Troponin I High Sensitivity 2.7 pg/ml (0-20)
[2022-02-16 11:26] LABS: Albumin Globulin Ratio 1.6 (0.9-2); Albumin Level 4.5 gm/dl (3.4-5.0); BUN Creatinine Ratio 7.3 (10-20); Bilirubin,Total 0.9 mg/dl (0.2-1.0); Calcium 9.2 mg/dl (8.5-10.1); Creatinine Clr Calc Pharmacy 168.6 ml/min; Est GFR (African American) 122.4 ml/min; Est GFR (Non-African American) 105.6 ml/min; Globulin 2.8 gm/dl (2.5-4.0); Magnesium 1.8 mg/dl (1.7-2.4); Potassium 3.8 mmol/L (3.5-5.1); Total Protein 7.3 gm/dl (6.0-8.3)
[2022-02-16 11:56] LABS: Lyme Ab IgG w/WB Rflx Negative (Negative); Lyme Ab IgM w/WB Rflx Negative (Negative)
[2022-02-16 12:04] LABS: Amphetamines+Metham, Urine Neg (Neg); Barbiturates, Urine Neg (Neg); Benzodiazepine, Urine Neg (Neg); Cocaine, Urine Neg (Neg); MDMA (Ecstacy), Urine Neg (Neg); Methadone, Urine Neg (Neg); Opiate, Urine Neg (Neg); Phencyclidine, Urine Neg (Neg)
--- NOTE | 2022-02-16 12:06 | History & Physical Report ---
Date of Service February 16, 2022 Assessment & Plan (1) Syncope: (2) Dizziness: (3) Sinus pause: (4) Vomiting: (5) Medical marijuana use: (6) Hypertension: (7) Sleep apnea with use of continuous positive airway pressure (CPAP): (8) Obesity: (9) Nicotine dependence: Plan: This is a 31 yr old M who has a significant PMH of HTN, THEODORA on cpap, IBS, hx of alcohol abuse, mood disorder, intermittent explosive disorder who presents to ED with syncopal episode. Syncope Dizziness Vomiting Sinus pauses admit to PCU continue tele monitoring obtain echo serial ecg, trops consult cardiology eval for secondary cause, CT head, abd/pelvis ordered consider MRI brain after CT head results orthostatics ordered UDS + marijuana - pt admits to medical marijuana use HTN continue losartan, clonidine, propranolol monitor pressure closely bp stable Early Satiety Loss of appetite Vomiting obtain ct a/p r/o acute pathology ? if 2/2 to marijuana use as pt recently started in November or adr of psych m edications? Hx of ETOH Abuse sober for 5 months Mood disorder Depression Intermittent explosive disorder Insomnia continue zyprexa, depakote, vistaril, lexapro, gabapentin, trazodone, propranolol mood is stable Medical marijuana use for anxiety and insomnia daily use, feels there has been no correlation with stopping marijuana and am. nausea Tobacco abuse encourage nicotine cessation Morbid Obesity BMI 40.1 encourage weight loss Dispo: PCU FULL CODE PCP: Steffi Pt was seen and examined in collaboration with Dr. 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 Primary Care Provider: Amor Kapadia MD This is a 31 yr old M who has a significant PMH of HTN, THEODORA on cpap, IBS, hx of alcohol abuse, mood disorder, intermittent explosive disorder who presents to ED with syncopal episode. 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 He felt unwell and dizzy. When he went to hop picker the wheel pamunkey after loading it with mulch he then hit the ground and his head hit the wheel pamunkey. He doesn't recall passing out, but he just woke up on the ground. When he was dizzy he complains of diaphoresis, nausea and chills. He denies any chest pain, palpitations, sob at time of event. He did have blurry, "buggy eyes." It was noted by bystanders that he was passed out for a few seconds to a minute. After he regained consciousness initially he laid there for a few minutes and felt confused about what happened. He didn't stand up for at least 10-15 minutes. He has been having random episodes of nausea, emesis and loss of appetite. He can be extremely hungry but has early satiety. He complains of emesis usually first thing in the a.m. since December, 1-2 months. This morning at 330am he got up to get a bottle of water. He drank some and went back to bed and in 2 minutes he was vomiting for 5-10 minutes. He denies any blood in vomit. He has been drinking tea and water trying to stay hydrated. He feels like he is losing weight but can't quantify as he doesn't weigh himself. He does notice his pants are very big. He denies recent illness, tick bites, sick contacts, melena, hematochezia, f/c/s, dysuria, increased urgency/freq, hematuria, low back pain, abd pain and constipation. He chews tobacco but does not smoke. He has chewed for 17 years ~ 1 can/2 days. Previous ETOH use but sober for 5months. He does use medical marijuana to sleep/anxiety. He uses "very little," to help him sleep at night. He has been using it since november. Denies recreational drug use. In ED pt remained hemodynamically stable. He was found to have sinus pauses with movement on rhythm strip. His initial trop was negative and initial ecg showed NSR. Chest x-ray showed cardiomegaly but no acute process. Allergies Allergy/AdvReac Type Severity Reaction Status Date / Time amlodipine Allergy Intermediate Hives Verified 09/18/21 15:30 hydrochlorothiazide Allergy Intermediate RASH, Verified 09/18/21 15:30 THROAT SWELLS ketorolac Allergy Intermediate RASH, Verified 09/18/21 15:30 NAUSEA amoxicillin Allergy Mild RASH Verified 09/18/21 15:30 Penicillins Allergy Mild AMOXICILLIN Verified 09/18/21 15:30 = RASH Home Medications Medication Instructions Recorded Confirmed Type albuterol sulfate 90 mcg/actuation 2 puff INHALATION Q4H PRN 07/08/21 02/16/22 History aerosol inhaler diclofenac sodium 75 mg 75 mg PO BID PRN 07/08/21 02/16/22 History tablet,delayed release sumatriptan succinate 6 mg/0.5 mL 6 mg SUBCUT DIRECTED PRN 07/08/21 02/16/22 History subcutaneous pen injector cyclobenzaprine 10 mg tablet 10 mg PO HS PRN 30 Days #30 tab 09/23/21 02/16/22 Rx dicyclomine 10 mg capsule 10 mg PO QID PRN #30 cap 09/23/21 02/16/22 Rx gabapentin 300 mg capsule 300 mg PO TID 30 Days #90 cap 09/23/21 02/16/22 Rx losartan 25 mg tablet 25 mg PO DAILY #30 tab 09/23/21 02/16/22 Rx omeprazole 20 mg capsule,delayed 20 mg PO DAILYBB 30 Days #30 cap 09/23/21 02/16/22 Rx release propranolol 10 mg tablet 20 mg PO BID 30 Days #120 tab 09/23/21 02/16/22 Rx trazodone 100 mg tablet 200 mg PO HS 30 Days #60 tab 09/23/21 02/16/22 Rx clonidine HCl 0.1 mg tablet 0.1 mg PO AMHS 02/16/22 02/16/22 History divalproex 500 mg tablet,extended 1,000 mg PO HS 02/16/22 02/16/22 History release 24 hr divalproex 500 mg tablet,extended 1,500 mg PO DAILY 02/16/22 02/16/22 History release 24 hr escitalopram oxalate 10 mg tablet 10 mg PO DAILY 02/16/22 02/16/22 History hydroxyzine pamoate 50 mg capsule 50 mg PO BID 02/16/22 02/16/22 History olanzapine 5 mg tablet 5 mg PO BID 02/16/22 02/16/22 History Past Med/Surg History Medical History Abdominal pain Allergic reaction Antisocial personality disorder Arterial hypotension Chest pain Depression High serum chloride Intentional drug overdose Low back pain Mood disorder Nicotine dependence Obesity Sleep apnea with use of continuous positive airway pressure (CPAP) Surgical History Hx of cholecystectomy Family History Grandmother Cancer Grandfather , 52 massive [place] Myocardial infarction Sudden Social History Smoking Status: Never smoker Tobacco Type: Smokeless Tobacco (Dip or Chew) Cigarettes Per Day: 1 can/2 days; Do You Dip or Chew Tobacco: Yes; Hx Alcohol Use: No Hx Substance Use: No Preferred Language: Syriac Communication Ability: Effective Drawbridge Tender Required: No Beliefs That Will Affect Care: None Current Living Situation: Alone Other Information That Helps Us Care for You: No Feels Safe at Home: Yes Safety Concerns: Feels Safe At This Time Assistive Devices: CPAP and Glasses Review of Systems Review of Systems: All systems reviewed & are unremarkable except as noted in HPI & below Physical Exam Physical Exam: Constitutional: WD/WN, vitals as above, NAD, sitting up in bed, pleasant, conversing easily Head: Normocephalic, Atraumatic Eyes: PERRL, conjunctivae normal, anicteric sclerae ENMT: external ear and nose normal, oropharynx normal Neck: trachea midline, no thyromegaly normal visual inspection Respiratory: normal respiratory effort, lungs clear to auscultation, no wheeze, rales, rhonchi. Normal insp/exp effort, no accessory muscle use Cardiovascular: RRR, distant heart sounds 2/2 to body habitus, no murmur, no e sukh Vessels: no JVD or carotid bruit Chest: normal inspection of chest Abdomen: normal bowel sounds, soft, nontender, no hepatosplenomegaly Musculoskeletal: no cyanosis or clubbing, AROM x 4 Skin: no rashes, warm and dry normal turgor Neurologic: PERRL, EOMI, accommodation nl, no face palsy, no dysarthria CN's II-XI intact bilaterally and moves all extremities Psychiatric: A+Ox3, euthymic affect : deferred Results & Data Results & Data ([facility]) Vital Signs (Past 12 Hours) Vital Signs Temp Pulse Pulse Resp BP BP Pulse Ox 02/16/22 11:00 62 18 142/82 H 97 02/16/22 10:37 60 18 119/73 97 02/16/22 10:34 75 15 131/76 97 02/16/22 10:33 63 18 119/73 96 02/16/22 10:32 64 17 131/66 97 02/16/22 10:30 62 22 133/69 96 02/16/22 10:22 63 18 96 02/16/22 10:19 61 20 98 02/16/22 10:00 36.5 C 62 20 130/83 97 Diagnostic Findings Chest X-Ray 02/16/22 10:14 XR chest 1V portable HISTORY: syncope COMPARISON: Chest 07/08/2021. FINDINGS: The cardiac silhouette remains borderline enlarged. No pleural effusions. No pneumothorax. No rib fractures. The lungs are clear. No evidence for pulmonary edema. IMPRESSION: No significant change compared to the prior study. No acute process. ACT 112: Negative or not required by law. Electronically signed by: Stevie Zheng M.D. 02/16/2022 10:33 AM ECG Rate (beats per minute): 64 Rhythm: normal sinus COVID-19 Results Results COVID-19 Adm Lab Results: RBC 5.07 M/uL (4.7-6.1) 02/16/22 WBC 7.79 K/uL (4.8-10.8) 02/16/22 Hgb 15.2 g/dL (14.0-18.0) 02/16/22 Hct 44.2 % (42-52) 02/16/22 Plt Count 316 K/uL (130-400) 02/16/22 Neutrophils (%) (Auto) 60.3 % 02/16/22 Lymphocytes (%) (Auto) 27.9 % 02/16/22 Monocytes # (Auto) 0.56 K/uL (0.11-0.59) 02/16/22 Eosinophils # (Auto) 0.31 K/uL (0-0.5) 02/16/22 Immature Granulocyte % (Auto) 0.3 % 02/16/22 Neutrophils # (Auto) 4.71 K/uL (1.4-6.5) 02/16/22 Lymphocytes # (Auto) 2.17 K/uL (1.2-3.4) 02/16/22 Monocytes # (Auto) 0.56 K/uL (0.11-0.59) 02/16/22 Eosinophils # (Auto) 0.31 K/uL (0-0.5) 02/16/22 Basophils # (Auto) 0.02 K/uL (0-0.2) 02/16/22 Immature Granulocyte # (Auto) 0.02 K/uL (0.00-0.02) 02/16/22 Na 140 mmol/L (136-145) 02/16/22 K 3.8 mmol/L (3.5-5.1) 02/16/22 Cl 106 mmol/L (98-107) 02/16/22 CO2 25 mmol/L (21-32) 02/16/22 Anion Gap 9 (3-11) 02/16/22 BUN 7 mg/dl (6-23) 02/16/22 Creatinine 0.96 mg/dl (0.6-1.4) 02/16/22 BUN/Creatinine Ratio 7.3 (10-20) L 02/16/22 Glucose Level 99 mg/dl (70-99(Fasting)) 02/16/22 Ca 9.2 mg/dl (8.5-10.1) 02/16/22 Total Bilirubin 0.9 mg/dl (0.2-1.0) 02/16/22 AST/SGOT 13 U/L (13-39) 02/16/22 ALT/SGPT 12 U/L (7-52) 02/16/22 Alkaline Phosphatase 57 U/L (34-104) 02/16/22 Total Protein 7.3 gm/dl (6.0-8.3) 02/16/22 Albumin 4.5 gm/dl (3.4-5.0) 02/16/22 Globulin 2.8 gm/dl (2.5-4.0) 02/16/22 Albumin/Globulin Ratio 1.6 (0.9-2) 02/16/22 PTT 31.1 Seconds (21.0-31.0) H 02/16/22 INR 1.1 (0.9-1.1) 02/16/22 SARS-CoV-2, RNA, NAAT NEGATIVE (NEGATIVE) 02/16/22 Chest X-Ray 02/16/22 Code Status & VTE Plan Code Status Full Code VTE Prophylaxis Plan VTE Prophylaxis will be ordered: No Supervising Physician Co-Signing Physician Notes 31 yr old M w/ PMH of HTN, THEODORA on cpap, IBS, hx of alcohol abuse (last drink 5 months ago), mood disorder, intermittent explosive disorder presented to the ED 5/ w/ syncopal episode. He was working today ([employer]) when he felt dizzy, then sat down to feel better which he didn't but picked up work again, before he took 2-3 steps, he fell, and was unconscious for few seconds per Pt's reporting of the bystander. He did feel nauseous, sweating and lightheaded prior to fall; reports being confused for 10-15 minutes after he found himself on the ground. Pt report having some kind of cancer in grandmother, grandfather dying of massive [place] at age 52; and father w/ DM. He reports starting to use medical marijuana since November. September lab is positive for urine marijuana. His other complains include vomiting randomly since December, mostly in the morning, 1-2 time a day, some day he might not have vomiting. He also reports early satiety since December, where he would feel very hungry and would feel full with 2-3 bites of food for the whole day. He reports losing weight but doesn't know how much, but reports his clothes are going down in size. From chart review though, his weight was 132 Kg in september of 2021 and is 141Kg this admission. f/u w/ further imagings, etiology not clear at this time. Vomiting and weakness could be due to marijuana use. Sinus pauses noted in the telemetry could be marijuana use vs prescription drugs. Appreciated help from psychiatry with psychiatry drugs. Ortho vitals negative. Lab review fairly WNL. CXR wnl. EKG w/ sinus arrythmia. Sinus pause noted over tele. hold beta ezequiel. cardio on board. hs trop wnl, trend. ECHO, CT Head, CTAP. renoprotective ivf for CTAP w/ con. Upon Exam GENERAL: Alert and oriented x3. NAD, on RA. Morbidly obese HEENT: No pallor, no icterus. Pupils equal, round and reactive to light. Oral mucosa moist. NECK: No JVD, no neck masses. No carotid bruits. HEART: S1 and S2 heard. Regular rate and rhythm. No murmur, no gallop. RESPIRATORY SYSTEM: Normal AP diameter. No accessory muscle use. No wheezing, no crackles. ABDOMEN: Soft, bowel sounds present, nontender, no distention. CENTRAL NERVOUS SYSTEM: No facial droop. Speech is clear. Obeys simple commands. Moves extremities. EXTREMITIES: No edema, no erythema seen. I have seen and examined the patient and have discussed the case with the provider above. I agree with the assessment and plan as stated.
[2022-02-16 12:32] LABS: Appearance Urine Clear (Clear); Bilirubin Urine Negative (Negative); Blood Urine Negative (Negative); Color Urine Yellow; Glucose Urine UA Negative (Negative); Ketones Urine Negative (Negative); Leukocyte Esterase Urine Negative (Negative); Nitrite Urine Negative (Negative); Protein Urine Negative (Negative); Specific Gravity Urine 1.009 (1.000-1.030); Urobilinogen Urine Negative (Negative)
[2022-02-16] MEDS ORDERED: SODIUM CHLORIDE 0.9% 1000ML 1,000 ML IV SCH (13:43)
[2022-02-16] MEDS ORDERED: OPTIRAY 320 100ml IV ONE (13:43)
[2022-02-16] MEDS ORDERED: ALUMINUM/MAGNESIUM SUSP 30 ML UDC PO PRN (13:54)
[2022-02-16] MEDS ORDERED: ACETAMINOPHEN 325 MG TAB PO PRN (13:54)
[2022-02-16] MEDS ORDERED: MAGNESIUM HYDROXIDE SUSP 30 ML UDC PO PRN (13:54)
[2022-02-16] MEDS ORDERED: POLYETHYLENE (MIRALAX) 17 GM PACK PO PRN (13:54)
[2022-02-16] MEDS ORDERED: ALBUTEROL HFA 8 GM INHALER INH PRN (13:54)
[2022-02-16] MEDS ORDERED: DICYCLOMINE HCL 10 MG CAP PO PRN (13:54)
--- NOTE | 2022-02-16 13:58 | CT Scan Report ---
CT SCAN OF THE BRAIN WITHOUT IV CONTRAST CLINICAL HISTORY: Syncope. Frontal head injury. COMPARISON STUDY: Report of CT of the brain dated 04/23/2020. TECHNIQUE: Unenhanced axial CT scan of the brain is performed from the vertex to the skull base. A d ose lowering technique was utilized adhering to the principles of ALARA. The skull base was scanned t wice due to motion artifact. FINDINGS: Brain parenchyma: The brain parenchyma is normal in appearance. There is no hemorrhage, mass effect, or evidence of acute territorial ischemia by CT criteria. Park-white matter differentiation is preser ton. No extra-axial fluid collection is seen. Ventricles, sulci, cisterns: Normal in configuration. Intracranial vasculature: The visualized intracranial vasculature at the skull base is normal in appe arance. Calvarium: There is no depressed calvarial fracture. Sinuses and mastoids: There is subtotal opacification of the right maxillary antrum. Mild to moderate mucosal thickening is noted in the left maxillary sinus. Advanced mucosal thickening is also seen wi thin the right frontal sinus and the ethmoid sinuses. There is trace mucosal thickening in the spheno id sinuses. The mastoid air cells are well pneumatized. Orbits: The bony orbits are grossly intact. IMPRESSION: There is no hemorrhage, mass effect, or evidence of acute territorial ischemia by CT catie lai. ACT 112: Negative or not required by law. Electronically signed by: Hima Maciel M.D. 02/16/2022 1:56 PM
[2022-02-16] MEDS: ONDANSETRON INJ 2 MG/ML 2 ML VIAL IV PRN (14:15)
--- NOTE | 2022-02-16 14:39 | Cardiology Consultation ---
Date of Consultation February 16, 2022 Assessment & Plan (1) Syncope: (2) Sinus pause: (3) Dizziness: (4) Sleep apnea with use of continuous positive airway pressure (CPAP): Patient is a 31-year-old male without prior history of cardiac disease or structural heart disease with underlying issues hypertension and depressive disorder on multiple drug regimen. Patient presents with symptoms of nausea emesis intermittently for several weeks with episode of acute syncope witnessed at work today. Transient loss of consciousness. Episodes of sinus arrest noted on telemetry with pauses between 3 and 6 seconds. EKG without acute injury or ischemia pattern or conduction system disease Echocardiogram with preserved LV function No initial findings to suggest myocardial ischemia but concerning the episodes occurred with exertion. Agree with trending enzymes. Suspect multiple drug regimen contributing. We will hold propanolol and clonidine. Check urgent Depakote level. Additional antidepressives/antipsychotics as per primary service and psychiatry Will increase losartan to 25 mg twice per day to cover blood pressure control Patient to be maintained on telemetry with bedside pacing pads. Would restrict activity until rhythm stabilizes N.p.o. after midnight History of Present Illness Reason for Consultation: Syncope, sinus pauses Requesting Physician: Dr. Lemus Attending Physician: Dayana Lemus MD History of Present Illness Patient is a 31-year-old male without prior history of cardiac disease his underlying issues include 1. Hypertension 2. Obesity 3. Obstructive sleep apnea 4. 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 He notes having felt poorly off and on for several weeks and months including episodes of extended emesis last evening persistent headache this morning. No chest pains worsening shortness of breath tachypalpitations. No prior syncope. In emergency room patient had sev eral episodes of sinus pauses with activity. Appetite has been fair per patient though weight has been trending upward. No history of diabetes mellitus or marked hyperlipidemia. No family history of premature coronary disease or conduction abnormalities. Allergies Allergy/AdvReac Type Severity Reaction Status Date / Time amlodipine Allergy Intermediate Hives Verified 09/18/21 15:30 hydrochlorothiazide Allergy Intermediate RASH, Verified 09/18/21 15:30 THROAT SWELLS ketorolac Allergy Intermediate RASH, Verified 09/18/21 15:30 NAUSEA amoxicillin Allergy Mild RASH Verified 09/18/21 15:30 Penicillins Allergy Mild AMOXICILLIN Verified 09/18/21 15:30 = RASH Home Medications Medication Instructions Recorded Confirmed Type albuterol sulfate 90 mcg/actuation 2 puff INHALATION Q4H PRN 07/08/21 02/16/22 History aerosol inhaler diclofenac sodium 75 mg 75 mg PO BID PRN 07/08/21 02/16/22 History tablet,delayed release sumatriptan succinate 6 mg/0.5 mL 6 mg SUBCUT DIRECTED PRN 07/08/21 02/16/22 History subcutaneous pen injector cyclobenzaprine 10 mg tablet 10 mg PO HS PRN 30 Days #30 tab 09/23/21 02/16/22 Rx dicyclomine 10 mg capsule 10 mg PO QID PRN #30 cap 09/23/21 02/16/22 Rx gabapentin 300 mg capsule 300 mg PO TID 30 Days #90 cap 09/23/21 02/16/22 Rx losartan 25 mg tablet 25 mg PO DAILY #30 tab 09/23/21 02/16/22 Rx omeprazole 20 mg capsule,delayed 20 mg PO DAILYBB 30 Days #30 cap 09/23/21 02/16/22 Rx release propranolol 10 mg tablet 20 mg PO BID 30 Days #120 tab 09/23/21 02/16/22 Rx trazodone 100 mg tablet 200 mg PO HS 30 Days #60 tab 09/23/21 02/16/22 Rx clonidine HCl 0.1 mg tablet 0.1 mg PO AMHS 02/16/22 02/16/22 History divalproex 500 mg tablet,extended 1,000 mg PO HS 02/16/22 02/16/22 History release 24 hr divalproex 500 mg tablet,extended 1,500 mg PO DAILY 02/16/22 02/16/22 History release 24 hr escitalopram oxalate 10 mg tablet 10 mg PO DAILY 02/16/22 02/16/22 History hydroxyzine pamoate 50 mg capsule 50 mg PO BID 02/16/22 02/16/22 History olanzapine 5 mg tablet 5 mg PO BID 02/16/22 02/16/22 History Patient History Medical History Abdominal pain Allergic reaction Antisocial personality disorder Arterial hypotension Chest pain Depression High serum chloride Intentional drug overdose Low back pain Mood disorder Nicotine dependence Obesity Sleep apnea with use of continuous positive airway pressure (CPAP) Surgical History Hx of cholecystectomy Family History Grandmother Cancer Grandfather , 52 massive CO Myocardial infarction Sudden Social History Smoking Status: Never smoker Tobacco Type: Smokeless Tobacco (Dip or Chew) Cigarettes Per Day: 1 can/2 days; Do You Dip or Chew Tobacco: Yes; Hx Alcohol Use: No Hx Substance Use: No Preferred Language: Irish Communication Ability: Effective Cam Specialist Required: No Beliefs That Will Affect Care: None Current Living Situation: Alone Other Information That Helps Us Care for You: No Feels Safe at Home: Yes Safety Concerns: Feels Safe At This Time Assistive Devices: CPAP and Glasses Review of Systems Review of Systems: All systems reviewed & are unremarkable except as noted in HPI & below Physical Exam Constitutional: WD/WN, vitals as above + obese; no acute distress Eyes: PERRL, conjunctivae normal, anicteric sclerae ENMT: external ear and nose normal, oropharynx normal Neck: trachea midline, no thyromegaly Respiratory: normal respiratory effort, lungs clear to auscultation Cardiovascular: Rate/Rhythm: regular rate and regular rhythm Heart Sounds: normal S1 and normal S2; no gallop and no murmur Palpation: normal PMI Vessels: normal carotid upstroke and radial pulses present; no JVD and no carotid bruit Extremities: no edema Gastrointestinal (Abdomen): normal bowel sounds, soft, nontender, no hepatosplenomegaly Musculoskeletal: no cyanosis or clubbing, extremities motor strength 5/5 Skin: no rashes, warm and dry Neurologic: PERRL, EOMI, accommodation nl, no face palsy, no dysarthria Psychiatric: Orientation: alert and oriented x 3 Affect: + flat affect Results & Data ([facility]) Vital Signs (Past 12 Hours) Vital Signs Temp Pulse Pulse Resp BP BP Pulse Ox 02/16/22 14:31 60 02/16/22 13:57 36.7 C 61 18 142/89 H 97 02/16/22 13:03 36.8 C 55 L 17 123/59 L 99 02/16/22 11:00 62 18 142/82 H 97 02/16/22 10:37 60 18 119/73 97 02/16/22 10:34 75 15 131/76 97 02/16/22 10:33 63 18 119/73 96 02/16/22 10:32 64 17 131/66 97 02/16/22 10:30 62 22 133/69 96 02/16/22 10:22 63 18 96 02/16/22 10:19 61 20 98 02/16/22 10:00 36.5 C 62 20 130/83 97 Laboratory Results Laboratory Results - last 24 hr 02/16/22 02/16/22 02/16/22 10:19 10:19 10:19 WBC 7.79 RBC 5.07 Hgb 15.2 Hct 44.2 MCV 87.2 MCH 30.0 MCHC 34.4 RDW Std Deviation 41.7 RDW Coeff of Maggie 13.1 Plt Count 316 MPV 11.8 H Immature Gran % (Auto) 0.3 Neut % (Auto) 60.3 Lymph % (Auto) 27.9 [place] % (Auto) 7.2 Eos % (Auto) 4.0 Baso % (Auto) 0.3 Neut # (Auto) 4.71 Lymph # (Auto) 2.17 [place] # (Auto) 0.56 Eos # (Auto) 0.31 Baso # (Auto) 0.02 Immature Gran # (Auto) 0.02 PT 11.4 INR 1.1 APTT 31.1 H PTT Ratio 1.1 Sodium 140 Potassium 3.8 Chloride 106 Carbon Dioxide 25 Anion Gap 9 BUN 7 Creatinine 0.96 Est Cr Clr Drug Dosing 168.6 Est GFR ( Amer) 122.4 Est GFR (Non-Af Amer) 105.6 BUN/Creatinine Ratio 7.3 L Glucose 99 Calcium 9.2 Magnesium 1.8 Total Bilirubin 0.9 AST 13 ALT 12 Alkaline Phosphatase 57 Troponin I High Sens 2.7 Total Protein 7.3 Albumin 4.5 Globulin 2.8 Albumin/Globulin Ratio 1.6 TSH Urine Color Urine Appearance Urine pH Ur Specific [place] Urine Protein Urine Glucose (UA) Urine Ketones Urine Blood Urine Nitrite Urine Bilirubin Urine Urobilinogen Ur Leukocyte Esterase Urine Opiates Screen Ur Methadone, Qual Urine Barbiturates Valproic Acid Ur Phencyclidine (PCP) U Amphetamin/Meth Scrn MDMA (Ecstasy) Screen U Benzodiazepines Scrn Ur Cocaine Metabolite U Marijuana (THC) Screen U Marijuana THC Carboxy Drug Screen Comment Lyme Disease IgG Ab Lyme Disease IgM Ab SARS-CoV-2, RNA, NAAT 02/16/22 02/16/22 02/16/22 10:19 10:19 11:07 WBC RBC Hgb Hct MCV MCH MCHC RDW Std Deviation RDW Coeff of Maggie Plt Count MPV Immature Gran % (Auto) Neut % (Auto) Lymph % (Auto) [place] % (Auto) Eos % (Auto) Baso % (Auto) Neut # (Auto) Lymph # (Auto) [place] # (Auto) Eos # (Auto) Baso # (Auto) Immature Gran # (Auto) PT INR APTT PTT Ratio Sodium Potassium Chloride Carbon Dioxide Anion Gap BUN Creatinine Est Cr Clr Drug Dosing Est GFR ( Amer) Est GFR (Non-Af Amer) BUN/Creatinine Ratio Glucose Calcium Magnesium Total Bilirubin AST ALT Alkaline Phosphatase Troponin I High Sens Total Protein Albumin Globulin Albumin/Globulin Ratio TSH 0.920 Urine Color Urine Appearance Urine pH Ur Specific [place] Urine Protein Urine Glucose (UA) Urine Ketones Urine Blood Urine Nitrite Urine Bilirubin Urine Urobilinogen Ur Leukocyte Esterase Urine Opiates Screen Ur Methadone, Qual Urine Barbiturates Valproic Acid Ur Phencyclidine (PCP) U Amphetamin/Meth Scrn MDMA (Ecstasy) Screen U Benzodiazepines Scrn Ur Cocaine Metabolite U Marijuana (THC) Screen U Marijuana THC Carboxy Drug Screen Comment Lyme Disease IgG Ab Negative Lyme Disease IgM Ab Negative SARS-CoV-2, RNA, NAAT NEGATIVE 02/16/22 02/16/22 02/16/22 11:07 11:07 11:07 WBC RBC Hgb Hct MCV MCH MCHC RDW Std Deviation RDW Coeff of Maggie Plt Count MPV Immature Gran % (Auto) Neut % (Auto) Lymph % (Auto) [place] % (Auto) Eos % (Auto) Baso % (Auto) Neut # (Auto) Lymph # (Auto) [place] # (Auto) Eos # (Auto) Baso # (Auto) Immature Gran # (Auto) PT INR APTT PTT Ratio Sodium Potassium Chloride Carbon Dioxide Anion Gap BUN Creatinine Est Cr Clr Drug Dosing Est GFR ( Amer) Est GFR (Non-Af Amer) BUN/Creatinine Ratio Glucose Calcium Magnesium Total Bilirubin AST ALT Alkaline Phosphatase Troponin I High Sens Total Protein Albumin Globulin Albumin/Globulin Ratio TSH Urine Color Yellow Urine Appearance Clear Urine pH 6.0 Ur Specific [place] 1.009 Urine Protein Negative Urine Glucose (UA) Negative Urine Ketones Negative Urine Blood Negative Urine Nitrite Negative Urine Bilirubin Negative Urine Urobilinogen Negative Ur Leukocyte Esterase Negative Urine Opiates Screen Neg Ur Methadone, Qual Neg Urine Barbiturates Neg Valproic Acid Ur Phencyclidine (PCP) Neg U Amphetamin/Meth Scrn Neg MDMA (Ecstasy) Screen Neg U Benzodiazepines Scrn Neg Ur Cocaine Metabolite Neg U Marijuana (THC) Screen Pos H U Marijuana THC Carboxy Pending Drug Screen Comment Pending Lyme Disease IgG Ab Lyme Disease IgM Ab SARS-CoV-2, RNA, NAAT 02/16/22 02/16/22 12:34 14:36 WBC RBC Hgb Hct MCV MCH MCHC RDW Std Deviation RDW Coeff of Maggie Plt Count MPV Immature Gran % (Auto) Neut % (Auto) Lymph % (Auto) [place] % (Auto) Eos % (Auto) Baso % (Auto) Neut # (Auto) Lymph # (Auto) [place] # (Auto) Eos # (Auto) Baso # (Auto) Immature Gran # (Auto) PT INR APTT PTT Ratio Sodium Potassium Chloride Carbon Dioxide Anion Gap BUN Creatinine Est Cr Clr Drug Dosing Est GFR ( Amer) Est GFR (Non-Af Amer) BUN/Creatinine Ratio Glucose Calcium Magnesium Total Bilirubin AST ALT Alkaline Phosphatase Troponin I High Sens 2.6 Total Protein Albumin Globulin Albumin/Globulin Ratio TSH Urine Color Urine Appearance Urine pH Ur Specific [place] Urine Protein Urine Glucose (UA) Urine Ketones Urine Blood Urine Nitrite Urine Bilirubin Urine Urobilinogen Ur Leukocyte Esterase Urine Opiates Screen Ur Methadone, Qual Urine Barbiturates Valproic Acid Pending Ur Phencyclidine (PCP) U Amphetamin/Meth Scrn MDMA (Ecstasy) Screen U Benzodiazepines Scrn Ur Cocaine Metabolite U Marijuana (THC) Screen U Marijuana THC Carboxy Drug Screen Comment Lyme Disease IgG Ab Lyme Disease IgM Ab SARS-CoV-2, RNA, NAAT Diagnostic Findings Echocardiogram preliminary review preserved wall motion and LV function no significant valvular CT head 02/16/2022 no intracranial pathology ECG Additional Comments: EKG 02/16/2022: Sinus bradycardia with sinus arrhythmia no ST segment abnormalities or QT prolongation
--- NOTE | 2022-02-16 14:45 | CT Scan Report ---
ABDOMEN AND PELVIS CT WITH IV CONTRAST CT DOSE: 2644.82 mGy.cm HISTORY: Acute nausea with vomiting vomit TECHNIQUE: Multiaxial CT images of the abdomen and pelvis were performed following the IV administrat ion of 94 cc of Optiray, A dose lowering technique was utilized adhering to the principles of ALARA. COMPARISON STUDY: No comparisons are available during system downtime FINDINGS: Mild groundglass densities of the lung bases. There are a few scattered solid pulmonary nod ules measuring up to 3-4 mm. Mild bronchial wall thickening. There is no pneumatosis or pneumoperiton eum identified. Imaged inferior cardiac chambers are unremarkable. The spleen is mildly enlarged, 14. 5 cm. The pancreas, adrenal glands and liver appear unremarkable. Patency of the hepatic and portal v eins. There is symmetric enhancement of the kidneys. Subcentimeter hypodensity of the superior pole l eft kidney is too small to characterize. Mild nonspecific urinary bladder wall thickening. The aorta and IVC are within normal limits. There are no pathologically enlarged lymph nodes identified. There are a few prominent subcentimeter retroperitoneal lymph nodes which may be physiologic. There is no bowel obstruction or bowel wall thickening. Mild colonic diverticulosis. Noninflamed appe ndix. No ascites or mesenteric inflammation. Age-indeterminate superior endplate compression deformit y without retropulsion involves the T8 vertebral body. IMPRESSION: 1. No bowel obstruction or bowel wall thickening. Normal appendix. 2. Splenomegaly. 3. Age-indeterminate superior endplate compression deformity of the T8 vertebral body. 4. Groundglass densities of the lung bases are suggestive of probable atelectasis. A nonspecific pneu monitis could appear similarly. 5. There are a few scattered solid pulmonary nodules of the lung bases measuring up to 4 mm. ACT 112: Negative or not required by law. The above report was generated using voice recognition software. It may contain grammatical, syntax o r spelling errors. Electronically signed by: Hans Tena M.D. 02/16/2022 2:43 PM
[2022-02-16] MEDS: GABAPENTIN 300 MG CAP PO SCH ×2 (16:07→20:22)
--- NOTE | 2022-02-16 16:58 | Communication Note ---
Date of Service: February 16, 2022 consult received. Case reviewed with EJFF Michael. Patient has history of several psych admits [facility] for bipolar II, SI, alcohol dependence (went to rehab in Sep 2021). On multiple psychiatric medications in combo with his medical MJ and BP meds (clonidine and propranolol held). EKG nl QTc, bradycardia with sinus arrthymia, cardiology following. The patient also has vomiting. Depakote level is pending. Depakote can rarely be associated with pancreatitis, consider amylase/lipase if persistent. Can't exclude pot hyperemesis (rx is typically capsaicin). Combo of Lexapro, Vistaril, trazodone increase risk for QTc prolongation (doesn't have), Zyprexa dose rather low but monitor orthostatics. Suspect clonidine/propranolol with donald more likely cause than other psych meds but full consult to follow within 24 hrs.
[2022-02-16] MEDS ORDERED: CAPSAICIN CR 0.075% 60 GM TUBE EXT PRN (17:20)
[2022-02-16] MEDS ORDERED: Nursing to Pharmacy Communication SCH (18:00)
[2022-02-16] MEDS: traZODone HCL 100 MG TAB PO SCH (20:23)
[2022-02-16] MEDS: hydrOXYzine HCl 25 MG TAB PO SCH (20:24)
[2022-02-16] MEDS: OLANZapine 5 MG TABLET PO SCH (20:24)
[2022-02-16] MEDS: LOSARTAN POTASSIUM 25 MG TAB PO SCH (20:25)
[2022-02-16] MEDS ORDERED: ATROPINE SULFATE 0.1 MG/ML 10ML SYR IV PRN (20:53)
[2022-02-16] MEDS ORDERED: POTASSIUM CHLORIDE CRTAB 20 MEQ TABCR PO STA (20:53)
[2022-02-16] MEDS ORDERED: cloNIDine HCL 0.1 MG TAB PO SCH (21:00)
[2022-02-16] MEDS ORDERED: DIVALPROEX EXTENDED RELEASE 500 MG TAB PO SCH (21:00)
[2022-02-16] MEDS ORDERED: PROPRANOLOL HCL 20 MG TAB PO SCH (21:00)
[2022-02-16] MEDS: MAGNESIUM SULFATE / D5W 1 GM/100 ML BAG IV SCH ×2 (21:31→23:40)
[2022-02-17] MEDS: ONDANSETRON INJ 2 MG/ML 2 ML VIAL IV PRN (05:52)
[2022-02-17 06:05] LABS: Basophils # (auto) 0.02 K/uL (0-0.2); Basophils % (auto) 0.3 %; Eosinophils # (auto) 0.36 K/uL (0-0.5); Hematocrit (blood only) 42.7 % (42-52); Hemoglobin 14.5 g/dL (14.0-18.0); Immature Granulocytes # (auto) 0.01 K/uL (0.00-0.02); Immature Granulocytes % (auto) 0.2 %; Lymphocytes # (auto) 2.62 K/uL (1.2-3.4); Lymphocytes % (auto) 43.7 %; Mean Corpuscular Volume 88.2 fL (80-100); Mean Platelet Volume 11.6 fL (7.4-10.4); Monocytes # (auto) 0.64 K/uL (0.11-0.59); Monocytes % (auto) 10.7 %; Neutrophils # (auto) 2.35 K/uL (1.4-6.5); Neutrophils % (auto) 39.1 %; Platelet Count 267 K/uL (130-400); RDW Coefficient of Variation 13.2 % (11.5-14.5); RDW Standard Deviation 42.6 fL (36.4-46.3); Red Blood Count 4.84 M/uL (4.7-6.1)
--- NOTE | 2022-02-17 06:29 | Psychiatric Consultation ---
Date of Consultation February 17, 2022 Impression / Recommendations Impression 31 yo male with MDD, bipolar type II, intermittent explosive disorder, PTSD, substance-induced mood disorder and antisocial personality disorder s/p syncopal episode with some N/V. Medical MJ user. Cannot exclude migraine variant. (1) MDD (major depressive disorder), recurrent episode, moderate: (2) Alcohol use disorder: (3) Syncope: continue current psych meds, home med list should include Naltrexone 50 mg so please resume when able. Defer any decrease in trazodone to hospitalist/cards. nutrition counselor patient re: medical MJ. psych f/u as scheduled Psych History Identifying Data CHANDRA AMAYA is a 31-year-old male, has a history of prior diagnoses of MDD, bipolar type II, intermittent explosive disorder, PTSD, substance-induced mood disorder and antisocial personality disorder, last admitted to [facility] behavioral health on 09/18/21 on a 201 voluntary commitment for worsening depression and passive SI. He was discharged to rehab at that time. Chief Complaint syncopal episode History of Present Illness current medications are prescribed by a psychiatric nurse practictioner Myla Adan (?[facility]). Appears last rx of naltrexone 50 mg was filled late January. States he has been taking it and sober from ETOH. confirms "everything has been great" moodwise and no changes in psychiatric medications since last hospital stay in Sep. He doesn't feel that he can sleep without trazodone and would prefer to continue it even if rarely can contribute to donald since some other meds are held. He is aware that there are concerns that medical MJ can have unknown interactions with his medications denies hx of migraine but describes acute onset of dizziness and N that is somewhat persistent. as per chart review on 02/16/22: consult received. Case reviewed with JEFF see. Patient has history of several psych admits [facility] for bipolar II, SI, alcohol dependence (went to rehab in Sep 2021). On multiple psychiatric medications in combo with his medical MJ and BP meds (clonidine and propranolol held). EKG nl QTc, bradycardia with sinus arrthymia, cardiology following. The patient also has vomiting. Depakote level is pending. Depakote can rarely be associated with pancreatitis, consider amylase/lipase if persistent. Can't exclude pot hyperemesis (rx is typically capsaicin). Combo of Lexapro, Vistaril, trazodone increase risk for QTc prolongation (doesn't have), Zyprexa dose rather low but monitor orthostatics. Suspect clonidine/propranolol with donald more likely cause than other psych meds but full consult to follow within 24 hrs. OD attempt with prior admits to [facility] behavioral health in 2020. Allergies Allergy/AdvReac Type Severity Reaction Status Date / Time amlodipine Allergy Intermediate Hives Verified 09/18/21 15:30 hydrochlorothiazide Allergy Intermediate RASH, Verified 09/18/21 15:30 THROAT SWELLS ketorolac Allergy Intermediate RASH, Verified 09/18/21 15:30 NAUSEA amoxicillin Allergy Mild RASH Verified 09/18/21 15:30 Penicillins Allergy Mild AMOXICILLIN Verified 09/18/21 15:30 = RASH Home Medications Medication Instructions Recorded Confirmed Type albuterol sulfate 90 mcg/actuation 2 puff INHALATION Q4H PRN 07/08/21 02/16/22 History aerosol inhaler diclofenac sodium 75 mg 75 mg PO BID PRN 07/08/21 02/16/22 History tablet,delayed release sumatriptan succinate 6 mg/0.5 mL 6 mg SUBCUT DIRECTED PRN 07/08/21 02/16/22 History subcutaneous pen injector cyclobenzaprine 10 mg tablet 10 mg PO HS PRN 30 Days #30 tab 09/23/21 02/16/22 Rx dicyclomine 10 mg capsule 10 mg PO QID PRN #30 cap 09/23/21 02/16/22 Rx gabapentin 300 mg capsule 300 mg PO TID 30 Days #90 cap 09/23/21 02/16/22 Rx losartan 25 mg tablet 25 mg PO DAILY #30 tab 09/23/21 02/16/22 Rx omeprazole 20 mg capsule,delayed 20 mg PO DAILYBB 30 Days #30 cap 09/23/21 02/16/22 Rx release propranolol 10 mg tablet 20 mg PO BID 30 Days #120 tab 09/23/21 02/16/22 Rx trazodone 100 mg tablet 200 mg PO HS 30 Days #60 tab 09/23/21 02/16/22 Rx clonidine HCl 0.1 mg tablet 0.1 mg PO AMHS 02/16/22 02/16/22 History divalproex 500 mg tablet,extended 1,000 mg PO HS 02/16/22 02/16/22 History release 24 hr divalproex 500 mg tablet,extended 1,500 mg PO DAILY 02/16/22 02/16/22 History release 24 hr escitalopram oxalate 10 mg tablet 10 mg PO DAILY 02/16/22 02/16/22 History hydroxyzine pamoate 50 mg capsule 50 mg PO BID 02/16/22 02/16/22 History olanzapine 5 mg tablet 5 mg PO BID 02/16/22 02/16/22 History Personal History Beliefs That Will Affect Care: None Patient History Medical History Abdominal pain Allergic reaction Antisocial personality disorder Arterial hypotension Chest pain Depression High serum chloride Intentional drug overdose Low back pain Mood disorder Nicotine dependence Obesity Sleep apnea with use of continuous positive airway pressure (CPAP) Surgical History Hx of cholecystectomy Family History Grandmother Cancer Grandfather , 52 massive PA Myocardial infarction Sudden Social History Smoking Status: Never smoker Tobacco Type: Smokeless Tobacco (Dip or Chew) Cigarettes Per Day: 1 can/2 days; Do You Dip or Chew Tobacco: Yes; Hx Alcohol Use: No Hx Substance Use: No Preferred Language: Arabic Communication Ability: Effective Blacksmith Supervisor Required: No Beliefs That Will Affect Care: None Current Living Situation: Alone Other Information That Helps Us Care for You: No Feels Safe at Home: Yes Safety Concerns: Feels Safe At This Time Assistive Devices: CPAP and Glasses Physical Exam Psychiatric: Orientation: alert and oriented x 3 Apperance: appropriately dressed and appropriately groomed Eye Contact: good eye contact Motor Behavior: no abnormal motor movements Speech: normal rate/rhythm/volume of speech Affect: + constricted affect Mood: no depressed mood Thought Process: goal directed thought process Thought Content: reality based without delusions Suicidal Thoughts: denies suicidal thoughts Homicidal Thoughts: denies homicidal thoughts Hallucinations: no auditory hallucinations and no visual hallucinations Cognition: attention grossly intact and language grossly intact Estimated Intelligence: consistent with education level Vital Signs (Past 24 Hours): Last Vital Signs Temp 36.4 C L 02/17/22 03:57 Pulse 76 02/17/22 03:57 Resp 20 02/17/22 03:57 BP 113/75 02/17/22 03:57 Pulse Ox 100 02/17/22 03:57 Review of Systems All systems reviewed & are unremarkable except as noted in HPI & below Results & Data (PSY) Laboratory Results Labs 02/16/22 02/16/22 02/16/22 10:19 10:19 10:19 WBC 7.79 RBC 5.07 Hgb 15.2 Hct 44.2 MCV 87.2 MCH 30.0 MCHC 34.4 RDW Std Deviation 41.7 RDW Coeff of Maggie 13.1 Plt Count 316 MPV 11.8 H Immature Gran % (Auto) 0.3 Neut % (Auto) 60.3 Lymph % (Auto) 27.9 [place] % (Auto) 7.2 Eos % (Auto) 4.0 Baso % (Auto) 0.3 Neut # (Auto) 4.71 Lymph # (Auto) 2.17 [place] # (Auto) 0.56 Eos # (Auto) 0.31 Baso # (Auto) 0.02 Immature Gran # (Auto) 0.02 PT 11.4 INR 1.1 APTT 31.1 H PTT Ratio 1.1 Sodium 140 Potassium 3.8 Chloride 106 Carbon Dioxide 25 Anion Gap 9 BUN 7 Creatinine 0.96 Est Cr Clr Drug Dosing 168.6 Est GFR ( Amer) 122.4 Est GFR (Non-Af Amer) 105.6 BUN/Creatinine Ratio 7.3 L Glucose 99 Calcium 9.2 Magnesium 1.8 Total Bilirubin 0.9 AST 13 ALT 12 Alkaline Phosphatase 57 Troponin I High Sens 2.7 Total Protein 7.3 Albumin 4.5 Globulin 2.8 Albumin/Globulin Ratio 1.6 TSH Urine Color Urine Appearance Urine pH Ur Specific [place] Urine Protein Urine Glucose (UA) Urine Ketones Urine Blood Urine Nitrite Urine Bilirubin Urine Urobilinogen Ur Leukocyte Esterase Urine Opiates Screen Ur Methadone, Qual Urine Barbiturates Valproic Acid Ur Phencyclidine (PCP) U Amphetamin/Meth Scrn MDMA (Ecstasy) Screen U Benzodiazepines Scrn Ur Cocaine Metabolite U Marijuana (THC) Screen Lyme Disease IgG Ab Lyme Disease IgM Ab SARS-CoV-2, RNA, NAAT 02/16/22 02/16/22 02/16/22 10:19 10:19 11:07 WBC RBC Hgb Hct MCV MCH MCHC RDW Std Deviation RDW Coeff of Maggie Plt Count MPV Immature Gran % (Auto) Neut % (Auto) Lymph % (Auto) [place] % (Auto) Eos % (Auto) Baso % (Auto) Neut # (Auto) Lymph # (Auto) [place] # (Auto) Eos # (Auto) Baso # (Auto) Immature Gran # (Auto) PT INR APTT PTT Ratio Sodium Potassium Chloride Carbon Dioxide Anion Gap BUN Creatinine Est Cr Clr Drug Dosing Est GFR ( Amer) Est GFR (Non-Af Amer) BUN/Creatinine Ratio Glucose Calcium Magnesium Total Bilirubin AST ALT Alkaline Phosphatase Troponin I High Sens Total Protein Albumin Globulin Albumin/Globulin Ratio TSH 0.920 Urine Color Urine Appearance Urine pH Ur Specific [place] Urine Protein Urine Glucose (UA) Urine Ketones Urine Blood Urine Nitrite Urine Bilirubin Urine Urobilinogen Ur Leukocyte Esterase Urine Opiates Screen Ur Methadone, Qual Urine Barbiturates Valproic Acid Ur Phencyclidine (PCP) U Amphetamin/Meth Scrn MDMA (Ecstasy) Screen U Benzodiazepines Scrn Ur Cocaine Metabolite U Marijuana (THC) Screen Lyme Disease IgG Ab Negative Lyme Disease IgM Ab Negative SARS-CoV-2, RNA, NAAT NEGATIVE 02/16/22 02/16/22 02/16/22 11:07 11:07 12:34 WBC RBC Hgb Hct MCV MCH MCHC RDW Std Deviation RDW Coeff of Maggie Plt Count MPV Immature Gran % (Auto) Neut % (Auto) Lymph % (Auto) [place] % (Auto) Eos % (Auto) Baso % (Auto) Neut # (Auto) Lymph # (Auto) [place] # (Auto) Eos # (Auto) Baso # (Auto) Immature Gran # (Auto) PT INR APTT PTT Ratio Sodium Potassium Chloride Carbon Dioxide Anion Gap BUN Creatinine Est Cr Clr Drug Dosing Est GFR ( Amer) Est GFR (Non-Af Amer) BUN/Creatinine Ratio Glucose Calcium Magnesium Total Bilirubin AST ALT Alkaline Phosphatase Troponin I High Sens 2.6 Total Protein Albumin Globulin Albumin/Globulin Ratio TSH Urine Color Yellow Urine Appearance Clear Urine pH 6.0 Ur Specific [place] 1.009 Urine Protein Negative Urine Glucose (UA) Negative Urine Ketones Negative Urine Blood Negative Urine Nitrite Negative Urine Bilirubin Negative Urine Urobilinogen Negative Ur Leukocyte Esterase Negative Urine Opiates Screen Neg Ur Methadone, Qual Neg Urine Barbiturates Neg Valproic Acid Ur Phencyclidine (PCP) Neg U Amphetamin/Meth Scrn Neg MDMA (Ecstasy) Screen Neg U Benzodiazepines Scrn Neg Ur Cocaine Metabolite Neg U Marijuana (THC) Screen Pos H Lyme Disease IgG Ab Lyme Disease IgM Ab SARS-CoV-2, RNA, NAAT 02/16/22 02/16/22 02/17/22 14:36 17:49 00:13 WBC RBC Hgb Hct MCV MCH MCHC RDW Std Deviation RDW Coeff of Maggie Plt Count MPV Immature Gran % (Auto) Neut % (Auto) Lymph % (Auto) [place] % (Auto) Eos % (Auto) Baso % (Auto) Neut # (Auto) Lymph # (Auto) [place] # (Auto) Eos # (Auto) Baso # (Auto) Immature Gran # (Auto) PT INR APTT PTT Ratio Sodium Potassium Chloride Carbon Dioxide Anion Gap BUN Creatinine Est Cr Clr Drug Dosing Est GFR ( Amer) Est GFR (Non-Af Amer) BUN/Creatinine Ratio Glucose Calcium Magnesium Total Bilirubin AST ALT Alkaline Phosphatase Troponin I High Sens 3.2 2.8 Total Protein Albumin Globulin Albumin/Globulin Ratio TSH Urine Color Urine Appearance Urine pH Ur Specific [place] Urine Protein Urine Glucose (UA) Urine Ketones Urine Blood Urine Nitrite Urine Bilirubin Urine Urobilinogen Ur Leukocyte Esterase Urine Opiates Screen Ur Methadone, Qual Urine Barbiturates Valproic Acid 75 Ur Phencyclidine (PCP) U Amphetamin/Meth Scrn MDMA (Ecstasy) Screen U Benzodiazepines Scrn Ur Cocaine Metabolite U Marijuana (THC) Screen Lyme Disease IgG Ab Lyme Disease IgM Ab SARS-CoV-2, RNA, NAAT 02/17/22 05:36 WBC 6.00 RBC 4.84 Hgb 14.5 Hct 42.7 MCV 88.2 MCH 30.0 MCHC 34.0 RDW Std Deviation 42.6 RDW Coeff of Maggie 13.2 Plt Count 267 MPV 11.6 H Immature Gran % (Auto) 0.2 Neut % (Auto) 39.1 Lymph % (Auto) 43.7 [place] % (Auto) 10.7 Eos % (Auto) 6.0 Baso % (Auto) 0.3 Neut # (Auto) 2.35 Lymph # (Auto) 2.62 [place] # (Auto) 0.64 H Eos # (Auto) 0.36 Baso # (Auto) 0.02 Immature Gran # (Auto) 0.01 PT INR APTT PTT Ratio Sodium Potassium Chloride Carbon Dioxide Anion Gap BUN Creatinine Est Cr Clr Drug Dosing Est GFR ( Amer) Est GFR (Non-Af Amer) BUN/Creatinine Ratio Glucose Calcium Magnesium Total Bilirubin AST ALT Alkaline Phosphatase Troponin I High Sens Total Protein Albumin Globulin Albumin/Globulin Ratio TSH Urine Color Urine Appearance Urine pH Ur Specific [place] Urine Protein Urine Glucose (UA) Urine Ketones Urine Blood Urine Nitrite Urine Bilirubin Urine Urobilinogen Ur Leukocyte Esterase Urine Opiates Screen Ur Methadone, Qual Urine Barbiturates Valproic Acid Ur Phencyclidine (PCP) U Amphetamin/Meth Scrn MDMA (Ecstasy) Screen U Benzodiazepines Scrn Ur Cocaine Metabolite U Marijuana (THC) Screen Lyme Disease IgG Ab Lyme Disease IgM Ab SARS-CoV-2, RNA, NAAT Medications Administered Acetaminophen (Acetaminophen 325 Mg Tab) 650 mg PO Q4H PRN PRN Reason: Pain or Fever Stop: 03/18/22 13:53 Last Admin: 02/16/22 17:06 Dose: 650 mg Documented by: [id number] Atropine Sulfate (Atropine Sulfate 0.1 Mg/Ml 10ml Syr) 1 mg IV Q3M PRN PRN Reason: symptomatic bradycardia Stop: 03/18/22 20:52 Last Admin: 02/17/22 02:30 Dose: 1 mg Documented by: [id number] Gabapentin (Gabapentin 300 Mg Cap) 300 mg PO TID [facility] Stop: 03/18/22 13:59 Last Admin: 02/16/22 20:22 Dose: 300 mg Documented by: [id number] Admin: 02/16/22 16:07 Dose: 300 mg Documented by: [id number] Hydroxyzine HCl (Hydroxyzine Hcl 25 Mg Tab) 50 mg PO BID [facility] Stop: 03/18/22 20:59 Last Admin: 02/16/22 20:24 Dose: 50 mg Documented by: [id number] Sodium Chloride (Nss 1000ml) 1,000 mls @ 50 mls/hr IV .Q20H [facility] Stop: 02/17/22 09:42 Last Admin: 02/16/22 14:15 Dose: 50 mls/hr Documented by: [id number] Losartan Potassium (Losartan Potassium 25 Mg Tab) 25 mg PO BID [facility] Stop: 03/18/22 20:59 Last Admin: 02/16/22 20:25 Dose: 25 mg Documented by: [id number] Olanzapine (Olanzapine 5 Mg Tablet) 5 mg PO BID [facility] Stop: 03/18/22 20:59 Last Admin: 02/16/22 20:24 Dose: 5 mg Documented by: [id number] Ondansetron HCl (Ondansetron Inj 2 Mg/Ml 2 Ml Vial) 4 mg IV Q6H PRN PRN Reason: Nausea Stop: 03/18/22 13:53 Last Admin: 02/17/22 05:52 Dose: 4 mg Documented by: [id number] Admin: 02/16/22 14:15 Dose: 4 mg Documented by: [id number] Trazodone HCl (Trazodone Hcl 100 Mg Tab) 200 mg PO HS [facility] Stop: 03/18/22 20:59 Last Admin: 02/16/22 20:23 Dose: 200 mg Documented by: [id number] Coding Level of Care Code 80078 [facility] Intl Hosp Care Lvl 2 Diagnoses MDD (major depressive disorder), recurrent episode, moderate F33.1 Alcohol use disorder Syncope R55
[2022-02-17 06:46] LABS: Albumin Globulin Ratio 1.6 (0.9-2); BUN Creatinine Ratio 6.3 (10-20); Bilirubin,Total 0.9 mg/dl (0.2-1.0); Calcium 8.5 mg/dl (8.5-10.1); Chol HDL Ratio 5.6 (0-5); Creatinine Clr Calc Pharmacy 164.9 ml/min; Globulin 2.5 gm/dl (2.5-4.0); Magnesium 2.4 mg/dl (1.7-2.4); Potassium 3.6 mmol/L (3.5-5.1); Total Protein 6.5 gm/dl (6.0-8.3)
[2022-02-17 07:12] LABS: Estimated Average Glucose 105 mg/dl; Hemoglobin A1C 5.3 % (4.5-5.6)
[2022-02-17] MEDS: LOSARTAN POTASSIUM 25 MG TAB PO SCH ×2 (08:26→20:39)
[2022-02-17] MEDS: GABAPENTIN 300 MG CAP PO SCH ×2 (08:27→14:10)
[2022-02-17] MEDS: hydrOXYzine HCl 25 MG TAB PO SCH ×2 (08:27→20:39)
[2022-02-17] MEDS: OLANZapine 5 MG TABLET PO SCH (08:27)
[2022-02-17] MEDS: PANTOprazole 40 MG TAB PO SCH (08:27)
[2022-02-17] MEDS ORDERED: LOSARTAN POTASSIUM 25 MG TAB PO SCH (09:00)
[2022-02-17] MEDS ORDERED: ESCITALOPRAM OXALATE 10 MG TAB PO SCH (09:00)
--- NOTE | 2022-02-17 13:05 | Hospitalist Progress Note ---
Date of Service February 17, 2022 Assessment & Plan (1) Syncope: (2) Dizziness: (3) Sinus pause: (4) Vomiting: (5) Medical marijuana use: (6) Hypertension: (7) Sleep apnea with use of continuous positive airway pressure (CPAP): (8) Obesity: (9) Nicotine dependence: Plan: This is a 31 yr old M who has a significant PMH of HTN, THEODORA on cpap, IBS, hx of alcohol abuse, mood disorder, intermittent explosive disorder who presents to ED with syncopal episode. Syncope Dizziness Vomiting Sinus pauses Positive sinus pauses on telemetry Clonidine and propranolol held Assorter consulted-pending recommendations next HTN Losartan increased monitor pressure closely Early Satiety Loss of appetite Vomiting obtain ct a/p r/o acute pathology ? if 2/2 to marijuana use as pt recently started in November or adr of psych medications? CT abdomen/pelvis: 1. No bowel obstruction or bowel wall thickening. Normal appendix. 2. Splenomegaly. 3. Age-indeterminate superior endplate compression deformity of the T8 vertebral body. 4. Groundglass densities of the lung bases are suggestive of probable atelectasis. A nonspecific pneumonitis could appear similarly. 5. There are a few scattered solid pulmonary nodules of the lung bases measuring up to 4 mm. No nausea /vomiting today Depakote level pending will consult gastroenterology Hx of ETOH Abuse sober for 5 months Mood disorder Depression Intermittent explosive disorder Insomnia Psych consulted Depakote level 75 continue zyprexa, Depakote ,vistaril, lexapro, gabapentin, trazodone Recommend to continue naltrexone 50 mg at night--> hold for now as syncope, nausea vomiting listed as adverse effect Medical marijuana use for anxiety and insomnia daily use, feels there has been no correlation with stopping marijuana and am nausea Counseled by psych Tobacco abuse encourage nicotine cessation Morbid Obesity BMI 40.1 encourage weight loss Dispo: PCU FULL CODE PCP: Steffi plan of care discussed with patient in detail and at length all questions answered he is understanding, agreeable, comfortable with the plan of care Admission and Anticipated Discharge Date Admission Date: February 17, 2022 Subjective Follow-up for syncope, etc. Seen sitting up in bed, comfortable, not in distress Reports intermittent dizziness no chest pain, dyspnea, palpitations, dizziness No fevers or chills, abdominal pain, nausea vomiting No other symptoms Review of Systems Review of Systems: all noted and negative except for above Physical Exam Physical Exam: General- oriented x 3, not in distress, speaks in sentences with no effort or accessory muscle use Head- atraumatic Eyes- PERRL, EOMI, anicteric ENT- oropharynx clear Neck- supple, no JVD, no adenopathy, no thyromegaly; carotids +2/2, no bruits appreciated Lungs- clear to auscultation bilaterally, no rales/wheezes Itdjm-egebilpovdp-shsiw rate in the 50s, regular rhythm; no murmur, no gallop, no rub appreciated Abdomen- normal bowel sounds, nondistended, soft, nontender, no masses or hepatosplenomegaly Extremities- no pretibial edema, no calf tenderness; peripheral pulses intact Neuro- alert, oriented x 3; CN 2-12 grossly intact; motor 5/5 bilaterally;sensation 100% on all extremities; no other gross focal neurologic deficits Skin- warm & dry Results & Data Results & Data ([facility]) Vital Signs (Past 12 Hours) Vital Signs Temp Pulse Pulse Resp BP Pulse Ox 02/17/22 11:50 58 L 02/17/22 11:39 36.6 C 55 L 18 125/77 96 02/17/22 07:35 44 L 13 95 02/17/22 07:13 36.4 C L 56 L 18 130/85 97 02/17/22 03:57 36.4 C L 76 20 113/75 100 02/17/22 03:52 71 15 95 02/17/22 03:36 65 all noted and reviewed including below
--- NOTE | 2022-02-17 13:52 | Cardiology Progress Note ---
Date of Service February 17, 2022 Assessment & Plan (1) Syncope: (2) Sinus pause: (3) Dizziness: (4) Sleep apnea with use of continuous positive airway pressure (CPAP): Plan: Patient is a 31-year-old male without prior history of cardiac disease or structural heart disease with underlying issues hypertension and depressive disorder on multiple drug regimen. Patient presents with symptoms of nausea emesis intermittently for several weeks with episode of acute syncope witnessed at work today. Transient loss of consciousness. Episodes of sinus arrest noted on telemetry with pauses between 3 and 6 seconds. EKG without acute injury or ischemia pattern or conduction system disease Echocardiogram with preserved LV function No initial findings to suggest myocardial ischemia but concerning the episodes occurred with exertion. Agree with trending enzymes. Suspect multiple drug regimen contributing. We will hold propanolol and clonidine. Check urgent Depakote level. Additional antidepressives/antipsychotics as per primary service and psychiatry Increased losartan to 25 mg twice per day to cover blood pressure control Patient to be maintained on telemetry with bedside pacing pads. Would restrict activity until rhythm stabilizes 02/17/2022 Patient is still having sinus pauses. Now greater than 24 hours since last dose of clonidine and propanolol We will hold multiple medications continue telemetry. If arrhythmias persist will need pacemaker insertion. I am reluctant to commit to permanent pacemaker in this young man and should warrant additional telemetry and close follow as medications are held Admission and Anticipated Discharge Date Admission Date: February 17, 2022 Subjective Patient was seen and examined, chart, medications, telemetry reviewed. Patient had multiple sinus pauses overnight and today both awake and while sleeping. Longest episode this morning of greater than 8 seconds associated with a sense of lightheadedness. No chest pains or shortness of breath. No prior history of syncope. Familial history notable for coronary disease in grandfather only. EKG without conduction system disease Review of Systems Review of Systems: All systems reviewed & are unremarkable except as noted in Subjective Physical Exam Constitutional: WD/WN, vitals as above + obese; no acute distress Eyes: PERRL, conjunctivae normal, anicteric sclerae ENMT: external ear and nose normal, oropharynx normal Neck: trachea midline, no thyromegaly Respiratory: normal respiratory effort, lungs clear to auscultation Cardiovascular: Rate/Rhythm: regular rate and regular rhythm Heart Sounds: normal S1 and normal S2; no gallop and no murmur Palpation: normal PMI Vessels: normal carotid upstroke and radial pulses present; no JVD and no carotid bruit Extremities: no edema Gastrointestinal (Abdomen): normal bowel sounds, soft, nontender, no hepatosplenomegaly Musculoskeletal: no cyanosis or clubbing, extremities motor strength 5/5 Skin: no rashes, warm and dry Neurologic: PERRL, EOMI, accommodation nl, no face palsy, no dysarthria Psychiatric: Orientation: alert and oriented x 3 Affect: + flat affect Results & Data ([facility]) Vital Signs (Past 12 Hours) Vital Signs Temp Pulse Pulse Resp BP Pulse Ox 02/17/22 11:50 58 L 02/17/22 11:39 36.6 C 55 L 18 125/77 96 02/17/22 07:35 44 L 13 95 02/17/22 07:13 36.4 C L 56 L 18 130/85 97 02/17/22 03:57 36.4 C L 76 20 113/75 100 02/17/22 03:52 71 15 95 02/17/22 03:36 65 Laboratory Results Laboratory Results - last 24 hr 02/16/22 02/16/22 02/17/22 14:36 17:49 00:13 WBC RBC Hgb Hct MCV MCH MCHC RDW Std Deviation RDW Coeff of Maggie Plt Count MPV Immature Gran % (Auto) Neut % (Auto) Lymph % (Auto) [place] % (Auto) Eos % (Auto) Baso % (Auto) Neut # (Auto) Lymph # (Auto) [place] # (Auto) Eos # (Auto) Baso # (Auto) Immature Gran # (Auto) Sodium Potassium Chloride Carbon Dioxide Anion Gap BUN Creatinine Est Cr Clr Drug Dosing Est GFR ( Amer) Est GFR (Non-Af Amer) BUN/Creatinine Ratio Glucose Estimat Average Glucose Hemoglobin A1c Calcium Magnesium Total Bilirubin AST ALT Alkaline Phosphatase Troponin I High Sens 3.2 2.8 Total Protein Albumin Globulin Albumin/Globulin Ratio Triglycerides Cholesterol LDL Cholesterol, Calc VLDL Cholesterol, Calc HDL Cholesterol Cholesterol/HDL Ratio Lipase Valproic Acid 75 02/17/22 02/17/22 02/17/22 05:36 05:36 05:36 WBC 6.00 RBC 4.84 Hgb 14.5 Hct 42.7 MCV 88.2 MCH 30.0 MCHC 34.0 RDW Std Deviation 42.6 RDW Coeff of Maggie 13.2 Plt Count 267 MPV 11.6 H Immature Gran % (Auto) 0.2 Neut % (Auto) 39.1 Lymph % (Auto) 43.7 [place] % (Auto) 10.7 Eos % (Auto) 6.0 Baso % (Auto) 0.3 Neut # (Auto) 2.35 Lymph # (Auto) 2.62 [place] # (Auto) 0.64 H Eos # (Auto) 0.36 Baso # (Auto) 0.02 Immature Gran # (Auto) 0.01 Sodium 140 Potassium 3.6 Chloride 107 Carbon Dioxide 25 Anion Gap 8 BUN 6 Creatinine 0.95 Est Cr Clr Drug Dosing 164.9 Est GFR ( Amer) 124.0 Est GFR (Non-Af Amer) 107.0 BUN/Creatinine Ratio 6.3 L Glucose 95 Estimat Average Glucose 105 Hemoglobin A1c 5.3 Calcium 8.5 Magnesium 2.4 Total Bilirubin 0.9 AST 11 L ALT 12 Alkaline Phosphatase 51 Troponin I High Sens Total Protein 6.5 Albumin 4.0 Globulin 2.5 Albumin/Globulin Ratio 1.6 Triglycerides 103 Cholesterol 140 LDL Cholesterol, Calc 94 VLDL Cholesterol, Calc 21 HDL Cholesterol 25 Cholesterol/HDL Ratio 5.6 H Lipase 31 Valproic Acid
[2022-02-17] MEDS: traZODone HCL 100 MG TAB PO SCH (20:38)
[2022-02-17] MEDS ORDERED: NALTREXONE HCL 50 MG TAB PO SCH (21:00)
[2022-02-18] MEDS: PANTOprazole 40 MG TAB PO SCH (05:42)
--- NOTE | 2022-02-18 05:43 | Electrocardiogram Report ---
Test Reason : Blood Pressure : / mmHG Vent. Rate : 064 BPM Atrial Rate : 064 BPM P-R Int : 178 ms QRS Dur : 108 ms QT Int : 400 ms P-R-T Axes : 055 003 035 degrees QTc Int : 412 ms Normal sinus rhythm with sinus arrhythmia Normal ECG When compared with ECG of 08-JUL-2020 11:08, No significant change was found Confirmed by Adria Sow ([id number]) on 02/18/2022 5:42:57 AM Referred By: [id number] Confirmed By:Adria Sow
--- NOTE | 2022-02-18 05:58 | Electrocardiogram Report ---
Test Reason : Blood Pressure : / mmHG Vent. Rate : 054 BPM Atrial Rate : 054 BPM P-R Int : 188 ms QRS Dur : 102 ms QT Int : 416 ms P-R-T Axes : 083 -15 043 degrees QTc Int : 394 ms Sinus bradycardia with sinus arrhythmia Otherwise normal ECG When compared with ECG of 16-FEB-2022 10:09, No significant change was found Confirmed by Adria Sow ([id number]) on 02/18/2022 5:57:57 AM Referred By: REFERRED SELF Confirmed By:Adria Sow
[2022-02-18 06:52] LABS: Marijuana Quant, GCMS Urine 767 ng/mL (<5)
[2022-02-18] MEDS: LOSARTAN POTASSIUM 25 MG TAB PO SCH ×2 (08:06→21:00)
[2022-02-18] MEDS: hydrOXYzine HCl 25 MG TAB PO SCH ×2 (08:07→21:00)
[2022-02-18] MEDS: DIVALPROEX EXTENDED RELEASE 500 MG TAB PO SCH (08:09)
--- NOTE | 2022-02-18 08:16 | Communication Note ---
Date of Service: February 18, 2022 Appears that still having sinus pauses and cardiology recommending holding additional medications. As far as priority for his psych meds would be Depakote, Lexapro, and Naltrexone. If desire to continue to hold additional medications would suggest trazodone (hold or taper to 100 mg) and Vistaril (hold or taper to 25 mg BID). Will follow.
--- NOTE | 2022-02-18 12:29 | Cardiology Progress Note ---
Date of Service February 18, 2022 Assessment & Plan (1) Syncope: (2) Sinus pause: (3) Dizziness: (4) Sleep apnea with use of continuous positive airway pressure (CPAP): Plan: Patient is a 31-year-old male without prior history of cardiac disease or structural heart disease with underlying issues hypertension and depressive disorder on multiple drug regimen. Patient presents with symptoms of nausea emesis intermittently for several weeks with episode of acute syncope witnessed at work today. Transient loss of consciousness. Episodes of sinus arrest noted on telemetry with pauses between 3 and 6 seconds. EKG without acute injury or ischemia pattern or conduction system disease 02/18/2022 Patient is still having sinus pauses. Now greater than 48 hours since last dose of clonidine and propanolol with little change on holding additional medical therapies. We will need to proceed with pacemaker insertion Logistics of procedure still pending Patient agreeable Admission and Anticipated Discharge Date Admission Date: February 17, 2022 Subjective Patient was seen and examined, chart, medications, telemetry reviewed. Patient still having multiple sinus pauses throughout the night and while awake during the day. Not feeling well no profound syncope but lightheaded at time Physical Exam Constitutional: WD/WN, vitals as above + obese; no acute distress Eyes: PERRL, conjunctivae normal, anicteric sclerae ENMT: external ear and nose normal, oropharynx normal Neck: trachea midline, no thyromegaly Respiratory: normal respiratory effort, lungs clear to auscultation Cardiovascular: Rate/Rhythm: regular rate and regular rhythm Heart Sounds: normal S1 and normal S2; no gallop and no murmur Palpation: normal PMI Vessels: normal carotid upstroke and radial pulses present; no JVD and no carotid bruit Extremities: no edema Gastrointestinal (Abdomen): normal bowel sounds, soft, nontender, no hepatosplenomegaly Musculoskeletal: no cyanosis or clubbing, extremities motor strength 5/5 Skin: no rashes, warm and dry Neurologic: PERRL, EOMI, accommodation nl, no face palsy, no dysarthria Psychiatric: Orientation: alert and oriented x 3 Affect: + flat affect Results & Data ([facility]) Vital Signs (Past 12 Hours) Vital Signs Temp Pulse Pulse Resp BP Pulse Ox 02/18/22 11:34 36.9 C 61 20 162/89 H 95 02/18/22 07:35 36.7 C 63 16 161/75 H 96 02/18/22 07:28 52 L 02/18/22 03:41 53 L 14 96 02/18/22 02:18 55 L 17 150/82 H 96
--- NOTE | 2022-02-18 13:07 | Hospitalist Progress Note ---
Date of Service February 18, 2022 Assessment & Plan (1) Syncope: (2) Dizziness: (3) Sinus pause: (4) Vomiting: (5) Medical marijuana use: (6) Hypertension: (7) Sleep apnea with use of continuous positive airway pressure (CPAP): (8) Obesity: (9) Nicotine dependence: Plan: This is a 31 yr old M who has a significant PMH of HTN, THEODORA on cpap, IBS, hx of alcohol abuse, mood disorder, intermittent explosive disorder who presents to ED with syncopal episode. Syncope Dizziness Vomiting Sinus pauses Positive sinus pauses on telemetry Clonidine and propranolol held Veterinary Poultry Inspector consulted-pacemaker recommended HTN Losartan increased to 25 mg twice daily monitor pressure closely Early Satiety Loss of appetite Vomiting obtain ct a/p r/o acute pathology ? if 2/2 to marijuana use as pt recently started in November or adr of psych medications? CT abdomen/pelvis: 1. No bowel obstruction or bowel wall thickening. Normal appendix. 2. Splenomegaly. 3. Age-indeterminate superior endplate compression deformity of the T8 vertebral body. 4. Groundglass densities of the lung bases are suggestive of probable atelectasis. A nonspecific pneumonitis could appear similarly. 5. There are a few scattered solid pulmonary nodules of the lung bases measuring up to 4 mm. No nausea /vomiting today Depakote level normal will consult gastroenterology after pacemaker placement if persistent Hx of ETOH Abuse sober for 5 months Mood disorder Depression Intermittent explosive disorder Insomnia Psych consulted Depakote level 75 continue zyprexa, Depakote ,vistaril, lexapro, gabapentin, trazodone Recommend to continue naltrexone 50 mg at night--> hold for now as syncope, nausea vomiting listed as adverse effect Medical marijuana use for anxiety and insomnia daily use, feels there has been no correlation with stopping marijuana and am nausea Counseled by psych Tobacco abuse encourage nicotine cessation Morbid Obesity BMI 40.1 encourage weight loss Dispo: PCU FULL CODE PCP: Steffi plan of care discussed with patient in detail and at length all questions answered he is understanding, agreeable, comfortable with the plan of care Admission and Anticipated Discharge Date Admission Date: February 17, 2022 Subjective Follow-up for syncope, sinus pauses, etc. Seen resting in bed, comfortable, not distressed States he still feels intermittently dizzy No chest pain, shortness of breath, palpitations Mood is fine No nausea or vomiting noted, no abdominal pain No other symptoms Review of Systems Review of Systems: all noted and negative except for above Physical Exam Physical Exam: General- oriented x 3, not in distress, speaks in sentences with no effort or accessory muscle use Eyes- anicteric Neck- no JVD Lungs- clear breath sounds bilaterally, no rales/wheezes Heart-heart rate low 60s, regular rhythm; no murmurs Abdomen- normal bowel sounds, nondistended, soft, nontender Extremities- no pretibial edema, no calf tenderness Neuro- alert, oriented x 3; no gross focal neurologic deficits Skin- warm & dry Results & Data Results & Data ([facility]) Vital Signs (Past 12 Hours) Vital Signs Temp Pulse Pulse Resp BP Pulse Ox 02/18/22 11:34 36.9 C 61 20 162/89 H 95 02/18/22 07:35 36.7 C 63 16 161/75 H 96 02/18/22 07:28 52 L 02/18/22 03:41 53 L 14 96 02/18/22 02:18 55 L 17 150/82 H 96 all noted and reviewed including below
--- NOTE | 2022-02-18 15:09 | Cardiology Consultation ---
Date of Consultation February 18, 2022 Assessment & Plan (1) Syncope: 1. Syncope: Presumably related to sinus arrest. He has had multiple additional episodes on telemetry that are associated with presyncope. Likely no syncope due to being in bed. The etiology of his sinus node dysfunction is unclear. Lyme testing was negative. Offending medications have been discontinued for over 48 hours. Echocardiogram was normal without evidence of a cardiomyopathy or likely infiltrative process. I think this would be an unlikely symptom of sarcoid. I think you more likely have AV node dysfunction or an abnormal QRS that circumstance. At this point it would seem that symptom relief will require a pacemaker. He does not appear to have any evidence of heart block. His symptoms appear to be purely related to sinus node disease. He has a narrow QRS complex at baseline. Given his young age he would be nice to limit the number of leads implanted and I think he could be a good candidate for single-chamber atrial pacemaker. I did discuss the risks, benefits and alternatives with the patient. He is willing to proceed. History of Present Illness Reason for Consultation: syncope, sinus node dysfunction Requesting Physician: Balaji Attending Physician: Jorge L Castillo MD History of Present Illness the patient is a 31-year-old gentleman without a known history of cardiac disease who experienced an episode of syncope while at work. Patient states that he has been having some recent episodes of lightheadedness and dizziness that occur spontaneously. The event in question happen while he was using a wheelbarrow. He did not have much in the way of a prodrome. Afterwards he seemed to feel well. He was evaluated in the hospital and found to have brief episodes of sinus arrest. Patient was on antihypertensive therapy with clonidine and propranolol. He is also on an variety of other psychiatric medications. Over the past 2 days the Clonidine and propranolol have been discontinued. however, the patient continues to have episodes of sinus arrest and associated symptoms. These occur while in bed. They are very transient. No additional syncope. No significant prodrome or other associated symptoms. Allergies Allergy/AdvReac Type Severity Reaction Status Date / Time amlodipine Allergy Intermediate Hives Verified 09/18/21 15:30 hydrochlorothiazide Allergy Intermediate RASH, Verified 09/18/21 15:30 THROAT SWELLS ketorolac Allergy Intermediate RASH, Verified 09/18/21 15:30 NAUSEA amoxicillin Allergy Mild RASH Verified 09/18/21 15:30 Penicillins Allergy Mild AMOXICILLIN Verified 12/10/21 15:30 = RASH Home Medications Medication Instructions Recorded Confirmed Type albuterol sulfate 90 mcg/actuation 2 puff INHALATION Q4H PRN 07/08/21 02/16/22 History aerosol inhaler diclofenac sodium 75 mg 75 mg PO BID PRN 07/08/21 02/16/22 History tablet,delayed release sumatriptan succinate 6 mg/0.5 mL 6 mg SUBCUT DIRECTED PRN 07/08/21 02/16/22 History subcutaneous pen injector cyclobenzaprine 10 mg tablet 10 mg PO HS PRN 30 Days #30 tab 09/23/21 02/16/22 Rx dicyclomine 10 mg capsule 10 mg PO QID PRN #30 cap 09/23/21 02/16/22 Rx gabapentin 300 mg capsule 300 mg PO TID 30 Days #90 cap 09/23/21 02/16/22 Rx omeprazole 20 mg capsule,delayed 20 mg PO DAILYBB 30 Days #30 cap 09/23/21 02/16/22 Rx release trazodone 100 mg tablet 200 mg PO HS 30 Days #60 tab 09/23/21 02/16/22 Rx divalproex 500 mg tablet,extended 1,000 mg PO HS 02/16/22 02/16/22 History release 24 hr divalproex 500 mg tablet,extended 1,500 mg PO DAILY 02/16/22 02/16/22 History release 24 hr escitalopram oxalate 10 mg tablet 10 mg PO DAILY 02/16/22 02/16/22 History hydroxyzine pamoate 50 mg capsule 50 mg PO BID 02/16/22 02/16/22 History olanzapine 5 mg tablet 5 mg PO BID 02/16/22 02/16/22 History losartan 25 mg tablet 25 mg PO BID 30 Days #60 tab 02/19/22 Rx Patient History Medical History Abdominal pain Allergic reaction Antisocial personality disorder Arterial hypotension Chest pain Depression High serum chloride Intentional drug overdose Low back pain Mood disorder Nicotine dependence Obesity Sleep apnea with use of continuous positive airway pressure (CPAP) Surgical History Hx of cholecystectomy Family History Grandmother Cancer Grandfather , 52 massive [place] Myocardial infarction Sudden Social History Smoking Status: Never smoker Tobacco Type: Smokeless Tobacco (Dip or Chew) Cigarettes Per Day: 1 can/2 days; Do You Dip or Chew Tobacco: Yes; Hx Alcohol Use: No Hx Substance Use: No Preferred Language: Turkmen Communication Ability: Effective Denture Model Maker Required: No Beliefs That Will Affect Care: None Current Living Situation: Alone Other Information That Helps Us Care for You: No Feels Safe at Home: Yes Safety Concerns: Feels Safe At This Time Assistive Devices: CPAP and Glasses Review of Systems Review of Systems: Per HPI. otherwise he has been feeling well. He maintains a good level of activity and there is a physical component to his work which does not produce significant symptoms. He cannot recall any episodes of syncope in the past. Physical Exam Physical Exam: The patient is alert and oriented. Mood and affect appeared normal. He answered all questions appropriately. HEENT: Pupils are equal and reactive to light and accommodation. Extraocular movements are intact. The sclerae are anicteric. Neuro: Cranial nerves intact Lungs: Normal respiratory efforti. Cardiac: Heart demonstrates a regular rate and rhythm. Pulses: The patient has palpable radial pulses bilaterally that are equal in intensity Extremities: There was no evidence of hypoperfusion. There is no cyanosis or clubbing. Skin: I did not appreciate any rashes on examination today. Results & Data ([facility]) Vital Signs (Past 12 Hours) Vital Signs Temp Pulse Pulse Resp BP Pulse Ox 02/18/22 11:34 36.9 C 61 20 162/89 H 95 02/18/22 07:35 36.7 C 63 16 161/75 H 96 02/18/22 07:28 52 L 02/18/22 03:41 53 L 14 96 Diagnostic Findings echocardiogram obtained on 02/16/2022: Normal left ventricular systolic function. Mild LVH. No significant valvular heart disease. PG Care Time/CCT Total # of Minutes Spent Total Time Spent with Patient: Total time spent is greater than 50% in coordination of care (as documented) at patient's floor/unit and/or counseling patient: Coding Level of Care Code 35963 Inpt Consult Level 4 Diagnoses Syncope R55
--- NOTE | 2022-02-18 15:10 | Pre Anesthesia Assessment ---
Date of Service February 18, 2022 Pre Sedation Assessment Vital Signs Temp Pulse Pulse Resp BP Pulse Ox 02/18/22 11:34 36.9 C 61 20 162/89 H 95 02/18/22 07:35 36.7 C 63 16 161/75 H 96 02/18/22 07:28 52 L 02/18/22 03:41 53 L 14 96 02/18/22 02:18 55 L 17 150/82 H 96 02/17/22 23:28 36.9 C 68 20 156/89 H 94 02/17/22 22:56 63 02/17/22 22:43 58 L 17 96 02/17/22 20:17 59 L 02/17/22 19:19 36.7 C 61 16 146/94 H 94 02/17/22 15:41 36.8 C 53 L 18 127/73 94 Cardiovascular + regular rate Respiratory + respiratory effort normal Pre-Sedation Airway Assessment Smoking Status: Never smoker Hx Sleep Apnea: Yes Hx Difficult Intubation: No Short, Thick Neck: No Thyromental Distance: > or= 3.5 Finger Breadths Oral Cavity: + WNL Mallampati Class: III ASA: ASA2 Procedure Planning Contraindications for Sedation: none Current Medications Reviewed: Yes Notes The planned sedation has been discussed with the patient. Informed Consent was obtained. I have identified the patient, determined the appropriateness of sedation and have assessed the patient immediately prior to the procedure. All medicine(s) and interventions are by my order.
[2022-02-18] MEDS ORDERED: VANCOMYCIN HCL 1000MG/20ML VIAL ONE (15:32)
[2022-02-18] MEDS ORDERED: BUPIVACAINE 0.25% 30 ML VIAL ONE (15:32)
[2022-02-18] MEDS ORDERED: LIDOCAINE 1% LOCAL 20 ML VIAL ONE (15:32)
[2022-02-18] MEDS ORDERED: WATER, STERILE FOR INJ 10 ML VIAL ONE (15:32)
[2022-02-18] MEDS ORDERED: fentaNYL citrate 100 MCG/2 ML VIAL ONE ×2 (15:36→16:08)
[2022-02-18] MEDS ORDERED: MIDAZOLAM HCL 5 MG/ML 1 ML VIAL ONE ×2 (15:36→16:08)
[2022-02-18] MEDS ORDERED: CLINDAMYCIN 600 MG in DEXTROSE 5% 50 ML IV STA (15:41)
--- NOTE | 2022-02-18 16:54 | Electrophysiology Report ---
Date of Service February 18, 2022 Electrophysiology Procedure Electrophysiology Procedure Report Procedure performed: Implantation of single-chamber atrial pacemaker Staff student support advisor: Vasile Watt MD Indication: The patient is a 31-year-old gentleman with a history of sinus arrest and associated syncope. Based on the nature of his symptoms and documented arrhythmia he was felt to be a good candidate for permanent pacemaker due to symptomatic nonreversible sinus node dysfunction. Procedure in detail: The patient was informed of the risks benefits and alternatives to the intended procedure and she wished to proceed. He was taken to the electrophysiology suite in a fasting state. A preoperative antibiotic had been administered. The patient was monitored electrocardiographically throughout today's procedure and conscious sedation was administered per protocol. The left upper pectoral area is prepped and draped in usual sterile fashion. This area was anesthetized using subcutaneous administration of a xylocaine solution. An incision was made at this site and carried down to the prepectoralis fascia using sharp dissection. Electrocautery was also employed for dissection as well as for hemostasis. A device pocket was fashioned tissues above the pectoralis muscle. Subsequent to this maneuver the left axillary vein was accessed using modified Seldinger technique. A Sheath was placed over guidewires at this site and used to facilitate passage of the pacing lead to the right atrium under fluoroscopic guidance. Adequate sensing and threshold parameters were obtained prior to Active fixation of the lead to the endocardial surface. The proximal portion l ead was then sutured the prepectoral fascia using nonabsorbable suture. The device pocket was irrigated with antibiotic solution. The lead was then attached to the device. The device and lead were then placed in the pocket and pocket was closed in 3 layers of absorbable suture. Steri-Strips and sterile dressing were applied. The device was tested noninvasively prior to conclusion the procedure. The patient tolerated procedure well there no immediate complications. Equipment used: New pulse generator: Software Test Technician [employer]. Model number: [id number] serial number [id number] Right atrial lead: Software Test Technician [employer]. Model number: [id number] serial number [id number] Measured data: Right atrial lead: P waves measure 1.6 mV. Pacing threshold was 1.5 V at 0.4 ms with a pacing impedance of 646 ohms Impression: Successful implantation of single-chamber atrial pacemaker [facility] Electrophysiology codes Pacing Procedure 1: Pacin Insert/Replace Pacer A PG Moderate Sedation Codes Moderate Sedation Codes Procedure 1: Sedation/Anesthesia: 80243 Mod Sedation by the same physician;Init15 Min Child Age 5 & Up Procedure 2: Sedation/Anesthesia: 12019 Mod Sedation by the same physician; Ea [id number] Minutes
--- NOTE | 2022-02-18 16:54 | Post Anesthesia Assessment ---
Date of Service February 18, 2022 Post Sedation Assessment Vital Signs Temp Pulse Pulse Resp BP Pulse Ox 02/18/22 16:01 74 02/18/22 15:18 58 L 20 178/93 H 95 02/18/22 11:34 36.9 C 61 20 162/89 H 95 02/18/22 07:35 36.7 C 63 16 161/75 H 96 02/18/22 07:28 52 L 02/18/22 03:41 53 L 14 96 02/18/22 02:18 55 L 17 150/82 H 96 02/17/22 23:28 36.9 C 68 20 156/89 H 94 02/17/22 22:56 63 02/17/22 22:43 58 L 17 96 02/17/22 20:17 59 L 02/17/22 19:19 36.7 C 61 16 146/94 H 94 Recovery Score Activity: Moves 4 extremities Respiration: Deep Breath/Cough Circulation: +/-20% PreAnes Value Consciousness: Fully Awake Oxygen Saturation: > 92% On Room Air Discharge Sedation Level of Care: Fast Track Phase II Post Sedation Plan On clinical assessment, the patient appears to have tolerated the sedation without complications. Patient is recovering as anticipated. Patient will continue to be monitored by nursing and may be discharged when sedation discharge criteria are met per below protocol. Upon Completions of procedure up to 15 minutes continue every 5 minute vital signs and the P.A.R. score; then discharge to a Phase I or Fast Track to Phase II per the following guidelines: * Discharge Patient to appropriate Phase II area if PAR is 8 or greater or return to pre- procedure baseline. The post - procedure orders will be as directed. * If PAR score is less than 8 or not return to pre-procedure baseline then patient will follow Phase I monitoring till PAR is reached for Phase II. The Phase I may be done in procedure room or may call to secure a Phase I area. * If naloxone or flumazenil are used for reversal, hold in Phase I for continued monitoring from when last reversal dose was given for a minimum of 60 minutes or longer pending the nurse and/or physician discretion of patient condition before discharge to Phase II. Please call the Sedation Physician to re-evaluate and complete post-note for discharge to Phase II area. Do NOT discharge from procedure sedation or Phase 1 until post- sedation evaluation note is complete by procedure /sedation MD Sedation Discharge Instructions to be given to the patient at discharge to home.
[2022-02-18] MEDS: oxyCODONE HCL IR 5 MG TAB (IMMEDIATE RELEASE) PO PRN (20:59)
[2022-02-18] MEDS: traZODone HCL 100 MG TAB PO SCH (21:00)
[2022-02-19] MEDS: CLINDAMYCIN 600 MG in DEXTROSE 5% 50 ML IV SCH ×2 (00:08→07:26)
[2022-02-19] MEDS: PANTOprazole 40 MG TAB PO SCH (07:26)
[2022-02-19] MEDS: hydrOXYzine HCl 25 MG TAB PO SCH (07:57)
[2022-02-19] MEDS: LOSARTAN POTASSIUM 25 MG TAB PO SCH (07:58)
[2022-02-19] MEDS: DIVALPROEX EXTENDED RELEASE 500 MG TAB PO SCH (07:58)
[2022-02-19] MEDS: oxyCODONE HCL IR 5 MG TAB (IMMEDIATE RELEASE) PO PRN (08:04)
--- NOTE | 2022-02-19 09:04 | Communication Note ---
Date of Service: February 19, 2022 interim hx reviewed. Patient continues with majority of psych meds s/p pace maker insertion. He even attended a virtual AA meeting from his hospital room. Ideally will restart Naltrexone when able per hospitalist as just had anesthesia/ongoing pain control. No additional recs at this time.
--- NOTE | 2022-02-19 11:14 | Cardiology Progress Note ---
Date of Service February 19, 2022 Assessment & Plan (1) Sinus pause: Plan: 1. Sinus arrest: He underwent successful implantation of a single-chamber atrial pacemaker yesterday. This was based on the assumption that he has sinus node dysfunction exclusively. There does not appear to have been any evident complication. Still waiting on a chest x-ray to exclude pneumothorax and check lead placement, but device appears to be working normally. He did have a few episodes of AV block over night. 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 I do not believe this would be clinically relevant in regards to his presenting symptoms. I think the best evaluation of the device function in its ability to eliminate his symptoms would simply be ambulation and continued monitoring while he is awake. In the past he seemed to have frequent sinus pauses. He is ambulatory without pauses throughout the course of the morning I think this device has produced the desired clinical affect. In the absence of continued symptoms or an abnormal chest film, he could likely be discharged today from a pacemaker standpoint. I asked him to refrain from lifting left arm above the shoulder behind the neck for 6 weeks. I asked him to keep the wound dry and Steri-Strips intact for at least 5 days. Admission and Anticipated Discharge Date Admission Date: February 17, 2022 Subjective this morning the patient complains of some discomfort at the device implant site. This is improved over the course of the evening. He reported sleeping well and actually feeling quite good this morning. He did not have any additional episodes of presyncope or syncope over the course of the evening. Review of Systems Review of Systems: Per HPI Physical Exam Physical Exam: earlier and oriented. Answered all questions appropriately Device implant site appears to be healing well. No significant erythema, ecchymosis or swelling. No evidence of hematoma. Results & Data ([facility]) Vital Signs (Past 12 Hours) Vital Signs Temp Pulse Pulse Resp BP Pulse Ox 02/19/22 10:19 60 02/19/22 07:35 36.6 C 60 14 142/95 H 95 02/19/22 03:54 36.5 C 22 146/75 H 96 02/19/22 02:46 60 15 95 02/18/22 23:41 36.5 C 65 16 173/93 H 98 Diagnostic Findings I performed a complete device interrogation of his single-chamber atrial pacemaker. Normal function of the atrial lead.
--- NOTE | 2022-02-19 13:18 | XRay Report ---
XR chest 2V PA/lateral CLINICAL HISTORY: EXACT TIME ORDERED Evaluate for pneumothorax and l TECHNIQUE: 2 views of the chest were obtained. Comparison: Comparison is made to chest radiograph 02/16/2022 FINDINGS: A pacemaker has been placed with a single lead terminating in the region of the right atrium. The car diomediastinal silhouette is normal. The lungs are clear. No evidence of pleural effusion or pneumoth orax. IMPRESSION: Status post pacemaker placement without evidence of pneumothorax. ACT 112: Negative or not required by law. Electronically signed by: Miguel Ángel Tesfaye M.D. 02/19/2022 1:17 PM
--- NOTE | 2022-02-19 14:53 | Cardiology Progress Note ---
Date of Service February 19, 2022 Assessment & Plan (1) Syncope: (2) Sinus pause: (3) Dizziness: (4) Sleep apnea with use of continuous positive airway pressure (CPAP): Plan: Patient is a 31-year-old male without prior history of cardiac disease or structural heart disease with underlying issues hypertension and depressive disorder on multiple drug regimen. Patient presents with symptoms of nausea emesis intermittently for several weeks with episode of acute syncope witnessed at work today. Transient loss of consciousness. Episodes of sinus arrest noted on telemetry with pauses between 3 and 6 seconds. EKG without acute injury or ischemia pattern or conduction system disease Patient despite holding medications had continued difficulties with multiple sinus pauses, sinus arrest. Patient underwent atrial pacemaker insertion without difficulty yesterday now ambulatory and doing well. Patient stable for discharge to home would not restart clonidine or propanolol. We will make arrangements for follow-up with cardiology [facility] device clinic Admission and Anticipated Discharge Date Admission Date: February 17, 2022 Subjective Patient was seen and examined, chart, medications, telemetry reviewed. Only complaint of surgical incision tenderness. No further dizziness or lightheadedness. Intermittent atrial pacing throughout the night no other arrhythmias. Device interrogation functioning appropriately chest x-ray clear Physical Exam Constitutional: WD/WN, vitals as above + obese; no acute distress Eyes: PERRL, conjunctivae normal, anicteric sclerae ENMT: external ear and nose normal, oropharynx normal Neck: trachea midline, no thyromegaly Respiratory: normal respiratory effort, lungs clear to auscultation Cardiovascular: Rate/Rhythm: regular rate and regular rhythm Heart Sounds: normal S1 and normal S2; no gallop and no murmur Palpation: normal PMI Vessels: normal carotid upstroke and radial pulses present; no JVD and no carotid bruit Extremities: no edema Chest (Breasts): Chest: + pacemaker (Wound very clean minimal ecchymosis) Gastrointestinal (Abdomen): normal bowel sounds, soft, nontender, no hepatosplenomegaly Musculoskeletal: no cyanosis or clubbing, extremities motor strength 5/5 Skin: no rashes, warm and dry Neurologic: PERRL, EOMI, accommodation nl, no face palsy, no dysarthria Psychiatric: Orientation: alert and oriented x 3 Affect: + flat affect Results & Data ([facility]) Vital Signs (Past 12 Hours) Vital Signs Temp Pulse Pulse Resp BP Pulse Ox 05/13/22 10:19 60 02/19/22 07:35 36.6 C 60 14 142/95 H 95 02/19/22 03:54 36.5 C 22 146/75 H 96
--- NOTE | 2022-02-19 15:26 | Hospitalist Progress Note ---
Date of Service February 19, 2022 Assessment & Plan (1) Syncope: (2) Dizziness: (3) Sinus pause: (4) Vomiting: (5) Medical marijuana use: (6) Hypertension: (7) Sleep apnea with use of continuous positive airway pressure (CPAP): (8) Obesity: (9) Nicotine dependence: Plan: This is a 31 yr old M who has a significant PMH of HTN, THEODORA on cpap, IBS, hx of alcohol abuse, mood disorder, intermittent explosive disorder who presents to ED with syncopal episode. Syncope Dizziness Vomiting Sinus pauses 02/18/2022 status post single-chamber atrial pacemaker by Dr. Watt Patient doing well today, no dizziness or any other cardiac symptoms Cleared for discharge by cardiology service Follow-up with cardiology clinic next week, patient will be called by cardiology clinic DC clonidine and propranolol per cardiology service recommendation Instructions given to patient HTN Losartan increased to 25 mg twice daily Early Satiety Loss of appetite Vomiting obtain ct a/p r/o acute pathology ? if 2/2 to marijuana use as pt recently started in November or adr of psych medications? CT abdomen/pelvis: 1. No bowel obstruction or bowel wall thickening. Normal appendix. 2. Splenomegaly. 3. Age-indeterminate superior endplate compression deformity of the T8 vertebral body. 4. Groundglass densities of the lung bases are suggestive of probable atelectasis. A nonspecific pneumonitis could appear similarly. 5. There are a few scattered solid pulmonary nodules of the lung bases measuring up to 4 mm. No nausea /vomiting since admission Depakote level normal Follow-up with PCP next week If without improvement, refer to GI for possible endoscopy Hx of ETOH Abuse sober for 5 months Mood disorder Depression Intermittent explosive disorder Insomnia Psych consulted-Dr. Rendon Depvannessate level 75 continue zyprexa, Depakote ,vistaril, lexapro, gabapentin, trazodone Recommend to continue naltrexone 50 mg at night--> held during admission as syncope, nausea vomiting listed as adverse effect Medical marijuana use for anxiety and insomnia daily use, feels there has been no correlation with stopping marijuana and am nausea Counseled by psych Tobacco abuse encourage nicotine cessation Morbid Obesity BMI 40.1 encourage weight loss PCP: Dr. Kapadia plan of care discussed with patient and his mother in detail and at length all questions answered he is understanding, agreeable, comfortable with the plan of care Admission and Anticipated Discharge Date Admission Date: February 17, 2022 Subjective Follow-up for syncope, bradycardia, etc. Seen status post pacemaker placement Sitting up in bed, comfortable, not distress Family at the bedside visiting States he feels much better after pacemaker placement No dizziness, shortness of breath, palpitations Incision site with some pain Ambulating in the hallways with no problems, no dizziness or any other symptoms Patient expressed strong preference to be discharged today Advised parents mother to stay with patient's son today and they both agree Review of Systems Review of Systems: all noted and negative except for above Physical Exam Physical Exam: General- oriented x 2, not in distress, speaks in sentences with no effort or accessory muscle use Eyes- anicteric Neck- no JVD Lungs- clear BS bilaterally, no rales/wheezes Heart- normal rate, regular rhythm; no murmurs Incision site, mild erythema, no bleeding or discharge Positive tenderness Abdomen- normal bowel sounds, nondistended, soft, nontender Extremities- no pretibial edema, no calf tenderness Neuro- alert, oriented x 3; no gross focal neurologic deficits Skin- warm & dry Results & Data Results & Data ([facility]) Vital Signs (Past 12 Hours) Vital Signs Temp Pulse Pulse Resp BP Pulse Ox 02/19/22 14:54 63 02/19/22 10:19 60 02/19/22 07:35 36.6 C 60 14 142/95 H 95 02/19/22 03:54 36.5 C 22 146/75 H 96 all noted and reviewed including below
--- NOTE | 2022-02-19 16:55 | Discharge Summary ---
Date of Service February 19, 2022 Admission HPI Per Admitting Provider This is a 31 yr old M who has a significant PMH of HTN, THEODORA on cpap, IBS, hx of alcohol abuse, mood disorder, intermittent explosive disorder who presents to ED with syncopal episode. 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 He felt unwell and dizzy. 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 He doesn't recall passing out, but he just woke up on the ground. When he was dizzy he complains of diaphoresis, nausea and chills. He denies any chest pain, palpitations, sob at time of event. He did have blurry, "buggy eyes." It was noted by bystanders that he was passed out for a few seconds to a minute. After he regained consciousness initially he laid there for a few minutes and felt confused about what happened. He didn't stand up for at least 10-15 minutes. He has been having random episodes of nausea, emesis and loss of appetite. He can be extremely hungry but has early satiety. He complains of emesis usually first thing in the a.m. since December, 1-2 months. This morning at 330am he got up to get a bottle of water. He drank some and went back to bed and in 2 minutes he was vomiting for 5-10 minutes. He denies any blood in vomit. He has been drinking tea and water trying to stay hydrated. He feels like he is losing weight but can't quantify as he doesn't weigh himself. He does notice his pants are very big. He denies recent illness, tick bites, sick contacts, melena, hematochezia, f/c/s, dysuria, increased urgency/freq, hematuria, low back pain, abd pain and constipation. He chews tobacco but does not smoke. He has chewed for 17 years ~ 1 can/2 days. Previous ETOH use but sober for 5months. He does use medical marijuana to sleep/anxiety. He uses "very little," to help him sleep at night. He has been using it since november. Denies recreational drug use. In ED pt remained hemodynamically stable. He was found to have sinus pauses with movement on rhythm strip. His initial trop was negative and initial ecg showed NSR. Chest x-ray showed cardiomegaly but no acute process. Admission Exam Per Admitting Provider Constitutional: WD/WN, vitals as above, NAD, sitting up in bed, pleasant, conversing easily Head: Normocephalic, Atraumatic Eyes: PERRL, conjunctivae normal, anicteric sclerae ENMT: external ear and nose normal, oropharynx normal Neck: trachea midline, no thyromegaly normal visual inspection Respiratory: normal respiratory effort, lungs clear to auscultation, no wheeze, rales, rhonchi. Normal insp/exp effort, no accessory muscle use Cardiovascular: RRR, distant heart sounds 2/2 to body habitus, no murmur, no edema Vessels: no JVD or carotid bruit Chest: normal inspection of chest Abdomen: normal bowel sounds, soft, nontender, no hepatosplenomegaly Musculoskeletal: no cyanosis or clubbing, AROM x 4 Skin: no rashes, warm and dry normal turgor Neurologic: PERRL, EOMI, accommodation nl, no face palsy, no dysarthria CN's II-XI intact bilaterally and moves all extremities Psychiatric: A+Ox3, euthymic affect : deferred Principal Diagnosis SYMPTOMATIC BRADYCARDIA Status post single-chamber atrial pacemaker placement 02/18/2022 Discharge Exam General- oriented x 2, not in distress, speaks in sentences with no effort or accessory muscle use Eyes- anicteric Neck- no JVD Lungs- clear BS bilaterally, no rales/wheezes Heart- normal rate, regular rhythm; no murmurs Incision site, mild erythema, no bleeding or discharge Positive tenderness Abdomen- normal bowel sounds, nondistended, soft, nontender Extremities- no pretibial edema, no calf tenderness Neuro- alert, oriented x 3; no gross focal neurologic deficits Skin- warm & dry Discharge Data Allergies Allergy/AdvReac Type Severity Reaction Status Date / Time amlodipine Allergy Intermediate Hives Verified 09/18/21 15:30 hydrochlorothiazide Allergy Intermediate RASH, Verified 09/18/21 15:30 THROAT SWELLS ketorolac Allergy Intermediate RASH, Verified 09/18/21 15:30 NAUSEA amoxicillin Allergy Mild RASH Verified 09/18/21 15:30 Penicillins Allergy Mild AMOXICILLIN Verified 09/18/21 15:30 = RASH Consultations 02/16/22 12:02 ED Decision to Admit Stat 02/16/22 12:58 Consult Cardiology Routine 02/16/22 16:00 Consult Psychiatry Routine 02/18/22 13:26 Consult Cardiology Routine Procedures Performed Operation Date: 02/18/22 15:30 Actual Procedures p Pacer with Atrial Lead - Vasile Watt MD s Venogram, Unilateral - Vasile Watt MD Ordered Studies 02/16/22 12:31 CT head/brain wo con Stat FINDINGS: Brain parenchyma: The brain parenchyma is normal in appearance. There is no hemorrhage, mass effect, or evidence of acute territorial ischemia by CT cr iteria. Park-white matter differentiation is preserved. No extra-axial fluid collection is seen. Ventricles, sulci, cisterns: Normal in configuration. Intracranial vasculature: The visualized intracranial vasculature at the skull base is normal in appearance. Calvarium: There is no depressed calvarial fracture. Sinuses and mastoids: There is subtotal opacification of the right maxillary antrum. Mild to moderate mucosal thickening is noted in the left maxillary sinus. Advanced mucosal thickening is also seen within the right frontal sinus and the ethmoid sinuses. There is trace mucosal thickening in the sphenoid sinuses. The mastoid air cells are well pneumatized. Orbits: The bony orbits are grossly intact. IMPRESSION: There is no hemorrhage, mass effect, or evidence of acute territo rial ischemia by CT criteria. 02/16/22 12:32 CT abd pelvis IV con only Stat FINDINGS: Mild groundglass densities of the lung bases. There are a few scattered solid pulmonary nodules measuring up to 3-4 mm. Mild bronchial wall thickening. There is no pneumatosis or pneumoperitoneum identified. Imaged inferior cardiac chambers are unremarkable. The spleen is mildly enlarged, 14.5 cm. The pancreas, adrenal glands and liver appear unremarkable. Patency of the hepatic and portal veins. There is symmetric enhancement of the kidneys. Subcentimeter hypodensity of the superior pole left kidney is too small to characterize. Mild nonspecific urinary bladder wall thickening. The aorta and IVC are within normal limits. There are no pathologically enlarged lymph nodes identified. There are a few prominent subcentimeter retroperitoneal lymph nodes which may be physiologic. There is no bowel obstruction or bowel wall thickening. Mild colonic diverticulosis. Noninflamed appendix. No ascites or mesenteric inflammation. Age-indeterminate superior endplate compression deformity without retropulsion involves the T8 vertebral body. IMPRESSION: 1. No bowel obstruction or bowel wall thickening. Normal appendix. 2. Splenomegaly. 3. Age-indeterminate superior endplate compression deformity of the T8 vertebral body. 4. Groundglass densities of the lung bases are suggestive of probable atelectasis. A nonspecific pneumonitis could appear similarly. 5. There are a few scattered solid pulmonary nodules of the lung bases measuring up to 4 mm. ACT 112: Negative or not required by law. 02/18/22 15:34 CL Cath Imgs for PACS use only Routine 02/18/22 16:00 EP Lab Images for PACS ONCE Hospital Course (1) Syncope: (2) Dizziness: (3) Sinus pause: (4) Vomiting: (5) Medical marijuana use: (6) Hypertension: (7) Sleep apnea with use of continuous positive airway pressure (CPAP): (8) Obesity: (9) Nicotine dependence: This is a 31 yr old M who has a significant PMH of HTN, THEODORA on cpap, IBS, hx of alcohol abuse, mood disorder, intermittent explosive disorder who presents to ED with syncopal episode. Syncope Dizziness Vomiting Sinus pauses 02/18/2022 status post single-chamber atrial pacemaker by Dr. Watt Patient doing well today, no dizziness or any other cardiac symptoms Cleared for discharge by cardiology service Follow-up with cardiology clinic next week, patient will be called by cardiology clinic DC clonidine and propranolol per cardiology service recommendation Instructions given to patient HTN Losartan increased to 25 mg twice daily Early Satiety Loss of appetite Vomiting obtain ct a/p r/o acute pathology ? if 2/2 to marijuana use as pt recently started in November or adr of psych medications? CT abdomen/pelvis: 1. No bowel obstruction or bowel wall thickening. Normal appendix. 2. Splenomegaly. 3. Age-indeterminate superior endplate compression deformity of the T8 vertebral body. 4. Groundglass densities of the lung bases are suggestive of probable atelectasis. A nonspecific pneumonitis could appear similarly. 5. There are a few scattered solid pulmonary nodules of the lung bases measuring up to 4 mm. No nausea /vomiting since admission Depakote level normal Follow-up with PCP next week If without improvement, refer to GI for possible endoscopy Hx of ETOH Abuse sober for 5 months Mood disorder Depression Intermittent explosive disorder Insomnia Psych consulted-Dr. Rendon Depakote level 75 continue zyprexa, Depakote ,vistaril, lexapro, gabapentin, trazodone Recommend to continue naltrexone 50 mg at night--> held during admission as syncope, nausea vomiting listed as adverse effect Medical marijuana use for anxiety and insomnia daily use, feels there has been no correlation with stopping marijuana and am nausea Counseled by psych Abnormal CT abdomen/pelvis findings Please refer to full report in the Ordered Studies section above Further work up, management, and ff up as outpatient 1. No bowel obstruction or bowel wall thickening. Normal appendix. 2. Splenomegaly. 3. Age-indeterminate superior endplate compression deformity of the T8 vertebral body. 4. Groundglass densities of the lung bases are suggestive of probable atelectasis. A nonspecific pneumonitis could appear similarly. 5. There are a few scattered solid pulmonary nodules of the lung bases measuring up to 4 mm. Tobacco abuse encourage nicotine cessation Morbid Obesity BMI 40.1 encourage weight loss PCP: Dr. Kapadia plan of care discussed with patient and his mother in detail and at length all questions answered he is understanding, agreeable, comfortable with the plan of care Total Time Total Time Spent Total Time Spent (In Minutes): >30 minutes Discharge Plan Discharge Items Patient Disposition: Home - Self-Care Reason For Visit: SYNCOPE Discharge Diagnosis: SYMPTOMATIC BRADYCARDIA S/P PACEMAKER PLACEMENT Condition on Discharge: Good Activity: As commented below Activity Comment: INCREASE ACTIVITY GRADUALLY TOLERATED Lifting: Wait until after follow-up appointment Exercise/Sports: Wait until after follow-up appointment Driving/Machine Use: NO DRIVING UNTIL RE-EVALUATED AND ALLOWED BY [facility] ON FOLLOW UP VISI Non-emergency contact: Primary Care Provider Call non-emergency contact if: you have any medication questions, your symptoms worsen, your pain is not controlled, your pain is worsening, your pain is unusual for you, your pain is concerning for you and you have a fever Follow-up/Referrals: Amor Kapadia MD [Primary Care Provider] - Edouard Carpio MD [Physician] - Diet: Heart Healthy Addtl Attending Provider Instructions: PLEASE REFER TO YOUR NEW MEDICATION LIST AND FOLLOW INSTRUCTIONS CAREFULLY. YOUR NEW MEDICATIONS INCLUDE: INCREASE LOSARTAN TO 25MG TWICE A DAY. STOP CLONIDINE AND PROPRANOLOL THESE MEDICATIONS CAN CAUSE SLOW HEART RATE. PLEASE CALL YOUR PRIMARY CARE PHYSICIAN OR RETURN TO THE ER IMMEDIATELY IF WITH WORSENING OF SYMPTOMS, INCLUDING DIZZINESS, WEAKNESS, SHORTNESS OF BREATH, CHEST PAIN. BYSTANDERS SHOULD CALL 911 IMMEDIATELY IF YOU HAVE LOSS OF CONSCIOUSNESS. FOLLOW UP WITH PRIMARY CARE PHYSICIAN IN 1 WEEK. FOLLOW UP WITH SEWER CONNECTOR DR. CARPIO IN 1 WEEK. [facility] CALLING YOU FOR AN APPOINTMENT. refrain from lifting left arm above the shoulder behind the neck for 6 weeks. keep the wound dry and Steri-Strips intact for at least 5 days. Stand-Alone Forms: My [facility], Smoking Cessation Medications and DC Order Prescriptions: Continued diclofenac sodium 75 mg Tablet,Delayed Release (Dr/Ec) 75 mg PO BID PRN (Reason: Pain) RF: 0 albuterol sulfate 90 mcg/actuation Hfa Aerosol Inhaler 2 puff INHALATION Q4H PRN (Reason: Wheezing) RF: 0 sumatriptan succinate 6 mg/0.5 mL Pen Injector 6 mg subcut DIRECTED PRN (Reason: Headache) RF: 0 divalproex 500 mg tablet extended release 24 hr 1,500 mg PO DAILY RF: 0 olanzapine 5 mg tablet 5 mg PO BID RF: 0 hydroxyzine pamoate 50 mg capsule 50 mg PO BID RF: 0 divalproex 500 mg tablet extended release 24 hr 1,000 mg PO HS RF: 0 escitalopram oxalate 10 mg tablet 10 mg PO DAILY RF: 0 cyclobenzaprine 10 mg Tablet 10 mg PO HS PRN (Reason: MUSCLE SPASMS) 30 Days Qty: 30 RF: 0 trazodone 100 mg Tablet 200 mg PO HS 30 Days Qty: 60 RF: 0 gabapentin 300 mg capsule 300 mg PO TID 30 Days Qty: 90 RF: 0 omeprazole 20 mg Capsule,Delayed Release(Dr/Ec) 20 mg PO DAILYBB 30 Days Qty: 30 RF: 0 dicyclomine 10 mg Capsule 10 mg PO QID PRN (Reason: ABD PAIN) Qty: 30 RF: 0 Changed losartan 25 mg Tablet 25 mg PO BID 30 Days Qty: 60 RF: 1 Discontinued clonidine HCl 0.1 mg tablet 0.1 mg PO AMHS RF: 0 propranolol 10 mg Tablet 20 mg PO BID 30 Days Qty: 120 RF: 0 Discharge Orders: Discharge Order (Routine); Ordered 02/19/22 Ordered By: Jorge L Castillo Admission Data Admit Date/Time: 02/17/22 10:46 Attending Provider: Jorge L Castilloit Provider: Dayana Lemus Primary Care Provider: Amor Kapadia Other Providers: Edouard Carpio ; Felisa Bills ; Rupali Rendon ; Linnea Johnson ; Dayana Lemus ; Vasile Watt Other Interventions: Discharge Summary Assessment (RN) Last Done: 02/19/22 15:39
== END 2022-02-19 16:32 | disposition home or self-care (01) | DRG 243 ==
LOC: ED 09:57 → 2S 09:57 → SUATTDRO 11:59 → 2S 13:03 → 2E 02-17 19:12